=== PATIENT | male | born 1990 | race American Indian/Alaskan Native ===

== ENCOUNTER 2019-12-06 18:35 | Inpatient (IN) | payer OTHER, SELFPAY ==
[2019-12-06 18:40] VITALS: BP 156/107; PULSE 114; RESP 22; TEMP 36.8; O2SAT 98
[2019-12-06 19:07] LABS: Add Manual Diff / Slide Review NO; Basophils Absolute Auto 100 /uL (0-100); Basophils Percent Auto 0.9 % (0-2); Eosinophils Absolute Auto 0 /uL (0-450); Eosinophils Percent Auto 0.1 % (2-4); Hematocrit 50.4 % (41-53); Lymphocytes Absolute Auto 1000 /uL (1100-4500); Lymphocytes Percent Auto 7.1 % (25-40); Mean Corpuscular HGB Conc 33.8 % (30-36); Mean Corpuscular Hemoglobin 31.1 PG (26-34); Mean Corpuscular Volume 92.2 fL (80-100); Monocytes Absolute Auto 500 /uL (0-900); Monocytes Percent Auto 3.4 % (3-14); Neutrophils Absolute Auto 13100 /uL (1500-7000); Neutrophils Percent Auto 88.5 % (50-75); Platelet Count 336 X10^3/uL (150-400); Red Blood Cell Count 5.47 X10^6/uL (4.5-5.9); Red Cell Distribution Width 13.8 % (11.6-14.8); White Blood Cell Count 14.8 X10^3/uL (4.5-11.0)
[2019-12-06 19:29] LABS: Alanine Aminotransferase 116 IU/L (<50); Albumin 4.9 g/dL (3.5-5.0); Albumin Globulin Ratio 1.4 (1.0-2.8); Alkaline Phosphatase 111 U/L (38-126); Aspartate Aminotransferase 99 IU/L (17-59); BUN Creatinine Ratio 12.2 (6-22); Bilirubin Total 0.7 mg/dL (0.2-1.3); Blood Urea Nitrogen 11 mg/dL (9-20); Calcium 10.3 mg/dL (8.4-10.2); Carbon Dioxide 27 mmol/L (22-32); Chloride 98 mmol/L (98-107); Estimated Glomerular Filt Rate > 60.0 mL/min (>60); Globulin 3.6 g/dL (1.7-4.1); Glucose 152 mg/dL (70-100); HEMOLYSIS < 15 (0-50); Potassium 3.9 mmol/L (3.4-5.1); Sodium 138 mmol/L (137-145); Total Protein 8.5 g/dL (6.3-8.2)
[2019-12-06 19:30] VITALS: BP 155/80; PULSE 110; RESP 26; O2SAT 99
[2019-12-06 19:41] LABS: Troponin I < 0.012 ng/mL (0.01-0.034)
[2019-12-06 19:44] LABS: Lipase 4863 U/L (23-300)
[2019-12-06 20:00] VITALS: BP 135/92; PULSE 105; RESP 30; O2SAT 99
--- NOTE | 2019-12-06 20:43 | DI.US.S_ITS ---
PROCEDURE: US ABDOMEN LIMITED INDICATIONS: RIGHT UPPER QUADRANT PAIN TECHNIQUE: Real-time focused scanning was performed of the abdomen, with image documentation. COMPARISON: None. FINDINGS: The liver is enlarged and measures up to 21.5 cm in craniocaudal dimension. There is prominent increased echogenicity of the liver when compared to the right kidney. This does result in difficulty evaluating the liver for deep liver lesions. No large liver lesions are identified. The gallbladder is normal in size. There is no cholelithiasis or evidence of gallbladder wall inflammation. Intrahepatic bile ducts were not adequately seen; however, are not substantially dilated. The common bile duct measures 4 mm in diameter. The pancreas was not adequately seen related to overlying bowel gas. Only partially included on this examination is the right kidney, which is grossly normal. However, the right kidney is not entirely imaged. The abdominal aorta and inferior vena cava were also not imaged. IMPRESSION: 1. No cholelithiasis or evidence of acute cholecystitis. 2. Hepatomegaly with probable hepatic steatosis. Clinical correlation to exclude other chronic liver diseases is recommended. Note: The preliminary report provided by [facility]. is concordant with the final report. Dictated by: Tim Pride M.D. on 12/07/2019 at 8:31 Approved by: Tim Pride M.D. on 12/07/2019 at 8:32
--- NOTE | 2019-12-06 20:48 | ED_ITS ---
HPI - General Adult General Chief complaint: Abdominal Pain Stated complaint: EXTREME STOMACH AND BACK PAIN Time Seen by Provider: 12/06/19 20:37 Source: patient Mode of arrival: Ambulatory History of Present Illness HPI narrative: For evaluation of epigastric and left upper quadrant abdominal pain and nausea and vomiting. Has had the symptoms for the past 24-48 hours however is worsened over the past 12. States that he gets nauseous and vomits every time he tries to eat anything. States he does drink alcohol. States he drinks ?6 shots? a day and more on the weekends. Denies any other drug use. No urinary symptoms. No change in his bowel habits. Review of Systems Constitutional Constitutional: Denies fever(s) Cardiovascular Cardiovascular: Denies chest pain and Denies dyspnea Respiratory Respiratory: Denies dyspnea Gastrointestinal Gastrointestinal: Reports abdominal pain, Reports nausea and Reports vomiting Genitourinary Genitourinary: Denies dysuria Musculoskeletal Musculoskeletal: Denies myalgias and Denies arthralgias Integumentary/Breasts Skin/Breast: Denies lesions and Denies rash Neurologic Neurologic: Denies behavioral changes Psychiatric Psychiatric: Denies behavioral changes Hematologic/Lymphatic Hematologic/Lymphatic: Denies easy bleeding and Denies easy bruising Patient History Medical History Patient denies medical problems (Acute) Social History Smoking Status: Current every day smoker Smoking Status: Current every day smoker alcohol intake frequency: 3 or more drinks per day Exam Initial Vital Signs Initial Vital Signs: Vital Signs Temperature 98.3 F 12/06/19 18:40 Pulse Rate 114 H 12/06/19 18:40 Respiratory Rate 22 12/06/19 18:40 Blood Pressure 156/107 H 12/06/19 18:40 Pulse Oximetry 98 12/06/19 18:40 Const General: cooperative, comfortable and well developed Limitations: mental status not altered HENOK Head: normal to inspection and normocephalic Resp Effort & Inspection: normal respiratory effort Auscultation: clear to auscultation bilaterally Cardio Rate: tachycardic Rhythm: regular rhythm GI Inspection: non-distended Palpation: soft, No firm and tender (Epigastric and left upper quadrant) Back/Spine/Pelvis Back: No CVA tenderness Skin Lesions: no lesions Rashes: no rashes Neuro General: alert and awake Cognition: normal cognition Speech: speech normal Extrem General: normal to inspection and capillary refill normal Psych Appearance: grossly normal and well kempt Scores GCS Harsh coma scale eye opening: Spontaneous [place] coma scale verbal response: Orientated Harsh coma scale motor response: Obey commands Harsh coma scale total score: 15 Course Orders Ordered: ED Orders 12/06/19 18:42 EKG-12 Lead Stat 12/06/19 18:55 Complete Blood Count AUTO DIFF Stat Comprehensive Metabolic Panel Stat Ethanol (ETOH) Stat Lipase Stat Troponin I Stat 12/06/19 20:43 US abdomen limited Stat Sodium Chloride (Normal Saline 0.9%) 1,000 mls @ 150 mls/hr IV CONT NERI Last Admin: 12/06/19 22:18 Dose: 1,000 mls/hr Documented by: MOMO Discontinued Medications Hydromorphone HCl (Dilaudid) 0.5 mg IV NOW ONE Stop: 12/06/19 22:32 Last Admin: 12/06/19 22:37 Dose: 0.5 mg Documented by: MOMO Morphine Sulfate (Morphine) 2 mg IV NOW ONE Stop: 12/06/19 20:49 Last Admin: 12/06/19 21:18 Dose: 2 mg Documented by: MOMO Morphine Sulfate (Morphine) 2 mg IV NOW ONE Stop: 12/06/19 22:12 Last Admin: 12/06/19 22:15 Dose: 2 mg Documented by: MOMO Vital Signs Vital signs: Vital Signs - 8 hr 12/06/19 18:40 12/06/19 19:30 12/06/19 20:00 Temperature 98.3 F Pulse Rate 114 H 110 H 105 H Respiratory Rate 22 26 H 30 H Blood Pressure 156/107 H Blood Pressure [Right Arm] 155/80 H 135/92 H Pulse Oximetry 98 99 99 Medical Decision Making Lab Data Lab results reviewed: Yes I reviewed the patient's lab results. Result diagrams: 12/06/19 18:55 12/06/19 18:55 Labs: Lab Results 12/06/19 12/06/19 12/06/19 Range/Units 18:55 18:55 18:55 WBC 14.8 H (4.5-11.0) X10^3/uL RBC 5.47 (4.5-5.9) X10^6/uL Hgb 17.0 (13.5-17.5) g/dL Hct 50.4 (41-53) % MCV 92.2 (80-100) fL MCH 31.1 (26-34) PG MCHC 33.8 (30-36) % RDW 13.8 (11.6-14.8) % Plt Count 336 (150-400) X10^3/uL Neut % (Auto) 88.5 H (50-75) % Lymph % (Auto) 7.1 L (25-40) % [place] % (Auto) 3.4 (3-14) % Eos % (Auto) 0.1 L (2-4) % Baso % (Auto) 0.9 (0-2) % Neut # (Auto) 26613 H (8675-0005) /uL Lymph # (Auto) 1000 L (2471-7757) /uL [place] # (Auto) 500 (0-900) /uL Eos # (Auto) 0 (0-450) /uL Baso # (Auto) 100 (0-100) /uL Sodium 138 (137-145) mmol/L Potassium 3.9 (3.4-5.1) mmol/L Chloride 98 (98-107) mmol/L Carbon Dioxide 27 (22-32) mmol/L BUN 11 (9-20) mg/dL Creatinine 0.90 (0.66-1.25) mg/dL Estimated GFR > 60.0 (>60) mL/min BUN/Creatinine Ratio 12.2 (6-22) Glucose 152 H (70-100) mg/dL Calcium 10.3 H (8.4-10.2) mg/dL Total Bilirubin 0.7 (0.2-1.3) mg/dL AST 99 H (17-59) IU/L ALT 116 H (<50) IU/L Alkaline Phosphatase 111 (38-126) U/L Troponin I < 0.012 (0.01-0.034) ng/mL Total Protein 8.5 H (6.3-8.2) g/dL Albumin 4.9 (3.5-5.0) g/dL Globulin 3.6 (1.7-4.1) g/dL Albumin/Globulin Ratio 1.4 (1.0-2.8) Lipase 4863 H (23-300) U/L Ethyl Alcohol < 10 ( - 10) mg/dL Imaging Data US - abdomen: Radiologist's Impression: Hepatomegaly with fatty infiltration of the liver ECG Data Attestation: I personally reviewed and interpreted this ECG as follows: Prior ECG tracings: not available for review Interpretation: Sinus tachycardia Ventricular rate of 101 Normal axis Normal QRS Normal QTC No ST T wave changes MDM Narrative Medical decision making narrative: Patient with labs and physical exam consistent with pancreatitis most likely from his alcohol use. Does have a slight elevation in his LFTs however his right upper quadrant ultrasound was negative for acute gallbladder pathology. Symptoms somewhat controlled with medications. He is afebrile. His leukocytosis. Discussed the case with BRIQUETTE MACHINE OPERATOR HELPER Eugenio the night provider who will admit for further evaluation. Discussed this with the patient who expressed understanding and agreement. Discharge Plan Departure Patient Disposition: Admitted As Inpatient Clinical Impression: Pancreatitis Qualifiers: Chronicity: acute Pancreatitis type: alcohol induced Acute pancreatitis complication: unspecified Qualified Code(s): K85.20 - Alcohol induced acute pancreatitis without necrosis or infection
[2019-12-06 21:01] LABS: Ethanol (ETOH) < 10 mg/dL
[2019-12-06] MEDS: MORPHINE 2 MG/ML INJ IV ×2 (21:18→22:15)
[2019-12-06] MEDS: SODIUM CHLORIDE 0.9% 1,000 ML 1000 ML IV (22:18)
[2019-12-06] MEDS: HYDROMORPHONE 0.5 MG INJ IV (22:37)
[2019-12-06 23:29] VITALS: O2SAT 95
--- NOTE | 2019-12-06 23:36 | P.HP_ITS ---
History of Present Illness History of Present Illness Date Patient Seen: 12/06/19 Time Patient Seen: 23:37 Chief complaint: EXTREME STOMACH AND BACK PAIN Narrative: Mr. Tc Marcelino is a 28-year-old male with history significant for hypertension, exercise induced asthma and alcohol abuse who presents to the ER for acute abdominal pain. The patient provides a history of 2 days poor sleep with abdominal pain. He describes his abdominal pain as left upper quadrant and epigastric. He has associated worsening of pain nausea and vomiting with eating. Developing back pain today prompting him to seek care in the emergency department. The patient provides history of drinking least 6 shots of Tequila daily. His last drink was approximately 24 hours ago. He has had withdrawal symptoms of tremors. The patient does report a fall 5 days ago slipping on icy steps with resulting low back pain. Patient medicated in the ER for his pain that he rates at 3/10, dull and aching. Patient describes no complaints of fevers or chills, headaches or dizziness, no nasal congestion or sore throat. He has had no chest pain or palpitations. He has no shortness of breath though he has exercise induced asthma for which she uses an inhaler. He has abdominal pain as described above but reports no changes in bowel or bladder habits. He reports no other extremity or joint pains. Upon arrival to the ER he is afebrile with temperature 98.3?, heart rate of 114, blood pressure 156/6107, respirations of 22 saturating 98% on room air. Abdominal ultrasound is obtained which finds hepatomegaly with fatty infiltrates of the liver, no notation is made of pancreatic changes or ductal dilation. On laboratory analysis the patient has an increased white count 14.8, hemoglobin of 17.0, hematocrit of 50.4 and platelets of 338. His electrolytes are within normal limits as a BUN of 11 and creatinine is 0.9. His nonfasting glucose is 152. He has a total bilirubin of 0.4, AST of 99, ALT 116 and alkaline phosphatase of 111. Has an elevated lipase of 4863. The patient is admitted to the medicine service for acute alcoholic pancreatitis. Patient History Medical History (Updated 12/07/19 @ 01:24 by CARLOS Vieira) Asthma, exercise induced (Acute) Hypertension (Acute) Patient denies medical problems (Acute) Surgical History No pertinent past surgical history (Acute) Family & Social History Family History (Updated 12/07/19 @ 01:26 by CARLOS Vieira) Father Hypertension Alcoholism Mother No significant medical problems Tobacco & Substance use: Smoking Status Current every day smoker alcohol intake frequency 3 or more drinks per day Comment: Patient lives in a single family home with his to whom has been for 9 years. He states that he has been estranged from his father but d oes know that has history of hypertension alcohol abuse. His mother reports his to be in good health. Overall he reports no family history of heart or kidney disease. His grandparents both had diabetes and his grandmother had breast cancer. Occupation: computer science teacher. Smoking: Patient endorses 1-2 cigarettes per day for 3-4 years. Alcohol: The patient reports 6 shots of Tequila daily. Substance use: The patient reports occasional cannabis. Advanced directives. The patient has no formal advanced directive who states his wish to be FULL CODE. He designates his to be surrogate decision maker. Meds Home Medications and Allergies Home Medications Medication Instructions Recorded Confirmed Type lisinopril 20 mg PO DAILY 12/06/19 12/07/19 History Allergies Allergy/AdvReac Type Severity Reaction Status Date / Time No Known Drug Allergies Allergy Verified 12/07/19 00:12 Review of Systems Review of Systems Narrative: All systems reviewed and found unremarkable under discussed in the HPI above. Exam Vital Signs (past 8 hours): - 12/06/19 18:40 12/06/19 19:30 12/06/19 20:00 Temperature 98.3 F Pulse Rate 114 H 110 H 105 H Respiratory Rate 22 26 H 30 H Blood Pressure 156/107 H Blood Pressure [Right Arm] 155/80 H 135/92 H Pulse Oximetry 98 99 99 Oxygen Delivery Method Room Air Narrative Exam Narrative: GENERAL APPEARANCE: well developed, obese male with BMI of 41.3, uncomfortable appearing HEENT: Normocephalic, PERRLA, conjunctiva clear, sclerae anicteric, EOMs intact without nystagmus, no sinus tenderness to percussion, no rhinorrhea, mucous membranes are moist and pink, white coating on tongue NECK/THYROID: Short stocky neck, supple, no JVD, no carotid bruit, no thyromegaly, trachea midline. LYMPH NODES: no cervical or supraclavicular lymphadenopathy. SKIN: [place], warm and dry, no visible lesions, rashes, ulcerations or petechiae. HEART: Tachycardic rate with regular rhythm, S1-S2, no murmur, no rubs or gallops, brisk capillary refill, no edema LUNGS: clear to auscultation bilaterally, no coarseness crackles or wheezing, no cough present CHEST: Symmetrical movement, no accessory muscle use, good tidal volume. ABDOMEN: abdominal tenderness epigastrium left upper and left lower quadrants, no guarding or peritoneal signs, no organomegaly, no flank tenderness, active bowel tones. BACK: Mild tenderness to lumbar spine on palpation. EXTREMITIES: moves all extremities, strength is 5/5 and symmetrical, no de formities or joint effusions. NEUROLOGIC: AAO x4, no focal neurologic deficits, sensation intact to light touch, hearing grossly normal to speech. PSYCH: Cooperative, linear thought process, appropriate with stable behavior Objective Labs Result Diagrams: 12/06/19 18:55 12/06/19 18:55 Labs: Laboratory Results - last 24 hr 12/06/19 12/06/19 12/06/19 18:55 18:55 18:55 WBC 14.8 H RBC 5.47 Hgb 17.0 Hct 50.4 MCV 92.2 MCH 31.1 MCHC 33.8 RDW 13.8 Plt Count 336 Neut % (Auto) 88.5 H Lymph % (Auto) 7.1 L [place] % (Auto) 3.4 Eos % (Auto) 0.1 L Baso % (Auto) 0.9 Neut # (Auto) 57275 H Lymph # (Auto) 1000 L [place] # (Auto) 500 Eos # (Auto) 0 Baso # (Auto) 100 Sodium 138 Potassium 3.9 Chloride 98 Carbon Dioxide 27 BUN 11 Creatinine 0.90 Estimated GFR > 60.0 BUN/Creatinine Ratio 12.2 Glucose 152 H Calcium 10.3 H Total Bilirubin 0.7 AST 99 H ALT 116 H Alkaline Phosphatase 111 Troponin I < 0.012 Total Protein 8.5 H Albumin 4.9 Globulin 3.6 Albumin/Globulin Ratio 1.4 Lipase 4863 H Ethyl Alcohol < 10 Assessment & Plan Assessment & Plan narrative: This is a 28-year-old male who presents with 2 days of progressive abdominal pain developing back pain today with associated nausea vomiting with any oral intake. His diagnosed pancreatitis with history of alcohol dependence with mild withdrawal symptoms of tremors. 1. Acute pancreatitis, alcohol related, present on admission, active -patient with 2 days of progressive pain developing epigastric and left upper quadrant pain radiating to the back with associated nausea vomiting with oral intake. -abdominal ultrasound finding hepatomegaly with fatty liver but no ductal dilatation or peripancreatic fluid. -laboratory findings with leukocytosis of 14.8, lipase of 4863. Has elevated AST at 99 and ALT at 116 with normal bilirubin 0.7. Triglycerides are 114. -patient is NPO, normal saline 150 cc/hour. -hydromorphone 0.5-1 mg every 4 hours as needed for pain -Zofran 4 mg every 6 hours as needed for nausea 2. Alcohol dependence, present on admission, active -patient source history of 6 shots of Tequila daily -tox screen reveals alcohol of less than 10 mg/dL -patient with history of mild withdrawal symptoms tremors. -CIWA protocol -ordered lorazepam PO or IV per CIWA protocol 3. Essential hypertension, present on admission, active -patient with elevated blood pressure upon arrival 156/107 improved to 140 3/91 upon arrival to the floor, elevation believes related to pain. -will continue patient's home regimen of lisinopril 20 mg daily. 4. Asthma, exercise induced, stable. -no shortness of breath, no wheezing on exam. -patient's SpO2 is 95% on room air. -albuterol nebulizer every 2 hours as needed for shortness of breath or wheezing. VTE: SCDs, Lovenox Diet: NPO IV fluid: Normal saline 150 cc/hour The patient is admitted to the hospital due to the severity of his symptoms and risk for complications and adverse events. [facility] expected length of stay to be greater than 2 midnights. Scores GCS Christopher coma scale eye opening: Spontaneous Christopher coma scale verbal response: Orientated Harsh coma scale motor response: Obey commands Christopher coma scale total score: 15
[2019-12-06 23:44] VITALS: BP 169/96; PULSE 112; RESP 28; O2SAT 99
[2019-12-06 23:49] LABS: Magnesium 1.9 mg/dL (1.6-2.3); Triglycerides 114 mg/dL (35-150)
[2019-12-06 23:50] VITALS: BP 143/91; PULSE 116; RESP 16; TEMP 37; O2SAT 95
[2019-12-06 23:51] VITALS: BMI 41.3
[2019-12-07] VITALS (11 sets, daily range): BP systolic 124–150; BP diastolic 70–85; PULSE 113–121; RESP 18; TEMP 36.6–38.1; O2SAT 93–95
[2019-12-07] MEDS: HYDROMORPHONE 1 MG INJ IV ×5 (00:20→22:12)
[2019-12-07] MEDS: SODIUM CHLORIDE 0.9% 1,000 ML 150 ML IV ×4 (00:20→20:36)
--- NOTE | 2019-12-07 02:54 | PC.ADMIT ---
[id number] Admission Note: The patient,Tc Marcelino,28 y/o, was given written information regarding hospital policies, unit procedures and contact persons. Patient's smoking status: Current every day smoker. Vital Signs - 8 hr 12/06/19 19:30 12/06/19 20:00 12/06/19 23:44 Temperature Pulse Rate 110 H 105 H 112 H Respiratory Rate 26 H 30 H 28 H Blood Pressure 169/96 H Blood Pressure [Right Arm] 155/80 H 135/92 H Pulse Oximetry 99 99 99 12/06/19 23:50 Temperature 98.6 F Pulse Rate 116 H Respiratory Rate 16 Blood Pressure 143/91 H Blood Pressure [Right Arm] Pulse Oximetry 95 Patient arrived via W/C accompanied by ED LOAN SERVICE OFFICER and Tami, transferred self to bed. AXOX4, able to make needs known, no skin issues noted. Patient is tachycardic and hypertensive with regular rate and rhythm, lung sounds clear on room air, no complaints of nausea/vomiting but c/o abdominal pain and is tender on palpation, denies diarrhea and has stooled in the last 24 hours. Patient reports last drink was 24 hours prior and is CIWA of 0 at time of admission. Patient acknowledges during therapeutic communication that his lifestyle and drinking habits have contributed to his admission to the hospital. present for all conversations and education. Oriented to room and call light, patient reports recent fall in the last several days, is a moderate fall risk, bed alarm on and functioning, call light in reach, patient calls appropriately.
[2019-12-07] MEDS: KETOROLAC 15 MG/ML VIAL IV ×3 (03:13→20:20)
[2019-12-07 07:35] LABS: Add Manual Diff / Slide Review NO; Basophils Absolute Auto 100 /uL (0-100); Basophils Percent Auto 0.7 % (0-2); Eosinophils Absolute Auto 0 /uL (0-450); Eosinophils Percent Auto 0.1 % (2-4); Hematocrit 45.2 % (41-53); Hemoglobin 15.2 g/dL (13.5-17.5); Lymphocytes Absolute Auto 1500 /uL (1100-4500); Lymphocytes Percent Auto 11.9 % (25-40); Mean Corpuscular HGB Conc 33.6 % (30-36); Mean Corpuscular Hemoglobin 31.3 PG (26-34); Mean Corpuscular Volume 93.1 fL (80-100); Monocytes Absolute Auto 1000 /uL (0-900); Monocytes Percent Auto 7.5 % (3-14); Neutrophils Absolute Auto 10100 /uL (1500-7000); Neutrophils Percent Auto 79.8 % (50-75); Platelet Count 291 X10^3/uL (150-400); Red Blood Cell Count 4.86 X10^6/uL (4.5-5.9); Red Cell Distribution Width 13.8 % (11.6-14.8); White Blood Cell Count 12.7 X10^3/uL (4.5-11.0)
[2019-12-07 07:49] LABS: Alanine Aminotransferase 75 IU/L (<50); Albumin 3.9 g/dL (3.5-5.0); Albumin Globulin Ratio 1.3 (1.0-2.8); Alkaline Phosphatase 69 U/L (38-126); Aspartate Aminotransferase 45 IU/L (17-59); BUN Creatinine Ratio 12.5 (6-22); Bilirubin Total 0.8 mg/dL (0.2-1.3); Bilirubin Unconjugated 0.7 mg/dL (0.0-1.1); Blood Urea Nitrogen 10 mg/dL (9-20); Calcium 9.3 mg/dL (8.4-10.2); Carbon Dioxide 24 mmol/L (22-32); Chloride 102 mmol/L (98-107); Estimated Glomerular Filt Rate > 60.0 mL/min (>60); Glucose 121 mg/dL (70-100); Potassium 3.9 mmol/L (3.4-5.1); Sodium 137 mmol/L (137-145); Total Protein 6.9 g/dL (6.3-8.2)
[2019-12-07 07:55] LABS: HEMOLYSIS 17 (0-50)
[2019-12-07 07:56] LABS: Lipase 2244 U/L (23-300)
[2019-12-07 08:16] LABS: Hemoglobin A1C% w Est Avg Glu 5.3 % (4.0-6.0)
[2019-12-07] MEDS: lisinopriL 20 MG TABLET PO (10:14)
[2019-12-07] MEDS: ENOXAPARIN 40 MG/0.4 ML SYRINGE SUBCUT (10:15)
--- NOTE | 2019-12-07 10:48 | CM.DANOTE ---
DCP: Case received, EMR reviewed and met with patient. Introduced self and role. Was able to meet with patient. , Alana, was also present in room. Was able to obtain some baseline history regarding health and activity information from patient. DCP assessment completed with information currently available. Patient is a 28 year old male who admitted yesterday to the care of the hospitalist team. PCP: Dr. Alcaraz at [facility]. Payer: confirmed: Healthcare Management/[facility]. Patient came to the hospital via private vehicle secondary to acute abdominal epigastric pain. Patient holds diagnosis of acute alcoholic pancreatitis. Patient is on CIWA protocol, but according to nurse, Olga, has not noted signs of any DT. Patient has history of alcohol abuse, and drinks approximately 6 shots of alcohol per day. His glucose was 152, and patient is obese. Met with patient in his room. He was sitting up in bed, alert and oriented. His , Alana, was at bedside. He has two children. He is independent, and works at [employer]. Discussed his drinking briefly with him. He stated, after this, I don't that I will be drinking again. Discussed resources, and asked him if he needed any resources for his alcohol consumption. He mentioned that the [facility] does have resources that he can use. Confirmed that his primary doctor, Dr. Alcaraz, is at that clinic. P: DCP will continue to follow. He should be able to go home when he is medically stable. Will continue to be available if patient needs any resources. Cadence Estrada RN/Ring Stamper
--- NOTE | 2019-12-07 14:23 | PM.PN.1 ---
Subjective Subjective Date Patient Seen: 12/07/19 Interval history: Patient is 28-year-old male admitted with acute ETOH pancreatitis. This a.m. he reports improvement in his abdominal pain and he would like to try clear liquids. He has not had vomiting. Exam Vital Signs (past 8 hours): - 12/07/19 08:00 12/07/19 09:11 12/07/19 11:00 Temperature 99.2 F 99.3 F Pulse Rate 113 H 119 H Respiratory Rate 18 18 Blood Pressure 138/77 124/75 Pulse Oximetry 95 95 95 12/07/19 13:48 Temperature Pulse Rate Respiratory Rate Blood Pressure Pulse Oximetry 95 Oxygen Delivery Method Room Air Oxygen Flow Rate 0 Narrative Exam Narrative: GENERAL: Obese male who appears comfortable lying in bed CHEST: Clear to auscultation bilaterally. CARDIAC: Regular rate and rhythm. ABDOMEN: Soft, tender in epigastric and left upper quadrant EXTREMITIES: no edema. NEUROLOGICAL: Alert, pleasant, no focal findings SKIN: Warm, dry, no petechiae, no rash Objective Labs Result Diagrams: 12/07/19 06:43 12/07/19 06:43 Labs: Laboratory Results - last 24 hr 12/06/19 12/06/19 12/06/19 18:55 18:55 18:55 WBC 14.8 H RBC 5.47 Hgb 17.0 Hct 50.4 MCV 92.2 MCH 31.1 MCHC 33.8 RDW 13.8 Plt Count 336 Neut % (Auto) 88.5 H Lymph % (Auto) 7.1 L [place] % (Auto) 3.4 Eos % (Auto) 0.1 L Baso % (Auto) 0.9 Neut # (Auto) 13347 H Lymph # (Auto) 1000 L [place] # (Auto) 500 Eos # (Auto) 0 Baso # (Auto) 100 Sodium 138 Potassium 3.9 Chloride 98 Carbon Dioxide 27 BUN 11 Creatinine 0.90 Estimated GFR > 60.0 BUN/Creatinine Ratio 12.2 Glucose 152 H Hemoglobin A1c Calcium 10.3 H Magnesium Total Bilirubin 0.7 Conjugated Bilirubin Unconjugated Bilirubin AST 99 H ALT 116 H Alkaline Phosphatase 111 Troponin I < 0.012 Total Protein 8.5 H Albumin 4.9 Globulin 3.6 Albumin/Globulin Ratio 1.4 Triglycerides Lipase 4863 H Ethyl Alcohol < 10 12/06/19 12/07/19 12/07/19 18:55 06:43 06:43 WBC 12.7 H RBC 4.86 Hgb 15.2 Hct 45.2 MCV 93.1 MCH 31.3 MCHC 33.6 RDW 13.8 Plt Count 291 Neut % (Auto) 79.8 H Lymph % (Auto) 11.9 L [place] % (Auto) 7.5 Eos % (Auto) 0.1 L Baso % (Auto) 0.7 Neut # (Auto) 88175 H Lymph # (Auto) 1500 [place] # (Auto) 1000 H Eos # (Auto) 0 Baso # (Auto) 100 Sodium 137 Potassium 3.9 Chloride 102 Carbon Dioxide 24 BUN 10 Creatinine 0.80 Estimated GFR > 60.0 BUN/Creatinine Ratio 12.5 Glucose 121 H Hemoglobin A1c Calcium 9.3 Magnesium 1.9 Total Bilirubin 0.8 Conjugated Bilirubin 0.0 Unconjugated Bilirubin 0.7 AST 45 ALT 75 H Alkaline Phosphatase 69 Troponin I Total Protein 6.9 Albumin 3.9 Globulin 3.0 Albumin/Globulin Ratio 1.3 Triglycerides 114 Lipase 2244 H D Ethyl Alcohol 12/07/19 06:43 WBC RBC Hgb Hct MCV MCH MCHC RDW Plt Count Neut % (Auto) Lymph % (Auto) [place] % (Auto) Eos % (Auto) Baso % (Auto) Neut # (Auto) Lymph # (Auto) [place] # (Auto) Eos # (Auto) Baso # (Auto) Sodium Potassium Chloride Carbon Dioxide BUN Creatinine Estimated GFR BUN/Creatinine Ratio Glucose Hemoglobin A1c 5.3 Calcium Magnesium Total Bilirubin Conjugated Bilirubin Unconjugated Bilirubin AST ALT Alkaline Phosphatase Troponin I Total Protein Albumin Globulin Albumin/Globulin Ratio Triglycerides Lipase Ethyl Alcohol Assessment & Plan Assessment & Plan narrative: This is a 28-year-old male who presents with 2 days of progressive abdominal pain developing back pain today with associated nausea vomiting with any oral intake. He is admitted due to acute pancreatitis with history of alcohol dependence with mild withdrawal symptoms of tremors. 1. Acute pancreatitis, alcohol related, present on admission, active -improving abdominal pain, decrease in WBC elevation since admission -patient with 2 days of progressive pain developing epigastric and left upper quadrant pain radiating to the back with associated nausea vomiting with oral intake. -abdominal ultrasound finding hepatomegaly with fatty liver but no ductal dilatation or peripancreatic fluid. -initial laboratory findings with leukocytosis of 14.8, lipase of 4863. Has elevated AST at 99 and ALT at 116 with normal bilirubin 0.7. Triglycerides are 114. -start clear liquid diet -normal saline 150 cc/hour. -hydromorphone 0.5-1 mg every 4 hours as needed for pain -Toradol 50 mg IV q.6 hours as needed -Zofran 4 mg every 6 hours as needed for nausea 2. Alcohol dependence, with mild withdrawal, present on admission, active -patient source history of 6 shots of Tequila daily -tox screen reveals alcohol of less than 10 mg/dL -patient with history of mild withdrawal symptoms tremors. -[facility] protocol -ordered lorazepam PO or IV per CIWA protocol but has not needed -patient advised of alcohol cessation 3. Essential hypertension, present on admission, active -patient with elevated blood pressure upon arrival 156/107 improved to normal range -continue patient's home regimen of lisinopril 20 mg daily. 4. Asthma, exercise induced, stable. -no shortness of breath, no wheezing on exam. -patient's SpO2 is 95% on room air. -albuterol nebulizer every 2 hours as needed for shortness of breath or wheezing. 5. Severe obesity -BMI 41 -patient advised to lose weight with maintaining a healthy calorie control diet and regular exercise VTE: SCDs, Lovenox Patient with improving course and possibly may be able to discharge home tomorrow if abdominal pain controlled and tolerating full liquid or regular diet. Quality VTE Deep Vein Thrombosis/Pulmonary Embolism Present on Admission: No
[2019-12-07] MEDS: ACETAMINOPHEN 325 MG TABLET 650 MG PO (16:48)
[2019-12-08] VITALS (18 sets, daily range): BP systolic 131–154; BP diastolic 69–107; PULSE 111–131; RESP 18–23; TEMP 36.7–37.9; O2SAT 93–96; BMI 41.3
--- NOTE | 2019-12-08 00:39 | PC.NURSE ---
Addendum entered by Ayanna Antoine R.N. 12/08/19 06:32: Noted when HR checked earlier after patient was up to BR was 130 so rechecked and at this time HR is 122 with patient asleep. BP has been elevated at 148/91 and 148/81. Lonnie GONZALEZ, informed of above. Addendum entered by Ayanna Antoine R.N. 12/08/19 05:05: Requested/medicated with Tylenol for headache. Addendum entered by Ayanna Antoine R.N. 12/08/19 02:17: Complains of 5/10 epigastric pain with deep breathing and requesting pain med; medicated with IV Dilaudid Original Note: Patient is alert and oriented. Breath sounds diminished at bases; RA sat 96%. States epigastric pain increases with deep breathing. HRR but tachy at 115 bpm and BP elevated at 148/91. Denies nausea. BT present; abdomen is soft and non tender to palpation. Denies dysuria, frequency or urgency with urination. Able to move self in bed. Has been getting up to bathroom independently per report but requested patient to call for assistance during the night for safety. Agreeable to having calf SCD's reapplied at this time. States epigastric pain is tolerable at 4/10. CIWA score is 1. Fall risk score is moderate; bed alarm activated for safety.
[2019-12-08] MEDS: HYDROMORPHONE 0.5 MG INJ IV ×2 (02:15→08:03)
[2019-12-08] MEDS: SODIUM CHLORIDE 0.9% 1,000 ML 150 ML IV ×3 (03:04→23:09)
[2019-12-08] MEDS: ACETAMINOPHEN 325 MG TABLET 650 MG PO ×2 (05:04→17:24)
[2019-12-08 07:10] LABS: Blood Urea Nitrogen 7 mg/dL (9-20); Calcium 8.6 mg/dL (8.4-10.2); Carbon Dioxide 20 mmol/L (22-32); Chloride 107 mmol/L (98-107); Estimated Glomerular Filt Rate > 60.0 mL/min (>60); Glucose 96 mg/dL (70-100); HEMOLYSIS < 15 (0-50); Potassium 3.8 mmol/L (3.4-5.1); Sodium 137 mmol/L (137-145)
[2019-12-08] MEDS: ENOXAPARIN 40 MG/0.4 ML SYRINGE SUBCUT (09:04)
[2019-12-08] MEDS: KETOROLAC 15 MG/ML VIAL IV ×3 (09:04→23:09)
[2019-12-08] MEDS: lisinopriL 20 MG TABLET PO (09:04)
--- NOTE | 2019-12-08 11:36 | DIET.PN ---
Dietary Progress Note Assessment: 28y male admitted for etoh related pancreatitis referred to nutrition for morbid obesity at young age. Pt tolerating clears, does not like drinking the salty broth with jello so consuming ~50% POs. Pt usual intake includes Red Bull at 10am, leftovers or something from freezer for lunch then meat portion c radha salad and rice for dinner. Pt does not like many veggies but will eat caesar salad, asparagus, and zucchini. HT: 167.6cm WT: 116kg BMI: 41.3 Labs: A1c 5.3 normal, lipase 4863 H and trending down MNA: 14 normal Faustino: 22 Nutrition Diagnosis: excessive etoh use (6 shots tequila/d) r/t knowledge deficit of moderate etoh intake for men aeb pt admitted for etoh pancreatitis, pt risk factor of obesity (41.3 BMI). Interventions: 1. Discussed moderate etoh consumption for male is no more than 2 units per day c no more than 8 units in a week. Pt endorses average of 6 units per day, plans to cut back or eliminate etoh. 2. Discussed healthy diet for weight loss/maintenance using Mediterranean diet handout and Sobriety nutrition handout. 3. Discussed preparing zucchini in variety of ways to make them more interesting including baked covered in panko as sticks, as zoodles, and with different non-salt seasonings. Diet Order: Clears EER: 2300kcal (-500kcal for wt loss), 90g PRO (0.8g/kg adult), 3L fluids Monitoring/Evaluations: diet advancement and tolerance
[2019-12-08] MEDS: HYDROMORPHONE 1 MG INJ IV (13:33)
--- NOTE | 2019-12-08 16:07 | PM.PN.1 ---
Subjective Subjective Date Patient Seen: 12/08/19 Interval history: Patient is a 28-year-old male admitted with acute ETOH pancreatitis. He is tolerating clear liquids although does not find appetite is in. No vomiting. Exam Vital Signs (past 8 hours): - 12/08/19 12:03 12/08/19 12:10 12/08/19 12:51 Temperature 98.8 F Pulse Rate 111 H Pulse Rate [Orthostatic Lying] 117 H Pulse Rate [Orthostatic Sitting] 117 H Pulse Rate [Orthostatic Standing] 122 H Respiratory Rate 23 Blood Pressure 147/93 H Blood Pressure [Orthostatic Lying] 149/89 H Blood Pressure [Orthostatic Sitting] 145/94 H Blood Pressure [Orthostatic Standing] 147/93 H Pulse Oximetry 93 96 Oxygen Delivery Method Room Air Oxygen Flow Rate 0 Narrative Exam Narrative: GENERAL: Obese male who appears comfortable lying in bed CHEST: Clear to auscultation bilaterally. CARDIAC: Regular rate and rhythm. ABDOMEN: Soft, minimally tender in epigastric and left upper quadrant EXTREMITIES: no edema. NEUROLOGICAL: Alert, pleasant, no focal findings SKIN: Warm, dry, no petechiae, no rash Objective Labs Result Diagrams: 12/07/19 06:43 12/08/19 06:50 Labs: Laboratory Results - last 24 hr 12/08/19 06:50 Sodium 137 Potassium 3.8 Chloride 107 Carbon Dioxide 20 L BUN 7 L Creatinine 0.70 Estimated GFR > 60.0 BUN/Creatinine Ratio 10.0 Glucose 96 Calcium 8.6 Assessment & Plan Assessment & Plan narrative: This is a 28-year-old male who presents with 2 days of progressive abdominal pain developing back pain today with associated nausea vomiting with any oral intake. He is admitted due to acute pancreatitis with history of alcohol dependence with mild withdrawal symptoms of tremors. 1. Acute pancreatitis, alcohol related, present on admission, active, resolved -improving abdominal pain, decrease in WBC elevation since admission -patient with 2 days of progressive pain developing epigastric and left upper quadrant pain radiating to the back with associated nausea vomiting with oral intake. -abdominal ultrasound finding hepatomegaly with fatty liver but no ductal dilatation or peripancreatic fluid. -initial laboratory findings with leukocytosis of 14.8, lipase of 4863. Has elevated AST at 99 and ALT at 116 with normal bilirubin 0.7. Triglycerides are 114. -advance diet to full liquid -normal saline 150 cc/hour as still not taking enough fluids by mouth -discontinue hydromorphone, oxycodone 5 mg q.4 hours as needed -Toradol 50 mg IV q.6 hours as needed -Zofran 4 mg every 6 hours as needed for nausea 2. Alcohol dependence, with mild withdrawal, present on admission, resolved -patient source history of 6 shots of Tequila daily -tox screen reveals alcohol of less than 10 mg/dL -patient with history of mild withdrawal symptoms tremors. -[facility] protocol -ordered lorazepam PO or IV per [facility] protocol but has not needed -patient advised of alcohol cessation 3. Essential hypertension, present on admission, active -patient with elevated blood pressure upon arrival 156/107 improved to normal range -continue patient's home regimen of lisinopril 20 mg daily. 4. Asthma, exercise induced, stable. -no shortness of breath, no wheezing on exam. -patient's SpO2 is 95% on room air. -albuterol nebulizer every 2 hours as needed for shortness of breath or wheezing. 5. Severe obesity -BMI 41 -patient advised to lose weight with maintaining a healthy calorie control diet and regular exercise VTE: SCDs, Lovenox Patient with improving course and possibly may discharge home tomorrow if abdominal pain controlled and tolerating full liquid or regular diet. Quality VTE Deep Vein Thrombosis/Pulmonary Embolism Present on Admission: No
[2019-12-08] MEDS: OXYCODONE IR 5 MG TABLET PO (19:08)
[2019-12-09] MEDS: OXYCODONE IR 5 MG TABLET PO ×2 (00:26→05:34)
--- NOTE | 2019-12-09 01:26 | PC.NURSE ---
Addendum entered by Ayanna Antoine R.N. 12/09/19 05:38: Slept most of shift. Denies epigastric pain this morning but complains of 4/10 low back pain; medicated with Oxycodone. Original Note: Patient is alert and oriented. Breath sounds are CTA with RA sat of 94%. HRR but continues to be tachy at 120 range. BP also elevated at 150/88. Orthostatics done and note minimal change with position change. Denies nausea. Up to bathroom with SBA and reports a small loose stool. Voiding per urinal; denies dysuria, frequency or urgency. BT present and denies tenderness. Does complain of 4/10 low back pain and 3/10 epigastric pain and was medicated with Oxycodone and currently asleep. Can turn himself in bed. Wearing bilateral calf SCD's. CIWA score is 1 due to perspiration. Fall risk score is moderate; bed alarm is activated for safety.
[2019-12-09 04:25] VITALS: BP 150/92; PULSE 117; RESP 18; TEMP 37.7; O2SAT 94
[2019-12-09] MEDS: SODIUM CHLORIDE 0.9% 1,000 ML 150 ML IV (05:35)
[2019-12-09 08:00] VITALS: BP 147/95; PULSE 122; RESP 18; TEMP 37.3; O2SAT 96
[2019-12-09 08:11] VITALS: O2SAT 98
[2019-12-09] MEDS: lisinopriL 20 MG TABLET PO (09:51)
[2019-12-09] MEDS: ACETAMINOPHEN 325 MG TABLET 650 MG PO (09:51)
--- NOTE | 2019-12-09 09:54 | P.DS_ITS ---
History of Present Illness History of Present Illness Chief complaint: EXTREME STOMACH AND BACK PAIN Narrative: Mr. Tc Marcelino is a 28-year-old male with history significant for hypertension, exercise induced asthma and alcohol abuse who presents to the ER for acute abdominal pain. The patient provides a history of 2 days poor sleep with abdominal pain. He describes his abdominal pain as left upper quadrant and epigastric. He has associated worsening of pain nausea and vomiting with eating. Developing back pain today prompting him to seek care in the emergency department. The patient provides history of drinking least 6 shots of Tequila daily. His last drink was approximately 24 hours ago. He has had withdrawal symptoms of tremors. The patient does report a fall 5 days ago slipping on icy steps with resulting low back pain. Patient medicated in the ER for his pain that he rates at 3/10, dull and aching. Patient describes no complaints of fevers or chills, headaches or dizziness, no nasal congestion or sore throat. He has had no chest pain or palpitations. He has no shortness of breath though he has exercise induced asthma for which she uses an inhaler. He has abdominal pain as described above but reports no changes in bowel or bladder habits. He reports no other extremity or joint pains. Upon arrival to the ER he is afebrile with temperature 98.3?, heart rate of 114, blood pressure 156/6107, respirations of 22 saturating 98% on room air. Abdominal ultrasound is obtained which finds hepatomegaly with fatty infiltrates of the liver, no notation is made of pancreatic changes or ductal dilation. On laboratory analysis the patient has an increased white count 14.8, hemoglobin of 17.0, hematocrit of 50.4 and platelets of 338. His electrolytes are within n ormal limits as a BUN of 11 and creatinine is 0.9. His nonfasting glucose is 152. He has a total bilirubin of 0.4, AST of 99, ALT 116 and alkaline phosphatase of 111. Has an elevated lipase of 4863. The patient is admitted to the medicine service for acute alcoholic pancreatitis. Discharge Providers Provider Date of admission: 12/06/19 23:02 Discharge Date: 12/09/19 Consults: 12/06/19 23:32 Consult to Dietitian, Adult Routine Comment: Reason For Exam: ETOH abuse, pancreatitis Consult to Discharge Planning Routine Comment: Discharge provider: Beto Slater MD Summary Hospital Course Discharge Diagnosis: 1. Acute ETOH pancreatitis 2. Alcohol dependency 3. Mild ETOH withdrawal 4. Essential hypertension 5. Exercise induced asthma Hospital Course: Patient was treated with initial bowel rest, IV fluids, IV pain medication. He did not have any severe ETOH withdrawal symptoms. He is tolerating a full liquid diet prior to discharge. He is advised as to alcohol cessation and avoiding fatty foods at least for the next week. He has resources for alcohol treatment through the [facility]. Status at Discharge Cognitive/behavioral status at discharge: oriented Functional status at discharge: independent ambulation Overall status at discharge: patient is progressing back to baseline Time Spent with Patient Time spent: Less than 30 minutes Exam Vital Signs (past 8 hours): - 12/09/19 04:25 12/09/19 08:00 12/09/19 08:11 Temperature 99.8 F H 99.1 F Pulse Rate 117 H 122 H Respiratory Rate 18 18 Blood Pressure 150/92 H 147/95 H Pulse Oximetry 94 96 98 Oxygen Delivery Method Room Air Oxygen Flow Rate 0 Objective Labs Result Diagrams: 12/07/19 06:43 12/08/19 06:50 Discharge Plan Discharge Plan Patient Disposition: Home Discharge comment: You were treated for alcoholic pancreatitis. Advance diet as tolerated (avoiding fats for the next week). Take Tylenol or ibuprofen OTC as needed following instructions on pill bottle. Remain abstinent from alcohol use. Discharge orders & Medications Prescriptions: Continued lisinopril 20 mg Tablet 20 mg PO DAILY RF: 0 Diet/Activity/Treatments Diet: Low-fat Quality VTE Deep Vein Thrombosis/Pulmonary Embolism Present on Admission: No
--- NOTE | 2019-12-09 10:57 | PC.NURSE ---
Day shift: Pt off unit at approx 1100. Paperwork signed and all questions answered. Pt encouraged to f/u w/ PCP for increased HR while here at [facility] as well to let them know that he had been admitted here. No new MD scrips. Pt has all personal belongings. Taken to car driven by friend in w/ JONATHAN Del Toro.
--- NOTE | 2019-12-09 12:14 | CM.DPC ---
DCP: continued: case received and discussed in Team Rounds. Pt was ok'd for a d/c back home today. A check in now shows that pt did go home at about 1115 and a friend was yuri mosquera. He will followup [facility].
== END 2019-12-09 10:58 | disposition home or self-care (01) | DRG 439 ==
LOC: ED 22:21 → AC 23:03
PROVIDERS: Internal Medicine; Admitting Provider Nurse Practitioner Adult Health; Emergency Provider Emergency Medicine; Visit Provider Nurse Practitioner Adult Health
DX: K85.20 Alcohol induced acute pancreatitis without necrosis or infection (principal); Z68.41 Body mass index [BMI] 40.0-44.9, adult; F10.20 Alcohol dependence, uncomplicated; Y90.0 Blood alcohol level of less than 20 mg/100 ml; I10 Essential (primary) hypertension; F17.210 Nicotine dependence, cigarettes, uncomplicated; E66.01 Morbid (severe) obesity due to excess calories; R00.0 Tachycardia, unspecified
CPT/HCPCS: 36415; 76705; 80048; 80053; 80076; 80320; 83036; 83690; 83735; 84478; 84484; 85025; 93005; 96361; 96374; 96376; 99284; 99285; 99406; J1170; J1650; J1885; J2270

== ENCOUNTER → 2020-01-31 11:55 | Outpatient (ROUT) | payer OTHER, SELFPAY ==
[2020-01-31 12:00] LABS: Add Manual Diff / Slide Review NO; Basophils Absolute Auto 100 /uL (0-100); Basophils Percent Auto 0.3 % (0-2); Eosinophils Absolute Auto 0 /uL (0-450); Hematocrit 51.6 % (41-53); Hemoglobin 17.1 g/dL (13.5-17.5); Lymphocytes Absolute Auto 1600 /uL (1100-4500); Lymphocytes Percent Auto 6.6 % (25-40); Mean Corpuscular HGB Conc 33.2 % (30-36); Mean Corpuscular Hemoglobin 31.2 PG (26-34); Monocytes Absolute Auto 1300 /uL (0-900); Monocytes Percent Auto 5.3 % (3-14); Neutrophils Absolute Auto 21300 /uL (1500-7000); Neutrophils Percent Auto 87.8 % (50-75); Platelet Count 262 X10^3/uL (150-400); Red Blood Cell Count 5.49 X10^6/uL (4.5-5.9); White Blood Cell Count 24.2 X10^3/uL (4.5-11.0)
[2020-01-31 12:10] LABS: Alanine Aminotransferase 38 IU/L (<50); Albumin 4.3 g/dL (3.5-5.0); Albumin Globulin Ratio 1.2 (1.0-2.8); Alkaline Phosphatase 101 U/L (38-126); Aspartate Aminotransferase 60 IU/L (17-59); BUN Creatinine Ratio 21.6 (6-22); Bilirubin Total 1.7 mg/dL (0.2-1.3); Blood Urea Nitrogen 22 mg/dL (9-20); Carbon Dioxide 19 mmol/L (22-32); Chloride 95 mmol/L (98-107); Estimated Glomerular Filt Rate > 60.0 mL/min (>60); Globulin 3.6 g/dL (1.7-4.1); Glucose 130 mg/dL (70-100); HEMOLYSIS 176 (0-50); Lipase 1229 U/L (23-300); Potassium 5.4 mmol/L (3.4-5.1); Sodium 135 mmol/L (137-145); Total Protein 7.9 g/dL (6.3-8.2)
== END ==
PROVIDERS: Visit Provider Family Medicine
DX: K85.20 Alcohol induced acute pancreatitis without necrosis or infection (principal)
CPT/HCPCS: 80053; 83690; 85025

== ENCOUNTER → 2020-02-01 07:42 | Outpatient (CLI) | payer OTHER, SELFPAY ==
[2020-02-01 08:35] LABS: Add Manual Diff / Slide Review NO; Basophils Absolute Auto 100 /uL (0-100); Basophils Percent Auto 0.4 % (0-2); Eosinophils Absolute Auto 0 /uL (0-450); Hematocrit 43.6 % (41-53); Hemoglobin 14.6 g/dL (13.5-17.5); Lymphocytes Absolute Auto 1900 /uL (1100-4500); Lymphocytes Percent Auto 9.4 % (25-40); Mean Corpuscular HGB Conc 33.5 % (30-36); Mean Corpuscular Hemoglobin 31.1 PG (26-34); Mean Corpuscular Volume 92.7 fL (80-100); Monocytes Absolute Auto 1400 /uL (0-900); Monocytes Percent Auto 6.9 % (3-14); Neutrophils Absolute Auto 16400 /uL (1500-7000); Neutrophils Percent Auto 83.3 % (50-75); Platelet Count 249 X10^3/uL (150-400); Red Cell Distribution Width 15.2 % (11.6-14.8); White Blood Cell Count 19.7 X10^3/uL (4.5-11.0)
[2020-02-01 09:13] LABS: Alanine Aminotransferase 38 IU/L (<50); Albumin 3.8 g/dL (3.5-5.0); Albumin Globulin Ratio 1.3 (1.0-2.8); Alkaline Phosphatase 94 U/L (38-126); Aspartate Aminotransferase 57 IU/L (17-59); BUN Creatinine Ratio 14.1 (6-22); Bilirubin Total 1.2 mg/dL (0.2-1.3); Blood Urea Nitrogen 11 mg/dL (9-20); Calcium 9.4 mg/dL (8.4-10.2); Carbon Dioxide 25 mmol/L (22-32); Chloride 96 mmol/L (98-107); Estimated Glomerular Filt Rate > 60.0 mL/min (>60); Glucose 111 mg/dL (70-100); HEMOLYSIS < 15 (0-50); Lipase 547 U/L (23-300); Potassium 4.4 mmol/L (3.4-5.1); Sodium 135 mmol/L (137-145); Total Protein 6.8 g/dL (6.3-8.2)
== END ==
PROVIDERS: PCP Family Medicine; Referring Provider Family Medicine; Visit Provider Family Medicine
DX: K85.20 Alcohol induced acute pancreatitis without necrosis or infection (principal)
CPT/HCPCS: 36415; 80053; 83690; 85025

== ENCOUNTER 2020-02-01 15:57 | Emergency (ER) | payer OTHER, SELFPAY ==
[2020-02-01 16:07] VITALS: BP 145/90; PULSE 126; RESP 13; TEMP 36.6; O2SAT 96
--- NOTE | 2020-02-01 16:09 | ED_ITS ---
HPI - General Adult General Chief complaint: Abdominal Pain Stated complaint: HIGH WHITE BLOOD COUNT ABD PAIN Time Seen by Provider: 02/01/20 15:58 Source: patient Mode of arrival: Ambulatory Limitations: no limitations History of Present Illness HPI narrative: Patient is a 29-year-old male. I have evaluated him in the past and admit him to the hospital for acute alcoholic pancreatitis. Patient was sent over today from his primary doctor for evaluation because he had blood performed earlier today which showed an elevated white blood cell count, patient was also complaining of left upper quadrant abdominal pain and that he also had a lipase in the 500s. Patient states that all of his symptoms started on Friday. He states that he ate some spicy food. Had some vomiting afterwards. That is when his left upper quadrant abdominal pain started. He actually states that today his abdominal pain is better than what it was just a few days ago. He is no longer nauseous. Has not vomiting. He stated that he had a fever on Friday but nothing since then. Followed up with his primary doctor today and had the blood drawn. When that was resulted he was told to come in. He states that he is feeling well enough that if he was not instructed to come to the emergency department by his primary doctor he would not be here. No diarrhea. No skin changes. No urinary symptoms. No coughing. No chest pain. No shortness of breath. Related Data Home Medications Medication Instructions Recorded Confirmed lisinopril 20 mg PO DAILY 12/06/19 12/07/19 Allergies Allergy/AdvReac Type Severity Reaction Status Date / Time No Known Drug Allergies Allergy Verified 12/07/19 00:12 Review of Systems Constitutional Constitutional: Reports fever(s) (Friday) Cardiovascular Cardiovascular: Denies chest pain, Denies dyspnea and Denies dyspnea on exertion Respiratory Respiratory: Denies cough, Denies dyspnea and Denies dyspnea on exertion Gastrointestinal Gastrointestinal: Reports abdominal pain (Left upper quadrant/epigastric), Denies change in bowel habits, Denies nausea and Denies vomiting Genitourinary Genitourinary: Denies dysuria Musculoskeletal Musculoskeletal: Denies myalgias and Denies arthralgias Integumentary/Breasts Skin/Breast: Denies lesions and Denies rash Neurologic Neurologic: Denies behavioral changes Psychiatric Psychiatric: Denies behavioral changes Hematologic/Lymphatic Hematologic/Lymphatic: Denies easy bleeding and Denies easy bruising Allergic/Immunologic Allergic/Immunologic: Denies urticaria Patient History Medical History Asthma, exercise induced (Acute) Hypertension (Acute) Patient denies medical problems (Acute) Surgical History No pertinent past surgical history (Acute) Family History Father Hypertension Alcoholism Mother No significant medical problems Social History household members: spouse and children Smoking Status: Current every day smoker alcohol intake: current Smoking Status: Current every day smoker alcohol intake frequency: 3 or more drinks per day Substance Use Type: marijuana Exam Initial Vital Signs Initial Vital Signs: Vital Signs Temperature 98 F 02/01/20 16:07 Pulse Rate 126 H 02/01/20 16:07 Respiratory Rate 13 02/01/20 16:07 Blood Pressure 145/90 H 02/01/20 16:07 Pulse Oximetry 96 02/01/20 16:07 Const General: cooperative, healthy appearing, comfortable, well developed, well groomed and No acute distress Limitations: mental status not altered HENOR Head: No normal to inspection and No normocephalic Resp Effort & Inspection: normal respiratory effort Auscultation: clear to auscultation bilaterally Cardio Rate: tachycardic Rhythm: regular rhythm Pulses: radial pulses present GI Inspection: non-distended Palpation: soft, No firm, No guarding and tender (Mild tenderness left upper quadrant) Skin Lesions: no lesions Rashes: no rashes Neuro General: alert and awake Cognition: normal cognition Speech: speech normal Gait: normal gait Sensory Exam: no sensory deficits noted Extrem General: normal to inspection, capillary refill normal and No edema Psych Appearance: grossly normal and well kempt Scores GCS Blackstock coma scale eye opening: Spontaneous Harsh coma scale verbal response: Orientated Blackstock coma scale motor response: Obey commands Harsh coma scale total score: 15 Course Orders Ordered: ED Orders 02/01/20 16:16 XR chest 1V Stat Discontinued Medications Sodium Chloride (Normal Saline 0.9%) 1,000 mls @ 150 mls/hr IV CONT NERI Vital Signs Vital signs: Vital Signs - 8 hr 02/01/20 16:07 02/01/20 16:30 02/01/20 16:54 Temperature 98 F 99.1 F Pulse Rate 126 H 119 H 118 H Respiratory Rate 13 20 20 Blood Pressure 145/90 H Pulse Oximetry 96 99 Medical Decision Making Imaging Data Chest x-ray: Radiologist's Impression: [address] [address] XRay Report Signed Patient: Tc Marcelino JMR#: [id number] : 1990Acct:[id number] Age/Sex: 29 / MDate of Service: 02/01/20 Loc: ED Accession Number: [id number] Procedure: XR chest 1V Ordering Provider: Rodrigue Middleton D.O. PROCEDURE: XR CHEST 1V INDICATIONS: Vomiting, left upper quadrant pain, eval for free air TECHNIQUE: One view of the chest was acquired. COMPARISON: None. FINDINGS: Surgical changes and devices: None. Lungs and pleura: Mild atelectasis is present at the left lung base. There is a small left effusion. The lungs are otherwise clear. No pneumothorax. Mediastinum: Mediastinal contours appear normal. Heart size is normal. Bones and chest wall: No suspicious bony lesions. Overlying soft tissues appear unremarkable. IMPRESSION: Left basilar atelectasis and small effusion. No findings to suggest pneumoperitoneum. Dictated by: Vianey Bentley M.D. on 02/01/2020 at 16:25 Approved by: Vianey Bentley M.D. on 02/01/2020 at 16:26 MDM Narrative Medical decision making narrative: Review the patient's labs from earlier today does show that he has a leukocytosis. Shows that his lipase is 500. Patient does report left upper abdominal pain however he certainly does not have an acute abdomen. I have depressed rather hard on his left upper quadrant in order to express any discomfort from him. He actually states that his abdominal pain has improved over the past couple days from Friday. He is afebrile here. Has not had fevers for at least 2 days. The fever on Friday was a subjective fever. Patient clinically does not have pneumonia. He is not coughing. He has a clear lung exam. He has no skin changes concerning for cellulitis. No headache. Despite his leukocytosis I have no specific source of infection today. I did review his chest x-ray in the left lower lobe effusion. Again his exam is not consistent with pneumonia. He has no shortness of breath. No coughing. No chest pain. Low suspicion for pulmonary embolism. Also acknowledge his tachycardia. Patient states that he has been drinking for the past couple days because he has been self isolating himself secondary to the novel daigle virus infection. He does express some anxiety and concern regarding the situation. This could be adding to his tachycardia and leukocytosis. Is drinking could also be adding to this. I do feel based on his very benign presentation that we could hold on radiologic studies for now. I feel that by doing it today I would be potentially scanning a 29-year-old male and exposing him to radiation without a specific high clinical suspicion for intra-abdominal pathology. I do acknowledge that he could potentially have pancreatic issues giving his history of pancreatitis and alcohol history however with a lipase of just over 500 today I feel that this is a low probability. I discussed all this with the patient and his . He again stated that he is actually feeling better than what he did on Friday when not be here in the emergency department had his primary doctor not told him to come because of the abnormal lab results. Feel we should hold on antibiotics for now. Patient was given strict return precautions. He was not clinically intoxicated. GCS 15. He expressed understanding and agreement plan been Discharge Plan Departure Patient Disposition: Home Clinical Impression: Leukocytosis Qualifiers: Leukocytosis type: unspecified Qualified Code(s): D72.829 - Elevated white blood cell count, unspecified Abdominal pain Qualifiers: Abdominal location: epigastric Qualified Code(s): R10.13 - Epigastric pain Activity Restrictions/Additional Instructions: We do acknowledge that your white blood cell count was elevated today. Also your elevated lipase today is not at the level that we would consider pancreatitis especially in the setting when your symptoms are improving. If you start to have worsening symptoms, problems breathing, urinary symptoms, rashes, worsening abdominal pain, vomiting or any other new symptoms please return to the emergency department for further evaluation. Also recommend that you consider cutting back on your alcohol use which may prevent you from getting pancreatitis in the future. Prescriptions: No Action lisinopril 20 mg Tablet 20 mg PO DAILY RF: 0 Referrals: Chiara Lyons MD [Primary Care Provider] -
--- NOTE | 2020-02-01 16:16 | DI.RAD.S_ITS ---
PROCEDURE: XR CHEST 1V INDICATIONS: Vomiting, left upper quadrant pain, eval for free air TECHNIQUE: One view of the chest was acquired. COMPARISON: None. FINDINGS: Surgical changes and devices: None. Lungs and pleura: Mild atelectasis is present at the left lung base. There is a small left effusion. The lungs are otherwise clear. No pneumothorax. Mediastinum: Mediastinal contours appear normal. Heart size is normal. Bones and chest wall: No suspicious bony lesions. Overlying soft tissues appear unremarkable. IMPRESSION: Left basilar atelectasis and small effusion. No findings to suggest pneumoperitoneum. Dictated by: Vianey Bentley M.D. on 02/01/2020 at 16:25 Approved by: Vianey Bentley M.D. on 02/01/2020 at 16:26
[2020-02-01 16:30] VITALS: PULSE 119; RESP 20; TEMP 37.3; O2SAT 99
[2020-02-01 16:54] VITALS: PULSE 118; RESP 20
[2020-02-01 17:14] VITALS: BP 141/86; PULSE 121; O2SAT 97
== END 2020-02-01 17:14 | disposition home or self-care (01) ==
PROVIDERS: Emergency Provider Emergency Medicine; PCP Family Medicine
DX: D72.829 Elevated white blood cell count, unspecified (principal); R10.13 Epigastric pain; R10.12 Left upper quadrant pain; R11.10 Vomiting, unspecified; R00.0 Tachycardia, unspecified; K85.20 Alcohol induced acute pancreatitis without necrosis or infection
CPT/HCPCS: 36415; 71045; 80053; 83690; 85025; 99281; 99283

== ENCOUNTER 2022-02-23 00:47 | Inpatient (IN) | payer OTHER, SELFPAY ==
[2022-02-23] VITALS (20 sets, daily range): BP systolic 112–152; BP diastolic 59–99; PULSE 107–152; RESP 13–28; TEMP 35.6–37.2; O2SAT 94–100; BMI 33.3
--- NOTE | 2022-02-23 01:00 | ED.ABDPAIN ---
HPI - Abdominal Pain <Patrick Shelton DO - Last Filed: 02/24/22 04:34> General Chief Complaint: Abdominal Pain Stated Complaint: severe pain in abd/back, numbness in face & hands Time Seen by Provider: 02/23/22 00:54 History of Present Illness HPI narrative: 31-year-old male daily smoker and heavy drinker with history of hypertension and pancreatitis presents with family in the chief complaint of upwards of one week of severe epigastric pain that radiates to his back. He has had 2 episodes of vomiting. Any motion seems to make his pain worse. He denies other obvious provocation or palliation. He denies any fever or chills. He has been drinking a bit heavier than normal given the recent passing of a family member. He is writhing in pain, stating it is 10/10. He states it feels like prior episodes of pancreatitis. He denies any change in bowel habits. Related Data Home Medications Medication Instructions Recorded Confirmed losartan 50 mg tablet 50 mg PO DAILY 02/23/22 02/23/22 Allergies Allergy/AdvReac Type Severity Reaction Status Date / Time No Known Drug Allergies Allergy Verified 02/23/22 01:12 Review of Systems <Patrick Shelton DO - Last Filed: 02/24/22 04:34> Review of Systems Narrative: GENERAL: Denies chills, fatigue, malaise, fever, sweats. HEENT: Denies sinus pain, ear pain, sore throat, difficulty swallowing, dizziness. RESPIRATORY: Denies dyspnea, cough, wheezing, hemoptysis, sputum. CARDIOVASCULAR: Denies chest pain, palpitations, orthopnea, edema, GASTROINTESTINAL: See HP : Denies dysuria, frequency, incontinence, hematuria, urinary retention. MUSCULOSKELETAL: denies weakness, joint pain, or bony pain SKIN: Denies rash, skin lesions, or other NEUROLOGIC: Denies weakness, headache, numbness, change in speech, confusion, seizures, incoordination. PSYCHIATRIC: No concerning psychosocial issues. 12 point review of systems is negative except for those stated above Patient History <Patrick Shelton DO - Last Filed: 02/24/22 04:34> Medical History (Updated 02/23/22 @ 22:26 by Sam Yoder MD) Asthma, exercise induced Hypertension Patient denies medical problems Surgical History No pertinent past surgical history Family History Father Hypertension Alcoholism Mother No significant medical problems Social History household members: spouse and children Smoking Status: Current every day smoker alcohol intake: current Smoking Status: Current every day smoker alcohol intake frequency: 3 or more drinks per day Substance Use Type: marijuana Exam <Patrick Shelton DO - Last Filed: 02/24/22 04:34> Narrative Exam Narrative: GENERAL: [31 year old patient appears stated age. Well-developed patient, in obvious distress, complaining of abdominal and back pain, writhing on the cart HEAD: Atraumatic. Normocephalic. EYES: Pupils equal round and reactive. Extraocular motions intact. No scleral icterus. No injection or drainage. ENT: Nose without bleeding, purulent drainage. Throat without erythema, tonsillar hypertrophy or exudate. Airway patent. NECK: Trachea midline. Non tender CARDIOVASCULAR: Regular rate and rhythm without murmurs, gallops, or rubs. RESPIRATORY: Clear to auscultation. Breath sounds equal bilaterally. No wheezes, rales, or rhonchi. GASTROINTESTINAL: Abdomen soft, non-tender, nondistended. EXTREMITIES: No edema or joint tenderness. BACK: Nontender without deformity or crepitance. No flank tenderness. NEURO: AOx3. SKIN: No rash or erythema of visible areas Initial Vital Signs Initial Vital Signs: Vital Signs Temperature 98 F 02/23/22 01:07 Pulse Rate 125 H 02/23/22 01:07 Respiratory Rate 02/23/22 01:07 Blood Pressure 127/82 02/23/22 01:07 Pulse Oximetry 98 02/23/22 01:07 <Debo Alva MD - Last Filed: 02/23/22 10:48> Initial Vital Signs Initial Vital Signs: Vital Signs Temperature 98 F 02/23/22 01:07 Pulse Rate 125 H 02/23/22 01:07 Respiratory Rate 22 02/23/22 01:07 Blood Pressure 127/82 02/23/22 01:07 Pulse Oximetry 98 02/23/22 01:07 Course <Patrick Shelton DO - Last Filed: 02/24/22 04:34> Orders Ordered: Acetaminophen (Acetaminophen 325 Mg Tablet) 650 mg PO Q6HR [facility] Last Admin: 02/24/22 00:21 Dose: Not Given Documented by: Admin: 02/23/22 18:08 Dose: Not Given Documented by: LUCRECIA Clonidine HCl (Clonidine Tts 0.1 Mg Patch) 0.1 mg TOP WEEKLY [facility] Enoxaparin Sodium (Enoxaparin 40 Mg/0.4 Ml Syringe) 40 mg SUBCUT DAILY [facility] Folic Acid (Folic Acid 1 Mg Tablet) 1 mg PO DAILY [facility]I Hydromorphone HCl (Hydromorphone 1 Mg Inj) 1 mg IV Q2H PRN PRN Reason: Breakthrough pain only (8-10) Last Admin: 02/24/22 02:34 Dose: 1 mg Documented by: Admin: 02/24/22 00:20 Dose: 1 mg Documented by: Admin: 02/23/22 19:43 Dose: 1 mg Documented by: Admin: 02/23/22 16:33 Dose: 1 mg Documented by: LUCRECIA Meropenem 500 mg/ Sodium (Chloride) 100 mls @ 200 mls/hr IV Q8H [facility] Last Infusion: 02/24/22 00:00 Dose: 0 mls/hr Documented by: Admin: 02/23/22 23:57 Dose: 200 mls/hr Documented by: Infusion: 02/23/22 16:05 Dose: 0 mls/hr Documented by: Admin: 02/23/22 15:32 Dose: 200 mls/hr Documented by: LUCRECIA Dextrose/Sodium Chloride (Dextrose 5%-0.9% Ns) 1,000 mls @ 250 mls/hr IV CONT [facility] Last Infusion: 02/24/22 04:29 Dose: 250 mls/hr Documented by: Admin: 02/24/22 03:49 Dose: 200 mls/hr Documented by: Infusion: 02/24/22 01:42 Dose: 200 mls/hr Documented by: Admin: 02/23/22 20:42 Dose: 200 mls/hr Documented by: Infusion: 02/23/22 20:42 Dose: 200 mls/hr Documented by: Infusion: 02/23/22 19:38 Dose: 200 mls/hr Documented by: Infusion: 02/23/22 16:47 Dose: 0 mls/hr Documented by: Admin: 02/23/22 13:32 Dose: 150 mls/hr Documented by: LUCRECIA Lactated Ringer's (Lactated Ringers) 1,000 mls @ 1,000 mls/hr IV BOLUS ONE Stop: 02/24/22 05:26 Lorazepam (Lorazepam 2 Mg/Ml Inj) 0 mg IV CIWAPRN PRN; Protocol PRN Reason: Alcohol Withdrawal Last Admin: 02/23/22 16:56 Dose: 1 mg Documented by: LUCRECIA Multivitamins (Multivitamin 1 Tablet) 1 tab PO DAILY [facility] Naloxone HCl (Naloxone 0.4 Mg/Ml Vial) 0.2 mg IV Q2MIN PRN PRN Reason: Opiate Reversal Nicotine (Nicotine 21 Mg Patch) 21 mg TOP DAILY [facility] Ondansetron HCl (Ondansetron 4 Mg/2 Ml Inj) 4 mg IV Q8HR PRN PRN Reason: Nausea And Vomiting Thiamine HCl (Thiamine 100 Mg Tablet) 100 mg PO DAILY [facility] Stop: 02/27/22 09:01 Discontinued Medications Clonidine HCl (Clonidine 0.1 Mg Tablet) 0.1 mg PO Q4HR PRN PRN Reason: Alcohol Withdrawal Clonidine HCl (Clonidine Tts 0.1 Mg Patch) 0.1 mg TOP NOW ONE Stop: 02/24/22 01:13 Last Admin: 02/24/22 02:08 Dose: Not Given Documented by: CONI Hydromorphone HCl (Hydromorphone 1 Mg Inj) 1 mg IV NOW ONE Stop: 02/23/22 02:26 Last Admin: 02/23/22 02:30 Dose: 1 mg Documented by: MAYITO Hydromorphone HCl (Hydromorphone 1 Mg Inj) 1 mg IV NOW ONE Stop: 02/23/22 04:20 Last Admin: 02/23/22 04:24 Dose: 1 mg Documented by: JAYLEN Hydromorphone HCl (Hydromorphone 0.5 Mg Inj) 0.5 mg IV Q15MIN PRN PRN Reason: Pain, Last Admin: 02/23/22 12:42 Dose: 0.5 mg Documented by: Admin: 02/23/22 10:34 Dose: 0.5 mg Documented by: Admin: 02/23/22 08:04 Dose: 0.5 mg Documented by: Admin: 02/23/22 07:46 Dose: 0.5 mg Documented by: SUZANNE Hydromorphone HCl (Hydromorphone 1 Mg Inj) 1 mg IV Q4H PRN PRN Reason: Breakthrough pain only (8-10) Last Admin: 02/23/22 14:17 Dose: 1 mg Documented by: LUCRECIA Hydromorphone HCl (Hydromorphone 0.5 Mg Inj) 1 mg IV NOW ONE Stop: 02/23/22 21:16 Last Admin: 02/23/22 21:30 Dose: 1 mg Documented by: CONI POTASSIUM CHLORIDE IN WATER (Potassium Cl 10 Meq/100 Ml Tali) 10 meq in 100 mls @ 100 mls/hr IV Q1H [facility] Stop: 02/23/22 09:29 Last Infusion: 02/23/22 11:51 Dose: 0 mls/hr Documented by: Admin: 02/23/22 10:39 Dose: 100 mls/hr Documented by: Infusion: 02/23/22 09:04 Dose: 100 mls/hr Documented by: Admin: 02/23/22 08:04 Dose: 100 mls/hr Documented by: Infusion: 02/23/22 07:44 Dose: 100 mls/hr Documented by: Admin: 02/23/22 06:44 Dose: 100 mls/hr Documented by: Infusion: 02/23/22 06:43 Dose: 0 mls/hr Documented by: Admin: 02/23/22 05:36 Dose: 100 mls/hr Documented by: JAYLEN Meropenem 500 mg/ Sodium (Chloride) 100 mls @ 200 mls/hr IV NOW ONE Stop: 02/23/22 06:08 Last Infusion: 02/23/22 07:24 Dose: 0 mls/hr Documented by: Admin: 02/23/22 06:48 Dose: 200 mls/hr Documented by: SUSHIL POTASSIUM CHLORIDE IN WATER (Potassium Cl 10 Meq/100 Ml Tali) 10 meq in 100 mls @ 100 mls/hr IV Q1H [facility] Stop: 02/23/22 11:44 Last Admin: 02/23/22 10:48 Dose: Not Given Documented by: VIRA Sodium Chloride (Normal Saline 0.9%) 1,000 mls @ 150 mls/hr IV CONT [facility] Last Admin: 02/23/22 12:43 Dose: 150 mls/hr Documented by: LUCRECIA Sodium Chloride (Normal Saline 0.9%) 1,000 mls @ 1,000 mls/hr IV BOLUS ONE Stop: 02/23/22 11:38 Last Infusion: 02/23/22 12:30 Dose: 1,000 mls/hr Documented by: Admin: 02/23/22 11:31 Dose: 1,000 mls/hr Documented by: VIRA Meropenem 1 gm/ Sodium (Chloride) 100 mls @ 200 mls/hr IV Q8HR [facility] Last Admin: 02/23/22 11:04 Dose: Not Given Documented by: VIRA Dextrose/Sodium Chloride (Dextrose 5%-0.9% Ns) 1,000 mls @ 100 mls/hr IV CONT [facility] Last Admin: 02/23/22 13:32 Dose: Not Given Documented by: LUCRECIA Meropenem 500 mg/ Sodium (Chloride) 100 mls @ 200 mls/hr IV Q8H [facility] Sodium Chloride (Normal Saline 0.9%) 1,000 mls @ 1,000 mls/hr IV BOLUS ONE Stop: 02/23/22 17:26 Last Admin: 02/23/22 16:45 Dose: 1,000 mls/hr Documented by: LUCRECIA Meropenem 500 mg/ Sodium (Chloride) 100 mls @ 200 mls/hr IV Q12H [facility] Sodium Chloride (Normal Saline 0.9%) 1,000 mls @ 1,000 mls/hr IV BOLUS ONE Stop: 02/23/22 23:16 Last Admin: 02/23/22 22:36 Dose: 1,000 mls/hr Documented by: CONI Lorazepam (Lorazepam 2 Mg/Ml Inj) 2 mg IV NOW ONE Stop: 02/23/22 10:46 Last Admin: 02/23/22 11:30 Dose: 2 mg Documented by: VIRA Lorazepam (Lorazepam 2 Mg/Ml Inj) 1 mg IV NOW ONE Stop: 02/23/22 15:39 Last Admin: 02/23/22 15:46 Dose: 1 mg Documented by: LUCRECIA Lorazepam (Lorazepam 2 Mg/Ml Inj) 0 mg IV CIWAPRN PRN; Protocol PRN Reason: Alcohol Withdrawal Ondansetron HCl (Ondansetron 4 Mg/2 Ml Inj) 4 mg IV NOW ONE Stop: 02/23/22 01:13 Last Admin: 02/23/22 01:25 Dose: 4 mg Documented by: MAYITO Ondansetron HCl (Ondansetron 4 Mg/2 Ml Inj) 4 mg IV NOW ONE Stop: 02/23/22 02:26 Last Admin: 02/23/22 02:30 Dose: 4 mg Documented by: MAYITO Pantoprazole Sodium (Pantoprazole 40 Mg Vial) 40 mg IV NOW ONE Stop: 02/23/22 04:12 Last Admin: 02/23/22 04:23 Dose: 40 mg Documented by: JAYLEN Reevaluation(s) Reevaluation #1: Improved pain after above-stated therapies Consultations Consultation #1: 0525 -discussed with on-call General surgery, recommend consultation with GI 0545 - call to Lucia Holloway. Expect call after [id number] - Dr. Fair ([facility]) reviewed case, recommends ABX (Imipenem given elevated WBCs), PET vs. MRCP with likely admission here for pain control, fluids, ABX 0700 - patient signed out to Dr. Alva for final disposition, following further imaging. Vital Signs Vital signs: Vital Signs - 8 hr 02/23/22 07:50 02/23/22 08:00 02/23/22 09:40 Pulse Rate 110 H 108 H 112 H Respiratory Rate 22 20 Blood Pressure 134/72 141/86 H Pulse Oximetry 98 95 95 02/23/22 09:42 02/23/22 10:00 Pulse Rate 109 H 113 H Respiratory Rate 21 Blood Pressure 135/97 H 136/85 Pulse Oximetry 95 95 <Debo Alva MD - Last Filed: 02/23/22 10:48> Orders Ordered: Acetaminophen (Acetaminophen 325 Mg Tablet) 650 mg PO Q6HR [facility] Last Admin: 02/24/22 00:21 Dose: Not Given Documented by: Admin: 02/23/22 18:08 Dose: Not Given Documented by: LUCRECIA Clonidine HCl (Clonidine Tts 0.1 Mg Patch) 0.1 mg TOP WEEKLY [facility] Enoxaparin Sodium (Enoxaparin 40 Mg/0.4 Ml Syringe) 40 mg SUBCUT DAILY [facility] Folic Acid (Folic Acid 1 Mg Tablet) 1 mg PO DAILY [facility] Hydromorphone HCl (Hydromorphone 1 Mg Inj) 1 mg IV Q2H PRN PRN Reason: Breakthrough pain only (8-10) Last Admin: 02/24/22 02:34 Dose: 1 mg Documented by: Admin: 02/24/22 00:20 Dose: 1 mg Documented by: Admin: 02/23/22 19:43 Dose: 1 mg Documented by: Admin: 02/23/22 16:33 Dose: 1 mg Documented by: LUCRECIA Meropenem 500 mg/ Sodium (Chloride) 100 mls @ 200 mls/hr IV Q8H [facility] Last Infusion: 02/24/22 00:00 Dose: 0 mls/hr Documented by: Admin: 02/23/22 23:57 Dose: 200 mls/hr Documented by: Infusion: 02/23/22 16:05 Dose: 0 mls/hr Documented by: Admin: 02/23/22 15:32 Dose: 200 mls/hr Documented by: LUCRECIA Dextrose/Sodium Chloride (Dextrose 5%-0.9% Ns) 1,000 mls @ 250 mls/hr IV CONT [facility] Last Infusion: 02/24/22 04:29 Dose: 250 mls/hr Documented by: Admin: 02/24/22 03:49 Dose: 200 mls/hr Documented by: Infusion: 02/24/22 01:42 Dose: 200 mls/hr Documented by: Admin: 02/23/22 20:42 Dose: 200 mls/hr Documented by: Infusion: 02/23/22 20:42 Dose: 200 mls/hr Documented by: Infusion: 02/23/22 19:38 Dose: 200 mls/hr Documented by: Infusion: 02/23/22 16:47 Dose: 0 mls/hr Documented by: Admin: 02/23/22 13:32 Dose: 150 mls/hr Documented by: LUCRECIA Lactated Ringer's (Lactated Ringers) 1,000 mls @ 1,000 mls/hr IV BOLUS ONE Stop: 02/24/22 05:26 Lorazepam (Lorazepam 2 Mg/Ml Inj) 0 mg IV CIWAPRN PRN; Protocol PRN Reason: Alcohol Withdrawal Last Admin: 02/23/22 16:56 Dose: 1 mg Documented by: LUCRECIA Multivitamins (Multivitamin 1 Tablet) 1 tab PO DAILY NERI Naloxone HCl (Naloxone 0.4 Mg/Ml Vial) 0.2 mg IV Q2MIN PRN PRN Reason: Opiate Reversal Nicotine (Nicotine 21 Mg Patch) 21 mg TOP DAILY NERI Ondansetron HCl (Ondansetron 4 Mg/2 Ml Inj) 4 mg IV Q8HR PRN PRN Reason: Nausea And Vomiting Thiamine HCl (Thiamine 100 Mg Tablet) 100 mg PO DAILY NERI Stop: 02/27/22 09:01 Discontinued Medications Clonidine HCl (Clonidine 0.1 Mg Tablet) 0.1 mg PO Q4HR PRN PRN Reason: Alcohol Withdrawal Clonidine HCl (Clonidine Tts 0.1 Mg Patch) 0.1 mg TOP NOW ONE Stop: 02/24/22 01:13 Last Admin: 02/24/22 02:08 Dose: Not Given Documented by: CONI Hydromorphone HCl (Hydromorphone 1 Mg Inj) 1 mg IV NOW ONE Stop: 02/23/22 02:26 Last Admin: 02/23/22 02:30 Dose: 1 mg Documented by: MAYITO Hydromorphone HCl (Hydromorphone 1 Mg Inj) 1 mg IV NOW ONE Stop: 02/23/22 04:20 Last Admin: 02/23/22 04:24 Dose: 1 mg Documented by: JAYLEN Hydromorphone HCl (Hydromorphone 0.5 Mg Inj) 0.5 mg IV Q15MIN PRN PRN Reason: Pain, Last Admin: 02/23/22 12:42 Dose: 0.5 mg Documented by: Admin: 02/23/22 10:34 Dose: 0.5 mg Documented by: Admin: 02/23/22 08:04 Dose: 0.5 mg Documented by: Admin: 02/23/22 07:46 Dose: 0.5 mg Documented by: SUZANNE Hydromorphone HCl (Hydromorphone 1 Mg Inj) 1 mg IV Q4H PRN PRN Reason: Breakthrough pain only (8-10) Last Admin: 02/23/22 14:17 Dose: 1 mg Documented by: LUCRECIA Hydromorphone HCl (Hydromorphone 0.5 Mg Inj) 1 mg IV NOW ONE Stop: 02/23/22 21:16 Last Admin: 02/23/22 21:30 Dose: 1 mg Documented by: CONI POTASSIUM CHLORIDE IN WATER (Potassium Cl 10 Meq/100 Ml Tali) 10 meq in 100 mls @ 100 mls/hr IV Q1H [facility] Stop: 02/23/22 09:29 Last Infusion: 02/23/22 11:51 Dose: 0 mls/hr Documented by: Admin: 02/23/22 10:39 Dose: 100 mls/hr Documented by: Infusion: 02/23/22 09:04 Dose: 100 mls/hr Documented by: Admin: 02/23/22 08:04 Dose: 100 mls/hr Documented by: Infusion: 02/23/22 07:44 Dose: 100 mls/hr Documented by: Admin: 02/23/22 06:44 Dose: 100 mls/hr Documented by: Infusion: 02/23/22 06:43 Dose: 0 mls/hr Documented by: Admin: 02/23/22 05:36 Dose: 100 mls/hr Documented by: JAYLEN Meropenem 500 mg/ Sodium (Chloride) 100 mls @ 200 mls/hr IV NOW ONE Stop: 02/23/22 06:08 Last Infusion: 02/23/22 07:24 Dose: 0 mls/hr Documented by: Admin: 02/23/22 06:48 Dose: 200 mls/hr Documented by: SUSHIL POTASSIUM CHLORIDE IN WATER (Potassium Cl 10 Meq/100 Ml Tali) 10 meq in 100 mls @ 100 mls/hr IV Q1H [facility] Stop: 02/23/22 11:44 Last Admin: 02/23/22 10:48 Dose: Not Given Documented by: VIRA Sodium Chloride (Normal Saline 0.9%) 1,000 mls @ 150 mls/hr IV CONT [facility]RE[facility] Last Admin: 02/23/22 12:43 Dose: 150 mls/hr Documented by: LUCRECIA Sodium Chloride (Normal Saline 0.9%) 1,000 mls @ 1,000 mls/hr IV BOLUS ONE Stop: 02/23/22 11:38 Last Infusion: 02/23/22 12:30 Dose: 1,000 mls/hr Documented by: Admin: 02/23/22 11:31 Dose: 1,000 mls/hr Documented by: VIRA Meropenem 1 gm/ Sodium (Chloride) 100 mls @ 200 mls/hr IV Q8HR [facility] Last Admin: 02/23/22 11:04 Dose: Not Given Documented by: VIRA Dextrose/Sodium Chloride (Dextrose 5%-0.9% Ns) 1,000 mls @ 100 mls/hr IV CONT [facility] Last Admin: 02/23/22 13:32 Dose: Not Given Documented by: LUCRECIA Meropenem 500 mg/ Sodium (Chloride) 100 mls @ 200 mls/hr IV Q8H [facility] Sodium Chloride (Normal Saline 0.9%) 1,000 mls @ 1,000 mls/hr IV BOLUS ONE Stop: 02/23/22 17:26 Last Admin: 02/23/22 16:45 Dose: 1,000 mls/hr Documented by: LUCRECIA Meropenem 500 mg/ Sodium (Chloride) 100 mls @ 200 mls/hr IV Q12H [facility] Sodium Chloride (Normal Saline 0.9%) 1,000 mls @ 1,000 mls/hr IV BOLUS ONE Stop: 02/23/22 23:16 Last Admin: 02/23/22 22:36 Dose: 1,000 mls/hr Documented by: CONI Lorazepam (Lorazepam 2 Mg/Ml Inj) 2 mg IV NOW ONE Stop: 02/23/22 10:46 Last Admin: 02/23/22 11:30 Dose: 2 mg Documented by: VIRA Lorazepam (Lorazepam 2 Mg/Ml Inj) 1 mg IV NOW ONE Stop: 02/23/22 15:39 Last Admin: 02/23/22 15:46 Dose: 1 mg Documented by: LUCRECIA Lorazepam (Lorazepam 2 Mg/Ml Inj) 0 mg IV CIWAPRN PRN; Protocol PRN Reason: Alcohol Withdrawal Ondansetron HCl (Ondansetron 4 Mg/2 Ml Inj) 4 mg IV NOW ONE Stop: 02/23/22 01:13 Last Admin: 02/23/22 01:25 Dose: 4 mg Documented by: MAYITO Ondansetron HCl (Ondansetron 4 Mg/2 Ml Inj) 4 mg IV NOW ONE Stop: 02/23/22 02:26 Last Admin: 02/23/22 02:30 Dose: 4 mg Documented by: MAYITO Pantoprazole Sodium (Pantoprazole 40 Mg Vial) 40 mg IV NOW ONE Stop: 02/23/22 04:12 Last Admin: 02/23/22 04:23 Dose: 40 mg Documented by: JAYLEN Vital Signs Vital signs: Vital Signs - 8 hr 02/23/22 07:50 02/23/22 08:00 02/23/22 09:40 Pulse Rate 110 H 108 H 112 H Respiratory Rate 22 20 Blood Pressure 134/72 141/86 H Pulse Oximetry 98 95 95 02/23/22 09:42 02/23/22 10:00 Pulse Rate 109 H 113 H Respiratory Rate 21 Blood Pressure 135/97 H 136/85 Pulse Oximetry 95 95 MDM - Abdominal Pain <Patrick Shelton DO - Last Filed: 02/24/22 04:34> Lab Data Result diagrams: 02/23/22 19:50 02/23/22 11:09 Labs: Lab Results 02/23/22 02/23/22 02/23/22 Range/Units 01:15 01:20 01:20 WBC 22.4 H (4.5-11.0) X10^3/uL RBC 5.08 (4.5-5.9) X10^6/uL Hgb 12.9 L (13.5-17.5) g/dL Hct 40.1 L (41-53) % MCV 79.0 L (80-100) fL MCH 25.4 L (26-34) PG MCHC 32.1 (30-36) % RDW 16.6 H (11.6-14.8) % Plt Count 684 H (150-400) X10^3/uL Neut % (Auto) Not Reportable Lymph % (Auto) Not Reportable [place] % (Auto) Not Reportable Eos % (Auto) Not Reportable Baso % (Auto) Not Reportable Lymph # (Auto) Not Reportable [place] # (Auto) Not Reportable Baso # (Auto) Not Reportable Total Counted 100 Seg Neutrophils % 93.0 H (38-70) % Lymphocytes % (Manual) 3.0 L (25-45) % Monocytes % (Manual) 4.0 (2-11) % Neutrophils # (Manual) 76520 H (0567-6630) /uL RBC Morphology See below Anisocytosis 1+ H Sodium 139 (137-145) mmol/L Potassium 2.9 L (3.4-5.1) mmol/L Chloride 97 L (98-107) mmol/L Carbon Dioxide 27 (22-32) mmol/L BUN 7 L (9-20) mg/dL Creatinine 0.66 (0.66-1.25) mg/dL Estimated GFR > 60 (>60) mL/min BUN/Creatinine Ratio 10.6 (6-22) Glucose 156 H (70-100) mg/dL Calcium 9.2 (8.4-10.2) mg/dL Total Bilirubin 0.6 (0.2-1.3) mg/dL AST 22 (17-59) IU/L ALT 11 (<50) IU/L Alkaline Phosphatase 105 (38-126) U/L Total Protein 7.8 (6.3-8.2) g/dL Albumin 4.1 (3.5-5.0) g/dL Globulin 3.7 (1.7-4.1) g/dL Albumin/Globulin Ratio 1.1 (1.0-2.8) Lipase 118 (23-300) U/L Ur Bilirubin Confirm Negative (Negative) Urine RBC None seen (0-5/HPF) Urine WBC 0-1/hpf (0-5/HPF) Ur Squamous Epith Cells 1-5 /hpf (0-5/HPF) Amorphous Sediment 2+ Urine Bacteria Few (2-10) H (None) Hyaline Casts 0-1/lpf (None) Urine Mucus 3+ H (Negative) Ur Culture Indicated? Cult not indicated SARS-CoV-2 (PCR) (Negative) 02/23/22 Range/Units 05:47 WBC (4.5-11.0) X10^3/uL RBC (4.5-5.9) X10^6/uL Hgb (13.5-17.5) g/dL Hct (41-53) % MCV (80-100) fL MCH (26-34) PG MCHC (30-36) % RDW (11.6-14.8) % Plt Count (150-400) X10^3/uL Neut % (Auto) Lymph % (Auto) [place] % (Auto) Eos % (Auto) Baso % (Auto) Lymph # (Auto) [place] # (Auto) Baso # (Auto) Total Counted Seg Neutrophils % (38-70) % Lymphocytes % (Manual) (25-45) % Monocytes % (Manual) (2-11) % Neutrophils # (Manual) (6171-9164) /uL RBC Morphology Anisocytosis Sodium (137-145) mmol/L Potassium (3.4-5.1) mmol/L Chloride (98-107) mmol/L Carbon Dioxide (22-32) mmol/L BUN (9-20) mg/dL Creatinine (0.66-1.25) mg/dL Estimated GFR (>60) mL/min BUN/Creatinine Ratio (6-22) Glucose (70-100) mg/dL Calcium (8.4-10.2) mg/dL Total Bilirubin (0.2-1.3) mg/dL AST (17-59) IU/L ALT (<50) IU/L Alkaline Phosphatase (38-126) U/L Total Protein (6.3-8.2) g/dL Albumin (3.5-5.0) g/dL Globulin (1.7-4.1) g/dL Albumin/Globulin Ratio (1.0-2.8) Lipase (23-300) U/L Ur Bilirubin Confirm (Negative) Urine RBC (0-5/HPF) Urine WBC (0-5/HPF) Ur Squamous Epith Cells (0-5/HPF) Amorphous Sediment Urine Bacteria (None) Hyaline Casts (None) Urine Mucus (Negative) Ur Culture Indicated? SARS-CoV-2 (PCR) Negative (Negative) Point of care testing: Urine Dip Bedside Urine Bilirubin + 1 Bedside Urine Ketone ++ 40 Urine Specific [place] 1.015 Bedside Urine Occult Blood - Negative Bedside Urine pH 7.5 Bedside Urine Protein + 30 Bedside Urine Urobilinogen 2+ 4mg Bedside Urine Nitrite - Negative Bedside Urine Leukocytes - Negative Esterase Imaging Data CT scan - abdomen/pelvis: Radiologist's Impression: Acute pancreatitis. Irregular hypodense lesions 8 mm in head and 2.9 cm in body pancreas probably pseudocyst. Neoplastic process, abscess, or devascularization not excluded 4.8 cm thick walled fluid-filled lesion in the left retroperitoneum posterior to the what numb probably pseudocyst <Debo Alva MD - Last Filed: 02/23/22 10:48> Lab Data Labs: Lab Results 02/23/22 02/23/22 02/23/22 Range/Units 01:15 01:20 01:20 WBC 22.4 H (4.5-11.0) X10^3/uL RBC 5.08 (4.5-5.9) X10^6/uL Hgb 12.9 L (13.5-17.5) g/dL Hct 40.1 L (41-53) % MCV 79.0 L (80-100) fL MCH 25.4 L (26-34) PG MCHC 32.1 (30-36) % RDW 16.6 H (11.6-14.8) % Plt Count 684 H (150-400) X10^3/uL Neut % (Auto) Not Reportable Lymph % (Auto) Not Reportable [place] % (Auto) Not Reportable Eos % (Auto) Not Reportable Baso % (Auto) Not Reportable Lymph # (Auto) Not Reportable [place] # (Auto) Not Reportable Baso # (Auto) Not Reportable Total Counted 100 Seg Neutrophils % 93.0 H (38-70) % Lymphocytes % (Manual) 3.0 L (25-45) % Monocytes % (Manual) 4.0 (2-11) % Neutrophils # (Manual) 16229 H (6795-0474) /uL RBC Morphology See below Anisocytosis 1+ H Sodium 139 (137-145) mmol/L Potassium 2.9 L (3.4-5.1) mmol/L Chloride 97 L (98-107) mmol/L Carbon Dioxide 27 (22-32) mmol/L BUN 7 L (9-20) mg/dL Creatinine 0.66 (0.66-1.25) mg/dL Estimated GFR > 60 (>60) mL/min BUN/Creatinine Ratio 10.6 (6-22) Glucose 156 H (70-100) mg/dL Calcium 9.2 (8.4-10.2) mg/dL Total Bilirubin 0.6 (0.2-1.3) mg/dL AST 22 (17-59) IU/L ALT 11 (<50) IU/L Alkaline Phosphatase 105 (38-126) U/L Total Protein 7.8 (6.3-8.2) g/dL Albumin 4.1 (3.5-5.0) g/dL Globulin 3.7 (1.7-4.1) g/dL Albumin/Globulin Ratio 1.1 (1.0-2.8) Lipase 118 (23-300) U/L Ur Bilirubin Confirm Negative (Negative) Urine RBC None seen (0-5/HPF) Urine WBC 0-1/hpf (0-5/HPF) Ur Squamous Epith Cells 1-5 /hpf (0-5/HPF) Amorphous Sediment 2+ Urine Bacteria Few (2-10) H (None) Hyaline Casts 0-1/lpf (None) Urine Mucus 3+ H (Negative) Ur Culture Indicated? Cult not indicated SARS-CoV-2 (PCR) (Negative) 02/23/22 Range/Units 05:47 WBC (4.5-11.0) X10^3/uL RBC (4.5-5.9) X10^6/uL Hgb (13.5-17.5) g/dL Hct (41-53) % MCV (80-100) fL MCH (26-34) PG MCHC (30-36) % RDW (11.6-14.8) % Plt Count (150-400) X10^3/uL Neut % (Auto) Lymph % (Auto) [place] % (Auto) Eos % (Auto) Baso % (Auto) Lymph # (Auto) [place] # (Auto) Baso # (Auto) Total Counted Seg Neutrophils % (38-70) % Lymphocytes % (Manual) (25-45) % Monocytes % (Manual) (2-11) % Neutrophils # (Manual) (8769-6413) /uL RBC Morphology Anisocytosis Sodium (137-145) mmol/L Potassium (3.4-5.1) mmol/L Chloride (98-107) mmol/L Carbon Dioxide (22-32) mmol/L BUN (9-20) mg/dL Creatinine (0.66-1.25) mg/dL Estimated GFR (>60) mL/min BUN/Creatinine Ratio (6-22) Glucose (70-100) mg/dL Calcium (8.4-10.2) mg/dL Total Bilirubin (0.2-1.3) mg/dL AST (17-59) IU/L ALT (<50) IU/L Alkaline Phosphatase (38-126) U/L Total Protein (6.3-8.2) g/dL Albumin (3.5-5.0) g/dL Globulin (1.7-4.1) g/dL Albumin/Globulin Ratio (1.0-2.8) Lipase (23-300) U/L Ur Bilirubin Confirm (Negative) Urine RBC (0-5/HPF) Urine WBC (0-5/HPF) Ur Squamous Epith Cells (0-5/HPF) Amorphous Sediment Urine Bacteria (None) Hyaline Casts (None) Urine Mucus (Negative) Ur Culture Indicated? SARS-CoV-2 (PCR) Negative (Negative) Point of care testing: Urine Dip Bedside Urine Bilirubin + 1 Bedside Urine Ketone ++ 40 Urine Specific [place] 1.015 Bedside Urine Occult Blood - Negative Bedside Urine pH 7.5 Bedside Urine Protein + 30 Bedside Urine Urobilinogen 2+ 4mg Bedside Urine Nitrite - Negative Bedside Urine Leukocytes - Negative Esterase MDM Narrative Medical decision making narrative: 31-year-old gentleman who presents with severe epigastric pain radiating through to his back with a history of alcohol use disorder. Has had issues with pancreatitis previously. A leukocytosis at 22.4, hypokalemia 2.9, lipase is normal at 118. CT scan shows acute pancreatitis within the body of the pancreas with concern for pancreatic necrosis. Abnormal cystic lesions attributed to pseudocysts. Thickening of the duodenum and jejunum consistent we at with reactive findings 7 mm appendix without secondary signs of acute appendicitis. Last night care was reviewed with Dr. Fair, on-call Gastroenterology at [facility]. Recommendation was MR which was performed this morning MR findings are similar to CT. There is a 4.8 cm fluid collection adjacent to the duodenum which is attributed to the pseudocyst. Abscess is possible it yet considered less likely. Poorly defined collections within the body of the pancreas suggesting developing pseudocyst. Patient is currently on imipenem, IV potassium replacement, fluid resuscitation is mildly tachycardic without significant hypotension. 1030 Care is reveiwed again with [facility]. At this point management is entirely supportive care, antibiotics and help with alcohol cessation/withdrawal. Patient is aware of findings and plan. Pain is significant and he is getting half a mg of Dilaudid. Will do a small fluid bolus, repeat blood work and 2 mg of Ativan for increased tremor and tachycardia I suspect are related to alcohol withdrawal Care is reviewed with Dr. Winslow, hospitalist, patient is excepted to the hospitalist service. Findings and plan reviewed with patient questions are answered. Discharge Plan Departure Patient Disposition: Admitted As Inpatient Clinical Impression: Alcohol use disorder Pancreatitis Qualifiers: Chronicity: acute Pancreatitis type: alcohol induced Acute pancreatitis complication: unspecified Qualified Code(s): K85.20 - Alcohol induced acute pancreatitis without necrosis or infection Alcohol withdrawal Qualifiers: Complication of substance-induced condition: uncomplicated Qualified Code(s): F10.230 - Alcohol dependence with withdrawal, uncomplicated Admit Date/Time: 02/23/22 10:47 Admit Provider: Michelle Winslow
[2022-02-23] MEDS: ONDANSETRON 4 MG/2 ML INJ IV ×2 (01:25→02:30)
[2022-02-23 01:32] LABS: Hematocrit 40.1 % (41-53); Hemoglobin 12.9 g/dL (13.5-17.5); Mean Corpuscular HGB Conc 32.1 % (30-36); Mean Corpuscular Hemoglobin 25.4 PG (26-34); Platelet Count 684 X10^3/uL (150-400); Red Blood Cell Count 5.08 X10^6/uL (4.5-5.9); Red Cell Distribution Width 16.6 % (11.6-14.8); White Blood Cell Count 22.4 X10^3/uL (4.5-11.0)
[2022-02-23 01:40] LABS: Alanine Aminotransferase 11 IU/L (<50); Albumin 4.1 g/dL (3.5-5.0); Albumin Globulin Ratio 1.1 (1.0-2.8); Alkaline Phosphatase 105 U/L (38-126); Aspartate Aminotransferase 22 IU/L (17-59); BUN Creatinine Ratio 10.6 (6-22); Bilirubin Total 0.6 mg/dL (0.2-1.3); Blood Urea Nitrogen 7 mg/dL (9-20); Calcium 9.2 mg/dL (8.4-10.2); Carbon Dioxide 27 mmol/L (22-32); Chloride 97 mmol/L (98-107); Estimated Glomerular Filt Rate > 60 mL/min (>60); Globulin 3.7 g/dL (1.7-4.1); Glucose 156 mg/dL (70-100); HEMOLYSIS < 15 (0-50); Lipase 118 U/L (23-300); Potassium 2.9 mmol/L (3.4-5.1); Sodium 139 mmol/L (137-145); Total Protein 7.8 g/dL (6.3-8.2)
[2022-02-23 01:42] LABS: Add Manual Diff / Slide Review YES
[2022-02-23 01:47] LABS: Ictotest Urine Negative (Negative)
[2022-02-23 01:49] LABS: Amorphous Sediment Urine 2+; Bacteria Urine Few (2-10); RBC Urine None Seen (0-5/HPF); Squamous Epithelial Cell Urine 1-5 /HPF (0-5/HPF); WBC Urine 0-1/HPF (0-5/HPF)
[2022-02-23 01:50] LABS: Culture Indicated Urine Cult Not Indicated; Hyaline Casts Urine 0-1/LPF; Mucus Urine 3+ (Negative)
[2022-02-23 01:57] LABS: Neutrophils Absolute Manual 20832 /uL (3000-5900); Total Cells Counted 100
[2022-02-23 01:58] LABS: Anisocytosis 1+
--- NOTE | 2022-02-23 02:25 | DI.CT.S_ITS ---
PROCEDURE: CT ABDOMEN PELVIS W CON INDICATIONS: severe abdominal pain TECHNIQUE: After the administration of IV contrast, axial sections were acquired from the lung bases to the pubic symphysis. Coronal and sagittal reformats were performed. For radiation dose reduction, the following was used: automated exposure control, adjustment of mA and/or kV according to patient size. COMPARISON: None. FINDINGS: Image quality: Excellent. Lung bases: Unremarkable. Heart: No significant findings. ABDOMEN: Liver: Unremarkable. Gallbladder: Unremarkable. Biliary ducts: Unremarkable. Pancreas: Prominent stranding changes seen surrounding the pancreas. Within the body of the pancreas, there is a region of poor enhancement. Within this area, there is a cystic lesion seen that measures 2.9 x 1.7 cm. Within the head of the pancreas, there is a tiny 8 mm cystic lesion seen. Adjacent to the duodenum inferior to the pancreas, there is a mildly rim enhancing fluid collection seen that measures 4.4 x 2.4 cm, as on series 2, image 34. Spleen: Unremarkable. Adrenal Glands: Unremarkable. Kidneys and Ureters: Unremarkable. Stomach and Bowel: Wall thickening is seen of the duodenum and the proximal jejunum, with surrounding inflammatory change. The small bowel otherwise is unremarkable. No significant gastric abnormality is seen. No significant colonic abnormality is seen. The appendix is minimally prominent at 7 mm. Peritoneum: There is a mild amount of ascites. No free air. Ventral Wall: No hernia. Abdominal Nodes: No retroperitoneal or mesenteric adenopathy by size criteria. Vessels: Aorta and inferior vena cava are normal in size. PELVIS: Pelvic Organs: Unremarkable. Bladder: Unremarkable. Pelvic Nodes: No enlarged lymph nodes. Miscellaneous: No inguinal hernias are seen. Bones: Unremarkable. IMPRESSION: Acute pancreatitis. Within the body of the pancreas, there is an area of poor enhancement, which is suspicious for pancreatic necrosis. Abnormal cystic lesions are seen, which are attributed to pseudocysts. Abscess is possible, yet considered to be less likely. Thickening is seen of the duodenum and the proximal jejunum, which is considered to be reactive. The appendix is minimally prominent at 7 mm. This is most likely reactive. Early appendicitis is possible, yet considered to be less likely. Note: No significant discrepancy from the preliminary report. Dictated by: Robert Garcia M.D. on 02/23/2022 at 7:55 Approved by: Robert Garcia M.D. on 02/23/2022 at 8:02
[2022-02-23] MEDS: HYDROMORPHONE 1 MG INJ IV ×5 (02:30→19:43)
[2022-02-23] MEDS: PANTOPRAZOLE 40 MG VIAL IV (04:23)
[2022-02-23] MEDS: POTASSIUM CHLORIDE IN WATER 10 MEQ/100 ML PIGGYBACK 100 MEQ IV ×4 (05:36→10:39)
[2022-02-23 06:03] LABS: COVID19 -Nasal RAPID Negative (Negative)
--- NOTE | 2022-02-23 06:07 | DI.MRI.S_ITS ---
PROCEDURE: MR ABDOMEN WO CON INDICATIONS: severe pain, pancreatitis, abscess TECHNIQUE: Coronal HASTE through the abdomen, axial 2-D FLASH in- and [id number], and breath-hold T2 FSE with fat saturation through the biliary system and pancreas. Oblique coronal and axial thin-slice HASTE, radial thick-slab HASTE centered on the extrahepatic bile ducts. Intravenous secretin: Not requested. COMPARISON: [facility], CT, CT ABDOMEN PELVIS W CON, 02/23/2022, 2:49. FINDINGS: Image quality: Excellent. Pancreas and biliary system: Generalized inflammatory changes are seen involving the pancreas, with moderate to prominent free fluid. Within the midportion of the pancreas, there is a poorly defined fluid collection seen that measures 2.5 cm. Within the head of the pancreas, there is a poorly defined 8 mm fluid collection seen. The pancreatic duct is not dilated. No pancreatic ductal developmental anomalies are seen. Adjacent to the duodenum, there is a focal fluid collection seen that measures up to 4.8 cm. Intra- and extra-hepatic biliary ducts are non dilated. Gallbladder demonstrates no significant MRI abnormality. No stones are seen. Other solid organs: Liver is normal in size. Spleen is normal in size. No adrenal nodules. Both kidneys are normal in size, without hydronephrosis. Nodes and vessels: No retroperitoneal or mesenteric adenopathy by size criteria. Aorta and inferior vena cava are normal in size. Bowel and peritoneum: Wall thickening is seen involving the duodenum and the proximal jejunum. Mild ascites is seen. The visualized bowel loops are otherwise unremarkable. Lung bases: No basal pleural effusions. Heart size is normal. Bones and soft tissues: No ventral hernias. Bone marrow is of normal overall signal. IMPRESSION: These imaging findings are similar to the prior CT examination with findings of acute pancreatitis. There is a 4.8 cm fluid collection seen adjacent to the duodenum, which is attributed to pseudocyst. Abscess is possible, yet considered to be less likely. An additional poorly defined fluid collections are seen within the body of the pancreas, which also most likely represent developing pseudocysts. Wall thickening is seen involving the duodenum and the proximal jejunum. Mild ascites is seen. Dictated by: Robert Garcia M.D. on 02/23/2022 at 8:51 Approved by: Robert Garcia M.D. on 02/23/2022 at 8:56
[2022-02-23] MEDS: MEROPENEM 500 MG in SODIUM CHLORIDE 0.9% 100 ML 200 ML IV ×3 (06:48→23:57)
[2022-02-23] MEDS: HYDROMORPHONE 0.5 MG INJ IV ×4 (07:46→12:42)
[2022-02-23 11:16] LABS: Add Manual Diff / Slide Review NO; Basophils Absolute Auto 100 /uL (0-100); Basophils Percent Auto 0.5 % (0-2); Eosinophils Absolute Auto 100 /uL (0-450); Eosinophils Percent Auto 0.3 % (2-4); Hemoglobin 12.5 g/dL (13.5-17.5); Lymphocytes Absolute Auto 1400 /uL (1100-4500); Lymphocytes Percent Auto 6.1 % (25-40); Mean Corpuscular HGB Conc 32.1 % (30-36); Mean Corpuscular Hemoglobin 25.3 PG (26-34); Mean Corpuscular Volume 78.8 fL (80-100); Monocytes Absolute Auto 1100 /uL (0-900); Monocytes Percent Auto 4.7 % (3-14); Neutrophils Absolute Auto 20000 /uL (1500-7000); Neutrophils Percent Auto 88.4 % (50-75); Platelet Count 556 X10^3/uL (150-400); Red Blood Cell Count 4.96 X10^6/uL (4.5-5.9); Red Cell Distribution Width 16.4 % (11.6-14.8); White Blood Cell Count 22.6 X10^3/uL (4.5-11.0)
[2022-02-23 11:27] LABS: Alanine Aminotransferase 10 IU/L (<50); Albumin 3.4 g/dL (3.5-5.0); Albumin Globulin Ratio 1.1 (1.0-2.8); Alkaline Phosphatase 85 U/L (38-126); Aspartate Aminotransferase 19 IU/L (17-59); BUN Creatinine Ratio 13.1 (6-22); Bilirubin Total 0.8 mg/dL (0.2-1.3); Blood Urea Nitrogen 8 mg/dL (9-20); Calcium 8.1 mg/dL (8.4-10.2); Carbon Dioxide 33 mmol/L (22-32); Chloride 102 mmol/L (98-107); Estimated Glomerular Filt Rate > 60 mL/min (>60); Globulin 3.1 g/dL (1.7-4.1); Glucose 145 mg/dL (70-100); HEMOLYSIS < 15 (0-50); Sodium 139 mmol/L (137-145); Total Protein 6.5 g/dL (6.3-8.2)
[2022-02-23] MEDS: LORazepam 2 MG/ML INJ IV ×2 (11:30→16:56)
[2022-02-23] MEDS: SODIUM CHLORIDE 0.9% 1,000 ML 1000 ML IV ×3 (11:31→22:36)
[2022-02-23] MEDS: SODIUM CHLORIDE 0.9% 1,000 ML 150 ML IV (12:43)
[2022-02-23] MEDS: DEXTROSE 5%-0.9% NS 1,000 ML 150 ML IV (13:32)
--- NOTE | 2022-02-23 14:59 | CM.DANOTE ---
Patient is a 31 yo male who was admitted today 02/23/22 for Severe Abd Pain. Pt has [facility] and [facility] [[email or web address] for insurance and his PCP is Chiara Lyons. EMR was reviewed. Per MD, pt is a daily smoker and ETOH use with hx of pancreatitis and imaging shows pancreatitis with possible necrosis but per Consult with [facility] recommendation of admission for conservative tx of IV-Abx at this time. Pt has hx of similar admission in Nov 2019 and was able to d/c home with family and had plans of cessation from ETOH and declined resources at that time as he was aware the [facility] has resources he could utilize. SW met briefly bedside with pt and explained role and woke him up and pt confirms that he still has significant abdominal pain and pt clearly looks in discomfort and unwell. Pt states he still lives at home in [place] with his spouse Tami and their 3 young children (their youngest is only 1.5 months old) and pt's mother Alana is still local and supportive. Pt is still working. Pt spouse then arrived bedside but cannot stay long as she brought their baby and due to COVID restrictions baby cannot stay in the hospital. SW discussed meeting with them bedside tomorrow when pt more medically appropriate to participate in discharge planning discussion and to allow pt and spouse time to quick visit before spouse has to take baby back home. Plan: SW to follow closely for conservative tx vs surgical intervention and if any ETOH resources needed prior to d/c. LAKSHMI Gonzales Discharge Planning/Care Management CM Discharge Assessment Start: 02/23/22 14:57 Freq: Status: Active Protocol: Document 02/23/22 14:57 BF (Rec: 02/23/22 14:59 [id number]) Discharge Planning Assessment Assigned Fermentation Manager LAKSHMI Boyle DPOA/Assigned Designee Name informally spouse Tami Advance Directives? No Advance Directives on File No History Provided By Patient,Significant Other, Medical Record Has Patient been admitted in last 30 No days? Prior Living Arrangements House Household Members spouse,children Type of transporation used prior to Drives own vehicle admit Independent with ADL's Yes Is patient alert and oriented? Yes Caregiver for Another Yes: 3 young kids at home Barriers to Discharge No Discharge Plan Home Transportation Arrangement Family Referrals Initiated None needed Additional Comment pending further discussion regarding ETOH resources when pt more medically appropriate Whiteboard Updated in Patient Room with Yes name and ext. # of Fermentation Manager Review Status In Process Please Provide Date Initial DC 02/23/22 Assessment Was Performed Next Review Type Continued Stay Review
[2022-02-23] MEDS: LORazepam 2 MG/ML INJ 1 MG IV (15:46)
--- NOTE | 2022-02-23 17:13 | PM.HP.1 ---
History of Present Illness History of Present Illness Date Patient Seen: 02/23/22 Chief complaint: severe pain in abd/back, numbness in face & hands Narrative: The patient is a 31-year-old male with a history of asthma, hypertension, alcohol use disorder, and a prior history of pancreatitis. He presents with abrupt onset of abdominal pain radiating to the back. Patient reports drinking about a 5th of liquor daily. He was seen and evaluated in the emergency room where [place] [address], in addition to a lipase of 118, CT scan of the abdomen and pelvis was consistent with necrotizing pancreatitiswith an associated pseudocyst. Patient is admitted to the hospital for acute pancreatitis. Patient History Medical History Asthma, exercise induced Hypertension Patient denies medical problems Surgical History No pertinent past surgical history Family & Social History Family History Father Hypertension Alcoholism Mother No significant medical problems Social History: household members spouse,children Prior Living Arrangements House Safety & Behavioral: Feels Safe in Current Yes Environment Been Physically Hurt or No Threatened By a Person Suicidal Ideation Description Frequent Suicide Plan Description No Plan Tobacco & Substance use: Tobacco type cannabis/marijuana Smoking Status Current every day smoker alcohol intake current alcohol intake frequency 3 or more drinks per day Substance Use Type marijuana Meds Home Medications and Allergies Home Medications Medication Instructions Recorded Confirmed Type losartan 50 mg tablet 50 mg PO DAILY 02/23/22 02/23/22 History Allergies Allergy/AdvReac Type Severity Reaction Status Date / Time No Known Drug Allergies Allergy Verified 02/23/22 01:12 Review of Systems Review of Systems Narrative: Ten point review of systems is negative Exam Vital Signs (past 8 hours): - 02/23/22 09:40 02/23/22 09:42 02/23/22 10:00 Temperature Pulse Rate 112 H 109 H 113 H Respiratory Rate 21 Blood Pressure 135/97 H 136/85 Pulse Oximetry 95 95 95 02/23/22 10:30 02/23/22 11:00 02/23/22 11:30 Temperature Pulse Rate 114 H 113 H 122 H Respiratory Rate 21 Blood Pressure 136/89 143/82 H 134/80 Pulse Oximetry 97 94 96 02/23/22 12:00 02/23/22 12:45 02/23/22 13:20 Temperature 98.4 F 98.4 F Pulse Rate 119 H 107 H 107 H Respiratory Rate 14 14 Blood Pressure 119/82 122/79 122/79 Pulse Oximetry 94 100 100 02/23/22 15:39 02/23/22 16:24 Temperature 96.0 F L Pulse Rate 136 H 152 H Respiratory Rate 18 14 Blood Pressure 152/99 H 112/59 L Pulse Oximetry 94 Oxygen Delivery Method Room Air Oxygen Flow Rate 0 Narrative Exam Narrative: Ill-appearing young male lying in bed writhing in pain HENMT Other: Normocephalic atraumatic, extraocular muscles are intact, sclerae and icteric, oropharynx reveals dry mucous members Neck Other: Neck is supple without adenopathy or thyromegaly Resp Other: Lungs are clear to auscultation Cardio Other: Cardiac exam: Tachycardic regular rate and rhythm normal S1-S2 GI Other: Abdomen: Soft, diffusely tender, no rebound tenderness, no board-like rigidity Neuro Other: Nonfocal Extrem Other: No edema Psych Other: Patient has no hallucinations, normal thought content, normal mood, normal affect, speech and movement are normal Objective Labs Result Diagrams: 02/23/22 11:09 02/23/22 11:09 Labs: Laboratory Results - last 24 hr 02/23/22 02/23/22 02/23/22 01:15 01:20 01:20 WBC 22.4 H RBC 5.08 Hgb 12.9 L Hct 40.1 L MCV 79.0 L MCH 25.4 L MCHC 32.1 RDW 16.6 H Plt Count 684 H Neut % (Auto) Not Reportable Lymph % (Auto) Not Reportable [place] % (Auto) Not Reportable Eos % (Auto) Not Reportable Baso % (Auto) Not Reportable Neut # (Auto) Lymph # (Auto) Not Reportable [place] # (Auto) Not Reportable Eos # (Auto) Baso # (Auto) Not Reportable Total Counted 100 Seg Neutrophils % 93.0 H Lymphocytes % (Manual) 3.0 L Monocytes % (Manual) 4.0 Neutrophils # (Manual) 21050 H RBC Morphology See below Anisocytosis 1+ H Sodium 139 Potassium 2.9 L Chloride 97 L Carbon Dioxide 27 BUN 7 L Creatinine 0.66 Estimated GFR > 60 BUN/Creatinine Ratio 10.6 Glucose 156 H Calcium 9.2 Total Bilirubin 0.6 AST 22 ALT 11 Alkaline Phosphatase 105 Total Protein 7.8 Albumin 4.1 Globulin 3.7 Albumin/Globulin Ratio 1.1 Lipase 118 Ur Bilirubin Confirm Negative Urine RBC None seen Urine WBC 0-1/hpf Ur Squamous Epith Cells 1-5 /hpf Amorphous Sediment 2+ Urine Bacteria Few (2-10) H Hyaline Casts 0-1/lpf Urine Mucus 3+ H Ur Culture Indicated? Cult not indicated SARS-CoV-2 (PCR) 02/23/22 02/23/22 02/23/22 05:47 11:09 11:09 WBC 22.6 H RBC 4.96 Hgb 12.5 L Hct 39.0 L MCV 78.8 L MCH 25.3 L MCHC 32.1 RDW 16.4 H Plt Count 556 H Neut % (Auto) 88.4 H Lymph % (Auto) 6.1 L [place] % (Auto) 4.7 Eos % (Auto) 0.3 L Baso % (Auto) 0.5 Neut # (Auto) 29617 H Lymph # (Auto) 1400 [place] # (Auto) 1100 H Eos # (Auto) 100 Baso # (Auto) 100 Total Counted Seg Neutrophils % Lymphocytes % (Manual) Monocytes % (Manual) Neutrophils # (Manual) RBC Morphology Anisocytosis Sodium 139 Potassium 4.0 Chloride 102 Carbon Dioxide 33 H BUN 8 L Creatinine 0.61 L Estimated GFR > 60 BUN/Creatinine Ratio 13.1 Glucose 145 H Calcium 8.1 L Total Bilirubin 0.8 AST 19 ALT 10 Alkaline Phosphatase 85 Total Protein 6.5 Albumin 3.4 L Globulin 3.1 Albumin/Globulin Ratio 1.1 Lipase Ur Bilirubin Confirm Urine RBC Urine WBC Ur Squamous Epith Cells Amorphous Sediment Urine Bacteria Hyaline Casts Urine Mucus Ur Culture Indicated? SARS-CoV-2 (PCR) Negative Assessment & Plan Assessment & Plan narrative: Impression 1. 31-year-old male with a history of alcohol use disorder, hypertension, admitted to the hospital with acute pancreatitis associated with a pancreatic pseudocyst. White count 38283, lipase only 118 Abdominal MRI findings as follows These imaging findings are similar to the prior CT examination with findings of acute pancreatitis.? ? There is a 4.8 cm fluid collection seen adjacent to the duodenum, which is attributed to pseudocyst.? Abscess is possible, yet considered to be less likely. ? An additional poorly defined fluid collections are seen within the body of the pancreas, which also most likely represent developing pseudocysts.? ? Wall thickening is seen involving the duodenum and the proximal jejunum.? Mild ascites is seen.? History of hypertension Plan the patient will be kept NPO, will continue IV fluids, will continue IV antiemetics, and IV pain medication Patient will be started on a CIWA protocol for possible alcohol withdrawal Will hold blood pressure medications tonight, but warm resume when appropriate Patient will be placed on DVT prophylaxis Patient reports his is his surrogate decision maker, he wishes to be a full code, Patient will be admitted as an inpatient I have utilized all available methods to review update confirm the patient's current medications Time Spent With Patient Critical Care time: I spent a total of [] minutes of critical care time on this patient's care today; this time is exclusive of procedural time.
--- NOTE | 2022-02-23 18:42 | DI.RAD.S_ITS ---
PROCEDURE: XR CHEST 1V INDICATIONS: Possible Sepsis TECHNIQUE: One view of the chest was acquired. COMPARISON: [facility], CR, XR CHEST 1V, 02/01/2020, 16:18. FINDINGS: Surgical changes and devices: None. Lungs and pleura: Lungs are clear. No pleural effusions or pneumothorax. Mediastinum: Mediastinal contours appear normal. Heart size is normal. Bones and chest wall: No suspicious bony lesions. Overlying soft tissues appear unremarkable. IMPRESSION: No evidence acute pulmonary process. Dictated by: Pineda Perez M.D. on 02/23/2022 at 19:51 Approved by: Pineda Perez M.D. on 02/23/2022 at 19:51
[2022-02-23 20:19] LABS: Add Manual Diff / Slide Review NO; Basophils Absolute Auto 0 /uL (0-100); Basophils Percent Auto 0.2 % (0-2); Eosinophils Absolute Auto 0 /uL (0-450); Hematocrit 39.7 % (41-53); Hemoglobin 12.5 g/dL (13.5-17.5); Lymphocytes Absolute Auto 1200 /uL (1100-4500); Lymphocytes Percent Auto 5.9 % (25-40); Mean Corpuscular HGB Conc 31.4 % (30-36); Mean Corpuscular Hemoglobin 24.9 PG (26-34); Mean Corpuscular Volume 79.3 fL (80-100); Monocytes Absolute Auto 600 /uL (0-900); Monocytes Percent Auto 2.9 % (3-14); Neutrophils Absolute Auto 18600 /uL (1500-7000); Platelet Count 493 X10^3/uL (150-400); Red Cell Distribution Width 16.8 % (11.6-14.8); White Blood Cell Count 20.5 X10^3/uL (4.5-11.0)
[2022-02-23 20:25] LABS: Lactate (Lactic Acid) 1.4 mmol/L (0.7-2.1)
[2022-02-23] MEDS: DEXTROSE 5%-0.9% NS 1,000 ML 200 ML IV (20:42)
[2022-02-23 20:43] LABS: Procalcitonin 0.53 ng/mL (<0.5)
[2022-02-23] MEDS: HYDROMORPHONE 0.5 MG INJ 1 MG IV (21:30)
--- NOTE | 2022-02-23 22:18 | PM.CN.EICU ---
History of Present Illness Consult details Chief complaint: severe pain in abd/back, numbness in face & hands :: This patient was seen via real time interactive two-way audiovisual telecommunication. Narrative: 31 y.o. w/ EtOH pancreatitis transferred to ICU for HR in 170s. On RA and otherwise hemodynamically stable. HR is partially responsive to opioids and benzodiazepines so it may be multifactorial in nature (pain/withdrawal/pancreatitis). HR has improved to 140s currently. Abdominal MRI did show a 4.8 cm pseudocyst next to the duodenum as well as fluid collections within the pancreatic body which may represent early pseudocysts; duodenum/jejunal wall thickening also seen. pCXR was clear. He has been incontinent of urine and urine output has not been recorded; bedside urinal appears empty but patient just arrived. [facility] Medical History (Updated 02/23/22 @ 22:26 by Sam Yoder MD) Asthma, exercise induced Hypertension Patient denies medical problems Surgical History No pertinent past surgical history Family History Father Hypertension Alcoholism Mother No significant medical problems Social History household members: spouse and children Smoking Status: Current every day smoker alcohol intake: current Current Medications Current Medications Medications: Home Medications losartan 50 mg tablet 50 mg PO DAILY 02/23/22 [History Confirmed 02/23/22] Visit Medications (administered) Generic Name Dose Route Start Last Admin Trade Name Freq PRN Reason Stop Dose Admin Acetaminophen 650 mg 02/23/22 18:00 02/23/22 18:08 Acetaminophen 325 Mg Tablet PO Not Given Q6HR NERI Hydromorphone HCl 1 mg 02/23/22 14:22 02/23/22 19:43 Hydromorphone 1 Mg Inj IV 1 mg Q2H PRN Administration Breakthrough pain only (8-10) Meropenem 500 mg/ Sodium 100 mls @ 200 mls/hr 02/23/22 15:00 02/23/22 16:05 Chloride IV Infused Q8H NERI Infusion Dextrose/Sodium Chloride 1,000 mls @ 200 mls/hr 02/23/22 13:15 04/16/22 20:42 Dextrose 5%-0.9% Ns IV 200 mls/hr CONT NERI Administration Lorazepam 0 mg 02/23/22 15:35 02/23/22 16:56 Lorazepam 2 Mg/Ml Inj IV 1 mg CIWAPRN PRN Administration Alcohol Withdrawal Protocol Review of Systems Review of Systems Narrative: not performed as patient was sleeping Exam Vital Signs (past 8 hours): - 02/23/22 15:39 02/23/22 16:24 02/23/22 18:00 Temperature 96.0 F L Pulse Rate 136 H 152 H 142 H Respiratory Rate 18 14 13 Blood Pressure 152/99 H 112/59 L 112/59 L Pulse Oximetry 94 02/23/22 19:20 02/23/22 19:43 02/23/22 21:16 Temperature 98.9 F 98.9 F Pulse Rate 151 H 144 H Respiratory Rate 24 13 Blood Pressure 133/89 130/90 Pulse Oximetry 96 96 02/23/22 22:00 Temperature Pulse Rate 145 H Respiratory Rate 22 Blood Pressure 131/83 Pulse Oximetry 96 Oxygen Delivery Method Room Air Oxygen Flow Rate 0 Const General: comfortable Resp Effort & Inspection: normal respiratory effort Cardio Rate: tachycardic Rhythm: regular rhythm Objective Labs Result Diagrams: 02/23/22 19:50 02/23/22 11:09 Labs: Laboratory Results - last 24 hr 02/23/22 02/23/22 02/23/22 01:15 01:20 01:20 WBC 22.4 H RBC 5.08 Hgb 12.9 L Hct 40.1 L MCV 79.0 L MCH 25.4 L MCHC 32.1 RDW 16.6 H Plt Count 684 H Neut % (Auto) Not Reportable Lymph % (Auto) Not Reportable [place] % (Auto) Not Reportable Eos % (Auto) Not Reportable Baso % (Auto) Not Reportable Neut # (Auto) Lymph # (Auto) Not Reportable [place] # (Auto) Not Reportable Eos # (Auto) Baso # (Auto) Not Reportable Total Counted 100 Seg Neutrophils % 93.0 H Lymphocytes % (Manual) 3.0 L Monocytes % (Manual) 4.0 Neutrophils # (Manual) 70800 H RBC Morphology See below Anisocytosis 1+ H Sodium 139 Potassium 2.9 L Chloride 97 L Carbon Dioxide 27 BUN 7 L Creatinine 0.66 Estimated GFR > 60 BUN/Creatinine Ratio 10.6 Glucose 156 H Lactate Calcium 9.2 Total Bilirubin 0.6 AST 22 ALT 11 Alkaline Phosphatase 105 Total Protein 7.8 Albumin 4.1 Globulin 3.7 Albumin/Globulin Ratio 1.1 Lipase 118 Procalcitonin Ur Bilirubin Confirm Negative Urine RBC None seen Urine WBC 0-1/hpf Ur Squamous Epith Cells 1-5 /hpf Amorphous Sediment 2+ Urine Bacteria Few (2-10) H Hyaline Casts 0-1/lpf Urine Mucus 3+ H Ur Culture Indicated? Cult not indicated SARS-CoV-2 (PCR) 02/23/22 02/23/22 02/23/22 05:47 11:09 11:09 WBC 22.6 H RBC 4.96 Hgb 12.5 L Hct 39.0 L MCV 78.8 L MCH 25.3 L MCHC 32.1 RDW 16.4 H Plt Count 556 H Neut % (Auto) 88.4 H Lymph % (Auto) 6.1 L [place] % (Auto) 4.7 Eos % (Auto) 0.3 L Baso % (Auto) 0.5 Neut # (Auto) 03759 H Lymph # (Auto) 1400 [place] # (Auto) 1100 H Eos # (Auto) 100 Baso # (Auto) 100 Total Counted Seg Neutrophils % Lymphocytes % (Manual) Monocytes % (Manual) Neutrophils # (Manual) RBC Morphology Anisocytosis Sodium 139 Potassium 4.0 Chloride 102 Carbon Dioxide 33 H BUN 8 L Creatinine 0.61 L Estimated GFR > 60 BUN/Creatinine Ratio 13.1 Glucose 145 H Lactate Calcium 8.1 L Total Bilirubin 0.8 AST 19 ALT 10 Alkaline Phosphatase 85 Total Protein 6.5 Albumin 3.4 L Globulin 3.1 Albumin/Globulin Ratio 1.1 Lipase Procalcitonin Ur Bilirubin Confirm Urine RBC Urine WBC Ur Squamous Epith Cells Amorphous Sediment Urine Bacteria Hyaline Casts Urine Mucus Ur Culture Indicated? SARS-CoV-2 (PCR) Negative 02/23/22 02/23/22 02/23/22 19:45 19:50 19:50 WBC 20.5 H RBC 5.00 Hgb 12.5 L Hct 39.7 L MCV 79.3 L MCH 24.9 L MCHC 31.4 RDW 16.8 H Plt Count 493 H Neut % (Auto) 91.0 H Lymph % (Auto) 5.9 L [place] % (Auto) 2.9 L Eos % (Auto) 0.0 L Baso % (Auto) 0.2 Neut # (Auto) 90894 H Lymph # (Auto) 1200 [place] # (Auto) 600 Eos # (Auto) 0 Baso # (Auto) 0 Total Counted Seg Neutrophils % Lymphocytes % (Manual) Monocytes % (Manual) Neutrophils # (Manual) RBC Morphology Anisocytosis Sodium Potassium Chloride Carbon Dioxide BUN Creatinine Estimated GFR BUN/Creatinine Ratio Glucose Lactate 1.4 Calcium Total Bilirubin AST ALT Alkaline Phosphatase Total Protein Albumin Globulin Albumin/Globulin Ratio Lipase Procalcitonin 0.53 H Ur Bilirubin Confirm Urine RBC Urine WBC Ur Squamous Epith Cells Amorphous Sediment Urine Bacteria Hyaline Casts Urine Mucus Ur Culture Indicated? SARS-CoV-2 (PCR) Assessment & Plan Assessment and plan (1) Pancreatitis: Qualifiers: Acute pancreatitis complication: unspecified Chronicity: acute Pancreatitis type: alcohol induced Qualified Code(s): K85.20 - Alcohol induced acute pancreatitis without necrosis or infection Status: Acute Plan: -Continue bowel rest -PRN opioids -Follow Ca+; was mildly low earlier today but corrects normally given mild hypoalbuminemia -Lack of documented urine output is of concern given tachycardia --> will bolus another L of NS (it appears he received 2L earlier today) and assess response; discussed with RN. (2) Pseudocyst of pancreas: Status: Acute Plan: -Monitor -Reasonable to continue meropenem (3) Tachycardia: Problem details: Unclear whether this is due to pain, intravascular hypovolemia, or impending EtOH withdrawal or some combination of all 3 Status: Acute Plan: -Follow closely (4) Alcohol use disorder: Problem details: Sleeping comfortably and does not appear to be in overt withdrawal (yet) Status: Acute Plan: -Continue CIWA -Continue thiamine/folate -Check Mg+2 -Switched oral clonidine to patch
--- NOTE | 2022-02-23 22:55 | PC.NURSE ---
Addendum entered by Yazmin Hoover R.N. 02/24/22 05:41: 0415 Dr. Yoder updated on patient's last urinary output of 225 ml medium tea color urine after bolus of one liter NS. Orders received for an additional bolus of LR one liter. Discussed with HR 128 , ST and BP 116/71. Additional orders received to increase maintenance IV fluid to 250 ml/hr. Orders instituted and patient updated on new orders. Patient continues to require Dilaudid every 2-3 hours for abd/flank pain @ 8/10. Abdomen mildly distended, BT hypoactive, and tender. Addendum entered by Yazmin Hoover R.N. 02/24/22 02:45: Patient sleeping between Dilaudid 1 mg IV. Rates pain at 8/10. Patient awakens after approximately 1.5 hours after IV Dilaudid administration, and reports pain 8/10 to flank and abdomen. CIWA zero. HR 128-135, ST. BP 115/70. Remains on RA with sats 94-95%. Original Note: Dr. Kelly notified of patients continued R abdominal and R flank pain one hour after administration of Dilaudid 1 mg. Discussed patient's HR increasing to 155-157 with spasmodic like pain per patient. BP 130s/80-90s. Dilaudid 1 mg one time dose given. Dr. Yoder notified of Dr. Kelly's order for tele-benefits assistant consult. Patient's case discussed with Dr. Yoder including patient's HR to the 170s, ST; prior to transfer from Acute Care to ICU. Discussed patient's difficulty with pain control and receipt of an additional dose of IV Dilaudid. Patient's rate to 138-140s when pain controlled. Patient's CIWA currently at zero. Patient now sleeping after additional dose of Dilaudid. NS IV fluid bolus initiated per order. Orders for accurate I /O discussed with Dr. Brunson.
[2022-02-24] VITALS (25 sets, daily range): BP systolic 114–148; BP diastolic 57–90; PULSE 120–142; RESP 16–36; TEMP 36.7–37.9; O2SAT 92–99
--- NOTE | 2022-02-24 00:03 | PM.EVENT ---
Event Note Date Patient Seen: 02/24/22 Time Patient Seen: 18:40 Event Note (Rapid Response, Code, or fall): I was contacted by nursing due to patient with persistent and progressively worsening tachycardia. He presented to the floor here earlier today with a heart rate in the 1 teens to 150 teens and heart rate continued to worsen and was persistently in the 160s despite patient being very somnolent related to dilaudid and lorazepam that was being given. The patient was complaining of upper abdominal pain and flank pain. This has been his presenting complaint to the ER today. His diagnosis is that of pancreatitis probable pseudocyst possible pancreatic necrosis with acute alcohol withdrawal. Though date of last ingestion of alcohol on known but probably today. He received 2 L bolus of normal saline with persistent tachycardia Objective exam patient is somnolent but awakens in and can answer questions. Heart rate is in the 150s to 160s with normal blood pressure O2 sat on room air is stable and he is afebrile HEENT shows dry mucous membranes Chest: Clear to auscultation without wheezes rhonchi or crackles Cor: Regular rhythm with tachycardia Abdomen: Positive bowel sounds with diffuse tenderness Extremities: No edema Skin no rashes Assessment and plan 31-year-old male with acute pancreatitis and significant pain associated with this as well as possible sepsis and possible alcohol withdrawal Plan: Will transfer to the ICU Will consult the tele ICU physician Will continue with IV fluids Will continue with pain management and will give extra dose of Dilaudid 1 mg as we may have gotten behind. Will continue with CIWA protocol and lorazepam Will give clonidine Will continue with the meropenem for treatment of suspected sepsis. Stat labs were performed and WBC was down from [id number]. Lactate was normal and procalcitonin was minimally elevated. We will repeat these labs in a.m.. 25 minutes was spent with patient in meeting with patient and discussing with nursing and documenting
[2022-02-24] MEDS: HYDROMORPHONE 1 MG INJ IV ×7 (00:20→19:51)
[2022-02-24] MEDS: DEXTROSE 5%-0.9% NS 1,000 ML 200 ML IV (03:49)
[2022-02-24] MEDS: LACTATED RINGERS 1,000 ML 1000 ML IV ×5 (04:37→16:49)
[2022-02-24 05:41] LABS: Alanine Aminotransferase 9 IU/L (<50); Albumin 2.4 g/dL (3.5-5.0); Albumin Globulin Ratio 0.9 (1.0-2.8); Alkaline Phosphatase 59 U/L (38-126); Aspartate Aminotransferase 16 IU/L (17-59); Bilirubin Total 0.6 mg/dL (0.2-1.3); Blood Urea Nitrogen 9 mg/dL (9-20); Carbon Dioxide 30 mmol/L (22-32); Chloride 106 mmol/L (98-107); Cholesterol 68 mg/dL (140-199); Estimated Glomerular Filt Rate > 60 mL/min (>60); Globulin 2.6 g/dL (1.7-4.1); Glucose 111 mg/dL (70-100); HDL Cholesterol 24 mg/dL (40-60); HEMOLYSIS < 15 (0-50); LDL Cholesterol Calculated 32 mg/dL (<100); Magnesium 1.4 mg/dL (1.6-2.3); Potassium 3.7 mmol/L (3.4-5.1); Sodium 140 mmol/L (137-145); Triglycerides 60 mg/dL (35-150)
[2022-02-24] MEDS: MEROPENEM 500 MG in SODIUM CHLORIDE 0.9% 100 ML 200 ML IV ×3 (07:29→22:12)
[2022-02-24] MEDS: cloNIDine TTS 0.1 MG PATCH TOP (07:30)
--- NOTE | 2022-02-24 08:58 | PM.PN.EICU ---
Subjective Subjective :: This patient was seen via real time interactive two-way audiovisual telecommunication. HPI: 31 y.o. w/ EtOH pancreatitis transferred? to ICU for HR in 170s.? On RA and otherwise hemodynamically stable.? HR is partially responsive to opioids and benzodiazepines so it may be multifactorial in nature (pain/withdrawal/pancreatitis).? HR has improved to 140s currently.? Abdominal MRI did show a 4.8 cm pseudocyst next to the duodenum as well as fluid collections within the pancreatic body which may represent early pseudocysts; duodenum/jejunal wall thickening also seen. pCXR was clear. Interval follow up 02/24/22: HR improved with fluids and pain control. Tm 100.2. Cx pending. Abdomen distended and tender to palpation. Current Medications Current Medications Medications: Home Medications losartan 50 mg tablet 50 mg PO DAILY 02/23/22 [History Confirmed 02/23/22] Visit Medications (administered) Generic Name Dose Route Start Last Admin Trade Name Freq PRN Reason Stop Dose Admin Acetaminophen 650 mg 02/23/22 18:00 02/24/22 06:25 Acetaminophen 325 Mg Tablet PO Not Given Q6HR NERI Hydromorphone HCl 1 mg 02/23/22 14:22 02/24/22 04:49 Hydromorphone 1 Mg Inj IV 1 mg Q2H PRN Administration Breakthrough pain only (8-10) Meropenem 500 mg/ Sodium 100 mls @ 200 mls/hr 02/23/22 15:00 02/24/22 07:29 Chloride IV 200 mls/hr Q8H NERI Administration Dextrose/Sodium Chloride 1,000 mls @ 250 mls/hr 02/23/22 13:15 02/24/22 04:29 Dextrose 5%-0.9% Ns IV 250 mls/hr CONT NERI Infusion Lorazepam 0 mg 02/23/22 15:35 02/23/22 16:56 Lorazepam 2 Mg/Ml Inj IV 1 mg CIWAPRN PRN Administration Alcohol Withdrawal Protocol Objective Labs Result Diagrams: 02/23/22 19:50 02/24/22 04:53 Labs: Laboratory Results - last 24 hr 02/23/22 02/23/22 02/23/22 11:09 11:09 19:45 WBC 22.6 H RBC 4.96 Hgb 12.5 L Hct 39.0 L MCV 78.8 L MCH 25.3 L MCHC 32.1 RDW 16.4 H Plt Count 556 H Neut % (Auto) 88.4 H Lymph % (Auto) 6.1 L [place] % (Auto) 4.7 Eos % (Auto) 0.3 L Baso % (Auto) 0.5 Neut # (Auto) 60450 H Lymph # (Auto) 1400 [place] # (Auto) 1100 H Eos # (Auto) 100 Baso # (Auto) 100 Sodium 139 Potassium 4.0 Chloride 102 Carbon Dioxide 33 H BUN 8 L Creatinine 0.61 L Estimated GFR > 60 BUN/Creatinine Ratio 13.1 Glucose 145 H Lactate Calcium 8.1 L Magnesium Total Bilirubin 0.8 AST 19 ALT 10 Alkaline Phosphatase 85 Total Protein 6.5 Albumin 3.4 L Globulin 3.1 Albumin/Globulin Ratio 1.1 Triglycerides Cholesterol LDL Cholesterol, Calc HDL Cholesterol Procalcitonin 0.53 H Nasal Screen MRSA (PCR) 02/23/22 02/23/22 02/24/22 19:50 19:50 02:25 WBC 20.5 H RBC 5.00 Hgb 12.5 L Hct 39.7 L MCV 79.3 L MCH 24.9 L MCHC 31.4 RDW 16.8 H Plt Count 493 H Neut % (Auto) 91.0 H Lymph % (Auto) 5.9 L [place] % (Auto) 2.9 L Eos % (Auto) 0.0 L Baso % (Auto) 0.2 Neut # (Auto) 85646 H Lymph # (Auto) 1200 [place] # (Auto) 600 Eos # (Auto) 0 Baso # (Auto) 0 Sodium Potassium Chloride Carbon Dioxide BUN Creatinine Estimated GFR BUN/Creatinine Ratio Glucose Lactate 1.4 Calcium Magnesium Total Bilirubin AST ALT Alkaline Phosphatase Total Protein Albumin Globulin Albumin/Globulin Ratio Triglycerides Cholesterol LDL Cholesterol, Calc HDL Cholesterol Procalcitonin Nasal Screen MRSA (PCR) Negative for mrsa 02/24/22 02/24/22 04:53 04:53 WBC RBC Hgb Hct MCV MCH MCHC RDW Plt Count Neut % (Auto) Lymph % (Auto) [place] % (Auto) Eos % (Auto) Baso % (Auto) Neut # (Auto) Lymph # (Auto) [place] # (Auto) Eos # (Auto) Baso # (Auto) Sodium 140 Potassium 3.7 Chloride 106 Carbon Dioxide 30 BUN 9 Creatinine 0.60 L Estimated GFR > 60 BUN/Creatinine Ratio 15.0 Glucose 111 H Lactate Calcium 7.0 L Magnesium 1.4 L Total Bilirubin 0.6 AST 16 L ALT 9 Alkaline Phosphatase 59 Total Protein 5.0 L Albumin 2.4 L Globulin 2.6 Albumin/Globulin Ratio 0.9 L Triglycerides 60 Cholesterol 68 L LDL Cholesterol, Calc 32 HDL Cholesterol 24 L Procalcitonin Nasal Screen MRSA (PCR) MRCP: There is a 4.8 cm fluid collection seen adjacent to the duodenum, which is attributed to pseudocyst.? Abscess is possible, yet considered to be less likely. ? An additional poorly defined fluid collections are seen within the body of the pancreas, which also most likely represent developing pseudocysts.? ? Wall thickening is seen involving the duodenum and the proximal jejunum.? Mild ascites is seen.? Exam Vital Signs (past 8 hours): - 02/24/22 01:18 02/24/22 02:06 02/24/22 03:00 Temperature Pulse Rate 133 H 123 H 135 H Respiratory Rate 21 25 H 20 Blood Pressure 128/69 115/70 117/90 Pulse Oximetry 94 95 95 02/24/22 04:00 02/24/22 05:00 02/24/22 06:00 Temperature 98.3 F 98.0 F Pulse Rate 123 H 129 H 131 H Respiratory Rate 24 21 30 H Blood Pressure 116/71 128/81 129/82 Pulse Oximetry 94 95 96 02/24/22 08:00 Temperature 100.2 F H Pulse Rate 127 H Respiratory Rate 16 Blood Pressure 121/70 Pulse Oximetry 95 Oxygen Delivery Method Room Air Oxygen Flow Rate 0 Assessment & Plan Assessment & Plan narrative: NEURO: -- Pain control as below -- Seek PT/OT consultation and encourage early mobility # Alcohol abuse -- Cont thiamine, folic acid, and MTV -- On ativan as needed per RESP: -- ON room air -- Encourage IS and OOB as tolerated CVS: # Tachycardia -- Multifactorial due to pancreatitis, hypovolemia, and pain -- Cont aggressive IVF resuscitation -- Pain control as below GI: # Alcoholic pancreatitis -- MRCP showed fluid collection which was attributed to psuedocyst -- Cont aggressive IVF resuscitation -- On dilaudid 1 mg every 2 hours as needed for severe pain -- Ordered oxycodone 5 mg every 4 hours as needed for moderate pain -- Hb is unchnaged suggestive of inadequate fluid resuscitation -- Will order 1 liter LR bolus -- On meropenem -- Follow up cx data ID: # Sepsis -- Cx pending -- On meropenem -- Follow up cx data HEME: # Leukocytosis -- Secondary to pancreatitis vs sepsis -- On abx as above ENDO: -- Goal BS < 180 D/w RN. Time Spent With Patient Critical Care time: I spent a total of [] minutes of critical care time on this patient's care today; this time is exclusive of procedural time.
[2022-02-24] MEDS: MAGNESIUM SULFATE 2 GM/50 ML PIGGYBACK IV (09:04)
[2022-02-24] MEDS: DEXTROSE 5%-0.9% NS 1,000 ML 250 ML IV ×2 (09:05→19:51)
[2022-02-24] MEDS: ENOXAPARIN 40 MG/0.4 ML SYRINGE SUBCUT (09:05)
[2022-02-24] MEDS: FOLIC ACID 1 MG TABLET PO (09:11)
[2022-02-24] MEDS: MULTIVITAMIN 1 TABLET 1 TAB PO (09:11)
[2022-02-24] MEDS: THIAMINE 100 MG TABLET PO (09:12)
[2022-02-24] MEDS: OXYCODONE 5 MG/5 ML ORAL SOLUTION PO ×3 (09:58→22:13)
[2022-02-24] MEDS: polyethylene glycoL 3350 17 GM POWD.PACK PO (09:59)
--- NOTE | 2022-02-24 16:06 | P.PN_ITS ---
Subjective Subjective Date Patient Seen: 02/24/22 Interval history: Patient is a 31-year-old male with a history of alcohol use disorder admitted to the hospital with acute pancreatitis, necrotizing pancreatitis, with a pancreatic pseudocyst. Patient continues to complain of abdominal pain. He denies any visual hallucinations. He remains markedly tachycardic despite aggressive IV hydration. He is awake and alert and has no evidence DTs at this time. Exam Vital Signs (past 8 hours): - 02/24/22 09:00 02/24/22 10:00 02/24/22 10:11 Pulse Rate 127 H 126 H Respiratory Rate 31 H 28 H Blood Pressure 124/66 125/77 Pulse Oximetry 99 96 99 02/24/22 11:00 02/24/22 12:00 02/24/22 13:00 Pulse Rate 133 H 132 H 126 H Respiratory Rate 36 H 29 H 32 H Blood Pressure 130/83 122/76 117/68 Pulse Oximetry 96 97 96 02/24/22 14:00 Pulse Rate 135 H Respiratory Rate 28 H Blood Pressure 125/83 Pulse Oximetry 95 Oxygen Delivery Method Room Air Oxygen Flow Rate 0 Narrative Exam Narrative: Ill-appearing young male lying in bed Resp Other: Lungs: Clear to auscultation Cardio Other: Cardiac exam: Regular rate and rhythm normal S1-S2 GI Other: Abdomen: Distended, mildly tender to palpation, no rebound tenderness, no board-like rigidity, no palpable mass Extrem Other: No edema Objective Labs Result Diagrams: 02/23/22 19:50 02/24/22 04:53 Labs: Laboratory Results - last 24 hr 02/23/22 02/23/22 02/23/22 19:45 19:50 19:50 WBC 20.5 H RBC 5.00 Hgb 12.5 L Hct 39.7 L MCV 79.3 L MCH 24.9 L MCHC 31.4 RDW 16.8 H Plt Count 493 H Neut % (Auto) 91.0 H Lymph % (Auto) 5.9 L [place] % (Auto) 2.9 L Eos % (Auto) 0.0 L Baso % (Auto) 0.2 Neut # (Auto) 96778 H Lymph # (Auto) 1200 [place] # (Auto) 600 Eos # (Auto) 0 Baso # (Auto) 0 Sodium Potassium Chloride Carbon Dioxide BUN Creatinine Estimated GFR BUN/Creatinine Ratio Glucose Lactate 1.4 Calcium Magnesium Total Bilirubin AST ALT Alkaline Phosphatase Total Protein Albumin Globulin Albumin/Globulin Ratio Triglycerides Cholesterol LDL Cholesterol, Calc HDL Cholesterol Procalcitonin 0.53 H Nasal Screen MRSA (PCR) 02/24/22 02/24/22 02/24/22 02:25 04:53 04:53 WBC RBC Hgb Hct MCV MCH MCHC RDW Plt Count Neut % (Auto) Lymph % (Auto) [place] % (Auto) Eos % (Auto) Baso % (Auto) Neut # (Auto) Lymph # (Auto) [place] # (Auto) Eos # (Auto) Baso # (Auto) Sodium 140 Potassium 3.7 Chloride 106 Carbon Dioxide 30 BUN 9 Creatinine 0.60 L Estimated GFR > 60 BUN/Creatinine Ratio 15.0 Glucose 111 H Lactate Calcium 7.0 L Magnesium 1.4 L Total Bilirubin 0.6 AST 16 L ALT 9 Alkaline Phosphatase 59 Total Protein 5.0 L Albumin 2.4 L Globulin 2.6 Albumin/Globulin Ratio 0.9 L Triglycerides 60 Cholesterol 68 L LDL Cholesterol, Calc 32 HDL Cholesterol 24 L Procalcitonin Nasal Screen MRSA (PCR) Negative for mrsa [facility] Medical History (Updated 02/23/22 @ 22:26 by Sam Yoder MD) Asthma, exercise induced Hypertension Patient denies medical problems Surgical History No pertinent past surgical history Family History Father Hypertension Alcoholism Mother No significant medical problems Social History household members: spouse and children Smoking Status: Current every day smoker alcohol intake: current Assessment & Plan Assessment & Plan narrative: 31-year-old male with a history of alcohol use disorder admitted to the hospital with acute necrotizing pancreatitis, with a pancreatic pseudocyst * Patient continues to be significantly tachycardic, likely reflective of volume depletion/dehydration * Will continue aggressive IV hydration, continue IV Dilaudid continue meropenem for necrotizing pancreatitis * Low-grade fever likely related to pancreatitis, however need to be mindful of the possibility of an infected pseudocyst, * Will continue to monitor closely Alcohol use Disorder * No evidence of active alcohol withdrawal with delirium 10 tremens at this time * Will continue to monitor closely on a CIWA protocol, Ativan as needed as ne eded Will continue monitor the patient with you Time Spent With Patient Critical Care time: I spent a total of [] minutes of critical care time on this patient's care today; this time is exclusive of procedural time.
--- NOTE | 2022-02-24 16:58 | PC.NURSE ---
Addendum entered by Trisha Mathews R.N. 02/24/22 18:57: ok for PO medications and ice chips, otherwise NPO with Q6H glucose checks per protocol. Original Note: pt HR above 135 [address] sensor officer [address] Abad ordered multiple bolus every time pt HR is above 140 sustained, 4L bolus administered during shift, u/o has been 1950 for dayshift. Pain controlled with dilaudid 1mg and 5 mg liquid oxycodone. Able to make needs known, bed low and locked, call light within reach, will continue to monitor
--- NOTE | 2022-02-24 20:57 | PM.ICURNDS ---
- Date Patient Seen: 02/24/22 Time Patient Seen: 20:58 :: This patient was seen via real time interactive two-way audiovisual telecommunication. Note: 31 y.o. with EtOH pancreatitis. Appears comfortable on camera using cell phone. HR in 130s. RN reports brisk dilute urine output. Pain controlled with PRN IV opioids. INTERVENTIONS 1) Decreased maintenance IVF rate to 150 mL/hr Continue rest of current plan.
[2022-02-24] MEDS: ACETAMINOPHEN 325 MG TABLET 650 MG PO (22:12)
[2022-02-25] VITALS (9 sets, daily range): BP systolic 117–134; BP diastolic 68–88; PULSE 114–138; RESP 16–33; TEMP 36.3–37.2; O2SAT 92–97
[2022-02-25] MEDS: DEXTROSE 5%-0.9% NS 1,000 ML 150 ML IV ×4 (01:47→22:54)
[2022-02-25] MEDS: OXYCODONE 5 MG/5 ML ORAL SOLUTION PO ×4 (01:47→22:15)
[2022-02-25] MEDS: MAGNESIUM SULFATE 2 GM/50 ML PIGGYBACK IV (03:43)
[2022-02-25 05:05] LABS: Hematocrit 33.9 % (41-53); Hemoglobin 10.5 g/dL (13.5-17.5); Mean Corpuscular Hemoglobin 24.5 PG (26-34); Mean Corpuscular Volume 79.2 fL (80-100); Platelet Count 362 X10^3/uL (150-400); Red Blood Cell Count 4.27 X10^6/uL (4.5-5.9); Red Cell Distribution Width 16.6 % (11.6-14.8); White Blood Cell Count 14.8 X10^3/uL (4.5-11.0)
[2022-02-25 05:20] LABS: Alanine Aminotransferase 5 IU/L (<50); Albumin 2.4 g/dL (3.5-5.0); Albumin Globulin Ratio 0.8 (1.0-2.8); Alkaline Phosphatase 77 U/L (38-126); Amylase 75 U/L (30-110); Aspartate Aminotransferase 15 IU/L (17-59); BUN Creatinine Ratio 9.8 (6-22); Bilirubin Total 0.6 mg/dL (0.2-1.3); Bilirubin Unconjugated 0.8 mg/dL (0.0-1.1); Blood Urea Nitrogen 5 mg/dL (9-20); Calcium 7.5 mg/dL (8.4-10.2); Carbon Dioxide 27 mmol/L (22-32); Chloride 108 mmol/L (98-107); Estimated Glomerular Filt Rate > 60 mL/min (>60); Globulin 2.9 g/dL (1.7-4.1); Glucose 90 mg/dL (70-100); HEMOLYSIS < 15 (0-50); Magnesium 2.1 mg/dL (1.6-2.3); Phosphorous 1.8 mg/dL (2.5-4.5); Potassium 3.4 mmol/L (3.4-5.1); Sodium 139 mmol/L (137-145); Total Protein 5.3 g/dL (6.3-8.2)
[2022-02-25] MEDS: ACETAMINOPHEN 325 MG TABLET 650 MG PO ×2 (05:51→11:25)
[2022-02-25] MEDS: MEROPENEM 500 MG in SODIUM CHLORIDE 0.9% 100 ML 200 ML IV ×3 (06:00→22:16)
[2022-02-25] MEDS: CALCIUM GLUCONATE 9.3 MEQ in SODIUM CHLORIDE 0.9% 100 ML 240 ML IV (07:29)
[2022-02-25] MEDS: ENOXAPARIN 40 MG/0.4 ML SYRINGE SUBCUT (09:17)
[2022-02-25] MEDS: THIAMINE 100 MG TABLET PO (09:17)
[2022-02-25] MEDS: FOLIC ACID 1 MG TABLET PO (09:17)
[2022-02-25] MEDS: MULTIVITAMIN 1 TABLET 1 TAB PO (09:18)
--- NOTE | 2022-02-25 10:55 | P.TELICUPN_ITS ---
Subjective Subjective :: This patient was seen via real time interactive two-way audiovisual telecommunication. pateitns pain improved. Diet started today, Current Medications Current Medications Medications: Home Medications losartan 50 mg tablet 50 mg PO DAILY 02/23/22 [History Confirmed 02/23/22] Visit Medications (administered) Generic Name Dose Route Start Last Admin Trade Name Freq PRN Reason Stop Dose Admin Acetaminophen 650 mg 02/23/22 18:00 02/25/22 05:51 Acetaminophen 325 Mg Tablet PO 650 mg Q6HR NERI Administration Enoxaparin Sodium 40 mg 02/24/22 09:00 02/25/22 09:17 Enoxaparin 40 Mg/0.4 Ml Syringe SUBCUT 40 mg DAILY NERI Administration Folic Acid 1 mg 02/24/22 09:00 02/25/22 09:17 Folic Acid 1 Mg Tablet PO 1 mg DAILY NERI Administration Hydromorphone HCl 1 mg 02/23/22 14:22 02/24/22 19:51 Hydromorphone 1 Mg Inj IV 1 mg Q2H PRN Administration Breakthrough pain only (8-10) Meropenem 500 mg/ Sodium 100 mls @ 200 mls/hr 02/23/22 15:00 02/25/22 06:39 Chloride IV Infused Q8H NERI Infusion Dextrose/Sodium Chloride 1,000 mls @ 150 mls/hr 02/23/22 13:15 02/25/22 09:22 Dextrose 5%-0.9% Ns IV 150 mls/hr CONT NERI Administration Lorazepam 0 mg 02/23/22 15:35 02/23/22 16:56 Lorazepam 2 Mg/Ml Inj IV 1 mg CIWAPRN PRN Administration Alcohol Withdrawal Protocol Multivitamins 1 tab 02/24/22 09:00 02/25/22 09:18 Multivitamin 1 Tablet PO 1 tab DAILY NERI Administration Nicotine 21 mg 02/24/22 09:00 02/25/22 09:19 Nicotine 21 Mg Patch TOP Not Given DAILY NERI Oxycodone HCl 5 mg 02/24/22 09:31 02/25/22 09:25 Oxycodone 5 Mg/5 Ml Oral Solution PO 5 mg Q4HR PRN Administration Pain, Moderate (4-6) Polyethylene Glycol 17 gm 02/24/22 09:45 02/25/22 09:19 Polyethylene Glycol 3350 17 Gm Powd.Pack PO Not Given DAILY NERI Thiamine HCl 100 mg 02/24/22 09:00 02/25/22 09:17 Thiamine 100 Mg Tablet PO 02/27/22 09:01 100 mg DAILY NERI Administration Objective Labs Result Diagrams: 02/25/22 04:47 02/25/22 04:47 Labs: Laboratory Results - last 24 hr 02/25/22 02/25/22 04:47 04:47 WBC 14.8 H RBC 4.27 L Hgb 10.5 L Hct 33.9 L MCV 79.2 L MCH 24.5 L MCHC 31.0 RDW 16.6 H Plt Count 362 Sodium 139 Potassium 3.4 Chloride 108 H Carbon Dioxide 27 BUN 5 L Creatinine 0.51 L Estimated GFR > 60 BUN/Creatinine Ratio 9.8 Glucose 90 Calcium 7.5 L Phosphorus 1.8 L Magnesium 2.1 Total Bilirubin 0.6 Conjugated Bilirubin 0.0 Unconjugated Bilirubin 0.8 AST 15 L ALT 5 Alkaline Phosphatase 77 Total Protein 5.3 L Albumin 2.4 L Globulin 2.9 Albumin/Globulin Ratio 0.8 L Amylase 75 Exam Vital Signs (past 8 hours): - 02/25/22 06:00 02/25/22 07:00 02/25/22 08:04 Pulse Rate 117 H 120 H 120 H Respiratory Rate 27 H 32 H 16 Blood Pressure 126/68 122/68 Pulse Oximetry 92 95 93 Oxygen Delivery Method Room Air Oxygen Flow Rate 0 Narrative Exam Narrative: surrogate for exam is primary team Assessment & Plan Assessment & Plan narrative: Assessment etoh abuse alcoholic pancreatitis sepsis Plan advace diet as toelrated can hold IVF if he tolerates po well trend labs pain control cx remain negative on abx possible tranfer todfay Time Spent With Patient Critical Care time: I spent a total of [] minutes of critical care time on this patient's care tod ay; this time is exclusive of procedural time.
[2022-02-25] MEDS: SODIUM,POTASSIUM PHOSPHATES PACKET 2 EACH PO ×2 (11:26→15:09)
[2022-02-25] MEDS: POTASSIUM CHLORIDE 20 MEQ TAB 40 MEQ PO (11:27)
--- NOTE | 2022-02-25 13:42 | P.PN_ITS ---
Subjective Subjective Date Patient Seen: 02/25/22 Interval history: 31 y/o male admitted with alcohol use disorder, acute necrotizing pancreatitis with pseudocyst formatlon. Patient appears much better today, less pain, less tachcardia and ready to try liquids. CIWA score zero, no evidence of DT's. Exam Vital Signs (past 8 hours): - 02/25/22 06:00 02/25/22 07:00 02/25/22 08:04 Temperature Pulse Rate 117 H 120 H 120 H Respiratory Rate 27 H 32 H 16 Blood Pressure 126/68 122/68 Pulse Oximetry 92 95 93 02/25/22 11:30 Temperature 98.3 F Pulse Rate 117 H Respiratory Rate 32 H Blood Pressure 134/82 Pulse Oximetry 97 Oxygen Delivery Method Room Air Oxygen Flow Rate 0 Narrative Exam Narrative: Pleasant male lying comfortably in no distress Resp Other: Lungs clear to auscultation Cardio Other: Cardiac exam: Regular rate and rhythm normal S1-S2, tachycardic GI Other: Abdomen distended, soft mildly tender, no rebound, no palpable mass Extrem Other: Extremity trace edema Objective Labs Result Diagrams: 02/25/22 04:47 02/25/22 04:47 Labs: Laboratory Results - last 24 hr 02/25/22 02/25/22 04:47 04:47 WBC 14.8 H RBC 4.27 L Hgb 10.5 L Hct 33.9 L MCV 79.2 L MCH 24.5 L MCHC 31.0 RDW 16.6 H Plt Count 362 Sodium 139 Potassium 3.4 Chloride 108 H Carbon Dioxide 27 BUN 5 L Creatinine 0.51 L Estimated GFR > 60 BUN/Creatinine Ratio 9.8 Glucose 90 Calcium 7.5 L Phosphorus 1.8 L Magnesium 2.1 Total Bilirubin 0.6 Conjugated Bilirubin 0.0 Unconjugated Bilirubin 0.8 AST 15 L ALT 5 Alkaline Phosphatase 77 Total Protein 5.3 L Albumin 2.4 L Globulin 2.9 Albumin/Globulin Ratio 0.8 L Amylase 75 PFSH Medical History (Updated 02/23/22 @ 22:26 by Sam Yoder MD) Asthma, exercise induced Hypertension Patient denies medical problems Surgical History No pertinent past surgical history Family History Father Hypertension Alcoholism Mother No significant medical problems Social History household members: spouse and children Smoking Status: Current every day smoker alcohol intake: current Assessment & Plan Assessment & Plan narrative: 31-year-old male with a history of alcohol use disorder admitted to the hospital with acute necrotizing pancreatitis, with a pancreatic pseudocyst * Patient continues to be significantly tachycardic, likely reflective of volume depletion/dehydration * Will continue aggressive IV hydration, continue IV Dilaudid continue meropenem for necrotizing pancreatitis * Low-grade fever likely related to pancreatitis, however need to be mindful of the possibility of an infected pseudocyst, * Will continue to monitor closely * We will decrease IV fluids, start clear liquid diet, transfer out of the ICU Alcohol use Disorder * No evidence of active alcohol withdrawal with delirium 10 tremens at this time * Will continue to monitor closely on a CIWA protocol, Ativan as needed as needed Transfer from ICU today Time Spent With Patient Critical Care time: I spent a total of [] minutes of critical care time on this patient's care today; this time is exclusive of procedural time.
--- NOTE | 2022-02-25 15:39 | CM.DPC ---
DCP Cont: Per MD, pt continues with necrotizing pancreatitis tx and not medically stable to discharge yet and CIWA still low but may begin ETOH withdrawal soon as pt has been admitted for 2 days. Per RN, pt required significant boluses yesterday and somewhat less tachy today. SW attempted to meet bedside with pt again to inquire about ETOH tx resources but pt in the bathroom and due to triage needs unable to attempt again today. Plan: SW to follow tomorrow with pt to determine any d/c planning needs and if pt interested in ETOH tx resources. LAKSHMI Gonzales
[2022-02-25] MEDS: HYDROMORPHONE 1 MG INJ IV ×2 (16:03→20:46)
--- NOTE | 2022-02-25 18:50 | PC.NURSE ---
Day Shift Note Pt alert and oriented x3, SBA in room. Reports cramping pain in abdomen when clear liquids attempted (jello) but tolerating tea and water. CIWA 0 this shift. Transferred from room 227 to 223. All belongings with pt including cell phone, glasses, and clothing.
[2022-02-26] VITALS (7 sets, daily range): BP systolic 125–140; BP diastolic 78–89; PULSE 75–122; RESP 16–18; TEMP 36.3–36.8; O2SAT 94–99
[2022-02-26 01:43] LABS: Enterococcus species Not Detected (Not Detect); Listeria monocytogenes Not Detected (Not Detect); Staphylococcus species Not Detected (Not Detect)
[2022-02-26 01:44] LABS: Acinetobacter baumannii Not Detected (Not Detect); Candida albicans Not Detected (Not Detect); Candida glabrata Not Detected (Not Detect); Candida krusei Not Detected (Not Detect); Candida parapsilosis Not Detected (Not Detect); Candida tropicalis Not Detected (Not Detect); E. coli Not Detected (Not Detect); Enterobacter cloacae complex Not Detected (Not Detect); Enterobacteriaceae species Not Detected (Not Detect); Haemophilus influenzae Not Detected (Not Detect); Neisseria meningitidis Not Detected (Not Detect); Proteus species Not Detected (Not Detect); Pseudomonas aeruginosa Not Detected (Not Detect); Serratia marcescens Not Detected (Not Detect); Streptococcus agalactiae (Gr B Not Detected (Not Detect); Streptococcus pneumonia Not Detected (Not Detect); Streptococcus pyogenes (Gr A) Not Detected (Not Detect); Streptococcus species Not Detected (Not Detect)
[2022-02-26] MEDS: OXYCODONE 5 MG/5 ML ORAL SOLUTION PO ×5 (02:45→21:42)
[2022-02-26] MEDS: HYDROMORPHONE 1 MG INJ IV ×2 (03:17→05:24)
[2022-02-26] MEDS: DEXTROSE 5%-0.9% NS 1,000 ML 150 ML IV (05:20)
[2022-02-26 05:48] LABS: Calcium 7.7 mg/dL (8.4-10.2); Carbon Dioxide 28 mmol/L (22-32); Chloride 108 mmol/L (98-107); Estimated Glomerular Filt Rate > 60 mL/min (>60); Glucose 91 mg/dL (70-100); HEMOLYSIS < 15 (0-50); Phosphorous 3.3 mg/dL (2.5-4.5); Potassium 3.1 mmol/L (3.4-5.1); Sodium 141 mmol/L (137-145)
[2022-02-26 05:51] LABS: Alanine Aminotransferase 7 IU/L (<50); Albumin 2.5 g/dL (3.5-5.0); Alkaline Phosphatase 84 U/L (38-126); Aspartate Aminotransferase 16 IU/L (17-59); Bilirubin Total 0.4 mg/dL (0.2-1.3); Bilirubin Unconjugated 0.6 mg/dL (0.0-1.1); Globulin 2.5 g/dL (1.7-4.1); HEMOLYSIS < 15 (0-50)
[2022-02-26 05:56] LABS: BUN Creatinine Ratio 3.8 (6-22); Blood Urea Nitrogen < 2 mg/dL (9-20)
[2022-02-26] MEDS: MEROPENEM 500 MG in SODIUM CHLORIDE 0.9% 100 ML 200 ML IV ×3 (06:19→23:49)
[2022-02-26] MEDS: ENOXAPARIN 40 MG/0.4 ML SYRINGE SUBCUT (08:39)
[2022-02-26] MEDS: LOSARTAN 50 MG TABLET PO (08:40)
[2022-02-26] MEDS: THIAMINE 100 MG TABLET PO (08:42)
[2022-02-26] MEDS: MULTIVITAMIN 1 TABLET 1 TAB PO (08:42)
[2022-02-26] MEDS: FOLIC ACID 1 MG TABLET PO (08:42)
--- NOTE | 2022-02-26 11:05 | P.PN_ITS ---
Subjective Subjective Date Patient Seen: 02/26/22 Interval history: 31-year-old male with alcohol use disorder admitted to the hospital with acute necrotizing pancreatitis with an associated pancreatic pseudocyst. Patient has started on clear liquids, he does have some difficulty tolerating this, pain seems to be better controlled. No evidence of alcohol withdrawal Exam Vital Signs (past 8 hours): - 02/26/22 04:30 02/26/22 08:08 02/26/22 09:00 Temperature 97.7 F 97.3 F L Pulse Rate 110 H 110 H Respiratory Rate 16 16 Blood Pressure 140/86 125/78 Pulse Oximetry 94 95 97 Oxygen Delivery Method Room Air Oxygen Flow Rate 0 Narrative Exam Narrative: Pleasant male lying in bed in no obvious distress Resp Other: Lungs: Clear to auscultation Cardio Other: Cardiac exam: Tachycardic regular rate rhythm normal S1-S2 GI Other: Abdomen: Soft, tender in the midepigastrium and right upper quadrant, no board- like rigidity, no rebound tenderness, no palpable masses Extrem Other: No edema Objective Labs Result Diagrams: 02/25/22 04:47 02/26/22 04:58 Labs: Laboratory Results - last 24 hr 02/25/22 02/26/22 02/26/22 19:50 04:58 04:58 Sodium 141 Potassium 3.1 L Chloride 108 H Carbon Dioxide 28 BUN < 2 L Creatinine 0.53 L Estimated GFR > 60 BUN/Creatinine Ratio 3.8 L Glucose 91 Calcium 7.7 L Phosphorus 3.3 D Total Bilirubin 0.4 Conjugated Bilirubin 0.0 Unconjugated Bilirubin 0.6 AST 16 L ALT 7 Alkaline Phosphatase 84 Total Protein 5.0 L Albumin 2.5 L Globulin 2.5 Albumin/Globulin Ratio 1.0 A. baumannii (PCR) Not detected Rosa albicans (PCR) Not detected C. glabrata (PCR) Not detected C. krusei (PCR) Not detected C. parapsilosis (PCR) Not detected C. tropicalis (PCR) Not detected Enterobacteriac sp PCR Not detected E. cloacae complex PCR Not detected Enterococcus sp PCR Not detected E. coli (PCR) Not detected H. influenzae (PCR) Not detected Klebsiella oxytoca PCR Not detected Klebsiella pneumoniae Not detected List. monocytogenes PCR Not detected N. meningitidis (PCR) Not detected Proteus species (PCR) Not detected Serratia marcescens PCR Not detected Staphylococcus sp PCR Not detected Staph aureus (PCR) Not detected mecA-Methicil Res Gene Not Reportable Streptococcus sp PCR Not detected Group A Strep (PCR) Not detected Strep agalactiae (PCR) Not detected Strep pneumoniae (PCR) Not detected P. aeruginosa (PCR) Not detected Zeferino/B-Vanco Res Genes Not Reportable KPC-Carbap Res Gene PCR Not Reportable PFS Medical History (Updated 02/23/22 @ 22:26 by Sam Yoder MD) Asthma, exercise induced Hypertension Patient denies medical problems Surgical History No pertinent past surgical history Family History Father Hypertension Alcoholism Mother No significant medical problems Social History household members: spouse and children Smoking Status: Current every day smoker alcohol intake: current Assessment & Plan Assessment & Plan narrative: 31-year-old male with a history of alcohol use disorder admitted to the hospital with acute necrotizing pancreatitis, with a pancreatic pseudocyst * Patient continues to be significantly tachycardic, likely reflective of volume depletion/dehydration * Will continue aggressive IV hydration, continue IV Dilaudid continue meropenem for necrotizing pancreatitis * Low-grade fever likely related to pancreatitis, however need to be mindful of the possibility of an infected pseudocyst, * Will continue to monitor closely * We will decrease IV fluids, start clear liquid diet, transfer out of the ICU * Will advance diet, discontinue IV hydration * PT consultation * Home when tolerating oral diet * Discontinue IV narcotic Alcohol use Disorder * No evidence of active alcohol withdrawal with delirium 10 tremens at this time * Will continue to monitor closely Time Spent With Patient Critical Care time: I spent a total of [] minutes of critical care time on this patient's care today; this time is exclusive of procedural time.
[2022-02-26] MEDS: POTASSIUM CHLORIDE 20 MEQ TAB 40 MEQ PO ×2 (12:01→17:03)
[2022-02-26] MEDS: LORazepam 1 MG TABLET PO ×2 (15:44→21:42)
--- NOTE | 2022-02-26 15:54 | DIET.CONS ---
Dietary Consultation Note Admission Date: 02/23/2022 10:47 Assessment: 31y M admitted for acute pancreatitis secondary to etoh use. RD met c pt bedside once assigned general diet. Discussed slowly increasing PO intake with focus on lower sugar and lower fat items. Pt decided on dinner of fresh fruit with fat free yogurt, chicken breast, and side salad. Discussed strategies for sobriety to include meal planning three meals per day. Pt reports during previous hospitalization Mediterranean Diet was recommended. Pt states he did well on it while he was trying. Shared resource [employer] for easy MD recipes. RD wrote link on patient board, pt took photo with phone and will look up site and recipes. Ht: 165.1 cm Wt: 82 kg BMI: 33.3 UBW: Last BM: 02/26/22 (02/26/22 12:26) MNA: Faustino Score: 20 Diet: 02/26/22 Lunch General (Regular) Diet Diet Modifications: Nutrition Percent Meal Consumed 0% 02/25/22 18:00 Percent Meal Consumed 2 bites jello 02/25/22 13:44 Labs: RBC 4.27 X10^6/uL (4.5-5.9) L 02/25/22 04:47 Hgb 10.5 g/dL (13.5-17.5) L 02/25/22 04:47 Hct 33.9 % (41-53) L 02/25/22 04:47 Creatinine 0.53 mg/dL (0.66-1.25) L 02/26/22 04:58 Lactate 1.4 mmol/L (0.7-2.1) 02/23/22 19:50 Electronically Signed by: Loraine Barragan 02/26/22 15:54 Clinical Dietitian [address] [address]
[2022-02-27 01:00] VITALS: BP 138/96; PULSE 120; RESP 19; TEMP 36.7; O2SAT 96
[2022-02-27] MEDS: LORazepam 1 MG TABLET PO (03:07)
[2022-02-27] MEDS: OXYCODONE 5 MG/5 ML ORAL SOLUTION PO (03:07)
[2022-02-27 05:00] VITALS: BP 139/84; PULSE 90; RESP 22; TEMP 36.4; O2SAT 96
[2022-02-27 06:04] LABS: Add Manual Diff / Slide Review NO; Basophils Absolute Auto 100 /uL (0-100); Eosinophils Absolute Auto 100 /uL (0-450); Eosinophils Percent Auto 0.9 % (2-4); Hematocrit 31.3 % (41-53); Lymphocytes Absolute Auto 1500 /uL (1100-4500); Lymphocytes Percent Auto 15.8 % (25-40); Mean Corpuscular HGB Conc 32.1 % (30-36); Mean Corpuscular Hemoglobin 25.3 PG (26-34); Mean Corpuscular Volume 78.9 fL (80-100); Monocytes Absolute Auto 900 /uL (0-900); Monocytes Percent Auto 9.5 % (3-14); Neutrophils Absolute Auto 6900 /uL (1500-7000); Neutrophils Percent Auto 72.8 % (50-75); Platelet Count 399 X10^3/uL (150-400); Red Blood Cell Count 3.97 X10^6/uL (4.5-5.9); Red Cell Distribution Width 16.4 % (11.6-14.8); White Blood Cell Count 9.5 X10^3/uL (4.5-11.0)
[2022-02-27 06:09] LABS: Alanine Aminotransferase 6 IU/L (<50); Albumin 2.8 g/dL (3.5-5.0); Albumin Globulin Ratio 0.9 (1.0-2.8); Alkaline Phosphatase 81 U/L (38-126); Aspartate Aminotransferase 17 IU/L (17-59); Bilirubin Total 0.7 mg/dL (0.2-1.3); Calcium 8.1 mg/dL (8.4-10.2); Carbon Dioxide 27 mmol/L (22-32); Chloride 106 mmol/L (98-107); Estimated Glomerular Filt Rate > 60 mL/min (>60); Globulin 3.1 g/dL (1.7-4.1); Glucose 88 mg/dL (70-100); HEMOLYSIS < 15 (0-50); Potassium 3.4 mmol/L (3.4-5.1); Sodium 140 mmol/L (137-145); Total Protein 5.9 g/dL (6.3-8.2)
[2022-02-27 06:17] LABS: BUN Creatinine Ratio 3.9 (6-22); Blood Urea Nitrogen < 2 mg/dL (9-20)
[2022-02-27] MEDS: MEROPENEM 500 MG in SODIUM CHLORIDE 0.9% 100 ML 200 ML IV (07:26)
[2022-02-27 07:32] VITALS: BP 131/77; PULSE 116; RESP 16; TEMP 37.2; O2SAT 97
[2022-02-27] MEDS: ENOXAPARIN 40 MG/0.4 ML SYRINGE SUBCUT (08:27)
[2022-02-27 08:28] VITALS: BP 131/77
[2022-02-27] MEDS: MULTIVITAMIN 1 TABLET 1 TAB PO (08:28)
[2022-02-27] MEDS: OXYCODONE IR 5 MG TABLET PO (08:28)
[2022-02-27] MEDS: FOLIC ACID 1 MG TABLET PO (08:28)
[2022-02-27] MEDS: LOSARTAN 50 MG TABLET PO (08:28)
[2022-02-27] MEDS: polyethylene glycoL 3350 17 GM POWD.PACK PO (08:36)
[2022-02-27] MEDS: THIAMINE 100 MG TABLET PO (08:36)
--- NOTE | 2022-02-27 10:46 | PM.DS.1 ---
History of Present Illness History of Present Illness Chief complaint: severe pain in abd/back, numbness in face & hands Narrative: The patient is a 31-year-old male with a history of asthma, hypertension, alcohol use disorder, and a prior history of pancreatitis. He presents with abrupt onset of abdominal pain radiating to the back. Patient reports drinking about a 5th of liquor daily. He was seen and evaluated in the emergency room where [place] [address], in addition to a lipase of 118, CT scan of the abdomen and pelvis was consistent with necrotizing pancreatitiswith an associated pseudocyst. Patient is admitted to the hospital for acute pancreatitis. Discharge Providers Provider Date of admission: 02/23/22 10:47 Discharge Date: 02/27/22 Primary care physician: Chiara Lyons MD Consults: 02/23/22 15:39 Consult to Dietitian, Adult Routine Comment: Reason For Exam: alcohol withdrawal with pancreatitis Discharge provider: Michelle Winslow MD Summary Hospital Course Discharge Diagnosis: 1. Acute necrotizing pancreatitis, with an associated pancreatic pseudocyst 2. Alcohol use disorder 3. Hypertension 4. Obesity Hospital Course: The patient is a 31-year-old male with a history of alcohol use disorder who was admitted to the hospital for acute necrotizing pancreatitis. Patient was made NPO, he was placed on meropenem, he was given IV pain medications. He was markedly tachycardic and required significant volume resuscitation. He had no evidence of alcohol withdrawal or delirium tremens. He was treated with pain medications, his diet was slowly advanced, he was able to tolerate his diet without difficulty. He did have an MRI of the abdomen during admission. This did show a 4.8 cm fluid collection adjacent to the duodenum, this was attributable to a pseudocyst. It was felt this was not likely an abscess. The patient made slow but steady progress, he was deemed appropriate for discharge and arrangements were made for him to discharge home. Status at Discharge Cognitive/behavioral status at discharge: oriented Functional status at discharge: independent ambulation Overall status at discharge: patient is progressing back to baseline Exam Vital Signs (past 8 hours): - 02/27/22 05:00 02/27/22 07:32 02/27/22 08:28 Temperature 97.6 F 98.9 F Pulse Rate 90 116 H Respiratory Rate 22 16 Blood Pressure 139/84 131/77 131/77 Pulse Oximetry 96 97 Oxygen Delivery Method Room Air Oxygen Flow Rate 0 Narrative Exam Narrative: Pleasant 31-year-old male in no acute distress Resp Other: Lungs: Auscultation Cardio Other: Cardiac exam: Regular rate rhythm normal S1-S2 GI Other: Abdomen: Soft, mildly tender, mildly distended, no rebound tenderness, no board-like rigidity Extrem Other: Extremities: No edema Objective Labs Result Diagrams: 02/27/22 05:12 02/27/22 05:12 Labs: Laboratory Results - last 24 hr 02/27/22 02/27/22 05:12 05:12 WBC 9.5 RBC 3.97 L Hgb 10.0 L Hct 31.3 L MCV 78.9 L MCH 25.3 L MCHC 32.1 RDW 16.4 H Plt Count 399 Neut % (Auto) 72.8 Lymph % (Auto) 15.8 L [place] % (Auto) 9.5 Eos % (Auto) 0.9 L Baso % (Auto) 1.0 Neut # (Auto) 6900 Lymph # (Auto) 1500 [place] # (Auto) 900 Eos # (Auto) 100 Baso # (Auto) 100 Sodium 140 Potassium 3.4 Chloride 106 Carbon Dioxide 27 BUN < 2 L Creatinine 0.51 L Estimated GFR > 60 BUN/Creatinine Ratio 3.9 L Glucose 88 Calcium 8.1 L Total Bilirubin 0.7 AST 17 ALT 6 Alkaline Phosphatase 81 Total Protein 5.9 L Albumin 2.8 L Globulin 3.1 Albumin/Globulin Ratio 0.9 L [facility] Medical History (Updated 02/23/22 @ 22:26 by Sam Yoder MD) Asthma, exercise induced Hypertension Patient denies medical problems Surgical History No pertinent past surgical history Family History Father Hypertension Alcoholism Mother No significant medical problems Social History household members: spouse and children Smoking Status: Current every day smoker alcohol intake: current Discharge Assessment & Plan Assessment and Plan Assessment: 1. Acute necrotizing pancreatitis, with an associated pancreatic pseudocyst 2. Alcohol use disorder 3. Hypertension 4. Obesity Plan of Treatment: Discharge home Patient is referred to alcoholic anonymous for support for alcohol abstinence Discharge Plan Discharge Plan Patient Disposition: Home Discharge orders & Medications Prescriptions: New oxycodone 5 mg Tablet 5 mg PO Q3HR PRN (Reason: Pain, Moderate (4-6)) Qty: 15 0RF Continued losartan 50 mg Tablet 50 mg PO DAILY 0RF Follow up/Referrals: Chiara Lyons MD [Primary Care Provider] - Discharge Health Status Multidrug resistant organism: No MDRO Diet/Activity/Treatments Diet: Diet as Tolerated and Low-sodium Discharge Data Primary Care Provider: Chiara Lyons
--- NOTE | 2022-02-27 11:15 | PC.NURSE ---
Pt is dressed and ready for discharge home with Spouse. IV and Tele have been removed. Went over d/c instructions with Pt-discussed d/c meds, time of last dose, reviewed stroke education, discussed no longer drinking alcohol - not even a sip-Care Management in to discuss needs-Pt states he will be going to the [facility] for alcohol cessation follow up. Reminded Pt to drink plenty of water and no driving while on narcotics or alcohol. Pt denies further questions and will be taken out via w/c by [employer] to pov with Spouse and all belongings.
--- NOTE | 2022-02-27 11:15 | CM.DANOTE ---
DCP/continued: Reviewed chart. Per provider patient is medically stable for discharge today. [facility] met with patient explained role[place] Patient denies any needs at this time. Patient reports that [place] P: Home today. RAY
== END 2022-02-27 11:44 | disposition home or self-care (01) | DRG 439 ==
LOC: ED 10:39 → AC 10:48 → ICU 02-24 11:23 → AC 02-25 18:18
PROVIDERS: Family Medicine; Internal Medicine Critical Care Medicine; Admitting Provider Internal Medicine; Emergency Provider Emergency Medicine; PCP Family Medicine; Referring Provider Emergency Medicine; Visit Provider Internal Medicine
DX: K85.21 Alcohol induced acute pancreatitis with uninfected necrosis (principal); K86.3 Pseudocyst of pancreas; R00.0 Tachycardia, unspecified; F10.10 Alcohol abuse, uncomplicated; E87.6 Hypokalemia; I10 Essential (primary) hypertension; E86.0 Dehydration; F17.200 Nicotine dependence, unspecified, uncomplicated; Z20.822 Contact with and (suspected) exposure to COVID-19
CPT/HCPCS: 36415; 71045; 74177; 74181; 80048; 80053; 80061; 80076; 81003; 81015; 82150; 82962; 83605; 83690; 83735; 84100; 84145; 85007; 85025; 85027; 87040; 87086; 87150; 87205; 87635; 87797; 94762; 96361; 96365; 96366; 96368; 96375; 96376; 99284; 99285; C9803; C9113; J0610; J1170; J1650; J2060; J2185; J2405; J3475

== ENCOUNTER 2022-03-04 23:24 | Inpatient (IN) | payer OTHER, SELFPAY ==
[2022-02-23 12:48] VITALS: BMI 33.3
[2022-03-04 23:27] VITALS: BP 125/65; PULSE 100; RESP 20; TEMP 36.4; O2SAT 100
[2022-03-04 23:30] VITALS: BP 125/65; PULSE 104; RESP 34
[2022-03-04] MEDS: HYDROMORPHONE 1 MG INJ IV (23:47)
[2022-03-04] MEDS: SODIUM CHLORIDE 0.9% 1,000 ML 1000 ML IV (23:47)
[2022-03-04] MEDS: ONDANSETRON 4 MG/2 ML INJ IV (23:48)
[2022-03-05] VITALS (16 sets, daily range): BP systolic 110–150; BP diastolic 55–88; PULSE 79–109; RESP 17–24; TEMP 36.4–37; O2SAT 97–100; BMI 31.7
--- NOTE | 2022-03-05 00:14 | ED.ABDPAIN ---
HPI - Abdominal Pain General Chief Complaint: Abdominal Pain Stated Complaint: ABD PAIN, THROWING UP Time Seen by Provider: 03/04/22 23:35 Source: patient Mode of arrival: Ambulatory History of Present Illness HPI narrative: Patient is a 31-year-old male with history of alcoholism, necrotizing pancreatitis and pseudocyst presenting today with severe abdominal pain radiating through to his back. He was admitted February 23 through February 27 with the same. Who ran out of his pain medication yesterday. He says that he has not had any alcohol since he was discharged. Presenting with severe abdominal pain radiating through to his back. He says he has only vomited once. He is clearly uncomfortable. He denies any chest pain or palpitations. He has felt warm but not sure that he has had a fever. He has not had any diarrhea. This feels similar to his last presentation. Related Data Home Medications Medication Instructions Recorded Confirmed losartan 50 mg tablet 50 mg PO DAILY 02/23/22 03/05/22 Previous Rx's Medication Instructions Recorded oxycodone 5 mg tablet 5 mg PO Q3HR PRN #15 tab 02/27/22 Allergies Allergy/AdvReac Type Severity Reaction Status Date / Time No Known Drug Allergies Allergy Verified 02/23/22 01:12 Review of Systems Review of Systems Narrative: GENERAL: Denies chills, fatigue, malaise, fever, sweats, travel HEENT: Denies sinus pain, ear pain, sore throat, difficulty swallowing, neck pain RESPIRATORY: Denies dyspnea, cough, wheezing, hemoptysis, sputum. CARDIOVASCULAR: Denies chest pain, palpitations, orthopnea, edema GASTROINTESTINAL: See HPI : Denies dysuria, frequency, incontinence, hematuria, urinary retention, flank pain. MUSCULOSKELETAL: Denies weakness, joint pain, or bony pain SKIN: No rash, no erythema, no pruritus NEUROLOGIC: Denies weakness, dizziness, headache, numbness, change in speech, confusion PSYCHIATRIC: No concerning psychosocial issues. 12 point review of systems is negative except for those stated above and HPI Patient History Medical History (Updated 03/05/22 @ 05:03 by Linsey Jaimes DO) Alcohol use disorder Asthma, exercise induced Hypertension Patient denies medical problems Pseudocyst of pancreas Surgical History No pertinent past surgical history Family History Father Hypertension Alcoholism Mother No significant medical problems Social History household members: spouse and children Smoking Status: Current every day smoker alcohol intake: former Smoking Status: Current every day smoker alcohol intake frequency: 3 or more drinks per day Alcohol type: hard liquor Substance Use Type: marijuana Exam Initial Vital Signs Initial Vital Signs: Vital Signs Temperature 97.5 F L 03/04/22 23:27 Pulse Rate 100 H 03/04/22 23:27 Respiratory Rate 20 03/04/22 23:27 Blood Pressure 125/65 03/04/22 23:27 Pulse Oximetry 100 03/04/22 23:27 GENERAL: Alert 31-year-old male appears in severe pain HEENT: Head atraumatic,EOMI, pupils reactive, face symmetric, moist mucous membranes CARDIOVASCULAR: Regular rate and rhythm without murmurs, rubs or gallops. RESPIRATORY: Breath sounds equal bilaterally, no wheezes rales or rhonchi. ABDOMEN: Soft, tender epigastric pain and periumbilical pain mild right flank pain EXTREMITIES: Normal range of motion, no clubbing or edema. Neurovascularly intact NEUROLOGICAL: Alert and oriented x4.Normal gait and speech. SKIN: Warm, dry, no laceration, no petechiae, no rashes or lesions. Course Orders Ordered: ED Orders 03/04/22 23:40 Complete Blood Count AUTO DIFF Stat Comprehensive Metabolic Panel Stat Lipase Stat 03/05/22 00:40 ETOH [Ethanol (ETOH)] Stat Lactate (Lactic Acid) Stat 03/05/22 01:35 CT abdomen pelvis w con Stat Acetaminophen (Acetaminophen 325 Mg Tablet) 650 mg PO Q6HR PRN PRN Reason: fever, pain Enoxaparin Sodium (Enoxaparin 40 Mg/0.4 Ml Syringe) 40 mg SUBCUT DAILY NERI Hydromorphone HCl (Hydromorphone 0.5 Mg Inj) 1 mg IV Q4H PRN PRN Reason: Breakthrough pain only (8-10) POTASSIUM CHLORIDE IN WATER (Potassium Cl 10 Meq/100 Ml Tali) 10 meq in 100 mls @ 100 mls/hr IV Q1H NERI Stop: 03/05/22 07:44 Last Infusion: 03/05/22 04:40 Dose: 100 mls/hr Documented by: Admin: 03/05/22 04:22 Dose: 100 mls/hr Documented by: Infusion: 03/05/22 04:08 Dose: 100 mls/hr Documented by: Admin: 03/05/22 03:08 Dose: 100 mls/hr Documented by: Infusion: 03/05/22 02:48 Dose: 100 mls/hr Documented by: Admin: 03/05/22 01:48 Dose: 100 mls/hr Documented by: JAYLEN Sodium Chloride (Normal Saline 0.9%) 1,000 mls @ 300 mls/hr IV CONT NERI Naloxone HCl (Naloxone 0.4 Mg/Ml Vial) 0.2 mg IV Q2MIN PRN PRN Reason: Opiate Reversal Ondansetron HCl (Ondansetron 4 Mg/2 Ml Inj) 4 mg IV Q8HR PRN PRN Reason: Nausea And Vomiting Discontinued Medications Hydromorphone HCl (Hydromorphone 1 Mg Inj) 1 mg IV NOW ONE Stop: 03/04/22 23:36 Last Admin: 03/04/22 23:47 Dose: 1 mg Documented by: JAYLEN Hydromorphone HCl (Hydromorphone 1 Mg Inj) 2 mg IV NOW ONE Stop: 03/05/22 01:39 Last Admin: 03/05/22 01:43 Dose: 2 mg Documented by: JAYLEN Sodium Chloride (Normal Saline 0.9%) 1,000 mls @ 1,000 mls/hr IV BOLUS ONE Stop: 03/05/22 00:36 Last Infusion: 03/05/22 01:00 Dose: 0 mls/hr Documented by: Admin: 03/04/22 23:47 Dose: 1,000 mls/hr Documented by: JAYLEN Lactated Ringer's (Lactated Ringers) 1,000 mls @ 1,000 mls/hr IV BOLUS ONE Stop: 03/05/22 02:34 Last Infusion: 03/05/22 04:40 Dose: 0 mls/hr Documented by: Admin: 03/05/22 01:39 Dose: 1,000 mls/hr Documented by: JAYLEN Lorazepam (Lorazepam 2 Mg/Ml Inj) 1 mg IV NOW ONE Stop: 03/05/22 00:09 Last Admin: 03/05/22 00:16 Dose: 1 mg Documented by: EDMUND Ondansetron HCl (Ondansetron 4 Mg/2 Ml Inj) 4 mg IV NOW ONE Stop: 03/04/22 23:36 Last Admin: 03/04/22 23:48 Dose: 4 mg Documented by: JAYLEN Vital Signs Vital signs: Vital Signs - 8 hr 03/04/22 23:27 03/04/22 23:30 03/05/22 02:00 Temperature 97.5 F L Pulse Rate 100 H 104 H 88 Respiratory Rate 20 34 H 22 Blood Pressure 125/65 125/65 110/55 L Pulse Oximetry 100 97 03/05/22 03:00 03/05/22 03:30 Temperature Pulse Rate 84 85 Respiratory Rate 24 24 Blood Pressure 139/77 131/61 Pulse Oximetry 99 97 MDM - Abdominal Pain Lab Data Result diagrams: 03/05/22 00:40 03/05/22 00:40 Labs: Lab Results 03/05/22 03/05/22 03/05/22 Range/Units 00:40 00:40 00:40 WBC 20.3 H (4.5-11.0) X10^3/uL RBC 4.52 (4.5-5.9) X10^6/uL Hgb 11.0 L (13.5-17.5) g/dL Hct 35.3 L (41-53) % MCV 78.1 L (80-100) fL MCH 24.7 L (26-34) PG MCHC 31.2 (30-36) % RDW 16.6 H (11.6-14.8) % Plt Count 1052 H* (150-400) X10^3/uL Neut % (Auto) Sewage Plant Attendant Lymph % (Auto) Sewage Plant Attendant Kerr % (Auto) Sewage Plant Attendant Eos % (Auto) Sewage Plant Attendant Baso % (Auto) Sewage Plant Attendant Neut # (Auto) Sewage Plant Attendant Lymph # (Auto) Sewage Plant Attendant Kerr # (Auto) Sewage Plant Attendant Eos # (Auto) Sewage Plant Attendant Baso # (Auto) Sewage Plant Attendant Total Counted 100 Seg Neutrophils % 82.0 H (38-70) % Band Neutrophils % 7.0 (3-7) % Lymphocytes % (Manual) 8.0 L (25-45) % Monocytes % (Manual) 2.0 (2-11) % Eosinophils % (Manual) 1.0 L (2-4) % Neutrophils # (Manual) 17120 H (2157-3790) /uL Platelet Estimate Increased on smear RBC Morphology See below Anisocytosis 1+ H Sodium 141 (137-145) mmol/L Potassium 2.7 L* (3.4-5.1) mmol/L Chloride 107 (98-107) mmol/L Carbon Dioxide 23 (22-32) mmol/L BUN 4 L (9-20) mg/dL Creatinine 0.60 L (0.66-1.25) mg/dL Estimated GFR > 60 (>60) mL/min BUN/Creatinine Ratio 6.7 (6-22) Glucose 144 H (70-100) mg/dL Lactate 1.7 (0.7-2.1) mmol/L Calcium 8.2 L (8.4-10.2) mg/dL Total Bilirubin 0.4 (0.2-1.3) mg/dL AST 24 (17-59) IU/L ALT 14 (<50) IU/L Alkaline Phosphatase 99 (38-126) U/L Total Protein 7.4 (6.3-8.2) g/dL Albumin 3.5 (3.5-5.0) g/dL Globulin 3.9 (1.7-4.1) g/dL Albumin/Globulin Ratio 0.9 L (1.0-2.8) Lipase 1429 H D (23-300) U/L Ethyl Alcohol ( - 10) mg/dL 03/05/22 Range/Units 00:40 WBC (4.5-11.0) X10^3/uL RBC (4.5-5.9) X10^6/uL Hgb (13.5-17.5) g/dL Hct (41-53) % MCV (80-100) fL MCH (26-34) PG MCHC (30-36) % RDW (11.6-14.8) % Plt Count (150-400) X10^3/uL Neut % (Auto) Lymph % (Auto) Kerr % (Auto) Eos % (Auto) Baso % (Auto) Neut # (Auto) Lymph # (Auto) Kerr # (Auto) Eos # (Auto) Baso # (Auto) Total Counted Seg Neutrophils % (38-70) % Band Neutrophils % (3-7) % Lymphocytes % (Manual) (25-45) % Monocytes % (Manual) (2-11) % Eosinophils % (Manual) (2-4) % Neutrophils # (Manual) (2514-9591) /uL Platelet Estimate RBC Morphology Anisocytosis Sodium (137-145) mmol/L Potassium (3.4-5.1) mmol/L Chloride (98-107) mmol/L Carbon Dioxide (22-32) mmol/L BUN (9-20) mg/dL Creatinine (0.66-1.25) mg/dL Estimated GFR (>60) mL/min BUN/Creatinine Ratio (6-22) Glucose (70-100) mg/dL Lactate (0.7-2.1) mmol/L Calcium (8.4-10.2) mg/dL Total Bilirubin (0.2-1.3) mg/dL AST (17-59) IU/L ALT (<50) IU/L Alkaline Phosphatase (38-126) U/L Total Protein (6.3-8.2) g/dL Albumin (3.5-5.0) g/dL Globulin (1.7-4.1) g/dL Albumin/Globulin Ratio (1.0-2.8) Lipase (23-300) U/L Ethyl Alcohol < 10 ( - 10) mg/dL Imaging Data CT scan - abdomen/pelvis: Radiologist's Impression: Limited a report: Similar moderate inflammation pancreas with pseudocyst posteriorly abutting the transverse portion of the duodenum. Intra pancreatic fluid collection has decreased in size. Sigmoid colon inflammatory change with small rim enhancing fluid collection posterior to the bladder this was developing on the previous exam. MDM Narrative Medical decision making narrative: Patient is in intense pain he is given multiple doses of Dilaudid and Ativan which finally does seem to calm him down. He is found to be hypokalemic with a potassium of 2.7 after only 1 episode of vomiting. He is also found to have thrombocytosis with platelets greater than 1000. This is significantly increased may be due to dehydration. Patient is also found to have leukocytosis of 20 unsure if this is a stress reaction or due to infection. He had an MRI recently which did not show abscess or infection. CT today shows a similar presentation. Today lipase is elevated at 1400 which is increased from his previous presentation. At this time patient will be admitted to the hospitalist for pancreatitis. Dr. Gary updated patient's symptoms test results and accepts patient. Discharge Plan Departure Patient Disposition: Admitted As Inpatient Clinical Impression: Pancreatitis, Acute hypokalemia, Reactive thrombocytosis Admit Date/Time: 03/05/22 03:48 Admit Provider: Kashimr Gary
[2022-03-05] MEDS: LORazepam 2 MG/ML INJ 1 MG IV ×2 (00:16→11:25)
[2022-03-05 01:12] LABS: Mean Corpuscular Hemoglobin 24.7 PG (26-34)
[2022-03-05 01:18] LABS: Lactate (Lactic Acid) 1.7 mmol/L (0.7-2.1)
[2022-03-05 01:19] LABS: Alanine Aminotransferase 14 IU/L (<50); Albumin 3.5 g/dL (3.5-5.0); Albumin Globulin Ratio 0.9 (1.0-2.8); Alkaline Phosphatase 99 U/L (38-126); Aspartate Aminotransferase 24 IU/L (17-59); BUN Creatinine Ratio 6.7 (6-22); Bilirubin Total 0.4 mg/dL (0.2-1.3); Blood Urea Nitrogen 4 mg/dL (9-20); Calcium 8.2 mg/dL (8.4-10.2); Carbon Dioxide 23 mmol/L (22-32); Chloride 107 mmol/L (98-107); Estimated Glomerular Filt Rate > 60 mL/min (>60); Ethanol (ETOH) < 10 mg/dL; Globulin 3.9 g/dL (1.7-4.1); Glucose 144 mg/dL (70-100); HEMOLYSIS < 15 (0-50); Lipase 1429 U/L (23-300); Sodium 141 mmol/L (137-145); Total Protein 7.4 g/dL (6.3-8.2)
[2022-03-05 01:21] LABS: Red Blood Cell Count 4.52 X10^6/uL (4.5-5.9); White Blood Cell Count 20.3 X10^3/uL (4.5-11.0)
[2022-03-05 01:23] LABS: Hematocrit 35.3 % (41-53); Mean Corpuscular HGB Conc 31.2 % (30-36); Mean Corpuscular Volume 78.1 fL (80-100); Red Cell Distribution Width 16.6 % (11.6-14.8)
[2022-03-05 01:26] LABS: Add Manual Diff / Slide Review YES; Platelet Count 1052 X10^3/uL (150-400)
[2022-03-05 01:30] LABS: Potassium 2.7 mmol/L (3.4-5.1)
--- NOTE | 2022-03-05 01:35 | DI.CT.S_ITS ---
PROCEDURE: CT ABDOMEN PELVIS W CON INDICATIONS: pancreatitis pseudocyst TECHNIQUE: After the administration of intravenous contrast, axial sections acquired from the lung bases to the pubic symphysis. Coronal and sagittal reformats were performed. For radiation dose reduction, the following was used: automated exposure control, adjustment of mA and/or kV according to patient size. COMPARISON: [facility], MR, MR ABDOMEN WO CON, 02/23/2022, 8:13. [facility], CT, CT ABDOMEN PELVIS W CON, 02/23/2022, 2:49. FINDINGS: Image quality: Excellent. Lung bases: Mild bibasilar atelectasis. Heart: No significant findings. ABDOMEN: Liver: Unremarkable. Gallbladder: Gallbladder is mildly distended, likely related to fasting state. No gallstones visualized on CT evaluation. No pericholecystic stranding. Biliary ducts: No intrahepatic or extrahepatic biliary ductal dilatation identified. Pancreas: Redemonstration of moderate peripancreatic inflammatory stranding predominantly over the body and head of the pancreas. This appears relatively stable in appearance . However, there is mild heterogeneous enhancement of pancreatic parenchymal with areas of heterogeneous hypodensities. Multiple small subcentimeter hypodensities adjacent to the pancreatic duct are again noted and likely represent irregular pancreatic duct as noted on comparison MRI. There also multiple peripancreatic fluid collections that are most prominent over the superior margin of the pancreas near the pancreatic body/tail junction. For example 1 measures approximately 1.6 cm in size seen on coronal image 30, series 4. Well-circumscribed fluid collection noted adjacent to the transverse portion of the proximal small bowel/jejunum has enlarged in size now measuring 5.9 x 3.9 cm versus 2.3 x 4.2 cm previously. This appears to cause mass effect upon the adjacent wall of the proximal small bowel/jejunum. It was previously separate from the bowel. Previously seen intrapancreatic fluid collection has decreased in size. The splenic vein remains attenuated. Spleen: Unremarkable. Adrenal Glands: Unremarkable. Kidneys and Ureters: Kidneys are symmetric in size and enhancement, and there is no obstructive uropathy. No perinephric inflammatory changes. Ureters are normal in course and caliber. Small subcentimeter left renal cysts are again noted. Stomach and Bowel: Visualized stomach, mid and distal small bowel, and colon appear unremarkable with exception of a short segment of distal sigmoid colon near the rectum demonstrating mild circumferential wall thickening and surrounding pericolonic stranding. There is also a incompletely rim enhancing fluid collection noted in the deep pelvis, anterior to the adjacent sigmoid colon and posterior to the urinary bladder measuring approximately 4.8 x 2.0 cm in axial cross-sectional dimension as measured on image 84/series 2. This fluid collection was noted on the prior studies but is now developing or peripheral enhancement. Peritoneum: No abnormal intraperitoneal fluid. No free air. Ventral Wall: No hernias. Abdominal Nodes: No retroperitoneal or mesenteric adenopathy by size criteria. Vessels: Aorta and inferior vena cava are normal in size. PELVIS: Pelvic Organs: Unremarkable. Bladder: Minimal circumferential urinary bladder wall thickening likely related to incomplete distension. No significant perivesicular inflammatory stranding. Pelvic Nodes: No enlarged lymph nodes. Miscellaneous: No hernias are seen. Bones: Unremarkable. No acute compression fractures. IMPRESSION: 1. Redemonstration of moderate inflammatory changes of the pancreas compatible with acute pancreatitis with scattered areas of heterogeneous enhancement which may represent developing pancreatic necrosis. Interval enlargement of peripancreatic fluid collection immediately abutting the wall of adjacent proximal jejunum with thickening rim is favored to represent early developing pancreatic pseudocyst. 2. Interval decrease in size of intrapancreatic fluid collection. Persistent irregularity of the main pancreatic duct. 3. Distal sigmoid colon inflammatory changes with an enlarging small incomplete rim enhancing fluid collection that may represent phlegmon versus early developing abscess. No significant discrepancy with the lieutenant shift supervisor radiology preliminary report. Dictated by: Gaurav Singh M.D. on 03/05/2022 at 7:11 Approved by: Gaurav Singh M.D. on 03/05/2022 at 8:57
[2022-03-05] MEDS: LACTATED RINGERS 1,000 ML 1000 ML IV (01:39)
[2022-03-05] MEDS: HYDROMORPHONE 1 MG INJ 2 MG IV (01:43)
[2022-03-05] MEDS: POTASSIUM CHLORIDE IN WATER 10 MEQ/100 ML PIGGYBACK 100 MEQ IV ×6 (01:48→07:53)
[2022-03-05 02:49] LABS: Anisocytosis 1+
[2022-03-05 02:52] LABS: Platelet Estimate Increased on smear
[2022-03-05 03:38] LABS: Neutrophils Absolute Manual 18067 /uL (3000-5900); Total Cells Counted 100
[2022-03-05 04:25] LABS: COVID19 -Nasal RAPID Negative (Negative)
[2022-03-05] MEDS: SODIUM CHLORIDE 0.9% 1,000 ML 300 ML IV ×5 (04:55→21:20)
[2022-03-05] MEDS: HYDROMORPHONE 0.5 MG INJ 1 MG IV (04:58)
[2022-03-05] MEDS: ACETAMINOPHEN 325 MG TABLET 650 MG PO (05:01)
[2022-03-05] MEDS: ONDANSETRON 4 MG/2 ML INJ IV (05:02)
--- NOTE | 2022-03-05 05:14 | PM.HP.1 ---
History of Present Illness History of Present Illness Date Patient Seen: 03/05/22 Time Patient Seen: 05:00 Chief complaint: ABD PAIN, THROWING UP Narrative: Mr. Marcelino is a 31M with PMH asthma, HTN, alcohol abuse with recent admission for necrotizing pancreatitis who presents with abdominal pain and vomiting. He was discharged one week ago after being diagnosed with acute necrotizing pancreatitis secondary to alcohol abuse. He was ordered for IV fluids and pain medications and he stated he had significant improvement. Imaging was done at the time which showed acute pancreatitis with area of likely pancreatic necrosis and abnormal cystic lesions thought more likely to be pseudocyst rather than abscess. He was ordered for antibiotics, did have a white count, but no fever at the time, and it was thought he did not have infection. He was feeling improved until today when he had return of his epigastric pain, which radiates to the back. He had nausea, and an episode of vomiting. In the ED workup was done, vitals notable for heart rate in 100s. Labs notable for WBC 20.5, hgb 11, plts 1052. Potassium 2.7, creatinine 0.60. Lipase 1429. CT abdomen shows moderate inflammation of pancreas with intrapancreatic fluid collection decreased in size. Notably there is also a sigmoid colon inflammatory change with small rim enhancing fluid collection posterior to the bladder. He was ordered for IV fluid and admitted for further treatment. Patient History Medical History Alcohol use disorder Asthma, exercise induced Hypertension Patient denies medical problems Pseudocyst of pancreas Surgical History No pertinent past surgical history Family & Social History Family History Father Hypertension Alcoholism Mother No significant medical problems Social History: household members spouse,children Prior Living Arrangements House Safety & Behavioral: Feels Safe in Current Yes Environment Been Physically Hurt or No Threatened By a Person Suicidal Ideation Description None Suicide Plan Description No Plan Tobacco & Substance use: Tobacco type cannabis/marijuana Smoking Status Current every day smoker alcohol intake former alcohol intake frequency 3 or more drinks per day Substance Use Type marijuana Meds Home Medications and Allergies Home Medications Medication Instructions Recorded Confirmed Type losartan 50 mg tablet 50 mg PO DAILY 02/23/22 03/05/22 History oxycodone 5 mg tablet 5 mg PO Q3HR PRN #15 tab 02/27/22 03/05/22 Rx Allergies Allergy/AdvReac Type Severity Reaction Status Date / Time No Known Drug Allergies Allergy Verified 02/23/22 01:12 Review of Systems Review of Systems Narrative: 14 systems reviewed and negative aside from what is noted in HPI Exam Vital Signs (past 8 hours): - 03/04/22 23:27 03/04/22 23:30 03/05/22 02:00 Temperature 97.5 F L Pulse Rate 100 H 104 H 88 Respiratory Rate 20 34 H 22 Blood Pressure 125/65 125/65 110/55 L Pulse Oximetry 100 97 03/05/22 03:00 03/05/22 03:30 03/05/22 04:00 Temperature Pulse Rate 84 85 90 Respiratory Rate 24 24 20 Blood Pressure 139/77 131/61 136/88 Pulse Oximetry 99 97 97 03/05/22 04:30 Temperature 98.3 F Pulse Rate 87 Respiratory Rate 20 Blood Pressure 119/68 Pulse Oximetry 100 Oxygen Delivery Method Room Air Narrative Exam Narrative: GEN: moderate distress from pain HEENT: dry mucous membranes, PERRL NECK: trachea midline, no JVD CV: tachycardic, no murmurs PULM: clear bilaterally ABD: soft, tender, worst in epigastric, no rebound/guarding, normal bowel sounds, no organomegaly EXT: warm and well perfused with no edema NEURO: awake, alert, no focal deficits Objective Labs Result Diagrams: 03/05/22 00:40 03/05/22 00:40 Labs: Laboratory Results - last 24 hr 03/05/22 03/05/22 03/05/22 00:40 00:40 00:40 WBC 20.3 H RBC 4.52 Hgb 11.0 L Hct 35.3 L MCV 78.1 L MCH 24.7 L MCHC 31.2 RDW 16.6 H Plt Count 1052 H* Neut % (Auto) Retail Visual Merchandiser Lymph % (Auto) Retail Visual Merchandiser Baldwin % (Auto) Retail Visual Merchandiser Eos % (Auto) Retail Visual Merchandiser Baso % (Auto) Retail Visual Merchandiser Neut # (Auto) Retail Visual Merchandiser Lymph # (Auto) Retail Visual Merchandiser Baldwin # (Auto) Retail Visual Merchandiser Eos # (Auto) Retail Visual Merchandiser Baso # (Auto) Retail Visual Merchandiser Total Counted 100 Seg Neutrophils % 82.0 H Band Neutrophils % 7.0 Lymphocytes % (Manual) 8.0 L Monocytes % (Manual) 2.0 Eosinophils % (Manual) 1.0 L Neutrophils # (Manual) 33746 H Platelet Estimate Increased on smear RBC Morphology See below Anisocytosis 1+ H Sodium 141 Potassium 2.7 L* Chloride 107 Carbon Dioxide 23 BUN 4 L Creatinine 0.60 L Estimated GFR > 60 BUN/Creatinine Ratio 6.7 Glucose 144 H Lactate 1.7 Calcium 8.2 L Total Bilirubin 0.4 AST 24 ALT 14 Alkaline Phosphatase 99 Total Protein 7.4 Albumin 3.5 Globulin 3.9 Albumin/Globulin Ratio 0.9 L Lipase 1429 H D Ethyl Alcohol SARS-CoV-2 (PCR) 03/05/22 03/05/22 00:40 03:58 WBC RBC Hgb Hct MCV MCH MCHC RDW Plt Count Neut % (Auto) Lymph % (Auto) Baldwin % (Auto) Eos % (Auto) Baso % (Auto) Neut # (Auto) Lymph # (Auto) Baldwin # (Auto) Eos # (Auto) Baso # (Auto) Total Counted Seg Neutrophils % Band Neutrophils % Lymphocytes % (Manual) Monocytes % (Manual) Eosinophils % (Manual) Neutrophils # (Manual) Platelet Estimate RBC Morphology Anisocytosis Sodium Potassium Chloride Carbon Dioxide BUN Creatinine Estimated GFR BUN/Creatinine Ratio Glucose Lactate Calcium Total Bilirubin AST ALT Alkaline Phosphatase Total Protein Albumin Globulin Albumin/Globulin Ratio Lipase Ethyl Alcohol < 10 SARS-CoV-2 (PCR) Negative Assessment & Plan Assessment & Plan narrative: Mr. Marcelino is a 31M with H alcohol abuse, htn, asthma, recent necrotizing pancreatitis who presents to the hospital with abdominal pain found to have acute pancreatitis. 1. Acute pancreatitis with history of alcohol abuse -patient with severe epigastric pain, lipase >1400, and CT showing pancreatic inflammation -has decreasing pseudocyst, doubt infected -however has high wbc, and thrombocytosis, possibly secondary to pancreatitis, think less likely infectious as no fevers -keep NPO for now given severe symptoms -IV fluid at 300cc/hr, consider increasing based on urine output, goal of 0.5 cc/kg/hr -IV opiates ordered for pain control 2. Sigmoid fluid collection -etiology not clear, would suspect related to pancreatitis -ordered for meropenem -ordered blood cultures -wait for final CT report -consider surgery consult -NPO as above 3. Hypokalemia -replete potassium IV as patient NPO -recheck potassium this AM 3. Asthma -no symptoms currently -if needed can order nebs 4. Hypertension -hold BP meds for now CODE: Full Proxy: Alana Del Toro, Mother I have utilized all available resources to reconcile the patient's home medications. Time Spent With Patient Critical Care time: I spent a total of [] minutes of critical care time on this patient's care today; this time is exclusive of procedural time. Quality MIPS - Admit I confirm the patient?s Advance Care Plan is present, Code status is documented, Surrogate decision maker is in patient?s record [If Yes, STOP here]: Yes
--- NOTE | 2022-03-05 05:19 | PC.NURSE ---
0430 Pt admitted to 228 per stretcher from ED, able to transfer self to bed. DX pancreatitis - IV NS in progress at 300ml/hr, KCL rider in progress. C/O 8/10 pain in mid abdomen. Dilaudid 1mg given as ordered.
[2022-03-05] MEDS: MEROPENEM 1 GM in SODIUM CHLORIDE 0.9% 100 ML 200 ML IV (05:33)
[2022-03-05] MEDS: HYDROMORPHONE 2 MG INJ IV (07:53)
[2022-03-05] MEDS: METOCLOPRAMIDE 10 MG/2 ML INJ IV (09:07)
[2022-03-05] MEDS: MORPHINE 4 MG/ML INJ 6 MG IV ×3 (11:25→20:58)
[2022-03-05] MEDS: ENOXAPARIN 40 MG/0.4 ML SYRINGE SUBCUT (12:16)
[2022-03-05] MEDS: MEROPENEM 500 MG in SODIUM CHLORIDE 0.9% 100 ML 200 ML IV ×2 (12:18→18:22)
[2022-03-05 12:44] LABS: BUN Creatinine Ratio 5.5 (6-22); Blood Urea Nitrogen 3 mg/dL (9-20); Calcium 7.4 mg/dL (8.4-10.2); Carbon Dioxide 27 mmol/L (22-32); Chloride 110 mmol/L (98-107); Estimated Glomerular Filt Rate > 60 mL/min (>60); Glucose 97 mg/dL (70-100); HEMOLYSIS < 15 (0-50); Potassium 3.7 mmol/L (3.4-5.1); Sodium 142 mmol/L (137-145)
[2022-03-05 22:36] LABS: Clostridium Difficile Tox PCR Negative for C. diff (Negative)
[2022-03-06] VITALS (13 sets, daily range): BP systolic 114–138; BP diastolic 59–89; PULSE 88–104; RESP 15–22; TEMP 36.4–36.8; O2SAT 96–100
[2022-03-06] MEDS: MEROPENEM 500 MG in SODIUM CHLORIDE 0.9% 100 ML 200 ML IV ×4 (00:22→17:28)
[2022-03-06] MEDS: SODIUM CHLORIDE 0.9% 1,000 ML 300 ML IV ×3 (00:32→07:49)
[2022-03-06] MEDS: MORPHINE 4 MG/ML INJ 6 MG IV ×4 (00:59→17:54)
[2022-03-06] MEDS: DEXTROSE 5% WATER 1,000 ML 50 ML IV (01:02)
--- NOTE | 2022-03-06 02:21 | PC.NURSE ---
0100 Notified Hospitalist that BG was 71, pt NPO - order received for D5W @ 50ml/hr to run concurrently with NS. Pt requiring MS for abdominal pain q4Hr. Describes pain as my pancreas hurting - 06/19 IV MS relieves pain well.
[2022-03-06 04:41] LABS: Add Manual Diff / Slide Review NO; Basophils Absolute Auto 100 /uL (0-100); Basophils Percent Auto 0.9 % (0-2); Eosinophils Absolute Auto 200 /uL (0-450); Hematocrit 26.7 % (41-53); Hemoglobin 8.5 g/dL (13.5-17.5); Lymphocytes Absolute Auto 1300 /uL (1100-4500); Lymphocytes Percent Auto 14.8 % (25-40); Mean Corpuscular HGB Conc 31.8 % (30-36); Mean Corpuscular Hemoglobin 24.7 PG (26-34); Mean Corpuscular Volume 77.8 fL (80-100); Monocytes Absolute Auto 500 /uL (0-900); Monocytes Percent Auto 5.7 % (3-14); Neutrophils Absolute Auto 6900 /uL (1500-7000); Neutrophils Percent Auto 76.6 % (50-75); Platelet Count 549 X10^3/uL (150-400); Red Blood Cell Count 3.43 X10^6/uL (4.5-5.9); Red Cell Distribution Width 16.3 % (11.6-14.8)
[2022-03-06 04:54] LABS: NT-proBNP (BNP-Adult 18+) 663 pg/mL (<125)
[2022-03-06] MEDS: LORazepam 2 MG/ML INJ 1 MG IV ×2 (04:59→12:47)
[2022-03-06] MEDS: HYDROMORPHONE 0.5 MG INJ 1 MG IV ×2 (05:00→12:46)
[2022-03-06] MEDS: ENOXAPARIN 40 MG/0.4 ML SYRINGE SUBCUT (08:39)
--- NOTE | 2022-03-06 08:58 | CM.DANOTE ---
Addendum entered by Cadence Estrada R.N. 03/06/22 10:45: Since patient has not been up mobilizing, added P.T and O.T orders per Dr. Patel. Addendum entered by Cadence Estrada R.N. 03/06/22 10:27: It is noted that patient was recently here at the hospital. He was offered resources for drinking, and [place]. Confirmed that patient does reside with spouse, Tami, and three children. Patient also has a mother named Alana, who according to notes, has been supportive. Will continue to check in with patient for any additional resources he may need at discharge. Original Note: DCP: Case received, EMR reviewed. Patient has been sleeping, secondary to pain medications. Completed DCP assessment based upon information currently available. Patient is a 31 year old male who admitted yesterday morning to the care of the hospitalist team. PCP: Chiara Lyons at [facility] Payer: confirmed: Healthcare Management/[facility]. Patient came to the hospital via private vehicle secondary to having abdominal pain, as well as nausea and vomiting. Patient has history of alcohol abuse with recent admission, as well as necrotizing pancreatitis secondary to alcohol abuse. Patient holds current diagnosis of acute pancreatitis with history of alcohol abuse. Patient has been sleeping, checked in with nurse, Clara, secondary to pain medication for abdominal discomfort. According to notes, patient resides in [place] with family, spouse, Tami. He is employed at [employer] in [place]. P: DCP will continue to check in with patient for any discharge needs, will attempt to reach out when patient is more conversive. Cadence Estrada RN/General Farm Hand Discharge Planning/Care Management CM Discharge Assessment Start: 03/06/22 08:56 Freq: Status: Active Protocol: Document 03/06/22 08:57 (Rec: 03/06/22 08:58 [id number]) Discharge Planning Assessment Assigned Montessori Toddler Teacher Cadence Estrada RN/General Farm Hand Advance Directives? No Advance Directives on File No History Provided By Patient,Significant Other, Medical Record Prior Living Arrangements House Household Members spouse,children Type of transporation used prior to Drives own vehicle admit Independent with ADL's Yes Is patient alert and oriented? Yes Caregiver for Another Has children Barriers to Discharge No Discharge Plan Home Transportation Arrangement Family Referrals Initiated None needed Additional Comment pending further discussion regarding ETOH resources when pt more medically appropriate Review Status In Process Next Review Type Continued Stay Review
[2022-03-06] MEDS: LACTATED RINGERS 1,000 ML 250 ML IV ×3 (11:58→20:48)
--- NOTE | 2022-03-06 13:51 | OT.IPNOTE ---
Spoke to pt's nurse and did not think OT is needed for the pt. Went talk to the pt , pt states is independent in the room and has no OT needs, therefore discharge OT eval orders.
--- NOTE | 2022-03-06 14:45 | PT.IIE ---
Current Diagnoses Acute pancreatitis without necrosis or infection, unspecified (03/05/22) Medical History (Last Reviewed 03/05/22 @ 05:20 by Kashmir Gary MD) Alcohol use disorder Asthma, exercise induced Hypertension Patient denies medical problems Pseudocyst of pancreas Physical Therapy Inpatient Evaluation/Re-Eval M1 PT/OT-IP Prior Functional Status Start: 03/06/22 17:52 Freq: NEEDED Status: Active Protocol: Document 03/06/22 14:45 AB (Rec: 03/06/22 18:02 AB [email or web address]) Medical Review Prior Functional Status Medical History Reviewed Yes Communication able to make needs known Mobility and Gait pt stated that he is independent with all mobilities and ambulation without AD Social History Household Members spouse,children Living Arrangements House Number of Floors (Floors) One Floor Number of Stairs To Enter/Railing? 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 PT-IP Current Condition Start: 03/06/22 17:52 Freq: NEEDED Status: Active Protocol: Document 03/06/22 14:45 AB (Rec: 03/06/22 18:02 AB [id number]) Physical Therapy Current Condition Current Condition Evaluation Date 03/06/22 Treatment Diagnosis pancreatitis; difficulty in walking Onset Date 03/05/22 M3 PT-IP Subjective Start: 03/06/22 17:52 Freq: NEEDED Status: Active Protocol: Document 03/06/22 14:45 AB (Rec: 03/06/22 18:02 AB [email or web address]) Subjective Physical Therapy Visit Type Type Initial Evaluation Visit Start Time 14:45 Visit Stop Time 15:00 Total Visit Minutes 15 Number of FILTER MACHINE OPERATOR Visits 0 Physical Therapy Visit Comments Patient Comments agreed to do PT Therapy Pain Assessment Pain When Pain Assessed At Rest Pain Present Pain Present Pain Reported Location abd Scale Used pain scale not stated M4 PT-IP Mobility and Gait Start: 03/06/22 17:52 Freq: NEEDED Status: Active Protocol: Document 03/06/22 14:45 AB (Rec: 03/06/22 18:02 AB [id number]) PT-Bed Mobility Assessment Supine to Sit Supine to Sit Independent Sit to Supine Sit to Supine Independent PT-Transfer Assessment Sit to and From Stand Sit to and from Stand Independent Equipment Transfer Assistive Device None Orthotic/Prosthetic Devices or Brace: No Comments Mobility Comments pt moving in room by himself. able to do bed mobility independent but with difficulty due to c/o abdominal pain. pt ambulated in room without AD and with steady gait without LOB. pt stated that he is moving ok and is independent in his room . pt stated and demonstrated that he is able to stooped down to reach his feet without LOB. educated pt on importance of mobility and pt agreed to move around by himself in room as much as possible but to ask for assistance if he is not feeling too steady. pt agreed and stated that he does not need PT. Gait Assessment Gait Gait Assistance Required: Independent Distance (Feet) 30 Able to Maintain Weight Bearing Status Yes During Gait Assistive Devices Assistive Device None Orthotic/Prosthetic Devices or Brace: No PT-Balance Assessment Sitting Balance and Reactions Static Sitting Balance Ability Normal Dynamic Sitting Balance Ability Normal Standing Balance and Reactions Static Standing Balance Ability Good Dynamic Standing Balance Ability Good Device Used without AD M5 PT-IP Objective Assessments Start: 03/06/22 17:52 Freq: NEEDED Status: Active Protocol: Document 03/06/22 14:45 AB (Rec: 03/06/22 18:02 AB [email or web address]) Orientation Orientation/Cognition Level of Alertness Alert Orientation Name,Situation Language Function Ability No Deficits Noted Safety Awareness Decreased Safety Awareness Memory Description No Deficits Noted Gross Range of Motion Lower Extremity ROM Assessment Within Functional Limits Strength Lower Extremity Strength Assessment Within Functional Limits Coordination Assessment Gross Coordination Gross Coordination WNL Muscle Tone Muscle Tone WNL Yes M6 PT-IP Treatment Start: 03/06/22 17:52 Freq: NEEDED Status: Active Protocol: Document 03/06/22 14:45 AB (Rec: 03/06/22 18:02 AB [email or web address]) Physical Therapy Treatment Education Education Provided Safety M7 PT-IP Assessment and Plan Start: 03/06/22 17:52 Freq: NEEDED Status: Active Protocol: Document 03/06/22 14:45 AB (Rec: 03/06/22 18:02 AB [email or web address]) PT Summary Assessment and Plan Potential Rehabilitation Potential Good Status of Condition at Evaluation Stable Summary Impairments Pain Assessment Summary PT eval completed and no further PT indicated at this time. pt with c/o abdominal pain limiting mobility but is independent with mobility in room despite of pain. pt agreed to move as much as he can in room and agreed that he does not need PT. informed nurse. Frequency of Treatment Frequency Of Treatment Discharge Recommendations To Nursing Amount of Assist Needed Standby Assistance Discharge Recommendations PT Discharge Recommendations Home Transportation Needs at Discharge Private Vehicle
--- NOTE | 2022-03-06 15:44 | PM.PN.1 ---
Subjective Subjective Interval history: The patient reports continued epigastric pain with radiation the back in a wall of pain but reports improvement from admission. He endorses having some appetite and wants to try to keep some food down. Exam Vital Signs (past 8 hours): - 03/06/22 08:51 03/06/22 09:00 03/06/22 13:00 Temperature 98.3 F 98.1 F Pulse Rate 88 96 H Respiratory Rate 18 19 Blood Pressure 114/60 135/88 Pulse Oximetry 97 99 100 03/06/22 14:04 Temperature Pulse Rate Respiratory Rate Blood Pressure Pulse Oximetry 99 Oxygen Delivery Method Room Air Oxygen Flow Rate 0 Const Other: Patient laying in bed comfortably upon my entering the room, in no apparent acute distress Eyes Other: No scleral icterus appreciated Resp Other: Lungs clear to auscultation bilaterally Cardio Other: RRR, S1 and S2 normal with no extra heart sounds or murmurs appreciated GI Other: Soft, non-distended, tender to mild palpation over epigastrum, normal bowel sounds Skin Other: No grossly abnormal skin lesions appreciated Extrem Other: Palpable dorsalis pedis pulses bilaterally, and equal Objective Labs Result Diagrams: 03/06/22 04:15 03/05/22 12:20 Labs: Laboratory Results - last 24 hr 03/05/22 03/06/22 03/06/22 21:00 04:15 04:15 WBC 9.0 D RBC 3.43 L Hgb 8.5 L Hct 26.7 L MCV 77.8 L MCH 24.7 L MCHC 31.8 RDW 16.3 H Plt Count 549 H Neut % (Auto) 76.6 H Lymph % (Auto) 14.8 L [place] % (Auto) 5.7 Eos % (Auto) 2.0 Baso % (Auto) 0.9 Neut # (Auto) 6900 Lymph # (Auto) 1300 [place] # (Auto) 500 Eos # (Auto) 200 Baso # (Auto) 100 NT-Pro-B Natriuret Pep 663 H C. difficile Tox (PCR) Negative for c. diff [facility] Medical History Alcohol use disorder Asthma, exercise induced Hypertension Patient denies medical problems Pseudocyst of pancreas Surgical History No pertinent past surgical history Family History Father Hypertension Alcoholism Mother No significant medical problems Social History household members: spouse and children Smoking Status: Current every day smoker alcohol intake: former Assessment & Plan Assessment & Plan narrative: Mr. Marcelino is a 31M with H alcohol abuse, htn, asthma, recent necrotizing pancreatitis who presents to the hospital with abdominal pain found to have acute pancreatitis. 1. Acute pancreatitis with history of EtOH abuse - Pseudocysts are appreciated on imaging, with larges approximately 5 cm, but do not appear infected, and there are areas of necrosis - IV lactated Ringer's on-board, at rate 250 cc/hr, with goal to advance diet as tolerated 2. Sigmoid fluid collection - Likely related to pancreatitis, and IV meropenem on-board for empiric coverage, as of March 05, 2022 3. Hypokalemia - Replete as needed 3. Asthma, currently asymptomatic, stable 4. Hypertension - Hold home anti-HTN meds for now CODE: Full Proxy: Alana Del Toro, Mother I have utilized all available resources to reconcile the patient's home medications. Time Spent With Patient Critical Care time: I spent a total of [] minutes of critical care time on this patient's care today; this time is exclusive of procedural time. Quality MIPS - Admit I confirm the patient?s Advance Care Plan is present, Code status is documented, Surrogate decision maker is in patient?s record [If Yes, STOP here]: Yes
[2022-03-06] MEDS: ONDANSETRON 4 MG/2 ML INJ IV (16:03)
[2022-03-07] VITALS (15 sets, daily range): BP systolic 127–143; BP diastolic 71–82; PULSE 91–108; RESP 16–19; TEMP 36.2–37.2; O2SAT 95–98
[2022-03-07] MEDS: MEROPENEM 500 MG in SODIUM CHLORIDE 0.9% 100 ML 200 ML IV ×4 (00:02→17:50)
[2022-03-07] MEDS: METOCLOPRAMIDE 10 MG/2 ML INJ IV (00:10)
[2022-03-07] MEDS: LACTATED RINGERS 1,000 ML 250 ML IV ×5 (00:48→22:00)
[2022-03-07] MEDS: MORPHINE 4 MG/ML INJ 6 MG IV ×4 (04:39→18:55)
[2022-03-07] MEDS: ENOXAPARIN 40 MG/0.4 ML SYRINGE SUBCUT (08:53)
--- NOTE | 2022-03-07 12:18 | CM.DPC ---
DCP Cont: Discussed patient during team rounds. Hospitalist indicated, patient is still on IV pain medications, possible that patient could go home in the next day or two on orals. Patient did work with P.T. yesterday, and is independent upon mobility in his room. P: DCP to continue to follow for any needs or resources upon discharge. Cadence Estrada RN/Pressurised Container Filler
[2022-03-07] MEDS: ONDANSETRON 4 MG/2 ML INJ IV (13:13)
--- NOTE | 2022-03-07 13:21 | P.PN_ITS ---
Subjective Subjective Interval history: Patient reports improved abd pain today, ranking it 3-5/10. When he came in, pain was 9-10/10. He reports keeping down some fluids and jello but not much else, and he will continue to try today. He endorses urinating frequently while on fluids. Exam Vital Signs (past 8 hours): - 03/07/22 08:50 03/07/22 08:52 03/07/22 08:55 Temperature 98.6 F 97.6 F Pulse Rate 91 H 91 H Respiratory Rate 16 18 Blood Pressure 127/76 127/76 Pulse Oximetry 97 97 97 03/07/22 12:13 03/07/22 12:24 Temperature Pulse Rate Respiratory Rate Blood Pressure Pulse Oximetry 96 96 Oxygen Delivery Method Room Air Oxygen Flow Rate 0 Narrative Exam Narrative: Const Other: Patient laying in bed comfortably upon my entering the room, in no apparent acute distress Eyes Other: No scleral icterus appreciated Resp Other: Lungs clear to auscultation bilaterally Cardio Other: RRR, S1 and S2 normal with no extra heart sounds or murmurs appreciated GI Other: Soft, non-distended, tender to mild palpation over epigastrum, normal bowel sounds Skin Other: No grossly abnormal skin lesions appreciated Extrem Other: Palpable dorsalis pedis pulses bilaterally, and equal Objective Labs Result Diagrams: 03/06/22 04:15 03/05/22 12:20 [facility] Medical History Alcohol use disorder Asthma, exercise induced Hypertension Patient denies medical problems Pseudocyst of pancreas Surgical History No pertinent past surgical history Family History Father Hypertension Alcoholism Mother No significant medical problems Social History household members: spouse and children Smoking Status: Current every day smoker alcohol intake: former Assessment & Plan Assessment & Plan narrative: Mr. Marcelino is a 31M with H alcohol abuse, htn, asthma, recent necrotizing pancreatitis who presents to the hospital with abdominal pain found to have acute pancreatitis. 1. Acute pancreatitis with history of EtOH abuse ?- Pseudocysts are appreciated on imaging, with largest approximately 5 cm, but do not appear infected, and there are areas of necrosis ?- IV lactated Ringer's on-board, at rate 250 cc/hr, with goal to advance diet as tolerated 2. Sigmoid colon fluid collection, likely phlegmon, and likely related to adjacent pancreatitis ?- IV meropenem on-board for empiric coverage, as of March 05, 2022 3. Hypokalemia ?- Replete as needed 3. Asthma, currently asymptomatic, stable 4. Hypertension ?- Hold home anti-HTN meds for now VTE prophylaxis: Lovenox 40 mg daily Time Spent With Patient Critical Care time: I spent a total of [] minutes of critical care time on this patient's care today; this time is exclusive of procedural time.
[2022-03-07] MEDS: LORazepam 2 MG/ML INJ 1 MG IV (18:55)
[2022-03-08] VITALS (8 sets, daily range): BP systolic 127–153; BP diastolic 67–80; PULSE 92–116; RESP 18; TEMP 36.8–37.5; O2SAT 95–99
[2022-03-08] MEDS: MEROPENEM 500 MG in SODIUM CHLORIDE 0.9% 100 ML 200 ML IV ×2 (00:20→05:41)
[2022-03-08] MEDS: MORPHINE 4 MG/ML INJ 6 MG IV (00:21)
[2022-03-08] MEDS: LACTATED RINGERS 1,000 ML 250 ML IV ×5 (02:44→21:27)
[2022-03-08] MEDS: HYDROMORPHONE 0.5 MG INJ 1 MG IV ×4 (06:43→21:20)
[2022-03-08] MEDS: ENOXAPARIN 40 MG/0.4 ML SYRINGE SUBCUT (08:54)
--- NOTE | 2022-03-08 11:10 | PC.NURSE ---
Addendum entered by Della Cobb R.N. 03/08/22 18:46: Patient complained of discomfort earlier and given dilaudid 1mg iv, is in room visiting at this time. He denies any anxiety at this time. Addendum entered by Della Cobb R.N. 03/08/22 14:07: Patients ivf infusing at 250cc/hr, he is tolerating this well. Upon checking on patient, he was crying and asked for some ativan. This has been given and patient is feeling much better. He states that he was upset about his grandfather passing away 3 weeks ago and that he will miss his celebration of life. Consoled patient and he seems to be feeling better now. Original Note: Assess- Patient is alert and oriented x3, he denies any pain at this time. BT are present x4. He has ivf infusing at 250cc/hr. Will ask Dr. Patel if we can decrease his ivf rate. He tolerated his clear liquid diet and is napping at this time.
[2022-03-08] MEDS: LORazepam 2 MG/ML INJ 1 MG IV (11:39)
--- NOTE | 2022-03-08 13:28 | PC.NURSE ---
Pt reported 6/10 pain in his abdomen and received PRN dilauded, pain has improved. Pt was tearful and reporting anxiety, received PRN ativan. He is resting in bed at this time and says the medication was effective. LR is running at 250 mL/hr.
--- NOTE | 2022-03-08 18:22 | P.PN_ITS ---
Subjective Subjective Interval history: Patient reports improvement of his abd pain. He does endorse some inability to keep PO intake down, although he's been able to keep some liquid down. Exam Vital Signs (past 8 hours): - 03/08/22 11:22 03/08/22 16:38 Temperature 98.3 F 98.7 F Pulse Rate 108 H 114 H Respiratory Rate 18 18 Blood Pressure 140/75 153/79 H Pulse Oximetry 98 98 Oxygen Delivery Method Room Air Oxygen Flow Rate 0 Narrative Exam Narrative: Const Other: Patient laying in bed comfortably upon my entering the room, in no apparent acute distress Eyes Other: No scleral icterus appreciated Resp Other: Lungs clear to auscultation bilaterally Cardio Other: RRR, S1 and S2 normal with no extra heart sounds or murmurs appreciated GI Other: Soft, non-distended, tender to mild palpation over epigastrum, normal bowel sounds Skin Other: No grossly abnormal skin lesions appreciated Extrem Other: Palpable dorsalis pedis pulses bilaterally, and equal Objective Labs Result Diagrams: 03/06/22 04:15 03/05/22 12:20 [facility] Medical History Alcohol use disorder Asthma, exercise induced Hypertension Patient denies medical problems Pseudocyst of pancreas Surgical History No pertinent past surgical history Family History Father Hypertension Alcoholism Mother No significant medical problems Social History household members: spouse and children Smoking Status: Current every day smoker alcohol intake: former Assessment & Plan Assessment & Plan narrative: Mr. Marcelino is a 31M with H alcohol abuse, htn, asthma, recent necrotizing pancreatitis who presents to the hospital with abdominal pain found to have acute pancreatitis. 1. Acute pancreatitis with history of EtOH abuse ?- Pseudocysts are appreciated on imaging, with largest approximately 5 cm, but do not appear infected, and there are areas of necrosis ?- IV lactated Ringer's on-board, at rate 250 cc/hr, with goal to advance diet as tolerated 2. Sigmoid colon fluid collection, likely phlegmon, and likely related to adjacent pancreatitis ?- IV meropenem on-board for empiric coverage, as of March 05, 2022, and stopped on March 08, as infection less likely 3. Hypokalemia ?- Replete as needed 3. Asthma, currently asymptomatic, stable 4. Hypertension ?- Hold home anti-HTN meds for now VTE prophylaxis: Lovenox 40 mg daily Time Spent With Patient Critical Care time: I spent a total of [] minutes of critical care time on this patient's care today; this time is exclusive of procedural time.
[2022-03-08] MEDS: ONDANSETRON 4 MG/2 ML INJ IV (21:21)
[2022-03-09] VITALS (7 sets, daily range): BP systolic 122–141; BP diastolic 69–84; PULSE 95–125; RESP 16–23; TEMP 36.3–37.4; O2SAT 94–98
[2022-03-09] MEDS: LACTATED RINGERS 1,000 ML 250 ML IV ×6 (01:42→22:32)
[2022-03-09] MEDS: HYDROMORPHONE 0.5 MG INJ 1 MG IV ×2 (02:16→07:57)
--- NOTE | 2022-03-09 07:46 | PC.NURSE ---
Addendum entered by Della Cobb R.N. 03/09/22 17:53: Patient given ativan and ativan for pain and anxiety which was helpful. He is complaining of a pain in the right side of his chest, states that this is not on his l.side. Will medicate patient soon with dilaudid. Tolerating some solid food. Original Note: Assess- Patient is alert and oriented x3, states that he is having nausea and discomfort of 6/10 to abdomen. He is pleasant and cooperative with care. States that his grandfathers wake is later at 1400 and he may need something for ativan at this time.
[2022-03-09] MEDS: ENOXAPARIN 40 MG/0.4 ML SYRINGE SUBCUT (07:56)
[2022-03-09] MEDS: ONDANSETRON 4 MG/2 ML INJ IV (07:56)
--- NOTE | 2022-03-09 07:57 | PM.PN.1 ---
Subjective Subjective Date Patient Seen: 03/09/22 Interval history: He is seen in his room here today to follow-up his pancreatitis. He says he is doing much better, is hungry and would like to try regular food. His hemoglobin was 8.5 on 03/05. Those will be repeated today. His potassium level will also be repeated. Exam Vital Signs (past 8 hours): - 03/09/22 00:00 03/09/22 04:00 03/09/22 07:47 Temperature 99.3 F 98.1 F 97.8 F Pulse Rate 101 H 97 H 97 H Respiratory Rate 18 18 17 Blood Pressure 141/84 H 134/69 138/73 Pulse Oximetry 98 97 95 Oxygen Delivery Method Room Air Oxygen Flow Rate 0 Objective Labs Result Diagrams: 03/09/22 08:12 03/09/22 08:12 [facility] Medical History Alcohol use disorder Asthma, exercise induced Hypertension Patient denies medical problems Pseudocyst of pancreas Surgical History No pertinent past surgical history Family History Father Hypertension Alcoholism Mother No significant medical problems Social History household members: spouse and children Smoking Status: Current every day smoker alcohol intake: former Assessment & Plan Assessment & Plan narrative: Mr. Marcelino is a 31M with H alcohol abuse, htn, asthma, recent necrotizing pancreatitis who presents to the hospital with abdominal pain found to have acute pancreatitis. 1. Acute pancreatitis with history of EtOH abuse ?- Pseudocysts are appreciated on imaging, with largest approximately 5 cm, but do not appear infected, and there are areas of necrosis ?- IV lactated Ringer's on-board, at rate 250 cc/hr, with goal to advance diet as tolerated - advanced to regular diet on 03/09. 2. Sigmoid colon fluid collection, likely phlegmon, and likely related to adjacent pancreatitis ?- IV meropenem on-board for empiric coverage, as of March 05, 2022, and stopped on March 08, as infection less likely 3. Hypokalemia ?- Replete as needed 3. Asthma, currently asymptomatic, stable 4. Hypertension ?- Hold home anti-HTN meds for now VTE prophylaxis: Lovenox 40 mg daily Time Spent With Patient Critical Care time: I spent a total of [] minutes of critical care time on this patient's care today; this time is exclusive of procedural time.
[2022-03-09 08:35] LABS: Hematocrit 28.9 % (41-53); Hemoglobin 9.4 g/dL (13.5-17.5); Mean Corpuscular HGB Conc 32.4 % (30-36); Mean Corpuscular Hemoglobin 24.9 PG (26-34); Mean Corpuscular Volume 76.7 fL (80-100); Platelet Count 787 X10^3/uL (150-400); Red Blood Cell Count 3.77 X10^6/uL (4.5-5.9); Red Cell Distribution Width 16.8 % (11.6-14.8); White Blood Cell Count 10.4 X10^3/uL (4.5-11.0)
[2022-03-09 08:37] LABS: Add Manual Diff / Slide Review YES
[2022-03-09 08:52] LABS: Calcium 8.4 mg/dL (8.4-10.2); Carbon Dioxide 29 mmol/L (22-32); Chloride 104 mmol/L (98-107); Estimated Glomerular Filt Rate > 60 mL/min (>60); Glucose 96 mg/dL (70-100); HEMOLYSIS < 15 (0-50); Potassium 3.3 mmol/L (3.4-5.1); Sodium 140 mmol/L (137-145)
[2022-03-09 08:54] LABS: BUN Creatinine Ratio 4.3 (6-22); Blood Urea Nitrogen < 2 mg/dL (9-20)
[2022-03-09 09:23] LABS: Neutrophils Absolute Manual 7800 /uL (3000-5900); Total Cells Counted 100
[2022-03-09 09:24] LABS: Anisocytosis 2+; Target Cells 2+
[2022-03-09 09:25] LABS: Hypochromasia 3+; Poikilocytosis 1+
[2022-03-09] MEDS: LORazepam 2 MG/ML INJ 1 MG IV (12:00)
--- NOTE | 2022-03-09 13:21 | PC.NURSE ---
pt vomiting. stated, I don't need any meds right now. I just talked with my family so I'm stressed. Give me a little time.
[2022-03-09] MEDS: HYDROMORPHONE 1 MG INJ IV ×3 (14:28→23:12)
[2022-03-09] MEDS: POTASSIUM CHLORIDE 20 MEQ TAB 40 MEQ PO (14:37)
--- NOTE | 2022-03-09 14:38 | PC.NURSE ---
Patient appeared to be very stressed after he vomited at 1:30. He was tearful and stated that he was very stressed and that his family was attending a life celebration for his grandfather and that he had a lot going on right now.
[2022-03-10] VITALS (11 sets, daily range): BP systolic 125–150; BP diastolic 69–92; PULSE 88–106; RESP 15–24; TEMP 36.5–37.6; O2SAT 93–100
[2022-03-10] MEDS: HYDROMORPHONE 2 MG INJ IV (00:13)
--- NOTE | 2022-03-10 00:51 | PC.NURSE ---
Called and notified Dr. Sullivan patient is complaining of upper gastric pain, as well as RUQ abd pain. Patient instructed to sit up in bed with HOB elevated. During further assessment patient states it feels like gastric reflux juices coming up. Also requested Dr. Sullivan to review labs, K+ was low, patient was given replacement on days, however he did have a reported N/V episode. Waiting for new orders.
[2022-03-10] MEDS: CALCIUM CARBONATE 500 MG TAB 1000 MG PO ×3 (01:47→17:58)
[2022-03-10] MEDS: LACTATED RINGERS 1,000 ML 250 ML IV ×2 (02:33→06:29)
[2022-03-10] MEDS: PANTOPRAZOLE DR 20 MG TABLET PO (06:25)
[2022-03-10] MEDS: HYDROMORPHONE 1 MG INJ IV (06:26)
--- NOTE | 2022-03-10 07:22 | PC.NURSE ---
Care of patient from [id number] End of shift note. Patient AAOX4, up independently to BR voiding. Good RUQ abd pain control with Dilaudid 1mg IV. Patient c/o upper gastric heart burn pain, stomach gurgling, Dr. Perez notified see new orders. Patient had a large 800ml emesis and stated he felt much better. Changed diet to NPO except ice chips and meds. Gave report to day shift RN.
[2022-03-10] MEDS: ENOXAPARIN 40 MG/0.4 ML SYRINGE SUBCUT (09:00)
[2022-03-10] MEDS: SIMETHICONE 80 MG TABLET PO (09:00)
[2022-03-10] MEDS: ONDANSETRON 4 MG/2 ML INJ IV (09:51)
[2022-03-10] MEDS: LORazepam 2 MG/ML INJ 1 MG IV (09:53)
[2022-03-10] MEDS: HYDROMORPHONE 0.5 MG INJ IV ×4 (09:54→21:21)
--- NOTE | 2022-03-10 10:21 | CM.DPC ---
Addendum entered by Cadence Estrada R.N. 03/10/22 13:04: Met with patient in his room. Introduced self and role. Confirmed that patient resides with spouse in [place]. Asked him about resources, if he felt that he had enough regarding alcohol intake. Patient stated that he has a good support system at the clinic, such as the [facility], which he is familiar with. he does not need any additional resources at this time. Original Note: DCP Cont: Patient was going to discharge home today, but he had another case of nausea and vomiting, therefor, his discharge was cancelled. P: DCP to continue to follow for any needs. The plan is for home when he is deemed medically stable. Cadence Estrada RN/Damage Inside Adjuster
[2022-03-10 11:00] LABS: Carbon Dioxide 33 mmol/L (22-32); Chloride 102 mmol/L (98-107); Estimated Glomerular Filt Rate > 60 mL/min (>60); Glucose 92 mg/dL (70-100); HEMOLYSIS < 15 (0-50); Potassium 3.4 mmol/L (3.4-5.1); Sodium 142 mmol/L (137-145)
[2022-03-10 11:01] LABS: BUN Creatinine Ratio 4.3 (6-22); Blood Urea Nitrogen < 2 mg/dL (9-20)
[2022-03-10] MEDS: LACTATED RINGERS 1,000 ML 125 ML IV ×2 (12:00→19:30)
[2022-03-10] MEDS: POTASSIUM CHLORIDE IN WATER 10 MEQ/100 ML PIGGYBACK 100 MEQ IV ×2 (14:47→16:04)
--- NOTE | 2022-03-10 15:43 | PM.PN.1 ---
Subjective Subjective Date Patient Seen: 03/10/22 Time Patient Seen: 08:00 Interval history: Still having abdominal discomfort. Has had significant episode of vomiting last night and this morning. Exam Vital Signs (past 8 hours): - 03/10/22 08:00 03/10/22 11:30 03/10/22 13:09 Temperature 97.9 F 98.7 F Pulse Rate 95 H 99 H Respiratory Rate 16 19 Blood Pressure 125/69 131/81 Pulse Oximetry 95 96 94 Oxygen Delivery Method Room Air Oxygen Flow Rate 0 Narrative Exam Narrative: GEN: no acute distress CV: regular rate and rhythm PULM: clear bilaterally ABD: soft, minimal diffuse tenderness Objective Labs Result Diagrams: 03/09/22 08:12 03/10/22 10:30 Labs: Laboratory Results - last 24 hr 03/10/22 10:30 Sodium 142 Potassium 3.4 Chloride 102 Carbon Dioxide 33 H BUN < 2 L Creatinine 0.47 L Estimated GFR > 60 BUN/Creatinine Ratio 4.3 L Glucose 92 Calcium 9.0 PFSH Medical History Alcohol use disorder Asthma, exercise induced Hypertension Patient denies medical problems Pseudocyst of pancreas Surgical History No pertinent past surgical history Family History Father Hypertension Alcoholism Mother No significant medical problems Social History household members: spouse and children Smoking Status: Current every day smoker alcohol intake: former Assessment & Plan Assessment & Plan narrative: Mr. Marcelino is a 31M with H alcohol abuse, htn, asthma, recent necrotizing pancreatitis who presents to the hospital with abdominal pain found to have acute pancreatitis. 1. Acute pancreatitis with history of EtOH abuse ?- Pseudocysts are appreciated on imaging, with largest approximately 5 cm, but do not appear infected, and there are areas of necrosis ?- decrease IVF rate ?- with vomiting on 03/10, placed back on full liquids 2. Sigmoid colon fluid collection, likely related to adjacent pancreatitis ?- IV meropenem on-board for empiric coverage, as of March 05, 2022, and stopped on March 08, as infection less likely 3. Hypokalemia ?- Replete as needed 3. Asthma, currently asymptomatic, stable 4. Hypertension ?- Hold home anti-HTN meds for now VTE prophylaxis: Lovenox 40 mg daily Time Spent With Patient Critical Care time: I spent a total of [] minutes of critical care time on this patient's care today; this time is exclusive of procedural time.
[2022-03-11] VITALS: O2SAT 98
[2022-03-11 00:10] VITALS: BP 140/86; PULSE 98; RESP 20; TEMP 36.9; O2SAT 100
[2022-03-11] MEDS: HYDROMORPHONE 0.5 MG INJ IV ×3 (00:14→08:13)
[2022-03-11] MEDS: LACTATED RINGERS 1,000 ML 125 ML IV (03:21)
[2022-03-11 04:00] VITALS: BP 130/69; PULSE 92; RESP 16; O2SAT 97
[2022-03-11 04:30] VITALS: TEMP 37.4
[2022-03-11 05:51] LABS: Calcium 8.5 mg/dL (8.4-10.2); Carbon Dioxide 31 mmol/L (22-32); Chloride 102 mmol/L (98-107); Estimated Glomerular Filt Rate > 60 mL/min (>60); Glucose 78 mg/dL (70-100); HEMOLYSIS < 15 (0-50); Magnesium 1.8 mg/dL (1.6-2.3); Potassium 3.6 mmol/L (3.4-5.1); Sodium 140 mmol/L (137-145)
[2022-03-11 05:52] LABS: BUN Creatinine Ratio 3.9 (6-22); Blood Urea Nitrogen < 2 mg/dL (9-20)
[2022-03-11] MEDS: PANTOPRAZOLE DR 20 MG TABLET PO (06:44)
[2022-03-11 08:00] VITALS: BP 128/76; PULSE 111; RESP 19; TEMP 37.2; O2SAT 100
[2022-03-11] MEDS: ENOXAPARIN 40 MG/0.4 ML SYRINGE SUBCUT (08:13)
[2022-03-11] MEDS: HYDROMORPHONE 2 MG TABLET PO (09:27)
--- NOTE | 2022-03-11 09:36 | PC.NURSE ---
0935: Discharge instructions/meds reviewed with pt, no questions or concerns verbalized. PIV removed. Pt awaiting ride from family.
--- NOTE | 2022-03-11 10:47 | PM.DS.1 ---
History of Present Illness History of Present Illness Chief complaint: ABD PAIN, THROWING UP Narrative: Mr. Marcelino is a 31M with PMH asthma, HTN, alcohol abuse with recent admission for necrotizing pancreatitis who presents with abdominal pain and vomiting. He was discharged one week ago after being diagnosed with acute necrotizing pancreatitis secondary to alcohol abuse. He was ordered for IV fluids and pain medications and he stated he had significant improvement. Imaging was done at the time which showed acute pancreatitis with area of likely pancreatic necrosis and abnormal cystic lesions thought more likely to be pseudocyst rather than abscess. He was ordered for antibiotics, did have a white count, but no fever at the time, and it was thought he did not have infection. He was feeling improved until today when he had return of his epigastric pain, which radiates to the back. He had nausea, and an episode of vomiting. In the ED workup was done, vitals notable for heart rate in 100s. Labs notable for WBC 20.5, hgb 11, plts 1052. Potassium 2.7, creatinine 0.60. Lipase 1429. CT abdomen shows moderate inflammation of pancreas with intrapancreatic fluid collection decreased in size. Notably there is also a sigmoid colon inflammatory change with small rim enhancing fluid collection posterior to the bladder. He was ordered for IV fluid and admitted for further treatment. Discharge Providers Provider Date of admission: 03/05/22 03:48 Discharge Date: 03/11/22 Primary care physician: Chiara Lyons MD Consults: 03/06/22 10:44 Consult to Occupational Therapy Evaluate & Treat Comment: Physician Instructions: Evaluate and treat Consult to Physical Therapy Evaluate & Treat Comment: Physician Instructions: Evaluate and Treat Discharge provider: Kashmir Gary MD Summary Hospital Course Discharge Diagnosis: 1. Acute pancreatitis, necrotizing 2. Alcohol abuse 3. Pseudocysts 3. Hypokalemia 4. Asthma 5. Hypertension Hospital Course: Mr. Marcelino was admitted with abdominal pain. He was found to have pseudocysts on imaging. He had acute pancreatitis. He denied further drinking since last discharge. He was significantly volume resuscitated. He was briefly on antibiotics, but these were stopped due to unlikeliness of infection. He was encouraged to avoid alcohol and continue with a low fat diet. He was tolerating a regular diet on discharge Exam Vital Signs (past 8 hours): Oxygen Delivery Method Room Air Oxygen Flow Rate 0 Narrative Exam Narrative: GEN: no acute distress CV: regular rate and rhythm PULM: clear bilaterally ABD: soft, nontender Objective Labs Result Diagrams: 03/09/22 08:12 03/11/22 05:12 Labs: Laboratory Results - last 24 hr 03/11/22 05:12 Sodium 140 Potassium 3.6 Chloride 102 Carbon Dioxide 31 BUN < 2 L Creatinine 0.51 L Estimated GFR > 60 BUN/Creatinine Ratio 3.9 L Glucose 78 Calcium 8.5 Magnesium 1.8 PFSH Medical History Alcohol use disorder Asthma, exercise induced Hypertension Patient denies medical problems Pseudocyst of pancreas Surgical History No pertinent past surgical history Family History Father Hypertension Alcoholism Mother No significant medical problems Social History household members: spouse and children Smoking Status: Current every day smoker alcohol intake: former Discharge Plan Discharge Plan Patient Disposition: Home Provider Discharge Comment: Mr. Marcelino came in to the hospital with pancreatitis. He improved with treatment. He was able to eat well on the day he was discharged. He should avoid alcohol going forward, and should see a primary doctor within the next 1-2 weeks. Discharge orders & Medications Prescriptions: New pantoprazole 20 mg Tablet,Delayed Release (Dr/Ec) 20 mg PO 0700 Qty: 30 0RF hydromorphone 2 mg Tablet 2 mg PO Q4-6H PRN (Reason: Pain, Severe (7-10)) Qty: 12 0RF lorazepam [Ativan] 0.5 mg tablet 0.5 mg PO BID PRN (Reason: anxiety) Qty: 12 0RF Continued losartan 50 mg Tablet 50 mg PO DAILY 0RF Discontinued oxycodone 5 mg Tablet 5 mg PO Q3HR PRN (Reason: Pain, Moderate (4-6)) Qty: 15 0RF Follow up/Referrals: Chiara Lyons MD [Primary Care Provider] - Diet/Activity/Treatments Diet: Low-fat Visit Report/Discharge Packet Instructions: Acute Pancreatitis, DI for Pancreatitis Discharge Data Primary Care Provider: Chiara Lyons
== END 2022-03-11 09:50 | disposition home or self-care (01) | DRG 439 ==
LOC: ED 23:35 → AC 03-05 03:48 → ICU 03-05 04:06
PROVIDERS: Family Medicine; Admitting Provider Internal Medicine; Emergency Provider Emergency Medicine; PCP Family Medicine; Referring Provider Emergency Medicine; Visit Provider Internal Medicine
DX: K85.91 Acute pancreatitis with uninfected necrosis, unspecified (principal); K86.3 Pseudocyst of pancreas; K63.0 Abscess of intestine; E87.6 Hypokalemia; D75.839 Thrombocytosis, unspecified; I10 Essential (primary) hypertension; F10.11 Alcohol abuse, in remission; Y90.0 Blood alcohol level of less than 20 mg/100 ml; Z20.822 Contact with and (suspected) exposure to COVID-19
CPT/HCPCS: 36415; 74177; 80048; 80053; 80320; 82962; 83605; 83690; 83735; 83880; 85007; 85025; 87040; 87493; 87635; 87797; 94760; 96361; 96365; 96366; 96375; 96376; 97161; 99284; C9803; J1170; J1650; J2060; J2185; J2270; J2405; J2765; Q9967

== ENCOUNTER 2022-04-16 00:33 | Emergency (ER) | payer OTHER, SELFPAY ==
[2022-03-05 04:36] VITALS: BMI 31.7
[2022-04-16 00:57] VITALS: BP 143/89; PULSE 84; RESP 18; TEMP 36.5; O2SAT 97; BMI 29.9
[2022-04-16] MEDS: ONDANSETRON 4 MG/2 ML INJ IV ×2 (01:04→01:54)
[2022-04-16 01:16] LABS: Add Manual Diff / Slide Review YES; Hematocrit 34.2 % (41-53); Hemoglobin 11.2 g/dL (13.5-17.5); Mean Corpuscular HGB Conc 32.6 % (30-36); Mean Corpuscular Hemoglobin 25.2 PG (26-34); Mean Corpuscular Volume 77.4 fL (80-100); Platelet Count 422 X10^3/uL (150-400); Red Blood Cell Count 4.43 X10^6/uL (4.5-5.9); Red Cell Distribution Width 20.1 % (11.6-14.8); White Blood Cell Count 13.4 X10^3/uL (4.5-11.0)
[2022-04-16 01:23] LABS: Alanine Aminotransferase 13 IU/L (<50); Albumin 4.4 g/dL (3.5-5.0); Albumin Globulin Ratio 1.1 (1.0-2.8); Alkaline Phosphatase 85 U/L (38-126); Aspartate Aminotransferase 29 IU/L (17-59); BUN Creatinine Ratio 8.9 (6-22); Bilirubin Total 0.9 mg/dL (0.2-1.3); Blood Urea Nitrogen 5 mg/dL (9-20); Calcium 9.5 mg/dL (8.4-10.2); Carbon Dioxide 25 mmol/L (22-32); Chloride 106 mmol/L (98-107); Estimated Glomerular Filt Rate > 60 mL/min (>60); Glucose 134 mg/dL (70-100); HEMOLYSIS 31 (0-50); Lipase 483 U/L (23-300); Potassium 4.2 mmol/L (3.4-5.1); Sodium 139 mmol/L (137-145); Total Protein 8.4 g/dL (6.3-8.2)
--- NOTE | 2022-04-16 01:41 | ED_ITS ---
HPI - Abdominal Pain General Chief Complaint: Abdominal Pain Stated Complaint: pancreas flare up liver pain Time Seen by Provider: 04/16/22 00:38 Source: patient Mode of arrival: Ambulatory History of Present Illness HPI narrative: 31-year-old male smoker with history of alcoholic pancreatitis presents with his and young child in the chief complaint of severe epigastric pain with radiation to his back and associated nausea and vomiting over the course of the day. Though he has been sober for the past few months he states this feels quite similar to prior episodes of pancreatitis, but not quite as bad as he has come in earlier than he typically would have previously. States that he had had a small amount of a red bull but denies any significant dietary indiscretions. He is not dizzy nor weak or lightheaded. Has no chest pain or shortness of breath. Denies any fever or chills. He states his pain is worse with motion as well as eating and drinking. Related Data Home Medications Medication Instructions Recorded Confirmed losartan 50 mg tablet 50 mg PO DAILY 02/23/22 03/05/22 Previous Rx's Medication Instructions Recorded hydromorphone 2 mg tablet 2 mg PO Q4-6H PRN #12 tab 03/11/22 lorazepam 0.5 mg tablet (Ativan) 0.5 mg PO BID PRN #12 tab 03/11/22 pantoprazole 20 mg tablet,delayed 20 mg PO 0700 #30 tab 03/11/22 release hydrocodone 5 mg-acetaminophen 325 1 tab PO Q4-6H PRN #20 tab 04/16/22 mg tablet ondansetron 4 mg disintegrating 4 mg PO TID-QID PRN #20 tab 04/16/22 tablet Allergies Allergy/AdvReac Type Severity Reaction Status Date / Time No Known Drug Allergies Allergy Verified 04/16/22 00:57 Review of Systems Review of Systems Narrative: GENERAL: Denies chills, fatigue, malaise, fever, sweats. HEENT: Denies sinus pain, ear pain, sore throat, difficulty swallowing, dizziness. RESPIRATORY: Denies dyspnea, cough, wheezing, hemoptysis, sputum. CARDIOVASCULAR: Denies chest pain, palpitations, orthopnea, edema, GASTROINTESTINAL: See HPI : Denies dysuria, frequency, incontinence, hematuria, urinary retention. MUSCULOSKELETAL: denies weakness, joint pain, or bony pain SKIN: Denies rash, skin lesions, or other NEUROLOGIC: Denies weakness, headache, numbness, change in speech, confusion, seizures, incoordination. PSYCHIATRIC: No concerning psychosocial issues. 12 point review of systems is negative except for those stated above Patient History Medical History Alcohol use disorder Asthma, exercise induced Hypertension Patient denies medical problems Pseudocyst of pancreas Surgical History No pertinent past surgical history Family History Father Hypertension Alcoholism Mother No significant medical problems Social History household members: spouse and children Smoking Status: Current every day smoker alcohol intake: former Smoking Status: Current every day smoker alcohol intake frequency: 3 or more drinks per day Alcohol type: hard liquor Substance Use Type: marijuana Exam Narrative Exam Narrative: GENERAL: [31] year old patient appears stated age. Well-developed patient, in moderate distress, obviously uncomfortable HEAD: Atraumatic. Normocephalic. EYES: Pupils equal round and reactive. Extraocular motions intact. No scleral icterus. No injection or drainage. ENT: Nose without bleeding, purulent drainage. Throat without erythema, tonsillar hypertrophy or exudate. Airway patent. NECK: Trachea midline. Non tender CARDIOVASCULAR: Regular rate and rhythm without murmurs, gallops, or rubs. RESPIRATORY: Clear to auscultation. Breath sounds equal bilaterally. No wheezes, rales, or rhonchi. GASTROINTESTINAL: Abdomen soft, non-tender, nondistended. EXTREMITIES: No edema or joint tenderness. BACK: Nontender without deformity or crepitance. No flank tenderness. NEURO: AOx3. SKIN: No rash or erythema of visible areas Initial Vital Signs Initial Vital Signs: Vital Signs Temperature 97.7 F 04/16/22 00:57 Pulse Rate 84 04/16/22 00:57 Respiratory Rate 18 04/16/22 00:57 Blood Pressure 143/89 H 04/16/22 00:57 Pulse Oximetry 97 04/16/22 00:57 Course Orders Ordered: ED Orders 04/16/22 01:00 Complete Blood Count AUTO DIFF Stat Comprehensive Metabolic Panel Stat Lipase Stat EKG-12 Lead Stat Hydrocodone Bitart/Acetaminophen (Hydrocodone/Acet 5/325 Prepack) 1 bottle MISC SEEINSTR ONE Stop: 04/16/22 03:12 Ondansetron HCl (Ondansetron 4 Mg Odt Prepack) 1 bottle MISC SEEINSTR ONE Stop: 04/16/22 03:12 Discontinued Medications Hydromorphone HCl (Hydromorphone 1 Mg Inj) 1 mg IV NOW ONE Stop: 04/16/22 01:42 Last Admin: 04/16/22 01:53 Dose: 1 mg Documented by: JAYLEN Sodium Chloride (Normal Saline 0.9%) 1,000 mls @ 1,000 mls/hr IV BOLUS ONE Stop: 04/16/22 02:40 Last Admin: 04/16/22 01:54 Dose: 1,000 mls/hr Documented by: JAYLEN Ondansetron HCl (Ondansetron 4 Mg/2 Ml Inj) 4 mg IV NOW ONE Stop: 04/16/22 01:01 Last Admin: 04/16/22 01:04 Dose: 4 mg Documented by: MELYSSA Ondansetron HCl (Ondansetron 4 Mg/2 Ml Inj) 4 mg IV NOW ONE Stop: 04/16/22 01:42 Last Admin: 04/16/22 01:54 Dose: 4 mg Documented by: JAYLEN Pantoprazole Sodium (Pantoprazole 40 Mg Vial) 40 mg IV NOW ONE Stop: 04/16/22 01:42 Last Admin: 04/16/22 01:53 Dose: 40 mg Documented by: JAYLEN Reevaluation(s) Reevaluation #1: Significant improvement after above-stated therapies, pain is well controlled, he is tolerating orals and feeling quite well Vital Signs Vital signs: Vital Signs - 8 hr 04/16/22 00:57 Temperature 97.7 F Pulse Rate 84 Respiratory Rate 18 Blood Pressure 143/89 H Pulse Oximetry 97 MDM - Abdominal Pain Lab Data Result diagrams: 04/16/22 01:00 04/16/22 01:00 Labs: Lab Results 04/16/22 04/16/22 Range/Units 01:00 01:00 WBC 13.4 H (4.5-11.0) X10^3/uL RBC 4.43 L (4.5-5.9) X10^6/uL Hgb 11.2 L (13.5-17.5) g/dL Hct 34.2 L (41-53) % MCV 77.4 L (80-100) fL MCH 25.2 L (26-34) PG MCHC 32.6 (30-36) % RDW 20.1 H (11.6-14.8) % Plt Count 422 H (150-400) X10^3/uL Neut % (Auto) Not Reportable Lymph % (Auto) Not Reportable [place] % (Auto) Not Reportable Eos % (Auto) Not Reportable Baso % (Auto) Not Reportable Lymph # (Auto) Not Reportable [place] # (Auto) Not Reportable Baso # (Auto) Not Reportable Sodium 139 (137-145) mmol/L Potassium 4.2 (3.4-5.1) mmol/L Chloride 106 (98-107) mmol/L Carbon Dioxide 25 (22-32) mmol/L BUN 5 L (9-20) mg/dL Creatinine 0.56 L (0.66-1.25) mg/dL Estimated GFR > 60 (>60) mL/min BUN/Creatinine Ratio 8.9 (6-22) Glucose 134 H (70-100) mg/dL Calcium 9.5 (8.4-10.2) mg/dL Total Bilirubin 0.9 (0.2-1.3) mg/dL AST 29 (17-59) IU/L ALT 13 (<50) IU/L Alkaline Phosphatase 85 (38-126) U/L Total Protein 8.4 H (6.3-8.2) g/dL Albumin 4.4 (3.5-5.0) g/dL Globulin 4.0 (1.7-4.1) g/dL Albumin/Globulin Ratio 1.1 (1.0-2.8) Lipase 483 H (23-300) U/L [facility] Narrative Medical decision making narrative: Multiple etiologies for patient's symptoms considered include, but not limited to: [Pancreatitis versus reflux versus bowel obstruction versus other Patient's symptoms improved over duration of stay with above-stated therapies. Lipase is elevated though not significantly, no where near as high as previous. History, physical exam, labs, imaging, and response to therapies have been reassuring. Findings and discharge diagnosis discussed with patient/family followed by verbalization of understanding Return precautions discussed with patient/family whom verbalize understanding. Pain has been well controlled and patient is tolerating oral hydration. Discharge Plan Departure Patient Disposition: Home Clinical Impression: Pancreatitis Instructions: DI for Pancreatitis Activity Restrictions/Additional Instructions: *You have been diagnosed with [abdominal pain due to pancreatitis. * As we discussed your history and physical exam as well as labs and imaging are very reassuring. There is no evidence of any severe diagnoses that would require a specific or immediate intervention. *What to do: *Please continue to take your regular medications as directed. [x ] New medication prescriptions sent to your pharmacy: [[facility] ] *Please follow up with your primary care provider in 2-3 days, call for an appointment. Let them know you were seen in the Emergency Department and that we ask that you be seen in follow up. We will electronically transmit a record of today's note if your PCP is in our system *Please consider a clear liquid diet for the next 24-48 hours and then slowly advance to regular as tolerated. Also, try to avoid alcohol, nicotine, caffeine, spicy, acidic or fatty foods as this may worsen your symptoms *If you do not have a primary care provider please contact the [facility] Resource line at [phone]. They will ask some questions about your medical history and help get you set up with a doctor in the community. *Return to Emergency Department if you should have any new, worsening or concerning symptoms, such as [fever greater than 101 F, shaking chills, worsening pain, persistent vomiting or other bothersome symptoms] Prescriptions: New hydrocodone-acetaminophen 5-325 mg tablet 1 tab PO Q4-6H PRN (Reason: pain) Qty: 20 0RF ondansetron 4 mg tablet,disintegrating 4 mg PO TID-QID PRN (Reason: nausea and vomiting) Qty: 20 0RF No Action losartan 50 mg Tablet 50 mg PO DAILY 0RF pantoprazole 20 mg Tablet,Delayed Release (Dr/Ec) 20 mg PO 0700 Qty: 30 0RF hydromorphone 2 mg Tablet 2 mg PO Q4-6H PRN (Reason: Pain, Severe (7-10)) Qty: 12 0RF lorazepam [Ativan] 0.5 mg tablet 0.5 mg PO BID PRN (Reason: anxiety) Qty: 12 0RF Referrals: Chiara Lyons MD [Primary Care Provider] -
[2022-04-16] MEDS: HYDROMORPHONE 1 MG INJ IV (01:53)
[2022-04-16] MEDS: PANTOPRAZOLE 40 MG VIAL IV (01:53)
[2022-04-16] MEDS: SODIUM CHLORIDE 0.9% 1,000 ML 1000 ML IV (01:54)
[2022-04-16 03:13] VITALS: BP 114/59; PULSE 60; RESP 18; O2SAT 98
[2022-04-16] MEDS: ONDANSETRON 4 MG ODT PREPACK 1 BOTTLE MISC (03:23)
[2022-04-16] MEDS: HYDROCODONE/ACET 5/325 PREPACK 1 BOTTLE MISC (03:23)
[2022-04-16 04:06] LABS: Anisocytosis 3+; Neutrophils Absolute Manual 10586 /uL (3000-5900); Total Cells Counted 100
== END 2022-04-16 03:37 | disposition home or self-care (01) ==
PROVIDERS: Emergency Provider Emergency Medicine; PCP Family Medicine
DX: K85.90 Acute pancreatitis without necrosis or infection, unspecified (principal); R11.2 Nausea with vomiting, unspecified
CPT/HCPCS: 36415; 80053; 83690; 85007; 85025; 96361; 96374; 96375; 96376; 99284; C9113; J1170; J2405

== ENCOUNTER 2022-04-17 20:15 | Inpatient (IN) | payer OTHER, SELFPAY ==
[2022-03-05 04:36] VITALS: BMI 31.7
[2022-04-17 20:55] VITALS: BP 134/87; PULSE 82; RESP 22; TEMP 37.2; O2SAT 98
[2022-04-17 21:35] LABS: Add Manual Diff / Slide Review NO; Alanine Aminotransferase 46 IU/L (<50); Albumin 4.6 g/dL (3.5-5.0); Albumin Globulin Ratio 1.1 (1.0-2.8); Alkaline Phosphatase 137 U/L (38-126); Aspartate Aminotransferase 77 IU/L (17-59); BUN Creatinine Ratio 8.2 (6-22); Basophils Absolute Auto 200 /uL (0-100); Basophils Percent Auto 1.1 % (0-2); Bilirubin Total 1.3 mg/dL (0.2-1.3); Blood Urea Nitrogen 5 mg/dL (9-20); Calcium 9.7 mg/dL (8.4-10.2); Carbon Dioxide 29 mmol/L (22-32); Chloride 101 mmol/L (98-107); Eosinophils Absolute Auto 0 /uL (0-450); Eosinophils Percent Auto 0.1 % (2-4); Estimated Glomerular Filt Rate > 60 mL/min (>60); Globulin 4.1 g/dL (1.7-4.1); Glucose 126 mg/dL (70-100); HEMOLYSIS < 15 (0-50); Hematocrit 34.6 % (41-53); Hemoglobin 11.1 g/dL (13.5-17.5); Lipase 509 U/L (23-300); Lymphocytes Absolute Auto 1600 /uL (1100-4500); Lymphocytes Percent Auto 11.2 % (25-40); Mean Corpuscular Hemoglobin 24.9 PG (26-34); Mean Corpuscular Volume 77.7 fL (80-100); Monocytes Absolute Auto 1000 /uL (0-900); Monocytes Percent Auto 6.6 % (3-14); Neutrophils Absolute Auto 11700 /uL (1500-7000); Platelet Count 440 X10^3/uL (150-400); Potassium 4.1 mmol/L (3.4-5.1); Red Blood Cell Count 4.45 X10^6/uL (4.5-5.9); Red Cell Distribution Width 20.4 % (11.6-14.8); Sodium 141 mmol/L (137-145); Total Protein 8.7 g/dL (6.3-8.2); White Blood Cell Count 14.4 X10^3/uL (4.5-11.0)
--- NOTE | 2022-04-17 21:46 | ED_ITS ---
HPI - Abdominal Pain General Chief Complaint: Abdominal Pain Stated Complaint: Pancreatitis pain Time Seen by Provider: 04/17/22 21:45 Source: patient Mode of arrival: Ambulatory History of Present Illness HPI narrative: 31-year-old male smoker with history of alcoholic pancreatitis presents with his and young child in the chief complaint of severe epigastric pain with radiation to his back, he was seen and evaluated a few days ago under similar circumstances in which his labs were largely reassuring, lipase was in the 400s. His pain was well controlled, he was tolerating orals and given return precautions. He is back because the medications are helping and he is unable to tolerate the pain, and cannot even keep water down. He has been a bit constipated but denies any diarrhea or urinary complaint. He has no fever or ch ills. He continues to maintain sobriety since February Related Data Home Medications Medication Instructions Recorded Confirmed losartan 50 mg tablet 50 mg PO DAILY 02/23/22 03/05/22 Previous Rx's Medication Instructions Recorded hydromorphone 2 mg tablet 2 mg PO Q4-6H PRN #12 tab 03/11/22 lorazepam 0.5 mg tablet (Ativan) 0.5 mg PO BID PRN #12 tab 03/11/22 pantoprazole 20 mg tablet,delayed 20 mg PO 0700 #30 tab 03/11/22 release hydrocodone 5 mg-acetaminophen 325 1 tab PO Q4-6H PRN #20 tab 04/16/22 mg tablet ondansetron 4 mg disintegrating 4 mg PO TID-QID PRN #20 tab 04/16/22 tablet Allergies Allergy/AdvReac Type Severity Reaction Status Date / Time No Known Drug Allergies Allergy Verified 04/16/22 00:57 Review of Systems Review of Systems Narrative: GENERAL: Denies chills, fatigue, malaise, fever, sweats. HEENT: Denies sinus pain, ear pain, sore throat, difficulty swallowing, dizziness. RESPIRATORY: Denies dyspnea, cough, wheezing, hemoptysis, sputum. CARDIOVASCULAR: Denies chest pain, palpitations, orthopnea, edema, GASTROINTESTINAL: See HPI : Denies dysuria, frequency, incontinence, hematuria, urinary retention. MUSCULOSKELETAL: denies weakness, joint pain, or bony pain SKIN: Denies rash, skin lesions, or other NEUROLOGIC: Denies weakness, headache, numbness, change in speech, confusion, seizures, incoordination. PSYCHIATRIC: No concerning psychosocial issues. 12 point review of systems is negative except for those stated above Patient History Medical History Alcohol use disorder Asthma, exercise induced Hypertension Patient denies medical problems Pseudocyst of pancreas Surgical History No pertinent past surgical history Family History Father Hypertension Alcoholism Mother No significant medical problems Social History household members: spouse and children Smoking Status: Current every day smoker alcohol intake: former Smoking Status: Current every day smoker alcohol intake frequency: 3 or more drinks per day Alcohol type: hard liquor Substance Use Type: marijuana Exam Narrative Exam Narrative: GENERAL: [31 year old patient appears stated age. Well-developed patient, in moderate distress, obviously uncomfortable, rocking back and forth on the cart HEAD: Atraumatic. Normocephalic. EYES: Pupils equal round and reactive. Extraocular motions intact. No scleral icterus. No injection or drainage. ENT: Dry mucous membranes Nose without bleeding, purulent drainage. Throat without erythema, tonsillar hypertrophy or exudate. Airway patent. NECK: Trachea midline. Non tender CARDIOVASCULAR: Regular rate and rhythm without murmurs, gallops, or rubs. RESPIRATORY: Clear to auscultation. Breath sounds equal bilaterally. No wheezes, rales, or rhonchi. GASTROINTESTINAL: Abdomen soft, tender in the epigastrium on right upper quadrant, nondistended. EXTREMITIES: No edema or joint tenderness. BACK: Nontender without deformity or crepitance. No flank tenderness. NEURO: AOx3. SKIN: No rash or erythema of visible areas Initial Vital Signs Initial Vital Signs: Vital Signs Temperature 98.9 F 04/17/22 20:55 Pulse Rate 82 04/17/22 20:55 Respiratory Rate 22 04/17/22 20:55 Blood Pressure 134/87 04/17/22 20:55 Pulse Oximetry 98 04/17/22 20:55 Course Orders Ordered: ED Orders 04/17/22 20:59 EKG-12 Lead Stat 04/17/22 21:12 Complete Blood Count AUTO DIFF Stat Comprehensive Metabolic Panel Stat Ethanol (ETOH) Stat Lipase Stat 04/17/22 21:51 US abdomen limited Stat 04/17/22 22:04 COVID19 -Nasal RAPID/Pre-Proc Stat 04/17/22 23:15 CT abdomen pelvis w con Stat Acetaminophen (Acetaminophen 325 Mg Tablet) 650 mg PO Q6HR PRN PRN Reason: Fever/Mild Pain (1-3) Docusate Sodium (Docusate 100 Mg Capsule) 100 mg PO BID NERI Enoxaparin Sodium (Enoxaparin 40 Mg/0.4 Ml Syringe) 40 mg SUBCUT DAILY NERI Hydromorphone HCl (Hydromorphone 0.5 Mg Inj) 1 mg IV Q3H PRN PRN Reason: Breakthrough pain only (8-10) Sodium Chloride (Normal Saline 0.9%) 1,000 mls @ 150 mls/hr IV CONT NERI Naloxone HCl (Naloxone 0.4 Mg/Ml Vial) 0.2 mg IV Q2MIN PRN PRN Reason: Opiate Reversal Ondansetron HCl (Ondansetron 4 Mg/2 Ml Inj) 4 mg IV Q6HR PRN PRN Reason: Nausea And Vomiting Oxycodone HCl (Oxycodone Ir 5 Mg Tablet) 5 mg PO Q4HR PRN PRN Reason: Pain, Severe (7-10) Sennosides (Sennosides 8.6 Mg Tablet) 17.2 mg PO BEDTIME NERI Tramadol HCl (Tramadol 50 Mg Tablet) 50 mg PO Q4H PRN PRN Reason: Pain, Moderate (4-6) Discontinued Medications Hydromorphone HCl (Hydromorphone 1 Mg Inj) 1 mg IV NOW ONE Stop: 04/17/22 21:52 Last Admin: 04/17/22 21:57 Dose: 1 mg Documented by: [email or web address] Hydromorphone HCl (Hydromorphone 1 Mg Inj) 1 mg IV NOW ONE Stop: 04/18/22 00:14 Last Admin: 04/18/22 00:22 Dose: 1 mg Documented by: [email or web address] Sodium Chloride (Normal Saline 0.9%) 1,000 mls @ 1,000 mls/hr IV BOLUS ONE Stop: 04/17/22 22:44 Last Infusion: 04/17/22 23:05 Dose: 0 mls/hr Documented by: [email or web address] Admin: 04/17/22 21:57 Dose: 1,000 mls/hr Documented by: [email or web address] Ondansetron HCl (Ondansetron 4 Mg/2 Ml Inj) 4 mg IV NOW ONE Stop: 04/17/22 21:52 Last Admin: 04/17/22 21:57 Dose: 4 mg Documented by: [email or web address] Pantoprazole Sodium (Pantoprazole 40 Mg Vial) 40 mg IV NOW ONE Stop: 04/17/22 21:52 Last Admin: 04/17/22 21:57 Dose: 40 mg Documented by: [email or web address] Consultations Consultation #1: Discussed CT findings with on-call surgery, ideally patient would be at tertiary center in the event that he develops pseudocyst or abscess, but given lack of these findings on imaging it would be appropriate to keep patient here, hospitalist service, treat pain, administer fluids and consider advanced imaging in the form of MRI Vital Signs Vital signs: Vital Signs - 8 hr 04/17/22 20:55 04/17/22 23:12 04/17/22 23:29 Temperature 98.9 F Pulse Rate 82 65 86 Respiratory Rate 22 18 Blood Pressure 134/87 Pulse Oximetry 98 98 100 04/17/22 23:30 04/18/22 00:00 04/18/22 00:30 Temperature Pulse Rate 82 72 76 Respiratory Rate 19 18 Blood Pressure 128/74 120/57 L Pulse Oximetry 100 98 98 04/18/22 01:00 04/18/22 01:01 Temperature Pulse Rate 77 53 L Respiratory Rate 31 H 15 Blood Pressure 98/67 Pulse Oximetry 96 99 MDM - Abdominal Pain Lab Data Result diagrams: 04/17/22 21:12 04/17/22 21:12 Labs: Lab Results 04/17/22 04/17/22 04/17/22 Range/Units 21:12 21:12 21:12 WBC 14.4 H (4.5-11.0) X10^3/uL RBC 4.45 L (4.5-5.9) X10^6/uL Hgb 11.1 L (13.5-17.5) g/dL Hct 34.6 L (41-53) % MCV 77.7 L (80-100) fL MCH 24.9 L (26-34) PG MCHC 32.0 (30-36) % RDW 20.4 H (11.6-14.8) % Plt Count 440 H (150-400) X10^3/uL Neut % (Auto) 81.0 H (50-75) % Lymph % (Auto) 11.2 L (25-40) % Chaves % (Auto) 6.6 (3-14) % Eos % (Auto) 0.1 L (2-4) % Baso % (Auto) 1.1 (0-2) % Neut # (Auto) 13815 H (0737-0577) /uL Lymph # (Auto) 1600 (1023-1840) /uL Chaves # (Auto) 1000 H (0-900) /uL Eos # (Auto) 0 (0-450) /uL Baso # (Auto) 200 H (0-100) /uL RBC Morphology See below Polychromasia 1+ H Anisocytosis 2+ H Sodium 141 (137-145) mmol/L Potassium 4.1 (3.4-5.1) mmol/L Chloride 101 (98-107) mmol/L Carbon Dioxide 29 (22-32) mmol/L BUN 5 L (9-20) mg/dL Creatinine 0.61 L (0.66-1.25) mg/dL Estimated GFR > 60 (>60) mL/min BUN/Creatinine Ratio 8.2 (6-22) Glucose 126 H (70-100) mg/dL Calcium 9.7 (8.4-10.2) mg/dL Total Bilirubin 1.3 (0.2-1.3) mg/dL AST 77 H (17-59) IU/L ALT 46 (<50) IU/L Alkaline Phosphatase 137 H D (38-126) U/L Total Protein 8.7 H (6.3-8.2) g/dL Albumin 4.6 (3.5-5.0) g/dL Globulin 4.1 (1.7-4.1) g/dL Albumin/Globulin Ratio 1.1 (1.0-2.8) Lipase 509 H (23-300) U/L Ethyl Alcohol < 10 ( - 10) mg/dL SARS-CoV-2 (PCR) (Negative) 04/17/22 Range/Units 22:04 WBC (4.5-11.0) X10^3/uL RBC (4.5-5.9) X10^6/uL Hgb (13.5-17.5) g/dL Hct (41-53) % MCV (80-100) fL MCH (26-34) PG MCHC (30-36) % RDW (11.6-14.8) % Plt Count (150-400) X10^3/uL Neut % (Auto) (50-75) % Lymph % (Auto) (25-40) % Chaves % (Auto) (3-14) % Eos % (Auto) (2-4) % Baso % (Auto) (0-2) % Neut # (Auto) (6313-1644) /uL Lymph # (Auto) (1229-0120) /uL Chaves # (Auto) (0-900) /uL Eos # (Auto) (0-450) /uL Baso # (Auto) (0-100) /uL RBC Morphology Polychromasia Anisocytosis Sodium (137-145) mmol/L Potassium (3.4-5.1) mmol/L Chloride (98-107) mmol/L Carbon Dioxide (22-32) mmol/L BUN (9-20) mg/dL Creatinine (0.66-1.25) mg/dL Estimated GFR (>60) mL/min BUN/Creatinine Ratio (6-22) Glucose (70-100) mg/dL Calcium (8.4-10.2) mg/dL Total Bilirubin (0.2-1.3) mg/dL AST (17-59) IU/L ALT (<50) IU/L Alkaline Phosphatase (38-126) U/L Total Protein (6.3-8.2) g/dL Albumin (3.5-5.0) g/dL Globulin (1.7-4.1) g/dL Albumin/Globulin Ratio (1.0-2.8) Lipase (23-300) U/L Ethyl Alcohol ( - 10) mg/dL SARS-CoV-2 (PCR) Positive H (Negative) MDM Narrative Medical decision making narrative: Patient returns for epigastric pain and persistent vomiting, stating the outpatient therapies did not control his pain and he was unable to keep down liquids. Repeat evaluations suggest increasing pain, lipase is slightly elevated compared to last visit. Ultrasound is unremarkable, patient requires hospitalization due to intolerance of orals and intractable pain. Discharge Plan Departure Patient Disposition: Admitted as Observation Clinical Impression: Pancreatitis Admit Date/Time: 04/18/22 01:43 Admit Provider: Linda Gallagher
--- NOTE | 2022-04-17 21:51 | DI.US.S_ITS ---
PROCEDURE: US ABDOMEN LIMITED INDICATIONS: EPIGASTRIC/RUQ PAIN TECHNIQUE: Real-time focused scanning was performed of the abdomen, with image documentation. COMPARISON: [facility], , US ABDOMEN LIMITED, 12/06/2019, 21:44. FINDINGS: The visualized liver demonstrates no discrete mass lesions. The gallbladder is distended without gallstones, wall thickening, or pericholecystic fluid. Sonographic Fry's sign was reportedly absent. No intra or extrahepatic biliary ductal dilatation. The visualized common bile duct is at the upper limits of normal in caliber, measuring up to 0.6 cm. Pancreas was not well seen due to bowel gas. IMPRESSION: 1. No evidence of cholelithiasis or cholecystitis. 2. No definite biliary ductal dilatation. Dictated by: Daljit Henry M.D. on 04/17/2022 at 23:54 Approved by: Daljit Henry M.D. on 04/17/2022 at 23:55
[2022-04-17 21:55] LABS: Anisocytosis 2+
[2022-04-17 21:56] LABS: Polychromasia 1+
[2022-04-17] MEDS: SODIUM CHLORIDE 0.9% 1,000 ML 1000 ML IV (21:57)
[2022-04-17] MEDS: HYDROMORPHONE 1 MG INJ IV (21:57)
[2022-04-17] MEDS: PANTOPRAZOLE 40 MG VIAL IV (21:57)
[2022-04-17] MEDS: ONDANSETRON 4 MG/2 ML INJ IV (21:57)
[2022-04-17 23:12] VITALS: PULSE 65; RESP 18; O2SAT 98
--- NOTE | 2022-04-17 23:15 | DI.CT.S_ITS ---
PROCEDURE: CT ABDOMEN PELVIS W CON INDICATIONS: epigastric pain TECHNIQUE: After the administration of IV contrast, axial sections were acquired from the lung bases to the pubic symphysis. Coronal and sagittal reformats were performed. For radiation dose reduction, the following was used: automated exposure control, adjustment of mA and/or kV according to patient size. COMPARISON: [facility], CT, CT ABDOMEN PELVIS W CON, 03/05/2022, 1:46. FINDINGS: Image quality: Excellent. Lung bases: There is mild dependent atelectasis. Heart: Heart is normal in size. ABDOMEN: Liver: There is mild focal fatty infiltration in the anterior left hepatic lobe. Gallbladder: Within normal limits without calcified gallstones. Biliary ducts: No biliary ductal dilatation. Pancreas: There is peripancreatic fat stranding along the pancreatic head, uncinate process, and body consistent with acute pancreatitis again demonstrated. There is a dilated segment of the main pancreatic duct in the pancreatic head redemonstrated. Peripancreatic fat stranding along the pancreatic head extends to the descending portion of the duodenum. There is an associated lobulated multiloculated fluid collection between the pancreatic head and duodenum measuring up to approximately 2.0 x 2.0 cm in transverse dimension by 3.1 cm in craniocaudal dimension. The findings likely represent a chronic necrotic collection. There also 2 small hypoattenuating foci within the pancreatic head measuring up to 0.9 cm on series 2 image 33 and 0.8 cm in the pancreatic body. The findings may represent residual small necrotic collections or side branch IPMNs. No definite pancreatic mass. Spleen: Normal in size. Adrenal Glands: No adrenal nodules. Kidneys and Ureters: No hydronephrosis. No definite mass. Stomach and Bowel: There is segmental wall thickening, mucosal enhancement, and associated fat stranding involving the descending and proximal transverse portions of the duodenum likely representing secondary reactive changes. Stomach, small bowel loops, and colon are otherwise normal in caliber and wall thickness. The appendix is normal in appearance. Peritoneum: No abnormal intraperitoneal fluid. No free air. Ventral Wall: No hernia. Abdominal Nodes: No retroperitoneal or mesenteric adenopathy by size criteria. Vessels: Aorta and inferior vena cava are normal in size. PELVIS: Pelvic Organs: Unremarkable. Bladder: Unremarkable. Pelvic Nodes: No enlarged lymph nodes. Miscellaneous: No inguinal hernias are seen. Bones: Visualized osseous structures demonstrate no suspicious focal lesions. IMPRESSION: 1. Peripancreatic fat stranding and fluid consistent with acute pancreatitis. Areas of hypoenhancement in the pancreatic head are suggestive of necrotizing pancreatitis. 2. Loculated fluid collection between the pancreatic head and descending portion of the duodenum suggestive of a chronic necrotic collection. 3. Smaller cystic foci within the pancreatic head and body may also represent chronic necrotic collections versus side branch IPMNs. 4. Descending portion of the duodenum demonstrates wall thickening and inflammatory changes suggesting sequelae of adjacent pancreatitis. Dictated by: Daljit Henry M.D. on 04/18/2022 at 0:23 Approved by: Daljit Henry M.D. on 04/18/2022 at 0:41
[2022-04-17 23:24] LABS: COVID19 -Nasal RAPID POSITIVE (Negative)
[2022-04-17 23:29] VITALS: PULSE 86; O2SAT 100
[2022-04-17 23:30] VITALS: BP 128/74; PULSE 82; O2SAT 100
[2022-04-18] VITALS (12 sets, daily range): BP systolic 98–142; BP diastolic 57–82; PULSE 53–94; RESP 15–31; TEMP 36.2–36.9; O2SAT 95–100; BMI 29.9
[2022-04-18 00:04] LABS: Ethanol (ETOH) < 10 mg/dL
[2022-04-18] MEDS: HYDROMORPHONE 1 MG INJ IV (00:22)
--- NOTE | 2022-04-18 01:53 | DI.MRI.S_ITS ---
PROCEDURE: MR ABDOMEN WO/W CON and MRCP INDICATIONS: Pancreatic cysts vs necrosis seen on CT TECHNIQUE: Coronal HASTE, axial 2D FLASH in- and [id number]; axial breath-hold T2 FSE with fat saturation from the hepatic dome to the iliac crests. Oblique coronal thin-slice and radial thick slab HASTE through the biliary system. Dynamic axial VIBE during administration of contrast. Post-contrast coronal VIBE or 2D FLASH with fat saturation from the hepatic dome to the iliac crests. Restricted diffusion weighted imaging and ADC. MRCP sequences. COMPARISON: [facility], CT, CT ABDOMEN PELVIS W CON, 03/05/2022, 1:46. [facility], CT, CT ABDOMEN PELVIS W CON, 04/17/2022, 23:17. [facility], MR, MR ABDOMEN WO CON, 02/23/2022, 8:13. [facility], CT, CT ABDOMEN PELVIS W CON, 02/23/2022, 2:49. FINDINGS: Image quality: Excellent. Pancreas and biliary system: There is heterogeneous T1 hypointense signal in the head of the pancreas with associated T2 hyperintense cystic change measuring 3.3 cm. This was not seen on the CT 02/23/2021 but had developed by on the CT 04/17/2022. Pancreatic duct at the neck is dilated up to 0.9 cm (previously 0.[address] 04/17/2022. The pancreatic duct is irregular but not distended in the body and tail. No persistent peripancreatic fluid collection. There is a thickening at the duodenal C loop. Mild persistent stranding near the tail the pancreas. The CBD measures 0.6 cm. No intrahepatic biliary ductal dilatation. Solid organs: Liver is normal in size and enhancement. No focal lesion. Gallbladder is distended. No gallstones seen. Spleen is normal in size and enhancement. No adrenal nodules. Kidneys are normal in size and enhancement, without hydronephrosis. Small T2 hyperintense left renal cysts. Nodes and vessels: No retroperitoneal or mesenteric adenopathy by size criteria. Aorta and inferior vena cava are normal in size. Bowel and peritoneum: Unenhanced bowel loops are normal in caliber throughout. No free fluid. Lung bases: No basal pleural effusions. Heart size is normal. Bones and soft tissues: No ventral hernias. Bone marrow is normal in overall signal. IMPRESSION: 1. Irregular cystic region in the head of the pancreas measuring 3.3 cm which developed in the interval since February 2022. This is felt to most likely represent pancreatic necrosis or walled-off pancreatic necrosis. Alternatively, this could represent cystic dilatation of the pancreatic duct in the head/disconnected pancreatic duct. 2. The pancreatic duct at the neck is dilated up to 0.9 cm. The pancreatic duct in the region of the ampulla is effaced. The pancreatic duct in the body and tail are not significantly dilated. 3. Inflammatory change at the duodenal C loop and at the pancreatic tail from pancreatitis. Dictated by: Kavon Villareal M.D. on 04/18/2022 at 16:03 Approved by: Kavon Villareal M.D. on 04/18/2022 at 16:27
--- NOTE | 2022-04-18 01:55 | P.HP_ITS ---
History of Present Illness History of Present Illness Chief complaint: Pancreatitis pain Narrative: Tc Marcelino is a 31 y.o. male with asthma, HTN, previous alcohol consumption with recent admission for necrotizing pancreatitis who presents with abdominal pain and vomiting. He was seen in the ED one day ago, given pain medication and hydration and discharged. He returns today for pain and inability to tolerate oral intake. After returning home, he developed worsening pain, had chills briefly, denied fever, shortness of breath, chest pain, changes in bowel or bladder patterns or control. Moving around aggravates his abdominal pain. He states he does use marijuana regularly, he states the equivalent of 2 joints daily. States he has not consumed alcohol since February. Has been COVID+ since mid-February and denies any symptoms of that initial episode. CT of the abdomen with contrast indicated the following, acute pancreatitis question hypo enhancement of the pancreatic head suggestive of necrotizing pa ncreatitis, loculated fluid collection between the pancreatic head and descending portion of the duodenum suggestive of but chronic necrotic collection, and smaller cystic foci within the pancreatic head and body also concerning for chronic necrotic collections, thickening and inflammatory changes of the duodenum suggesting sequelae of adjacent pancreatitis. Patient is currently afebrile, blood pressure 98/67, heart rate 53, respiratory rate 15, oxygen saturation 99% on room air he weighs 81.6 kg with a BMI of 31.7. His WBC is elevated 14.4 hemoglobin 11.1 hematocrit 34.6 platelet count 440 and he has a mild left shift of 11,700 he has an abnormal peripheral smear, BUN is 5 creatinine 0.61 glucose 126 AST 77 alk-phos 137 total protein 8.7 albumin 4.6 lipase is 509 alcohol level was within normal limits, and COVID-19 PCR is positive. He had a one-week hospitalization from March 05-March 11 for acute pancreatitis. He was ordered for IV fluids and pain medications and he stated he had s ignificant improvement. Imaging was done at that time which reported acute pancreatitis with area of likely pancreatic necrosis and abnormal cystic lesions thought more likely to be pseudocyst rather than abscess. Initially was started on broad sprectrum antibiotics, then discontinued and the rest of his stay was focused on symptom control. Patient History Medical History Acute hypokalemia Alcohol withdrawal Asthma, exercise induced Hypertension Patient denies medical problems Pseudocyst of pancreas Tachycardia Surgical History No history of previous surgery Family & Social History Family History Father Hypertension Alcoholism Mother No significant medical problems Social History: household members spouse,children Tobacco & Substance use: Tobacco type cannabis/marijuana Smoking Status Current every day smoker alcohol intake former alcohol intake frequency quit 03/01 Substance Use Type marijuana Meds Home Medications and Allergies Home Medications Medication Instructions Recorded Confirmed Type losartan 50 mg tablet 50 mg PO DAILY 02/23/22 03/05/22 History hydromorphone 2 mg tablet 2 mg PO Q4-6H PRN #12 tab 03/11/22 Rx lorazepam 0.5 mg tablet (Ativan) 0.5 mg PO BID PRN #12 tab 03/11/22 Rx pantoprazole 20 mg tablet,delayed 20 mg PO 0700 #30 tab 03/11/22 Rx release hydrocodone 5 mg-acetaminophen 325 1 tab PO Q4-6H PRN #20 tab 04/16/22 Rx mg tablet ondansetron 4 mg disintegrating 4 mg PO TID-QID PRN #20 tab 04/16/22 Rx tablet Allergies Allergy/AdvReac Type Severity Reaction Status Date / Time No Known Drug Allergies Allergy Verified 04/16/22 00:57 Review of Systems Review of Systems ROS: Yes All systems reviewed with the patient and are negative except as otherwise documented Exam Vital Signs (past 8 hours): - 04/17/22 20:55 04/17/22 23:12 04/17/22 23:29 Temperature 98.9 F Pulse Rate 82 65 86 Respiratory Rate 22 18 Blood Pressure 134/87 Pulse Oximetry 98 98 100 04/17/22 23:30 04/18/22 00:00 04/18/22 00:30 Temperature Pulse Rate 82 72 76 Respiratory Rate 19 18 Blood Pressure 128/74 120/57 L Pulse Oximetry 100 98 98 04/18/22 01:00 04/18/22 01:01 Temperature Pulse Rate 77 53 L Respiratory Rate 31 H 15 Blood Pressure 98/67 Pulse Oximetry 96 99 Oxygen Delivery Method Room Air Narrative Exam Narrative: Gen: Alert, oriented, well-nourished 31 y.o. male, appears in pain HEENT: normocephalic, atraumatic, conjunctiva clear, sclera non-icteric, oral mucosa pink and moist Neck: supple, full ROM, no JVD, trachea is midline Resp: Lungs CTA, non-labored breathing CV: RRR, no murmur or rubs Abd: diffusely tender worse in upper quadrants, mildly bloated, unable to appreciate liver border Skin: no lesions or rashes, dry and intact Neuro: Alert and oriented X 4 w/no focal deficits. Speech clear and coherent. Extremities: moves all 4 extremities, is ambulatory, negative Ana?s sign Psyche: normal mood and affect. Objective Labs Result Diagrams: 04/17/22 21:12 04/17/22 21:12 Labs: Laboratory Results - last 24 hr 04/17/22 04/17/22 04/17/22 21:12 21:12 21:12 WBC 14.4 H RBC 4.45 L Hgb 11.1 L Hct 34.6 L MCV 77.7 L MCH 24.9 L MCHC 32.0 RDW 20.4 H Plt Count 440 H Neut % (Auto) 81.0 H Lymph % (Auto) 11.2 L [place] % (Auto) 6.6 Eos % (Auto) 0.1 L Baso % (Auto) 1.1 Neut # (Auto) 50473 H Lymph # (Auto) 1600 [place] # (Auto) 1000 H Eos # (Auto) 0 Baso # (Auto) 200 H RBC Morphology See below Polychromasia 1+ H Anisocytosis 2+ H Sodium 141 Potassium 4.1 Chloride 101 Carbon Dioxide 29 BUN 5 L Creatinine 0.61 L Estimated GFR > 60 BUN/Creatinine Ratio 8.2 Glucose 126 H Calcium 9.7 Total Bilirubin 1.3 AST 77 H ALT 46 Alkaline Phosphatase 137 H D Total Protein 8.7 H Albumin 4.6 Globulin 4.1 Albumin/Globulin Ratio 1.1 Lipase 509 H Ethyl Alcohol < 10 SARS-CoV-2 (PCR) 04/17/22 22:04 WBC RBC Hgb Hct MCV MCH MCHC RDW Plt Count Neut % (Auto) Lymph % (Auto) [place] % (Auto) Eos % (Auto) Baso % (Auto) Neut # (Auto) Lymph # (Auto) [place] # (Auto) Eos # (Auto) Baso # (Auto) RBC Morphology Polychromasia Anisocytosis Sodium Potassium Chloride Carbon Dioxide BUN Creatinine Estimated GFR BUN/Creatinine Ratio Glucose Calcium Total Bilirubin AST ALT Alkaline Phosphatase Total Protein Albumin Globulin Albumin/Globulin Ratio Lipase Ethyl Alcohol SARS-CoV-2 (PCR) Positive H Assessment & Plan Assessment & Plan narrative: Tc Marcelino is admitted for symptomatic treatment of pancreatitis with suspicion of necrosis versus pseudocyt versus abscess Acute pancreatitis, present on admission * He has an elevated white count with a left shiftl, negative procalcitonin, so will hold off on antibiotics * IVF NS at 150 ml/hour * NPO, clears when pain symptoms improve * Dr. Roth, General Surgery requested for consult * MRI of the abdomen and pelvis to further delineate chronic necrosis versus pseudocyts versus abscess History of alcohol withdrawal * Patient is not currently exhibiting withdrawal symptoms, but will institute CIWA precautions if he starts to exhibit withdrawal sxs * Alcohol level is undetectable COVID-19 positive * He is currently asymptomatic * Airborne precautions VTE Prophylaxis: Wells risk score 0 [X]Enoxaparin 40 mg subQ once daily Bililateral SCDs Patient is admitted to the inpatient service due to the severity of disease, risks of further disease progression and this stay is expected to exceed 2 m idnights. FEN: IV fluids: NS at 150 ml/hour, diet: NPO, labs: CBC, C/BMP, liver enzymes, Mag, PT/INR Consultants Dr. Roth, General Surgery, care and involvement in the patient?s care is appreciated. Dispo: unknown at this time Code status: Full code as discussed with the patient who identifies his , Tami as his surrogate and POA. [X] I have utilized all available immediate resources to obtain, update, or review of the patient's current medications COVID-19 COVID-19 status: Positive Result date/Date tested (Pos, Neg/Pending): 04/18/22 Scores Wells' Criteria for PE Clinical signs and symptoms of DVT: No PE is #1 Dx or equally likely: No Heart rate > 100: No Immobilization at least 3 days or surg in previous 4 weeks: No History of PE or DVT: No Hemoptysis: No Malignancy w/Treatment within 6 months or palliative: No Wells' PE Score total: 0 Quality VTE Deep Vein Thrombosis/Pulmonary Embolism Present on Admission: No MIPS - Admit I confirm the patient?s Advance Care Plan is present, Code status is documented, Surrogate decision maker is in patient?s record [If Yes, STOP here]: Yes MIPS - DC The patient has current or prior documentation of left ventricular ejection fraction (LVEF) less than 40%, or moderate or severely depressed left ventricular systolic function.: No
[2022-04-18 02:27] LABS: INR 1.2 (0.9-1.3); Prothrombin Time 13.6 SECONDS (10.1-12.7)
[2022-04-18 02:35] LABS: Procalcitonin 0.12 ng/mL (<0.5)
[2022-04-18] MEDS: HYDROMORPHONE 0.5 MG INJ 1 MG IV ×5 (02:41→19:38)
[2022-04-18] MEDS: SODIUM CHLORIDE 0.9% 1,000 ML 150 ML IV ×3 (02:43→19:17)
--- NOTE | 2022-04-18 03:51 | PC.ADMIT ---
[id number] [facility] Admission Note: The patient,Tc Marcelino,31 y/o, was given written information regarding hospital policies, unit procedures and contact persons. Patient's smoking status: Current every day smoker. Vital Signs - 8 hr 04/17/22 20:55 04/17/22 23:12 04/17/22 23:29 Temperature 98.9 F Pulse Rate 82 65 86 Respiratory Rate 22 18 Blood Pressure 134/87 Pulse Oximetry 98 98 100 04/17/22 23:30 04/18/22 00:00 04/18/22 00:30 Temperature Pulse Rate 82 72 76 Respiratory Rate 19 18 Blood Pressure 128/74 120/57 L Pulse Oximetry 100 98 98 04/18/22 01:00 04/18/22 01:01 04/18/22 02:30 Temperature Pulse Rate 77 53 L Respiratory Rate 31 H 15 Blood Pressure 98/67 Pulse Oximetry 96 99 99 Patient admitted to Acute Care room 224 at 0210-A/Ox4, able to ambulate from stretcher to bed with SBA. NS @ 150ml/hr started, 1mg IV Dilaudid given for abdominal pain 06/19, VSS. Urine collected and sent to lab. NPO. Placed in Droplet Precautions, Covid-19 positive.
[2022-04-18 05:40] LABS: Add Manual Diff / Slide Review NO; Alanine Aminotransferase 34 IU/L (<50); Albumin 3.6 g/dL (3.5-5.0); Albumin Globulin Ratio 1.1 (1.0-2.8); Alkaline Phosphatase 114 U/L (38-126); Aspartate Aminotransferase 47 IU/L (17-59); BUN Creatinine Ratio 7.5 (6-22); Basophils Absolute Auto 0 /uL (0-100); Basophils Percent Auto 0.3 % (0-2); Bilirubin Total 1.1 mg/dL (0.2-1.3); Bilirubin Unconjugated 0.7 mg/dL (0.0-1.1); Blood Urea Nitrogen 4 mg/dL (9-20); Calcium 8.7 mg/dL (8.4-10.2); Carbon Dioxide 27 mmol/L (22-32); Chloride 104 mmol/L (98-107); Eosinophils Absolute Auto 0 /uL (0-450); Eosinophils Percent Auto 0.4 % (2-4); Estimated Glomerular Filt Rate > 60 mL/min (>60); Globulin 3.4 g/dL (1.7-4.1); Glucose 97 mg/dL (70-100); HEMOLYSIS < 15 (0-50); Hematocrit 29.1 % (41-53); Hemoglobin 9.5 g/dL (13.5-17.5); Lymphocytes Absolute Auto 1800 /uL (1100-4500); Lymphocytes Percent Auto 19.3 % (25-40); Magnesium 1.9 mg/dL (1.6-2.3); Mean Corpuscular HGB Conc 32.8 % (30-36); Mean Corpuscular Hemoglobin 27.2 PG (26-34); Monocytes Absolute Auto 800 /uL (0-900); Monocytes Percent Auto 8.7 % (3-14); Neutrophils Absolute Auto 6600 /uL (1500-7000); Neutrophils Percent Auto 71.3 % (50-75); Platelet Count 307 X10^3/uL (150-400); Potassium 3.5 mmol/L (3.4-5.1); Red Blood Cell Count 3.51 X10^6/uL (4.5-5.9); Red Cell Distribution Width 20.1 % (11.6-14.8); Sodium 139 mmol/L (137-145); White Blood Cell Count 9.3 X10^3/uL (4.5-11.0)
[2022-04-18 05:41] LABS: Lactate Dehydrogenase 306 U/L (313-618)
[2022-04-18 05:53] LABS: Triglycerides 80 mg/dL (35-150)
[2022-04-18 08:19] LABS: Anisocytosis 2+
[2022-04-18] MEDS: ENOXAPARIN 40 MG/0.4 ML SYRINGE SUBCUT (08:49)
[2022-04-18] MEDS: OXYCODONE IR 5 MG TABLET PO ×2 (09:12→15:52)
--- NOTE | 2022-04-18 13:44 | CM.DANOTE ---
DCP Note Payor: Healthcare Management; [facility] PCP: Chiara Lyons MD Pt is a 31 y.o. M admitted with symptomatic treatment of pancreatitis pain. Pt previously was admitted from 03/01/22-03/11/22 for acute pancreatitis. Pt has hx of alcohol withdrawl. Pt is Covid+. DCP unable to reach pt by phone at this time. DCP unable to enter room as patient is Covid+. DCP to continue to follow pt case and coordinate care with team as needed. DCP to reach out again at another time. Alma Guadalupe RN/BLESSING Discharge Planning/Care Management CM Discharge Assessment Start: 04/18/22 13:43 Freq: Status: Active Protocol: Document 04/18/22 13:43 ALPHONSE (Rec: 04/18/22 13:44 ALPHONSE [id number]) Discharge Planning Assessment Assigned Distribution Spec Alma Guadalupe RN/BLESSING Advance Directives? No Advance Directives on File No History Provided By Medical Record Prior Living Arrangements House Discharge Plan Home Transportation Arrangement Family Referrals Initiated None needed Additional Comment At this time Whiteboard Updated in Patient Room with No name and ext. # of Distribution Spec Comment Pt is C+ and DCP unable to enter room Review Status In Process Please Provide Date Initial DC 04/18/22 Assessment Was Performed Next Review Type Continued Stay Review
[2022-04-18] MEDS: ONDANSETRON 4 MG/2 ML INJ IV (16:26)
[2022-04-18] MEDS: DOCUSATE 100 MG CAPSULE PO (20:19)
[2022-04-18] MEDS: LORazepam 0.5 MG TABLET PO (20:19)
[2022-04-18] MEDS: SENNOSIDES 8.6 MG TABLET 17.2 MG PO (20:19)
[2022-04-18] MEDS: OXYCODONE IR 10 MG TABLET PO (23:38)
[2022-04-19] MEDS: SODIUM CHLORIDE 0.9% 1,000 ML 150 ML IV ×4 (01:50→21:29)
[2022-04-19] MEDS: HYDROMORPHONE 0.5 MG INJ 1 MG IV ×5 (01:52→22:18)
[2022-04-19 03:25] VITALS: BP 123/65; PULSE 81; RESP 18; TEMP 36.7; O2SAT 97
[2022-04-19 03:42] LABS: Add Manual Diff / Slide Review NO; Basophils Absolute Auto 0 /uL (0-100); Basophils Percent Auto 0.6 % (0-2); Eosinophils Absolute Auto 100 /uL (0-450); Eosinophils Percent Auto 0.7 % (2-4); Hematocrit 27.7 % (41-53); Hemoglobin 9.1 g/dL (13.5-17.5); Lymphocytes Absolute Auto 1300 /uL (1100-4500); Lymphocytes Percent Auto 15.2 % (25-40); Mean Corpuscular HGB Conc 32.7 % (30-36); Mean Corpuscular Hemoglobin 25.4 PG (26-34); Mean Corpuscular Volume 77.8 fL (80-100); Monocytes Absolute Auto 600 /uL (0-900); Monocytes Percent Auto 7.7 % (3-14); Neutrophils Absolute Auto 6200 /uL (1500-7000); Neutrophils Percent Auto 75.8 % (50-75); Platelet Count 281 X10^3/uL (150-400); Red Blood Cell Count 3.57 X10^6/uL (4.5-5.9); Red Cell Distribution Width 19.8 % (11.6-14.8); White Blood Cell Count 8.2 X10^3/uL (4.5-11.0)
[2022-04-19 03:52] LABS: Alanine Aminotransferase 29 IU/L (<50); Albumin 3.4 g/dL (3.5-5.0); Albumin Globulin Ratio 1.1 (1.0-2.8); Alkaline Phosphatase 180 U/L (38-126); Aspartate Aminotransferase 35 IU/L (17-59); BUN Creatinine Ratio 5.3 (6-22); Bilirubin Unconjugated 0.6 mg/dL (0.0-1.1); Blood Urea Nitrogen 3 mg/dL (9-20); Calcium 8.4 mg/dL (8.4-10.2); Carbon Dioxide 27 mmol/L (22-32); Chloride 106 mmol/L (98-107); Estimated Glomerular Filt Rate > 60 mL/min (>60); Globulin 3.2 g/dL (1.7-4.1); Glucose 87 mg/dL (70-100); HEMOLYSIS < 15 (0-50); Magnesium 1.8 mg/dL (1.6-2.3); Potassium 3.6 mmol/L (3.4-5.1); Sodium 139 mmol/L (137-145); Total Protein 6.6 g/dL (6.3-8.2)
[2022-04-19] MEDS: OXYCODONE IR 10 MG TABLET PO ×5 (04:14→20:58)
--- NOTE | 2022-04-19 05:44 | PC.NURSE ---
Shift Note-Patient has required 1mg IV Dilaudid twice and 10mg PO oxycodone twice for 7-9/10 sharp stabbing pain to right lower flank area, says it comes and goes and wakes me up 0.5mg PO Ativan given for stress and sleep Denies nausea and vomitting, on clear liquid diet. VSS. Voided 1175ml clear sin urine, waiting to send UAC to lab. Patient remains in Droplet Precaution, Covid positive.
[2022-04-19 06:24] LABS: Appearance Urine UA CLEAR; Bilirubin Urine UA NEGATIVE (NEGATIVE); Color Urine UA YELLOW; Glucose Urine UA NEGATIVE (Negative); Ketones Urine UA 2+ (NEGATIVE); Leukocyte Esterase Urine UA NEGATIVE (NEGATIVE); Nitrite Urine UA NEGATIVE (Negative); Occult Blood Urine UA NEGATIVE (Negative); Protein Urine UA NEGATIVE (Negative); Specific Gravity Urine UA 1.015 (1.000-1.035)
[2022-04-19 06:36] LABS: Bacteria Urine None Seen; Culture Indicated Urine Cult Not Indicated; RBC Urine None Seen (0-5/HPF); WBC Urine None Seen (0-5/HPF)
[2022-04-19 08:37] VITALS: BP 130/60; PULSE 84; RESP 17; TEMP 36.6; O2SAT 96
[2022-04-19] MEDS: LORazepam 0.5 MG TABLET PO ×2 (08:41→20:58)
[2022-04-19] MEDS: ENOXAPARIN 40 MG/0.4 ML SYRINGE SUBCUT (08:41)
[2022-04-19] MEDS: ONDANSETRON 4 MG/2 ML INJ IV ×2 (08:47→21:29)
--- NOTE | 2022-04-19 15:43 | P.PN_ITS ---
Subjective Subjective Date Patient Seen: 04/19/22 Interval history: The patient is a 31-year-old male admitted with acute on chronic pancreatitis, he has a history of hypertension as well. Patient advanced his diet to clear liquids. He developed some nausea, and abdominal discomfort, will continue clear liquids and advanced as tolerated. Exam Vital Signs (past 8 hours): - 04/19/22 08:37 04/19/22 08:40 Temperature 97.8 F Pulse Rate 84 Respiratory Rate 17 Blood Pressure 130/60 Pulse Oximetry 96 Oxygen Delivery Method Room Air Oxygen Flow Rate 0 Oxygen Delivery Method Room Air Oxygen Flow Rate 0 Narrative Exam Narrative: Pleasant ill-appearing male lying in bed Resp Other: Lungs clear to auscultation Cardio Other: Cardiac exam: Regular rate and rhythm normal S1-S2 GI Other: Abdomen: Soft mildly tender nondistended, no rebound tenderness, palpable masses Extrem Other: No edema Objective Labs Result Diagrams: 04/19/22 03:20 04/19/22 03:20 Labs: Laboratory Results - last 24 hr 04/19/22 04/19/22 04/19/22 03:20 03:20 06:05 WBC 8.2 RBC 3.57 L Hgb 9.1 L Hct 27.7 L MCV 77.8 L D MCH 25.4 L MCHC 32.7 RDW 19.8 H Plt Count 281 Neut % (Auto) 75.8 H Lymph % (Auto) 15.2 L [place] % (Auto) 7.7 Eos % (Auto) 0.7 L Baso % (Auto) 0.6 Neut # (Auto) 6200 Lymph # (Auto) 1300 [place] # (Auto) 600 Eos # (Auto) 100 Baso # (Auto) 0 Sodium 139 Potassium 3.6 Chloride 106 Carbon Dioxide 27 BUN 3 L Creatinine 0.57 L Estimated GFR > 60 BUN/Creatinine Ratio 5.3 L Glucose 87 Calcium 8.4 Magnesium 1.8 Total Bilirubin 1.0 Conjugated Bilirubin 0.0 Unconjugated Bilirubin 0.6 AST 35 ALT 29 Alkaline Phosphatase 180 H D Total Protein 6.6 Albumin 3.4 L Globulin 3.2 Albumin/Globulin Ratio 1.1 Urine Color Yellow Urine Appearance Clear Urine pH 6.0 Ur Specific [place] 1.015 Urine Protein Negative Urine Glucose (UA) Negative Urine Ketones 2+ H Urine Occult Blood Negative Urine Nitrate Negative Urine Bilirubin Negative Urine Urobilinogen 2.0 H Ur Leukocyte Esterase Negative Urine RBC None seen Urine WBC None seen Urine Bacteria None seen Ur Culture Indicated? Cult not indicated PFSH Medical History Acute hypokalemia Alcohol withdrawal Asthma, exercise induced Hypertension Patient denies medical problems Pseudocyst of pancreas Tachycardia Surgical History No history of previous surgery Family History Father Hypertension Alcoholism Mother No significant medical problems Social History household members: spouse and children Smoking Status: Current every day smoker alcohol intake: former Assessment & Plan Assessment & Plan narrative: Tc Marcelino is admitted for symptomatic treatment of pancreatitis with suspicion of necrosis versus pseudocyt versus abscess Acute pancreatitis, present on admission * He has an elevated white count with a left shiftl, negative procalcitonin, so will hold off on antibiotics * IVF NS at 150 ml/hour * NPO, clears when pain symptoms improve * Dr. Roth, General Surgery requested for consult * MRI of the abdomen and pelvis to further delineate chronic necrosis versus ps eudocyts versus abscess * Irregular cystic region in the head of the pancreas measuring 3.3 cm which developed in the interval since February 2022. This is felt to most likely represent pancreat ic necrosis or walled-off pancreatic necrosis.? Alternatively, this could represent cystic dilatation of the pancreatic duct in the head/disconnected pancreatic duct. ? 2. The pancreatic duct at the neck is dilated up to 0.9 cm.? The pancreatic duct in the region of the ampulla is effaced.? The pancreatic duct in the body and tail are not significantly dilated. ? 3. Inflammatory change at the duodenal C loop and at the pancreatic tail from pancreatitis. History of alcohol withdrawal * Patient is not currently exhibiting withdrawal symptoms, but will institute CIWA precautions if he starts to exhibit withdrawal sxs * Alcohol level is undetectable COVID-19 positive * He is currently asymptomatic * Airborne precautions Time Spent With Patient Critical Care time: I spent a total of [] minutes of critical care time on this patient's care today; this time is exclusive of procedural time. Quality VTE Deep Vein Thrombosis/Pulmonary Embolism Present on Admission: No
[2022-04-19 17:17] VITALS: BP 123/83; PULSE 86; RESP 18; TEMP 36.6; O2SAT 98
--- NOTE | 2022-04-19 17:29 | PC.NURSE ---
rounded. Reported pt c/o right flank/back pain and nausea after having small amount of clear liquid breakfast. MD instructs to manage pain with ordered rx. Also requested clarification of orders for consult to general surgeon. Orders received to dc consult.
[2022-04-19] MEDS: SENNOSIDES 8.6 MG TABLET 17.2 MG PO (20:58)
[2022-04-19] MEDS: DOCUSATE 100 MG CAPSULE PO (21:02)
[2022-04-20] VITALS: BP 129/75; PULSE 95; RESP 18; TEMP 37; O2SAT 95
[2022-04-20] MEDS: OXYCODONE IR 10 MG TABLET PO ×3 (01:08→20:55)
--- NOTE | 2022-04-20 01:19 | PC.NURSE ---
Patient C/O R abdominal and flank pain 05/19. Medicated with oxydodone 10mg q 4h and continues with need of hydromorphone for breakthrough abdominal pain 06/19 q3h. Patient C/O nausea after 2100 scheduled medication given. Zofran given with good effect. Patient appearing to dose between medication, however patient states that he is listening to an audio book with his eyes shut. Patient states he only dozes intermittently.
[2022-04-20] MEDS: SODIUM CHLORIDE 0.9% 1,000 ML 150 ML IV (04:32)
[2022-04-20] MEDS: HYDROMORPHONE 0.5 MG INJ 1 MG IV ×5 (04:33→22:32)
[2022-04-20 06:39] LABS: Add Manual Diff / Slide Review NO; Basophils Absolute Auto 0 /uL (0-100); Basophils Percent Auto 0.6 % (0-2); Eosinophils Absolute Auto 100 /uL (0-450); Eosinophils Percent Auto 1.5 % (2-4); Hematocrit 28.2 % (41-53); Hemoglobin 9.2 g/dL (13.5-17.5); Lymphocytes Absolute Auto 1300 /uL (1100-4500); Lymphocytes Percent Auto 20.4 % (25-40); Mean Corpuscular HGB Conc 32.8 % (30-36); Mean Corpuscular Hemoglobin 25.9 PG (26-34); Mean Corpuscular Volume 78.9 fL (80-100); Monocytes Absolute Auto 700 /uL (0-900); Monocytes Percent Auto 10.7 % (3-14); Neutrophils Absolute Auto 4100 /uL (1500-7000); Neutrophils Percent Auto 66.8 % (50-75); Platelet Count 285 X10^3/uL (150-400); Red Blood Cell Count 3.58 X10^6/uL (4.5-5.9); Red Cell Distribution Width 19.9 % (11.6-14.8); White Blood Cell Count 6.2 X10^3/uL (4.5-11.0)
[2022-04-20 06:44] LABS: Alanine Aminotransferase 57 IU/L (<50); Albumin 3.5 g/dL (3.5-5.0); Albumin Globulin Ratio 1.1 (1.0-2.8); Alkaline Phosphatase 314 U/L (38-126); Aspartate Aminotransferase 95 IU/L (17-59); Bilirubin Total 1.6 mg/dL (0.2-1.3); Bilirubin Unconjugated 0.7 mg/dL (0.0-1.1); Calcium 8.7 mg/dL (8.4-10.2); Carbon Dioxide 28 mmol/L (22-32); Chloride 107 mmol/L (98-107); Estimated Glomerular Filt Rate > 60 mL/min (>60); Globulin 3.3 g/dL (1.7-4.1); Glucose 90 mg/dL (70-100); HEMOLYSIS < 15 (0-50); Magnesium 1.7 mg/dL (1.6-2.3); Potassium 3.6 mmol/L (3.4-5.1); Sodium 140 mmol/L (137-145); Total Protein 6.8 g/dL (6.3-8.2)
[2022-04-20 06:46] LABS: BUN Creatinine Ratio 3.3 (6-22); Blood Urea Nitrogen < 2 mg/dL (9-20)
[2022-04-20 08:00] VITALS: BP 138/94; PULSE 103; RESP 21; TEMP 37.4; O2SAT 97
[2022-04-20] MEDS: ENOXAPARIN 40 MG/0.4 ML SYRINGE SUBCUT (08:48)
[2022-04-20] MEDS: LORazepam 0.5 MG TABLET PO ×2 (08:48→20:56)
[2022-04-20] MEDS: MAGNESIUM SULFATE 2 GM/50 ML PIGGYBACK IV (08:48)
[2022-04-20] MEDS: DOCUSATE 100 MG CAPSULE PO ×2 (08:48→20:56)
[2022-04-20] MEDS: ONDANSETRON 4 MG/2 ML INJ IV ×2 (09:01→17:41)
[2022-04-20 11:30] VITALS: BP 134/83; PULSE 93; RESP 21; TEMP 37.3; O2SAT 98
[2022-04-20] MEDS: OXYCODONE IR 5 MG TABLET PO (13:10)
--- NOTE | 2022-04-20 15:04 | CM.DPC ---
DCP Cont: Discussed patient during team rounds. Hospitalist indicated that his diet will be advanced, and will see how he tolerates diet. He could possibly discharge today, or tomorrow. Patient is independent at baseline, and goes [facility] care. P: DCP to continue to follow for any needs. Patient should be able to go home when he is deemed medically stable. Cadence Estrada RN/[employer] Pattern Generator
--- NOTE | 2022-04-20 16:43 | P.PN_ITS ---
Subjective Subjective Date Patient Seen: 04/20/22 Interval history: 31-year-old male admitted to the hospital with acute on chronic pancreatitis. Patient continues to have some emesis with minimal oral intake. He also has consistent nausea. He does not appear to be tolerating oral intake at this point. Exam Vital Signs (past 8 hours): - 04/20/22 11:30 Temperature 99.1 F Pulse Rate 93 H Respiratory Rate 21 Blood Pressure 134/83 Pulse Oximetry 98 Oxygen Flow Rate 0 Oxygen Delivery Method Room Air Oxygen Flow Rate 0 Narrative Exam Narrative: Pleasant male lying in bed Resp Other: Lungs clear to auscultation Cardio Other: Cardiac exam: Regular rate and rhythm normal S1-S2 GI Other: Abdomen: Soft, diffusely tender, no rebound tenderness, no board-like rigidity Extrem Other: Extremities: No edema Objective Labs Result Diagrams: 04/20/22 06:10 04/20/22 06:10 Labs: Laboratory Results - last 24 hr 04/20/22 04/20/22 06:10 06:10 WBC 6.2 RBC 3.58 L Hgb 9.2 L Hct 28.2 L MCV 78.9 L MCH 25.9 L MCHC 32.8 RDW 19.9 H Plt Count 285 Neut % (Auto) 66.8 Lymph % (Auto) 20.4 L [place] % (Auto) 10.7 Eos % (Auto) 1.5 L Baso % (Auto) 0.6 Neut # (Auto) 4100 Lymph # (Auto) 1300 [place] # (Auto) 700 Eos # (Auto) 100 Baso # (Auto) 0 Sodium 140 Potassium 3.6 Chloride 107 Carbon Dioxide 28 BUN < 2 L Creatinine 0.60 L Estimated GFR > 60 BUN/Creatinine Ratio 3.3 L Glucose 90 Calcium 8.7 Magnesium 1.7 Total Bilirubin 1.6 H Conjugated Bilirubin 0.0 Unconjugated Bilirubin 0.7 AST 95 H ALT 57 H Alkaline Phosphatase 314 H D Total Protein 6.8 Albumin 3.5 Globulin 3.3 Albumin/Globulin Ratio 1.1 PFSH Medical History Acute hypokalemia Alcohol withdrawal Asthma, exercise induced Hypertension Patient denies medical problems Pseudocyst of pancreas Tachycardia Surgical History No history of previous surgery Family History Father Hypertension Alcoholism Mother No significant medical problems Social History household members: spouse and children Smoking Status: Current every day smoker alcohol intake: former Assessment & Plan Assessment & Plan narrative: Acute pancreatitis, present on admission * He has an elevated white count with a left shiftl, negative procalcitonin, so will hold off on antibiotics * IVF NS at 150 ml/hour, will decrease IV fluids to 100 cc an hour * NPO, clears when pain symptoms improve, on clear liquids, still with some nausea * Will continue to advance diet, once diet tolerated will be able to return home * Irregular cystic region in the head of the pancreas measuring 3.3 cm which developedin the interval since February 2022. This is felt to most likely represent pancreatic necrosis or walled-off pancreatic necrosis.? Alternatively, this could represent cystic dilatation of the pancreatic duct in the head/disconnected pancreatic duct. ? 2. The pancreatic duct at the neck is dilated up to 0.9 cm.? The pancreatic duct in the region of the ampulla is effaced.? The pancreatic duct in the body and tail are not significantly dilated. ? 3. Inflammatory change at the duodenal C loop and at the pancreatic tail from pancreatitis. History of alcohol withdrawal * Patient is not currently exhibiting withdrawal symptoms, but will institute CIWA precautions if he starts to exhibit withdrawal sxs * Alcohol level is undetectable * COVID-19 positive * He is currently asymptomatic * Airborne precautions * * Time Spent With Patient Critical Care time: I spent a total of [] minutes of critical care time on this patient's care today; this time is exclusive of procedural time. Quality VTE Deep Vein Thrombosis/Pulmonary Embolism Present on Admission: No
[2022-04-20 16:45] VITALS: BP 132/84; PULSE 97; RESP 17; O2SAT 97
[2022-04-20] MEDS: SENNOSIDES 8.6 MG TABLET 17.2 MG PO (20:55)
[2022-04-20 22:02] VITALS: BP 147/96; PULSE 101; RESP 18; TEMP 37.6; O2SAT 100
[2022-04-21] VITALS: BP 127/80; PULSE 116; RESP 16; TEMP 37.7; O2SAT 96
[2022-04-21] MEDS: OXYCODONE IR 10 MG TABLET PO ×3 (00:37→08:30)
[2022-04-21] MEDS: ONDANSETRON 4 MG/2 ML INJ IV ×2 (01:12→08:26)
--- NOTE | 2022-04-21 01:31 | PC.NURSE ---
Patient reports sleeping more today. Noticing some increase in abdominal pain after BM. Medicated with Oxycodone 10mg and Hydromorphone per EMAR. Patient had an emesis of 250ml at 0110 and states, I don't know where that came from. Patient medicated with Zofran for nausea.
[2022-04-21] MEDS: HYDROMORPHONE 0.5 MG INJ 1 MG IV (02:13)
--- NOTE | 2022-04-21 04:51 | PC.NURSE ---
Accessed to pt's record to help primary RN.
[2022-04-21 05:00] VITALS: BP 145/82; PULSE 107; RESP 18; TEMP 37.3; O2SAT 96
[2022-04-21 05:27] LABS: Calcium 8.8 mg/dL (8.4-10.2); Carbon Dioxide 29 mmol/L (22-32); Chloride 99 mmol/L (98-107); Estimated Glomerular Filt Rate > 60 mL/min (>60); Glucose 118 mg/dL (70-100); HEMOLYSIS < 15 (0-50); Magnesium 1.8 mg/dL (1.6-2.3); Potassium 3.5 mmol/L (3.4-5.1); Sodium 133 mmol/L (137-145)
[2022-04-21 05:28] LABS: BUN Creatinine Ratio 3.6 (6-22); Blood Urea Nitrogen < 2 mg/dL (9-20)
[2022-04-21] MEDS: LORazepam 0.5 MG TABLET PO (08:26)
[2022-04-21] MEDS: ENOXAPARIN 40 MG/0.4 ML SYRINGE SUBCUT (08:26)
[2022-04-21] MEDS: DOCUSATE 100 MG CAPSULE PO (08:26)
[2022-04-21 08:30] VITALS: BP 138/82; PULSE 106; RESP 19; TEMP 37.8; O2SAT 95
--- NOTE | 2022-04-21 10:54 | P.DS_ITS ---
History of Present Illness History of Present Illness Date Patient Seen: 04/21/22 Time Patient Seen: 10:54 Chief complaint: Pancreatitis pain Narrative: CARLOS Rachel: Tc Marcelino is a 31 y.o. male with asthma, HTN, previous alcohol consumption with recent admission for necrotizing pancreatitis who presents with abdominal pain and vomiting. He was seen in the ED one day ago, given pain medication and hydration and discharged. He returns today for pain and inability to tolerate oral intake. After returning home, he developed worsening pain, had chills briefly, denied fever, shortness of breath, chest pain, changes in bowel or bladder patterns or control. Moving around aggravates his abdominal pain. He states he does use marijuana regularly, he states the equivalent of 2 joints daily. States he has not consumed alcohol since February. Has been COVID+ since mid-February and denies any symptoms of that initial episode. CT of the abdomen with contrast indicated the following, acute pancreatitis question hypo enhancement of the pancreatic head suggestive of necrotizing pancreatitis, loculated fluid collection between the pancreatic head and descending portion of the duodenum suggestive of but chronic necrotic collection, and smaller cystic foci within the pancreatic head and body also concerning for chronic necrotic collections, thickening and inflammatory changes of the duodenum suggesting sequelae of adjacent pancreatitis. Patient is currently afebrile, blood pressure 98/67, heart rate 53, respiratory rate 15, oxygen saturation 99% on room air he weighs 81.6 kg with a BMI of 31.7. His WBC is elevated 14.4 hemoglobin 11.1 hematocrit 34.6 platelet count 440 and he has a mild left shift of 11,700 he has an abnormal peripheral smear, BUN is 5 creatinine 0.61 glucose 126 AST 77 alk-phos 137 total protein 8.7 albumin 4.6 l ipase is 509 alcohol level was within normal limits, and COVID-19 PCR is positive. He had a one-week hospitalization from March 05-March 11 for acute pancreatitis. He was ordered for IV fluids and pain medications and he stated he had significant improvement. Imaging was done at that time which reported acute pancreatitis with area of likely pancreatic necrosis and abnormal cystic lesions thought more likely to be pseudocyst rather than abscess. Initially was started on broad sprectrum antibiotics, then discontinued and the rest of his stay was focused on symptom control. Discharge Providers Provider Date of admission: 04/18/22 01:43 Discharge Date: 04/21/22 Primary care physician: Chiara Lyons MD Discharge provider: Johnie Sullivan DO Summary Hospital Course Discharge Diagnosis: 1. Acute pancreatitis 2. HTN, chronic 3. GERD 4. History of alcohol abuse Hospital Course: This is a 31-year-old male with a past medical history of hypertension, GERD, and prior alcohol abuse with recent admission for necrotizing pancreatitis who presented again with abdominal pain, nausea. He was found to have an elevated lipase. CT scan was performed which showed a new area of potential walled-off necrosis near his pancreatic head. He had no overt fever, T-max was 100.0?, and clinically began to improve with bowel rest with antibiotics. On the day of discharge she was feeling well with minimal abdominal pain and was tolerating a low-fat diet. He continues to deny any alcohol use since his last admission. Patient was discharged home with some oral pain medications, no other medical changes are recommended at this time, though a PPI trial was sent for possible GERD. He was encouraged to continue his alcohol cessation, and the exact etiology of this clear and flare is unknown. Time Spent with Patient Time spent: Greater than 30 minutes Exam Vital Signs (past 8 hours): - 04/21/22 05:00 04/21/22 08:30 Temperature 99.2 F 100.0 F H Pulse Rate 107 H 106 H Respiratory Rate 18 19 Blood Pressure 145/82 H 138/82 Pulse Oximetry 96 95 Oxygen Flow Rate 0 0 Oxygen Delivery Method Room Air Oxygen Flow Rate 0 Narrative Exam Narrative: General:? Patient is well developed and well nourished, in no distress at this time. Lungs:? CTA b/l no wheezing rhonchi or rales. Cardio:?RRR no m/r/g. Abdomen: Soft, nontender, nondistended. Musculoskeletal:? Muscle strength and tone are equal within normal limits, no deformity. Extremities: No edema or joint effusions. No cyanosis or clubbing. Skin:? Pale,? Warm to touch,dry and intact without rashes, ulcerations or petechiae.? Objective Labs Result Diagrams: 04/20/22 06:10 04/21/22 05:05 Labs: Laboratory Results - last 24 hr 04/21/22 05:05 Sodium 133 L Potassium 3.5 Chloride 99 Carbon Dioxide 29 BUN < 2 L Creatinine 0.56 L Estimated GFR > 60 BUN/Creatinine Ratio 3.6 L Glucose 118 H Calcium 8.8 Magnesium 1.8 PFSH Medical History Acute hypokalemia Alcohol withdrawal Asthma, exercise induced Hypertension Patient denies medical problems Pseudocyst of pancreas Tachycardia Surgical History No history of previous surgery Family History Father Hypertension Alcoholism Mother No significant medical problems Social History household members: spouse and children Smoking Status: Current every day smoker alcohol intake: former Discharge Plan Discharge Plan Patient Disposition: Home Provider Discharge Comment: You were admitted to the hospital with recurrent pancreatitis, improved with time and bowel rest. It is not clear what caused this occurrence this time but sometimes we don't know. Pain and nausea medications were sent to [facility] in [place]. Discharge orders & Medications Prescriptions: Continued losartan 50 mg Tablet 50 mg PO DAILY pantoprazole 20 mg Tablet,Delayed Release (Dr/Ec) 20 mg PO 0700 Qty: 30 0RF lorazepam [Ativan] 0.5 mg tablet 0.5 mg PO BID PRN (Reason: anxiety) Qty: 12 0RF hydromorphone 2 mg Tablet 2 mg PO Q4-6H PRN (Reason: Pain, Severe (7-10)) 7 Days Qty: 20 0RF ondansetron 4 mg tablet,disintegrating 4 mg PO TID-QID PRN (Reason: nausea and vomiting) 14 Days Qty: 30 0RF Follow up/Referrals: Chiara Lyons MD [Primary Care Provider] - Diet/Activity/Treatments Diet: Diet as Tolerated and Low-fat Activity: As tolerated Visit Report/Discharge Packet Instructions: Acute Pancreatitis, DI for Pancreatitis, DI for Prescription Opioid Use Discharge Data Primary Care Provider: Chiara Lyons Quality VTE Deep Vein Thrombosis/Pulmonary Embolism Present on Admission: No
--- NOTE | 2022-04-21 12:08 | CM.DPC ---
DCP Discharge Home Per MD, pt medically stable to d/c home today with no identified barriers to discharge. 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 Plan: Patient to d/c home via family POV and outpt f/u for pancreatitis and COVID+ and no further SW needs at this time. LAKSHMI Gonzales
== END 2022-04-21 11:17 | disposition home or self-care (01) | DRG 438 ==
LOC: ED 22:43 → AC 04-18 01:44
PROVIDERS: Admitting Provider Nurse Practitioner Family; Emergency Provider Emergency Medicine; PCP Family Medicine; Referring Provider Emergency Medicine; Visit Provider Nurse Practitioner Family
DX: K85.91 Acute pancreatitis with uninfected necrosis, unspecified (principal); U07.1 COVID-19; I10 Essential (primary) hypertension; K21.9 Gastro-esophageal reflux disease without esophagitis; F10.11 Alcohol abuse, in remission; Y90.0 Blood alcohol level of less than 20 mg/100 ml; R11.2 Nausea with vomiting, unspecified
CPT/HCPCS: 36415; 74177; 74183; 76705; 80048; 80053; 80076; 80320; 81001; 83615; 83690; 83735; 84145; 84478; 85007; 85025; 85610; 87635; 93005; 93010; 94760; 96361; 96374; 96375; 96376; 99284; C9803; A9579; C9113; J1170; J1650; J2405; J3475; Q9967

== ENCOUNTER → 2022-04-30 12:18 | Outpatient (CLI) | payer OTHER, SELFPAY ==
[2022-04-18 02:30] VITALS: BMI 29.9
[2022-04-30 13:35] LABS: Add Manual Diff / Slide Review NO; Basophils Absolute Auto 100 /uL (0-100); Basophils Percent Auto 0.8 % (0-2); Eosinophils Absolute Auto 100 /uL (0-450); Eosinophils Percent Auto 0.9 % (2-4); Hematocrit 32.6 % (41-53); Hemoglobin 10.4 g/dL (13.5-17.5); Lymphocytes Absolute Auto 2300 /uL (1100-4500); Mean Corpuscular HGB Conc 31.8 % (30-36); Mean Corpuscular Hemoglobin 24.7 PG (26-34); Mean Corpuscular Volume 77.7 fL (80-100); Monocytes Absolute Auto 500 /uL (0-900); Monocytes Percent Auto 5.8 % (3-14); Neutrophils Absolute Auto 5600 /uL (1500-7000); Neutrophils Percent Auto 65.5 % (50-75); Platelet Count 518 X10^3/uL (150-400); Red Cell Distribution Width 19.2 % (11.6-14.8); White Blood Cell Count 8.5 X10^3/uL (4.5-11.0)
[2022-04-30 14:22] LABS: Alanine Aminotransferase 13 IU/L (<50); Albumin 3.9 g/dL (3.5-5.0); Albumin Globulin Ratio 1.3 (1.0-2.8); Alkaline Phosphatase 129 U/L (38-126); Aspartate Aminotransferase 21 IU/L (17-59); BUN Creatinine Ratio 9.8 (6-22); Bilirubin Total 0.3 mg/dL (0.2-1.3); Blood Urea Nitrogen 6 mg/dL (9-20); Calcium 9.2 mg/dL (8.4-10.2); Carbon Dioxide 29 mmol/L (22-32); Chloride 106 mmol/L (98-107); Estimated Glomerular Filt Rate > 60 mL/min (>60); Globulin 2.9 g/dL (1.7-4.1); Glucose 86 mg/dL (70-100); HEMOLYSIS < 15 (0-50); Lactate Dehydrogenase 311 U/L (313-618); Lipase 47 U/L (23-300); Potassium 4.2 mmol/L (3.4-5.1); Sodium 142 mmol/L (137-145); Total Protein 6.8 g/dL (6.3-8.2)
[2022-04-30 14:27] LABS: NT-proBNP (BNP-Adult 18+) 199 pg/mL (<125)
== END ==
PROVIDERS: PCP Family Medicine; Referring Provider Family Medicine; Visit Provider Family Medicine
DX: K85.90 Acute pancreatitis without necrosis or infection, unspecified (principal)
CPT/HCPCS: 36415; 80053; 83615; 83690; 83880; 85025

== ENCOUNTER 2022-05-15 20:50 | Emergency (ER) | payer OTHER, SELFPAY ==
[2022-04-18 02:30] VITALS: BMI 29.9
[2022-05-15 21:10] VITALS: BP 119/74; PULSE 94; RESP 20; TEMP 35.7; O2SAT 98; BMI 28.2
== END 2022-05-16 00:26 | disposition left against medical advice (07) ==
PROVIDERS: Emergency Provider Emergency Medicine; PCP Family Medicine
CPT/HCPCS: 99281

== ENCOUNTER 2022-07-17 19:35 | Emergency (ER) | payer OTHER, SELFPAY ==
[2022-04-18 02:30] VITALS: BMI 29.9
[2022-07-17] VITALS (7 sets, daily range): BP systolic 119–177; BP diastolic 65–100; PULSE 66–84; RESP 13–18; TEMP 36.8; O2SAT 98–100; BMI 28.2
--- NOTE | 2022-07-17 20:07 | ED.ABDPAIN ---
HPI - Abdominal Pain General Chief Complaint: Abdominal Pain Stated Complaint: Pancreas problems Time Seen by Provider: 07/17/22 19:41 Source: patient Mode of arrival: Ambulatory History of Present Illness HPI narrative: 31-year-old male daily smoker with alcohol history as well as pancreatitis presents with a chief complaint of severe epigastric pain that has been present for the past few days and seems to be significantly worse when he moves and improves with rest. Additionally, it seems to worsen with food and drink. He states that it is much less significant today and even intermittent but given his complex history he wanted to be seen and evaluated. He had been seen at [facility] yesterday and had a CT scan that shows significantly improved findings and no obvious or significant acute abnormality. His pain is in the epigastrium and radiates to his back, associated with nausea. He is had no fever or chills. He denies ongoing use of alcohol. He denies any constipation or diarrhea Related Data Home Medications Medication Instructions Recorded Confirmed losartan 50 mg tablet 50 mg PO DAILY 02/23/22 04/18/22 Previous Rx's Medication Instructions Recorded lorazepam 0.5 mg tablet (Ativan) 0.5 mg PO BID PRN anxiety #12 tabs 03/11/22 pantoprazole 20 mg tablet,delayed 20 mg PO 0700 #30 tabs 03/11/22 release hydromorphone 2 mg tablet 2 mg PO Q4-6H PRN Pain, Severe 04/21/22 (7-10) 7 days #20 tabs ondansetron 4 mg disintegrating 4 mg PO TID-QID PRN nausea and 04/21/22 tablet vomiting 14 days #30 tabs hydrocodone 5 mg-acetaminophen 325 1 tab PO Q4-6H PRN pain #10 tabs 07/17/22 mg tablet ondansetron 4 mg disintegrating 4 mg PO TID-QID PRN nausea and 07/17/22 tablet vomiting #10 tabs pantoprazole 40 mg tablet,delayed 40 mg PO DAILY #30 tabs 07/17/22 release (Protonix) Allergies Allergy/AdvReac Type Severity Reaction Status Date / Time No Known Drug Allergies Allergy Verified 04/16/22 00:57 Review of Systems Review of Systems Narrative: GENERAL: See HPI HEENT: Denies sinus pain, ear pain, sore throat, difficulty swallowing, dizziness. RESPIRATORY: Denies dyspnea, cough, wheezing, hemoptysis, sputum. CARDIOVASCULAR: Denies chest pain, palpitations, orthopnea, edema, GASTROINTESTINAL: See HPI : Denies dysuria, frequency, incontinence, hematuria, urinary retention. MUSCULOSKELETAL: denies weakness, joint pain, or bony pain SKIN: Denies rash, skin lesions, or other NEUROLOGIC: Denies weakness, headache, numbness, change in speech, confusion, seizures, incoordination. PSYCHIATRIC: No concerning psychosocial issues. 12 point review of systems is negative except for those stated above Patient History Medical History Acute hypokalemia Alcohol withdrawal Asthma, exercise induced Hypertension Patient denies medical problems Pseudocyst of pancreas Tachycardia Surgical History No history of previous surgery Family History Father Hypertension Alcoholism Mother No significant medical problems Social History household members: spouse and children Smoking Status: Current every day smoker alcohol intake: former Smoking Status: Current every day smoker alcohol intake frequency: 3 or more drinks per day Alcohol type: hard liquor Substance Use Type: marijuana Exam Narrative Exam Narrative: GENERAL: [31] year old patient appears stated age. Well-developed patient, in mild distress. HEAD: Atraumatic. Normocephalic. EYES: Pupils equal round and reactive. Extraocular motions intact. No scleral icterus. No injection or drainage. ENT: Nose without bleeding, purulent drainage. Throat without erythema, tonsillar hypertrophy or exudate. Airway patent. NECK: Trachea midline. Non tender CARDIOVASCULAR: Regular rate and rhythm without murmurs, gallops, or rubs. RESPIRATORY: Clear to auscultation. Breath sounds equal bilaterally. No wheezes, rales, or rhonchi. GASTROINTESTINAL: Abdomen soft, tender in the epigastrium, nondistended. EXTREMITIES: No edema or joint tenderness. BACK: Nontender without deformity or crepitance. No flank tenderness. NEURO: AOx3. SKIN: No rash or erythema of visible areas Initial Vital Signs Initial Vital Signs: Vital Signs Temperature 98.2 F 07/17/22 19:43 Pulse Rate 83 07/17/22 19:43 Respiratory Rate 18 07/17/22 19:43 Blood Pressure 177/100 H 07/17/22 19:43 Pulse Oximetry 99 07/17/22 19:43 Oxygen Delivery Method 07/17/22 19:43 Course Orders Ordered: ED Orders 07/17/22 20:12 Complete Blood Count AUTO DIFF Stat Comprehensive Metabolic Panel Stat Ethanol (ETOH) Stat Lipase Stat Discontinued Medications Hydrocodone Bitart/Acetaminophen (Hydrocodone/Acet 5/325 Prepack) 1 bottle MISC SEEINSTR ONE Stop: 07/17/22 21:41 Last Admin: 07/17/22 22:17 Dose: 1 bottle Documented By: CHRISTO Hydromorphone HCl (Hydromorphone 1 Mg Inj) 1 mg IV NOW ONE Stop: 07/17/22 20:07 Last Admin: 07/17/22 20:12 Dose: 1 mg Documented By: AMADO Sodium Chloride (Normal Saline 0.9%) 1,000 mls @ 1,000 mls/hr IV BOLUS ONE Stop: 07/17/22 21:04 Last Infusion: 07/17/22 21:49 Dose: 0 mls/hr Documented By: Admin: 07/17/22 20:12 Dose: 1,000 mls/hr Documented By: AMADO Ondansetron HCl (Ondansetron 4 Mg/2 Ml Inj) 4 mg IV NOW ONE Stop: 07/17/22 20:06 Last Admin: 07/17/22 20:11 Dose: 4 mg Documented By: AMADO Ondansetron HCl (Ondansetron 4 Mg Odt Prepack) 1 bottle MISC SEEINSTR ONE Stop: 07/17/22 21:41 Last Admin: 07/17/22 22:17 Dose: 1 bottle Documented By: CHRISTO Vital Signs Vital signs: Vital Signs - 8 hr 07/17/22 19:43 07/17/22 22:00 07/17/22 20:34 Temperature 98.2 F Pulse Rate 83 74 80 Respiratory Rate 18 18 Blood Pressure 177/100 H 120/73 Pulse Oximetry 99 100 98 Oxygen Delivery Method Room Air Room Air 07/17/22 20:39 07/17/22 20:39 07/17/22 21:00 Temperature Pulse Rate 84 Respiratory Rate 13 18 Blood Pressure 175/93 H Pulse Oximetry 100 100 Oxygen Delivery Method 07/17/22 21:01 07/17/22 21:01 07/17/22 21:30 Temperature Pulse Rate 66 Respiratory Rate 14 Blood Pressure 138/65 119/72 Pulse Oximetry 99 Oxygen Delivery Method 07/17/22 21:30 Temperature Pulse Rate Respiratory Rate 18 Blood Pressure Pulse Oximetry 100 Oxygen Delivery Method MDM - Abdominal Pain Lab Data Result diagrams: 07/17/22 20:12 07/17/22 20:12 Labs: Lab Results 07/17/22 07/17/22 07/17/22 Range/Units 20:12 20:12 20:12 WBC 14.5 H (4.5-11.0) X10^3/uL RBC 4.85 (4.5-5.9) X10^6/uL Hgb 12.0 L (13.5-17.5) g/dL Hct 37.3 L (41-53) % MCV 76.9 L (80-100) fL MCH 24.7 L (26-34) PG MCHC 32.1 (30-36) % RDW 16.4 H (11.6-14.8) % Plt Count 322 (150-400) X10^3/uL Neut % (Auto) 70.2 (50-75) % Lymph % (Auto) 23.6 L (25-40) % [place] % (Auto) 5.1 (3-14) % Eos % (Auto) 0.9 L (2-4) % Baso % (Auto) 0.2 (0-2) % Neut # (Auto) 33948 H (6618-5385) /uL Lymph # (Auto) 3400 (7267-4656) /uL [place] # (Auto) 700 (0-900) /uL Eos # (Auto) 100 (0-450) /uL Baso # (Auto) 0 (0-100) /uL Sodium 141 (137-145) mmol/L Potassium 4.0 (3.4-5.1) mmol/L Chloride 104 (98-107) mmol/L Carbon Dioxide 25 (22-32) mmol/L BUN 13 (9-20) mg/dL Creatinine 0.84 (0.66-1.25) mg/dL Estimated GFR > 60 (>60) mL/min BUN/Creatinine Ratio 15.5 (6-22) Glucose 134 H (70-100) mg/dL Calcium 9.2 (8.4-10.2) mg/dL Total Bilirubin 0.4 (0.2-1.3) mg/dL AST 30 (17-59) IU/L ALT 13 (<50) IU/L Alkaline Phosphatase 93 (38-126) U/L Total Protein 8.1 (6.3-8.2) g/dL Albumin 4.4 (3.5-5.0) g/dL Globulin 3.7 (1.7-4.1) g/dL Albumin/Globulin Ratio 1.2 (1.0-2.8) Lipase 130 (23-300) U/L Ethyl Alcohol < 10 ( - 10) mg/dL Point of care testing: Urine Dip Bedside Urine Glucose Negative Bedside Urine Bilirubin - Negative Bedside Urine Ketone - Negative Urine Specific [place] 1.030 Bedside Urine Occult Blood - Negative Bedside Urine pH 6 Bedside Urine Protein +/- 15 Bedside Urine Urobilinogen - Negative Bedside Urine Nitrite - Negative Bedside Urine Leukocytes - Negative Esterase MDM Narrative Medical decision making narrative: Patient with reassuring history and physical exam. He does have a complex history but has significantly improved symptoms over the past few days and had a thorough evaluation at an outside facility yesterday including CT scan. Says labs today are unremarkable and demonstrated normal lipase. We did discuss the utility of imaging and agree that at present, given how well he feels and appears it is unlikely to change the course. He is given extensive return precautions and questions have been answered to his apparent satisfaction Discharge Plan Departure Patient Disposition: Home Clinical Impression: Abdominal pain Instructions: DI for Abdominal Pain-Adult Activity Restrictions/Additional Instructions: *You have been diagnosed with [abdominal pain] * As we discussed your history and physical exam as well as labs and imaging are very reassuring. There is no evidence of any severe diagnoses that would require a specific or immediate intervention. *What to do: *Please continue to take your regular medications as directed. [x ] New medication prescriptions sent to your pharmacy: [ [facility]] *Please follow up with your primary care provider in 2-3 days, call for an appointment. Let them know you were seen in the Emergency Department and that we ask that you be seen in follow up. We will electronically transmit a record of today's note if your PCP is in our system *Please consider a clear liquid diet for the next 24-48 hours and then slowly advance to regular as tolerated. Also, try to avoid alcohol, nicotine, caffeine, spicy, acidic or fatty foods as this may worsen your symptoms *If you do not have a primary care provider please contact the [facility] Resource line at [phone]. They will ask some questions about your medical history and help get you set up with a doctor in the community. *Return to Emergency Department if you should have any new, worsening or concerning symptoms, such as [fever greater than 101 F, shaking chills, worsening pain, persistent vomiting or other bothersome symptoms] Prescriptions: New hydrocodone-acetaminophen 5-325 mg tablet 1 tab PO Q4-6H PRN (Reason: pain) Qty: 10 0RF pantoprazole [Protonix] 40 mg tablet,delayed release (DR/EC) 40 mg PO DAILY Qty: 30 0RF ondansetron 4 mg tablet,disintegrating 4 mg PO TID-QID PRN (Reason: nausea and vomiting) Qty: 10 0RF No Action losartan 50 mg Tablet 50 mg PO DAILY pantoprazole 20 mg Tablet,Delayed Release (Dr/Ec) 20 mg PO 0700 Qty: 30 0RF lorazepam [Ativan] 0.5 mg tablet 0.5 mg PO BID PRN (Reason: anxiety) Qty: 12 0RF hydromorphone 2 mg Tablet 2 mg PO Q4-6H PRN (Reason: Pain, Severe (7-10)) 7 Days Qty: 20 0RF ondansetron 4 mg tablet,disintegrating 4 mg PO TID-QID PRN (Reason: nausea and vomiting) 14 Days Qty: 30 0RF Referrals: Chiara Lyons MD [Primary Care Provider] - Visit Report Forms: Patient Portal/API
[2022-07-17] MEDS: ONDANSETRON 4 MG/2 ML INJ IV (20:11)
[2022-07-17] MEDS: SODIUM CHLORIDE 0.9% 1,000 ML 1000 ML IV (20:12)
[2022-07-17] MEDS: HYDROMORPHONE 1 MG INJ IV (20:12)
[2022-07-17 20:27] LABS: Add Manual Diff / Slide Review NO; Basophils Absolute Auto 0 /uL (0-100); Basophils Percent Auto 0.2 % (0-2); Eosinophils Absolute Auto 100 /uL (0-450); Eosinophils Percent Auto 0.9 % (2-4); Hematocrit 37.3 % (41-53); Lymphocytes Absolute Auto 3400 /uL (1100-4500); Lymphocytes Percent Auto 23.6 % (25-40); Mean Corpuscular HGB Conc 32.1 % (30-36); Mean Corpuscular Hemoglobin 24.7 PG (26-34); Mean Corpuscular Volume 76.9 fL (80-100); Monocytes Absolute Auto 700 /uL (0-900); Monocytes Percent Auto 5.1 % (3-14); Neutrophils Absolute Auto 10200 /uL (1500-7000); Neutrophils Percent Auto 70.2 % (50-75); Platelet Count 322 X10^3/uL (150-400); Red Blood Cell Count 4.85 X10^6/uL (4.5-5.9); Red Cell Distribution Width 16.4 % (11.6-14.8); White Blood Cell Count 14.5 X10^3/uL (4.5-11.0)
[2022-07-17 20:41] LABS: Alanine Aminotransferase 13 IU/L (<50); Albumin 4.4 g/dL (3.5-5.0); Albumin Globulin Ratio 1.2 (1.0-2.8); Alkaline Phosphatase 93 U/L (38-126); Aspartate Aminotransferase 30 IU/L (17-59); BUN Creatinine Ratio 15.5 (6-22); Bilirubin Total 0.4 mg/dL (0.2-1.3); Blood Urea Nitrogen 13 mg/dL (9-20); Calcium 9.2 mg/dL (8.4-10.2); Carbon Dioxide 25 mmol/L (22-32); Chloride 104 mmol/L (98-107); Estimated Glomerular Filt Rate > 60 mL/min (>60); Ethanol (ETOH) < 10 mg/dL; Globulin 3.7 g/dL (1.7-4.1); Glucose 134 mg/dL (70-100); HEMOLYSIS < 15 (0-50); Lipase 130 U/L (23-300); Sodium 141 mmol/L (137-145); Total Protein 8.1 g/dL (6.3-8.2)
[2022-07-17] MEDS: ONDANSETRON 4 MG ODT PREPACK 1 BOTTLE MISC (22:17)
[2022-07-17] MEDS: HYDROCODONE/ACET 5/325 PREPACK 1 BOTTLE MISC (22:17)
== END 2022-07-17 22:33 | disposition home or self-care (01) ==
PROVIDERS: Emergency Provider Emergency Medicine; PCP Family Medicine
DX: R10.13 Epigastric pain (principal); R11.0 Nausea
CPT/HCPCS: 36415; 80053; 80320; 81003; 83690; 85025; 96361; 96374; 96375; 99284; J1170; J2405

== ENCOUNTER 2023-09-16 05:36 | Inpatient (IN) | payer OTHER, SELFPAY ==
[2022-04-18 02:30] VITALS: BMI 29.9
[2023-09-16] VITALS (26 sets, daily range): BP systolic 145–187; BP diastolic 69–118; PULSE 64–109; RESP 15–38; TEMP 36.2–36.9; O2SAT 87–100; BMI 33.5
--- NOTE | 2023-09-16 06:01 | ED_ITS ---
HPI - Abdominal Pain <Linsey Jaimes DO - Last Filed: 09/16/23 23:21> General Chief Complaint: Abdominal Pain Stated Complaint: back pain, possible pancreas Time Seen by Provider: 09/16/23 05:48 Source: patient Mode of arrival: Ambulatory History of Present Illness HPI narrative: Patient is a 32-year-old male history of alcoholism pancreatitis presenting today with abdominal pain nausea vomiting. He reports that he drinks about 6 shots daily he is had previous pancreatitis secondary to alcohol use. He says that the heater in the house went out or and it has been mess. He has been vomiting for the last 1 day increased abdominal pain now shaking. No fever. He has been unable to keep anything down. No chest pain. Actively vomiting. Related Data Home Medications Medication Instructions Recorded Confirmed losartan 50 mg tablet 25 mg PO DAILY 02/23/22 09/16/23 escitalopram oxalate 10 mg tablet 10 mg PO DAILY 09/16/23 09/16/23 Allergies Allergy/AdvReac Type Severity Reaction Status Date / Time No Known Drug Allergies Allergy Verified 04/16/22 00:57 Patient History <DO Percy Ahumada Last Filed: 09/16/23 23:21> Medical History Acute hypokalemia Tachycardia Pseudocyst of pancreas Alcohol withdrawal Hypertension Asthma, exercise induced Patient denies medical problems Surgical History No history of previous surgery Family History Father Hypertension Alcoholism Mother No significant medical problems Social History household members: spouse and children Smoking Status: Current every day smoker alcohol intake: current Smoking Status: Current every day smoker alcohol intake frequency: 3 or more drinks per day Alcohol type: hard liquor Substance Use Type: marijuana Exam <DO Percy Ahumada Last Filed: 09/16/23 23:21> Initial Vital Signs Initial Vital Signs: Vital Signs Temperature 97.2 F L 09/16/23 05:46 Pulse Rate 79 09/16/23 05:46 Respiratory Rate 22 09/16/23 05:46 Blood Pressure 187/113 H 09/16/23 05:46 Pulse Oximetry 99 09/16/23 05:46 Oxygen Delivery Method Room Air 09/16/23 05:46 GENERAL: Alert 32-year-old male slightly diaphoretic actively vomiting HEENT: Head atraumatic,EOMI, pupils reactive, face symmetric, moist mucous membranes CARDIOVASCULAR: Regular rate and rhythm without murmurs, rubs or gallops. RESPIRATORY: Breath sounds equal bilaterally, no wheezes rales or rhonchi. ABDOMEN: Soft, diffusely tender no right upper quadrant pain : No CVA tenderness EXTREMITIES: Normal range of motion, no clubbing or edema. Neurovascularly intact NEUROLOGICAL: Alert and oriented x4.Normal gait and speech. SKIN: Warm, dry, no laceration, no petechiae, no rashes or lesions. <Paola Carmichael, DO - Last Filed: 09/17/23 11:44> Initial Vital Signs Initial Vital Signs: Vital Signs Temperature 97.2 F L 09/16/23 05:46 Pulse Rate 79 09/16/23 05:46 Respiratory Rate 22 09/16/23 05:46 Blood Pressure 187/113 H 09/16/23 05:46 Pulse Oximetry 99 09/16/23 05:46 Oxygen Delivery Method Room Air 09/16/23 05:46 Course <Linsey Jaimes, DO - Last Filed: 09/16/23 23:21> Orders Ordered: Enoxaparin Sodium (Enoxaparin 40 Mg/0.4 Ml Syringe) 40 mg SUBCUT DAILY [facility] Last Admin: 09/17/23 09:00 Dose: 40 mg Documented By: IRMA Escitalopram Oxalate (Escitalopram 10 Mg Tablet) 10 mg PO DAILY [facility] [place] Last Admin: 09/17/23 08:58 Dose: 10 mg Documented By: IRMA Folic Acid (Folic Acid 1 Mg Tablet) 1 mg PO DAILY [facility] [place] Last Admin: 09/17/23 09:57 Dose: 1 mg Documented By: IRMA Hydromorphone HCl (Hydromorphone 2 Mg Inj) 2 mg IV Q2H PRN PRN Reason: Pain, Severe (7-10) Last Admin: 09/17/23 08:58 Dose: 2 mg Documented By: Admin: 09/17/23 06:22 Dose: 2 mg Documented By: Admin: 09/17/23 04:08 Dose: 2 mg Documented By: Admin: 09/17/23 02:16 Dose: 2 mg Documented By: Admin: 09/17/23 00:19 Dose: 2 mg Documented By: Admin: 09/16/23 22:07 Dose: 2 mg Documented By: Admin: 09/16/23 20:17 Dose: 2 mg Documented By: Admin: 09/16/23 18:36 Dose: 2 mg Documented By: Admin: 09/16/23 16:35 Dose: 2 mg Documented By: IRMA Sodium Chloride (Normal Saline 0.45%) 1,000 mls @ 125 mls/hr IV CONT [facility] Last Admin: 09/17/23 05:14 Dose: 125 mls/hr Documented By: Infusion: 09/17/23 05:14 Dose: Infused Documented By: Admin: 09/16/23 21:52 Dose: 125 mls/hr Documented By: Infusion: 09/16/23 21:52 Dose: Infused Documented By: Infusion: 09/16/23 18:42 Dose: 125 mls/hr Documented By: Admin: 09/16/23 13:05 Dose: 100 mls/hr Documented By: IRMA Lorazepam (Lorazepam 2 Mg/Ml Inj) 0 mg IV CIWAPRN PRN; Protocol PRN Reason: Alcohol Withdrawal Lorazepam (Lorazepam 1 Mg Tablet) 0 mg PO CIWAPRN PRN; Protocol PRN Reason: Alcohol Withdrawal Losartan Potassium (Losartan 50 Mg Tablet) 50 mg PO DAILY [facility] Last Admin: 09/17/23 08:58 Dose: 50 mg Documented By: IRMA Metoclopramide HCl (Metoclopramide 10 Mg/2 Ml Inj) 5 mg IV Q6HR PRN PRN Reason: Nausea And Vomiting Last Admin: 09/17/23 00:19 Dose: 5 mg Documented By: Admin: 09/16/23 16:35 Dose: 5 mg Documented By: IRMA Multivitamins (Multivitamin 1 Tablet) 1 tab PO DAILY [facility] [place] Last Admin: 09/17/23 09:57 Dose: 1 tab Documented By: IRMA Naloxone HCl (Naloxone 0.4 Mg/Ml Vial) 0.2 mg IV Q2MIN PRN PRN Reason: Opiate Reversal Ondansetron HCl (Ondansetron 4 Mg/2 Ml Inj) 4 mg IV Q4HR PRN PRN Reason: Nausea And Vomiting Last Admin: 09/17/23 08:58 Dose: 4 mg Documented By: Admin: 09/16/23 20:13 Dose: 4 mg Documented By: Admin: 09/16/23 13:05 Dose: 4 mg Documented By: IRMA Oxycodone HCl (Oxycodone Ir 5 Mg Tablet) 5 mg PO Q3H PRN PRN Reason: Pain, Moderate (4-6) Oxycodone HCl (Oxycodone Ir 10 Mg Tablet) 10 mg PO Q3H PRN PRN Reason: Pain, Severe (7-10) Last Admin: 09/17/23 11:01 Dose: 10 mg Documented By: Admin: 09/17/23 05:14 Dose: 10 mg Documented By: Admin: 09/16/23 13:10 Dose: 10 mg Documented By: IRMA Pantoprazole Sodium (Pantoprazole Dr 40 Mg Tablet) 40 mg PO DAILY [facility] [place] Last Admin: 09/17/23 09:57 Dose: 40 mg Documented By: IRMA Thiamine HCl (Thiamine 100 Mg Tablet) 100 mg PO DAILY [facility] Stop: 09/20/23 09:01 Last Admin: 09/17/23 09:57 Dose: 100 mg Documented By: IRMA Discontinued Medications Hydromorphone HCl (Hydromorphone 1 Mg Inj) 1 mg IV NOW ONE Stop: 09/16/23 06:59 Last Admin: 09/16/23 07:03 Dose: 1 mg Documented By: RAFFY Hydromorphone HCl (Hydromorphone 0.5 Mg Inj) 0.5 mg IV NOW ONE Stop: 09/16/23 08:03 Last Admin: 09/16/23 08:32 Dose: 0.5 mg Documented By: SUHA Hydromorphone HCl (Hydromorphone 0.5 Mg Inj) 0.5 mg IV NOW ONE Stop: 09/16/23 10:18 Last Admin: 09/16/23 10:23 Dose: 0.5 mg Documented By: MPO Hydromorphone HCl (Hydromorphone 0.5 Mg Inj) 0.5 mg IV NOW ONE Stop: 09/16/23 11:52 Last Admin: 09/16/23 11:57 Dose: 0.5 mg Documented By: MPO Hydromorphone HCl (Hydromorphone 0.5 Mg Inj) 1.5 mg IV Q2H PRN PRN Reason: Pain, Severe (7-10) Last Admin: 09/16/23 14:11 Dose: 1.5 mg Documented By: IRMA Sodium Chloride (Normal Saline 0.9%) 1,000 mls @ 1,000 mls/hr IV BOLUS ONE Stop: 09/16/23 06:47 Last Infusion: 09/16/23 07:16 Dose: Infused Documented By: Admin: 09/16/23 06:15 Dose: 1,000 mls/hr Documented By: RAFFY Sodium Chloride (Normal Saline 0.9%) 1,000 mls @ 1,000 mls/hr IV BOLUS ONE Stop: 09/16/23 07:57 Last Infusion: 09/16/23 08:05 Dose: Infused Documented By: Admin: 09/16/23 07:05 Dose: 1,000 mls/hr Documented By: RAFFY Sodium Chloride (Normal Saline 0.9%) 1,000 mls @ 200 mls/hr IV CONT [facility] Last Admin: 09/16/23 08:34 Dose: 200 mls/hr Documented By: SUHA Ketorolac Tromethamine (Ketorolac 30 Mg/Ml Vial) 15 mg IV NOW ONE Stop: 09/16/23 06:04 Last Admin: 09/16/23 06:13 Dose: 15 mg Documented By: RAFFY Lorazepam (Lorazepam 2 Mg/Ml Inj) 1 mg IV NOW ONE Stop: 09/16/23 06:04 Last Admin: 09/16/23 06:13 Dose: 1 mg Documented By: RAFFY Ondansetron HCl (Ondansetron 4 Mg/2 Ml Inj) 4 mg IV NOW ONE Stop: 09/16/23 05:49 Last Admin: 09/16/23 06:15 Dose: 4 mg Documented By: RAFFY Ondansetron HCl (Ondansetron 4 Mg/2 Ml Inj) 4 mg IV NOW ONE Stop: 09/16/23 10:18 Last Admin: 09/16/23 10:23 Dose: 4 mg Documented By: SUHA Pantoprazole Sodium (Pantoprazole 40 Mg Vial) 40 mg IV NOW ONE Stop: 09/16/23 06:04 Last Admin: 09/16/23 06:16 Dose: 40 mg Documented By: RAFFY Vital Signs Vital signs: Vital Signs - 8 hr 09/16/23 05:46 09/16/23 06:04 09/16/23 06:30 Temperature 97.2 F L Pulse Rate 79 64 64 Respiratory Rate 22 23 23 Blood Pressure 187/113 H Pulse Oximetry 99 100 99 Oxygen Delivery Method Room Air Room Air 09/16/23 06:31 09/16/23 06:31 09/16/23 06:44 Temperature Pulse Rate 67 Respiratory Rate 22 Blood Pressure 170/96 H 153/81 H Pulse Oximetry 97 Oxygen Delivery Method 09/16/23 06:44 09/16/23 07:00 09/16/23 07:30 Temperature Pulse Rate 65 87 78 Respiratory Rate 15 21 23 Blood Pressure Pulse Oximetry 99 98 96 Oxygen Delivery Method 09/16/23 08:00 09/16/23 08:31 09/16/23 08:31 Temperature Pulse Rate 79 83 Respiratory Rate 24 18 Blood Pressure 145/103 H Pulse Oximetry 98 96 Oxygen Delivery Method 09/16/23 09:00 09/16/23 09:30 09/16/23 10:00 Temperature Pulse Rate 76 76 81 Respiratory Rate 22 21 17 Blood Pressure Pulse Oximetry 98 98 98 Oxygen Delivery Method 09/16/23 10:03 09/16/23 10:03 09/16/23 10:15 Temperature Pulse Rate 88 87 Respiratory Rate 19 Blood Pressure 162/99 H Pulse Oximetry 98 Oxygen Delivery Method 09/16/23 10:30 09/16/23 10:31 09/16/23 10:31 Temperature Pulse Rate 73 76 Respiratory Rate 21 19 Blood Pressure 153/69 H Pulse Oximetry 97 97 Oxygen Delivery Method 09/16/23 10:45 Temperature Pulse Rate 85 Respiratory Rate 38 H Blood Pressure Pulse Oximetry 87 L Oxygen Delivery Method <Paola Carmichael, - Last Filed: 09/17/23 11:44> Orders Ordered: Enoxaparin Sodium (Enoxaparin 40 Mg/0.4 Ml Syringe) 40 mg SUBCUT DAILY [facility] Last Admin: 09/17/23 09:00 Dose: 40 mg Documented By: IRMA Escitalopram Oxalate (Escitalopram 10 Mg Tablet) 10 mg PO DAILY [facility] [place] Last Admin: 09/17/23 08:58 Dose: 10 mg Documented By: IRMA Folic Acid (Folic Acid 1 Mg Tablet) 1 mg PO DAILY [facility] [place] Last Admin: 09/17/23 09:57 Dose: 1 mg Documented By: IRMA Hydromorphone HCl (Hydromorphone 2 Mg Inj) 2 mg IV Q2H PRN PRN Reason: Pain, Severe (7-10) Last Admin: 09/17/23 08:58 Dose: 2 mg Documented By: Admin: 09/17/23 06:22 Dose: 2 mg Documented By: Admin: 09/17/23 04:08 Dose: 2 mg Documented By: Admin: 09/17/23 02:16 Dose: 2 mg Documented By: Admin: 09/17/23 00:19 Dose: 2 mg Documented By: Admin: 09/16/23 22:07 Dose: 2 mg Documented By: Admin: 09/16/23 20:17 Dose: 2 mg Documented By: Admin: 09/16/23 18:36 Dose: 2 mg Documented By: Admin: 09/16/23 16:35 Dose: 2 mg Documented By: IRMA Sodium Chloride (Normal Saline 0.45%) 1,000 mls @ 125 mls/hr IV CONT [facility] [place] Last Admin: 09/17/23 05:14 Dose: 125 mls/hr Documented By: Infusion: 09/17/23 05:14 Dose: Infused Documented By: Admin: 09/16/23 21:52 Dose: 125 mls/hr Documented By: Infusion: 09/16/23 21:52 Dose: Infused Documented By: Infusion: 09/16/23 18:42 Dose: 125 mls/hr Documented By: Admin: 09/16/23 13:05 Dose: 100 mls/hr Documented By: IRMA Lorazepam (Lorazepam 2 Mg/Ml Inj) 0 mg IV CIWAPRN PRN; Protocol PRN Reason: Alcohol Withdrawal Lorazepam (Lorazepam 1 Mg Tablet) 0 mg PO CIWAPRN PRN; Protocol PRN Reason: Alcohol Withdrawal Losartan Potassium (Losartan 50 Mg Tablet) 50 mg PO DAILY [facility] [place] Last Admin: 09/17/23 08:58 Dose: 50 mg Documented By: IRMA Metoclopramide HCl (Metoclopramide 10 Mg/2 Ml Inj) 5 mg IV Q6HR PRN PRN Reason: Nausea And Vomiting Last Admin: 09/17/23 00:19 Dose: 5 mg Documented By: Admin: 09/16/23 16:35 Dose: 5 mg Documented By: IRMA Multivitamins (Multivitamin 1 Tablet) 1 tab PO DAILY [facility] [place] Last Admin: 09/17/23 09:57 Dose: 1 tab Documented By: IRMA Naloxone HCl (Naloxone 0.4 Mg/Ml Vial) 0.2 mg IV Q2MIN PRN PRN Reason: Opiate Reversal Ondansetron HCl (Ondansetron 4 Mg/2 Ml Inj) 4 mg IV Q4HR PRN PRN Reason: Nausea And Vomiting Last Admin: 09/17/23 08:58 Dose: 4 mg Documented By: Admin: 09/16/23 20:13 Dose: 4 mg Documented By: Admin: 09/16/23 13:05 Dose: 4 mg Documented By: IRMA Oxycodone HCl (Oxycodone Ir 5 Mg Tablet) 5 mg PO Q3H PRN PRN Reason: Pain, Moderate (4-6) Oxycodone HCl (Oxycodone Ir 10 Mg Tablet) 10 mg PO Q3H PRN PRN Reason: Pain, Severe (7-10) Last Admin: 09/17/23 11:01 Dose: 10 mg Documented By: Admin: 09/17/23 05:14 Dose: 10 mg Documented By: Admin: 09/16/23 13:10 Dose: 10 mg Documented By: IRMA Pantoprazole Sodium (Pantoprazole Dr 40 Mg Tablet) 40 mg PO DAILY [facility] [place] Last Admin: 09/17/23 09:57 Dose: 40 mg Documented By: IRMA Thiamine HCl (Thiamine 100 Mg Tablet) 100 mg PO DAILY [facility] [place] Stop: 09/20/23 09:01 Last Admin: 09/17/23 09:57 Dose: 100 mg Documented By: IRMA Discontinued Medications Hydromorphone HCl (Hydromorphone 1 Mg Inj) 1 mg IV NOW ONE Stop: 09/16/23 06:59 Last Admin: 09/16/23 07:03 Dose: 1 mg Documented By: RAFFY Hydromorphone HCl (Hydromorphone 0.5 Mg Inj) 0.5 mg IV NOW ONE Stop: 09/16/23 08:03 Last Admin: 09/16/23 08:32 Dose: 0.5 mg Documented By: SUHA Hydromorphone HCl (Hydromorphone 0.5 Mg Inj) 0.5 mg IV NOW ONE Stop: 09/16/23 10:18 Last Admin: 09/16/23 10:23 Dose: 0.5 mg Documented By: SUHA Hydromorphone HCl (Hydromorphone 0.5 Mg Inj) 0.5 mg IV NOW ONE Stop: 09/16/23 11:52 Last Admin: 09/16/23 11:57 Dose: 0.5 mg Documented By: SUHA Hydromorphone HCl (Hydromorphone 0.5 Mg Inj) 1.5 mg IV Q2H PRN PRN Reason: Pain, Severe (7-10) Last Admin: 09/16/23 14:11 Dose: 1.5 mg Documented By: IMRA Sodium Chloride (Normal Saline 0.9%) 1,000 mls @ 1,000 mls/hr IV BOLUS ONE Stop: 09/16/23 06:47 Last Infusion: 09/16/23 07:16 Dose: Infused Documented By: Admin: 09/16/23 06:15 Dose: 1,000 mls/hr Documented By: RAFFY Sodium Chloride (Normal Saline 0.9%) 1,000 mls @ 1,000 mls/hr IV BOLUS ONE Stop: 09/16/23 07:57 Last Infusion: 09/16/23 08:05 Dose: Infused Documented By: Admin: 09/16/23 07:05 Dose: 1,000 mls/hr Documented By: RAFFY Sodium Chloride (Normal Saline 0.9%) 1,000 mls @ 200 mls/hr IV CONT [facility] Last Admin: 09/16/23 08:34 Dose: 200 mls/hr Documented By: SUHA Ketorolac Tromethamine (Ketorolac 30 Mg/Ml Vial) 15 mg IV NOW ONE Stop: 09/16/23 06:04 Last Admin: 09/16/23 06:13 Dose: 15 mg Documented By: RAFFY Lorazepam (Lorazepam 2 Mg/Ml Inj) 1 mg IV NOW ONE Stop: 09/16/23 06:04 Last Admin: 09/16/23 06:13 Dose: 1 mg Documented By: RAFFY Ondansetron HCl (Ondansetron 4 Mg/2 Ml Inj) 4 mg IV NOW ONE Stop: 09/16/23 05:49 Last Admin: 09/16/23 06:15 Dose: 4 mg Documented By: RAFFY Ondansetron HCl (Ondansetron 4 Mg/2 Ml Inj) 4 mg IV NOW ONE Stop: 09/16/23 10:18 Last Admin: 09/16/23 10:23 Dose: 4 mg Documented By: SUHA Pantoprazole Sodium (Pantoprazole 40 Mg Vial) 40 mg IV NOW ONE Stop: 09/16/23 06:04 Last Admin: 09/16/23 06:16 Dose: 40 mg Documented By: RAFFY Vital Signs Vital signs: Vital Signs - 8 hr 09/16/23 05:46 09/16/23 06:04 09/16/23 06:30 Temperature 97.2 F L Pulse Rate 79 64 64 Respiratory Rate 22 23 23 Blood Pressure 187/113 H Pulse Oximetry 99 100 99 Oxygen Delivery Method Room Air Room Air 09/16/23 06:31 09/16/23 06:31 09/16/23 06:44 Temperature Pulse Rate 67 Respiratory Rate 22 Blood Pressure 170/96 H 153/81 H Pulse Oximetry 97 Oxygen Delivery Method 09/16/23 06:44 09/16/23 07:00 09/16/23 07:30 Temperature Pulse Rate 65 87 78 Respiratory Rate 15 21 23 Blood Pressure Pulse Oximetry 99 98 96 Oxygen Delivery Method 09/16/23 08:00 09/16/23 08:31 09/16/23 08:31 Temperature Pulse Rate 79 83 Respiratory Rate 24 18 Blood Pressure 145/103 H Pulse Oximetry 98 96 Oxygen Delivery Method 09/16/23 09:00 09/16/23 09:30 09/16/23 10:00 Temperature Pulse Rate 76 76 81 Respiratory Rate 22 21 17 Blood Pressure Pulse Oximetry 98 98 98 Oxygen Delivery Method 09/16/23 10:03 09/16/23 10:03 09/16/23 10:15 Temperature Pulse Rate 88 87 Respiratory Rate 19 Blood Pressure 162/99 H Pulse Oximetry 98 Oxygen Delivery Method 09/16/23 10:30 09/16/23 10:31 09/16/23 10:31 Temperature Pulse Rate 73 76 Respiratory Rate 21 19 Blood Pressure 153/69 H Pulse Oximetry 97 97 Oxygen Delivery Method 09/16/23 10:45 Temperature Pulse Rate 85 Respiratory Rate 38 H Blood Pressure Pulse Oximetry 87 L Oxygen Delivery Method MDM - Abdominal Pain <Linsey Jaimes DO - Last Filed: 09/16/23 23:21> Lab Data 09/16/23 05:50 09/16/23 05:50 Labs: Lab Results 09/16/23 09/16/23 Range/Units 05:50 08:30 WBC 12.0 H (4.5-11.0) X10^3/uL RBC 5.69 (4.5-5.9) X10^6/uL Hgb 16.0 (13.5-17.5) g/dL Hct 47.9 (41-53) % MCV 84.1 (80-100) fL MCH 28.2 (26-34) PG MCHC 33.5 (30-36) % RDW 15.3 H (11.6-14.8) % Plt Count 254 (150-400) X10^3/uL Neut % (Auto) 81.3 H (50-75) % Lymph % (Auto) 13.0 L (25-40) % Kleberg % (Auto) 4.6 (3-14) % Eos % (Auto) 0.1 L (2-4) % Baso % (Auto) 1.0 (0-2) % Neut # (Auto) 9700 H (2213-5334) /uL Lymph # (Auto) 1600 (1085-8000) /uL Kleberg # (Auto) 600 (0-900) /uL Eos # (Auto) 0 (0-450) /uL Baso # (Auto) 100 (0-100) /uL Sodium 135 L (137-145) mmol/L Potassium 3.6 (3.4-5.1) mmol/L Chloride 99 (98-107) mmol/L Carbon Dioxide 24 (22-32) mmol/L BUN 8 L (9-20) mg/dL Creatinine 0.70 (0.66-1.25) mg/dL Estimated GFR > 60 (>60) mL/min BUN/Creatinine Ratio 11.4 (6-22) Glucose 145 H (70-100) mg/dL Calcium 9.9 (8.4-10.2) mg/dL Total Bilirubin 1.2 (0.2-1.3) mg/dL AST 39 (17-59) IU/L ALT 43 (<50) IU/L Alkaline Phosphatase 110 (38-126) U/L Total Protein 7.9 (6.3-8.2) g/dL Albumin 4.5 (3.5-5.0) g/dL Globulin 3.4 (1.7-4.1) g/dL Albumin/Globulin Ratio 1.3 (1.0-2.8) Lipase 2126 H (23-300) U/L Urine RBC None seen (0-5/HPF) Urine WBC None seen (0-5/HPF) Ur Squamous Epith Cells 0-1 /hpf (0-5/HPF) Amorphous Sediment 2+ Urine Bacteria None seen (None) Urine Mucus 2+ H (Negative) Ur Culture Indicated? Cult not indicated Point of care testing: Urine Dip Bedside Urine Glucose Negative Bedside Urine Bilirubin - Negative Bedside Urine Ketone ++ 40 Urine Specific [place] 1.010 Bedside Urine Occult Blood - Negative Bedside Urine pH 8.0 Bedside Urine Protein +/- 15 Bedside Urine Urobilinogen - Negative Bedside Urine Nitrite - Negative Bedside Urine Leukocytes - Negative Esterase MDM Narrative Medical decision making narrative: Patient 32-year-old male history of alcoholic pancreatitis presents today with nausea vomiting for 24 hours shaking and diffuse abdominal pain. Lipase is elevated in the [address] confirmed acute pancreatitis. Patient is receiving fluids and pain medications. He also got dose of Ativan for some shakiness and possible withdrawal. Signed out to Dr. Carmichael. 09/16/23: Jany since seen and independently evaluated myself. Presented with abdominal and back pain. Patient has had pancreatitis before he states very similar was having trouble keeping anything down despite having Zofran at home. He states had been able to keep down any liquids for about 12 hours. Last drink was Friday. Patient has had some mild withdrawal symptoms. He has labs consistent with pancreatitis lipase in the 2000 range, slightly elevated white count otherwise normal hemoglobin, platelets, LFTs and electrolytes. 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 Discussed with Dr. Venegas in the hospitalist, he would like for us to consult with Gastroenterology to see if we need to do any additional interventions for the splenic vein or requires transfer. Ask for call back after that discussion. Spoke with GI at [facility], Dr. Daniels. Reviewed patient's findings, CT findings labs and medical history. She states does not require any interventions this is not unexpected with his pancreatitis and does not require any additional intervention, does not require an EGD or scope before this particular finding. Treat as a normal pancreatitis with no other interventions currently. She does recommend patient stop alcohol use. <Paola Carmichael, - Last Filed: 09/17/23 11:44> Lab Data Labs: Lab Results 09/16/23 09/16/23 Range/Units 05:50 08:30 WBC 12.0 H (4.5-11.0) X10^3/uL RBC 5.69 (4.5-5.9) X10^6/uL Hgb 16.0 (13.5-17.5) g/dL Hct 47.9 (41-53) % MCV 84.1 (80-100) fL MCH 28.2 (26-34) PG MCHC 33.5 (30-36) % RDW 15.3 H (11.6-14.8) % Plt Count 254 (150-400) X10^3/uL Neut % (Auto) 81.3 H (50-75) % Lymph % (Auto) 13.0 L (25-40) % Kleberg % (Auto) 4.6 (3-14) % Eos % (Auto) 0.1 L (2-4) % Baso % (Auto) 1.0 (0-2) % Neut # (Auto) 9700 H (3430-4689) /uL Lymph # (Auto) 1600 (5376-0760) /uL [place] # (Auto) 600 (0-900) /uL Eos # (Auto) 0 (0-450) /uL Baso # (Auto) 100 (0-100) /uL Sodium 135 L (137-145) mmol/L Potassium 3.6 (3.4-5.1) mmol/L Chloride 99 (98-107) mmol/L Carbon Dioxide 24 (22-32) mmol/L BUN 8 L (9-20) mg/dL Creatinine 0.70 (0.66-1.25) mg/dL Estimated GFR > 60 (>60) mL/min BUN/Creatinine Ratio 11.4 (6-22) Glucose 145 H (70-100) mg/dL Calcium 9.9 (8.4-10.2) mg/dL Total Bilirubin 1.2 (0.2-1.3) mg/dL AST 39 (17-59) IU/L ALT 43 (<50) IU/L Alkaline Phosphatase 110 (38-126) U/L Total Protein 7.9 (6.3-8.2) g/dL Albumin 4.5 (3.5-5.0) g/dL Globulin 3.4 (1.7-4.1) g/dL Albumin/Globulin Ratio 1.3 (1.0-2.8) Lipase 2126 H (23-300) U/L Urine RBC None seen (0-5/HPF) Urine WBC None seen (0-5/HPF) Ur Squamous Epith Cells 0-1 /hpf (0-5/HPF) Amorphous Sediment 2+ Urine Bacteria None seen (None) Urine Mucus 2+ H (Negative) Ur Culture Indicated? Cult not indicated Point of care testing: Urine Dip Bedside Urine Glucose Negative Bedside Urine Bilirubin - Negative Bedside Urine Ketone ++ 40 Urine Specific [place] 1.010 Bedside Urine Occult Blood - Negative Bedside Urine pH 8.0 Bedside Urine Protein +/- 15 Bedside Urine Urobilinogen - Negative Bedside Urine Nitrite - Negative Bedside Urine Leukocytes - Negative Esterase MDM Narrative Medical decision making narrative: 09/16/23: Mank since seen and independently evaluated myself. Presented with abdominal and back pain. Patient has had pancreatitis before he states very similar was having trouble keeping anything down despite having Zofran at home. He states had been able to keep down any liquids for about 12 hours. Last drink was Friday. Patient has had some mild withdrawal symptoms. He has labs consistent with pancreatitis lipase in the 2000 range, slightly elevated white count otherwise normal hemoglobin, platelets, LFTs and electrolytes. 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 Discussed with Dr. Venegas in the hospitalist, he would like for us to consult with Gastroenterology to see if we need to do any additional interventions for the splenic vein or requires transfer. Ask for call back after that discussion. Spoke with GI at [facility], Dr. Daniels. Reviewed patient's findings, CT findings labs and medical history. She states does not require any interventions this is not unexpected with his pancreatitis and does not require any additional intervention, does not require an EGD or scope before this particular finding. Treat as a normal pancreatitis with no other interventions currently. She does recommend patient stop alcohol use. Discharge Plan Departure Patient Disposition: Admitted As Inpatient Clinical Impression: Pancreatitis, Splenic vein thrombosis Admit Date/Time: 09/16/23 10:53 Admit Provider: Johnie Sullivan
[2023-09-16 06:03] LABS: Add Manual Diff / Slide Review NO; Basophils Absolute Auto 100 /uL (0-100); Eosinophils Absolute Auto 0 /uL (0-450); Eosinophils Percent Auto 0.1 % (2-4); Hematocrit 47.9 % (41-53); Lymphocytes Absolute Auto 1600 /uL (1100-4500); Mean Corpuscular HGB Conc 33.5 % (30-36); Mean Corpuscular Hemoglobin 28.2 PG (26-34); Mean Corpuscular Volume 84.1 fL (80-100); Monocytes Absolute Auto 600 /uL (0-900); Monocytes Percent Auto 4.6 % (3-14); Neutrophils Absolute Auto 9700 /uL (1500-7000); Neutrophils Percent Auto 81.3 % (50-75); Platelet Count 254 X10^3/uL (150-400); Red Blood Cell Count 5.69 X10^6/uL (4.5-5.9); Red Cell Distribution Width 15.3 % (11.6-14.8)
--- NOTE | 2023-09-16 06:07 | DI.CT.S_ITS ---
PROCEDURE: CT ABDOMEN PELVIS W CON INDICATIONS: vomiting hx of pancreatitis TECHNIQUE: After the administration of intravenous contrast, axial sections acquired from the lung bases to the pubic symphysis. Coronal and sagittal reformats were performed. For radiation dose reduction, the following was used: automated exposure control, adjustment of mA and/or kV according to patient size. COMPARISON: [facility], CT, CT ABDOMEN PELVIS W CON, 04/17/2022, 23:17. FINDINGS: Image quality: Excellent. Lung bases: No suspicious pulmonary nodules or consolidation. No basilar effusion. Heart: No significant findings. ABDOMEN: Liver: Unremarkable. Gallbladder: Unremarkable. Biliary ducts: Unremarkable. Pancreas: Diffuse peripancreatic inflammation. No discrete fluid collection. Previously seen fluid collections on CT dated April 17, 2022 have resolved. Normal parenchymal enhancement. Pancreatic duct is normal in caliber. No solid mass. Spleen: Unremarkable. Adrenal Glands: Unremarkable. Kidneys and Ureters: Symmetric enhancement with no hydronephrosis or nephrolithiasis bilaterally. Subcentimeter cortical hypodensities are too small to characterize, statistically cysts. Stomach and Bowel: Small hiatal hernia. Stomach is decompressed, limiting evaluation, but appears grossly normal. Small and large bowel is normal in caliber, without obstruction. Normal appendix (2/58). No pneumatosis, pneumoperitoneum or portal venous gas. Peritoneum: No abnormal intraperitoneal fluid. Ventral Wall: Tiny fat containing umbilical hernia. Abdominal Nodes: No retroperitoneal or mesenteric adenopathy by size criteria. A few prominent, but not enlarged, lymph nodes in the left upper quadrant measuring up to 8 mm in short axis, likely reactive. Vessels: Aorta and inferior vena cava are normal in size. 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 Patent portal vein. Patent hepatic veins. Patent bilateral renal veins. No deep venous thrombosis. PELVIS: Pelvic Organs: Unremarkable. Bladder: Unremarkable. Pelvic Nodes: No enlarged lymph nodes. Miscellaneous: No hernias are seen. Bones: No acute fracture. No aggressive appearing lytic or blastic osseous lesion. IMPRESSION: 1. Acute interstitial pancreatitis. No CT evidence of necrotizing pancreatitis. No fluid collection. 2. 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 I agree with the preliminary report. Dictated by: Luis Bear M.D. on 09/16/2023 at 9:08 Approved by: Luis Bear M.D. on 09/16/2023 at 9:17
[2023-09-16 06:12] LABS: Alanine Aminotransferase 43 IU/L (<50); Albumin 4.5 g/dL (3.5-5.0); Albumin Globulin Ratio 1.3 (1.0-2.8); Alkaline Phosphatase 110 U/L (38-126); Aspartate Aminotransferase 39 IU/L (17-59); BUN Creatinine Ratio 11.4 (6-22); Bilirubin Total 1.2 mg/dL (0.2-1.3); Blood Urea Nitrogen 8 mg/dL (9-20); Calcium 9.9 mg/dL (8.4-10.2); Carbon Dioxide 24 mmol/L (22-32); Chloride 99 mmol/L (98-107); Estimated Glomerular Filt Rate > 60 mL/min (>60); Globulin 3.4 g/dL (1.7-4.1); Glucose 145 mg/dL (70-100); HEMOLYSIS < 15 (0-50); Potassium 3.6 mmol/L (3.4-5.1); Sodium 135 mmol/L (137-145); Total Protein 7.9 g/dL (6.3-8.2)
[2023-09-16] MEDS: LORazepam 2 MG/ML INJ 1 MG IV (06:13)
[2023-09-16] MEDS: KETOROLAC 30 MG/ML VIAL 15 MG IV (06:13)
[2023-09-16] MEDS: SODIUM CHLORIDE 0.9% 1,000 ML 1000 ML IV ×2 (06:15→07:05)
[2023-09-16] MEDS: ONDANSETRON 4 MG/2 ML INJ IV ×4 (06:15→20:13)
[2023-09-16] MEDS: PANTOPRAZOLE 40 MG VIAL IV (06:16)
[2023-09-16 06:19] LABS: Lipase 2126 U/L (23-300)
[2023-09-16] MEDS: HYDROMORPHONE 1 MG INJ IV (07:03)
--- NOTE | 2023-09-16 07:27 | PC.NURSE ---
pt states that the pain medication helped and he is mostly experiencing pain in mid back area. pt denies nausea.
[2023-09-16] MEDS: HYDROMORPHONE 0.5 MG INJ IV ×3 (08:32→11:57)
[2023-09-16] MEDS: SODIUM CHLORIDE 0.9% 1,000 ML 200 ML IV (08:34)
[2023-09-16 09:33] LABS: Amorphous Sediment Urine 2+; Bacteria Urine None Seen; RBC Urine None Seen (0-5/HPF); Squamous Epithelial Cell Urine 0-1 /HPF (0-5/HPF); WBC Urine None Seen (0-5/HPF)
[2023-09-16 09:34] LABS: Culture Indicated Urine Cult Not Indicated; Mucus Urine 2+ (Negative)
[2023-09-16] MEDS: SODIUM CHLORIDE 0.45% 1,000 ML 100 ML IV (13:05)
[2023-09-16] MEDS: OXYCODONE IR 10 MG TABLET PO (13:10)
--- NOTE | 2023-09-16 13:45 | PC.NURSE ---
Pt arrived from ED in wheelchair at 1210. A&Ox4, moaning and c/o 5/10 back/upper abdominal pain. Lung sounds CTA, bowel sounds present, CMS+, CIWA 2. Nausea present with dry heaves. PRN meds for nausea and pain administered per MAR. Seizure pads placed. Pt oriented to room and call light. Bed in low position, call light within reach.
[2023-09-16] MEDS: HYDROMORPHONE 0.5 MG INJ 1.5 MG IV (14:11)
--- NOTE | 2023-09-16 16:04 | PM.HP.1 ---
History of Present Illness History of Present Illness Date Patient Seen: 09/16/23 Time Patient Seen: 16:04 Chief complaint: back pain, possible pancreas Narrative: Tc Marcelino is a 31 y.o. male with asthma, HTN, alcoholic pancreatitis who presented with one day of severe abdominal pain, nausea, vomiting. He has started drinking again as of about 3 months ago, due to increased life stress at home. He drinks about 4-5 shots of hard liquor a day. Last drink was yesterday evening. Denies prior seizure or severe alcohol withdrawal he is aware of. Has not had a recurrence of pain since last admission 04/2022. In the emergency room, he was mildly hypertensive but the remainder of his vital signs were unremarkable. Laboratory evaluation showed a mild leukocytosis with WBC of 12, but fairly unremarkable chemistries and lipase of 2126. Urinalysis was unremarkable. CT of his abdomen acute fluid collections but did show acute evidence of pancreatitis, with possible portal venous thrombosis. Discussed with outside GI physician who did not recommend anticoagulation time and no further evaluation was necessary. Patient was admitted for further management of recurrence of his alcoholic pancreatitis. [facility] Medical History Acute hypokalemia Tachycardia Pseudocyst of pancreas Alcohol withdrawal Hypertension Asthma, exercise induced Patient denies medical problems Surgical History No history of previous surgery Family History Father Hypertension Alcoholism Mother No significant medical problems Social History household members: spouse and children Smoking Status: Current every day smoker alcohol intake: current Meds Home Medications and Allergies Home Medications Medication Instructions Recorded Confirmed Type losartan 50 mg tablet 25 mg PO DAILY 02/23/22 09/16/23 History escitalopram oxalate 10 mg tablet 10 mg PO DAILY 09/16/23 09/16/23 History Allergies Allergy/AdvReac Type Severity Reaction Status Date / Time No Known Drug Allergies Allergy Verified 04/16/22 00:57 Review of Systems Review of Systems Narrative: All other systems reviewed with the patient and are negative unless otherwise stated. Exam Vital Signs (past 8 hours): - 09/16/23 08:31 09/16/23 08:31 09/16/23 09:00 Temperature Pulse Rate 83 76 Respiratory Rate 18 22 Blood Pressure 145/103 H Pulse Oximetry 96 98 Oxygen Delivery Method Oxygen Flow Rate 09/16/23 09:30 09/16/23 10:00 09/16/23 10:03 Temperature Pulse Rate 76 81 Respiratory Rate 21 17 Blood Pressure 162/99 H Pulse Oximetry 98 98 Oxygen Delivery Method Oxygen Flow Rate 09/16/23 10:03 09/16/23 10:15 09/16/23 10:30 Temperature Pulse Rate 88 87 73 Respiratory Rate 19 21 Blood Pressure Pulse Oximetry 98 97 Oxygen Delivery Method Oxygen Flow Rate 09/16/23 10:31 09/16/23 10:31 09/16/23 10:45 Temperature Pulse Rate 76 85 Respiratory Rate 19 38 H Blood Pressure 153/69 H Pulse Oximetry 97 87 L Oxygen Delivery Method Oxygen Flow Rate 09/16/23 11:00 09/16/23 11:00 09/16/23 11:15 Temperature Pulse Rate 67 109 H Respiratory Rate 21 31 H Blood Pressure 148/81 H Pulse Oximetry 97 Oxygen Delivery Method Oxygen Flow Rate 09/16/23 11:30 09/16/23 11:30 09/16/23 12:10 Temperature 98.2 F Pulse Rate 92 H 83 Respiratory Rate 26 H 20 Blood Pressure 185/118 H 159/89 H Pulse Oximetry 98 98 Oxygen Delivery Method Oxygen Flow Rate 0 09/16/23 12:30 09/16/23 13:12 09/16/23 16:02 Temperature 98.5 F Pulse Rate 84 Respiratory Rate 16 Blood Pressure 165/90 H Pulse Oximetry 98 99 Oxygen Delivery Method Room Air Room Air Oxygen Flow Rate 0 Oxygen Delivery Method Room Air Oxygen Flow Rate 0 Narrative Exam Narrative: General:? Patient is well developed and well nourished, in no distress at this time. HEENT:? Normocephalic, atraumatic, extraocular muscles intact, oral pharynx is clear and mucous membranes are moist. Neck: supple and symmetric, trachea is midline, no cervical adenopathy. Negative for JVD Chest:? Normal AP diameter and contour without kyphoscoliosis, no tachypnea, equal chest rise bilaterally. Lungs:? CTA b/l no wheezing rhonchi or rales. Cardio:?RRR no m/r/g. Abdomen: soft, mild distension with epigastric tenderness. Musculoskeletal:? Muscle strength and tone are equal within normal limits, no deformity. Extremities: No edema or joint effusions. No cyanosis or clubbing. Skin:? Pale,? Warm to touch,dry and intact without rashes, ulcerations or petechiae.? Neuro:? Alert and orientated x3,? sensation to touch intact in all extremities, no gross deficits noted of cranial nerves. Psych:? Patient has a well-kept appearance, appropriate affect, mental status attitude thought context and judgment are appropriate for age. Objective Labs 09/16/23 05:50 09/16/23 05:50 Labs: Laboratory Results - last 24 hr 09/16/23 09/16/23 05:50 08:30 WBC 12.0 H RBC 5.69 Hgb 16.0 Hct 47.9 MCV 84.1 MCH 28.2 MCHC 33.5 RDW 15.3 H Plt Count 254 Neut % (Auto) 81.3 H Lymph % (Auto) 13.0 L Swisher % (Auto) 4.6 Eos % (Auto) 0.1 L Baso % (Auto) 1.0 Neut # (Auto) 9700 H Lymph # (Auto) 1600 Swisher # (Auto) 600 Eos # (Auto) 0 Baso # (Auto) 100 Sodium 135 L Potassium 3.6 Chloride 99 Carbon Dioxide 24 BUN 8 L Creatinine 0.70 Estimated GFR > 60 BUN/Creatinine Ratio 11.4 Glucose 145 H Calcium 9.9 Total Bilirubin 1.2 AST 39 ALT 43 Alkaline Phosphatase 110 Total Protein 7.9 Albumin 4.5 Globulin 3.4 Albumin/Globulin Ratio 1.3 Lipase 2126 H Urine RBC None seen Urine WBC None seen Ur Squamous Epith Cells 0-1 /hpf Amorphous Sediment 2+ Urine Bacteria None seen Urine Mucus 2+ H Ur Culture Indicated? Cult not indicated Assessment & Plan Assessment & Plan narrative: 1. Alcoholic pancreatitis - continue NPO, IVF. Trial clears in the morning. - attempted oral pain control but did not tolerate, continue dilaudid 2mg q2 prn. May need continued adjustments. - Counseled on alcohol cessation. 2. Alcohol use - counseled on cessation. Continue MVI, Folate, Thiamine. Orderd CIWA precautions for possible withdrawal. Did receive some benzodiazepines in the ER, but appears comfortable now. 3. GERD - given resumption of drinking, will restart pantoprazole PO. 4. HTN - continue home losartan. Code: Full Dispo: admitted inpatient as his stay is expected to exceed two midnights. I have utilized all available immediate resources to obtain, update, or review the patient's current medications. Additional history was obtained via discussion with ER provider. Discussed plan of care with patient. Quality VTE Deep Vein Thrombosis/Pulmonary Embolism Present on Admission: No
[2023-09-16] MEDS: METOCLOPRAMIDE 10 MG/2 ML INJ 5 MG IV (16:35)
[2023-09-16] MEDS: HYDROMORPHONE 2 MG INJ IV ×4 (16:35→22:07)
[2023-09-16] MEDS: SODIUM CHLORIDE 0.45% 1,000 ML 125 ML IV (21:52)
[2023-09-17] VITALS (15 sets, daily range): BP systolic 144–190; BP diastolic 88–113; PULSE 91–114; RESP 18–20; TEMP 35.7–36.4; O2SAT 97–98
[2023-09-17] MEDS: HYDROMORPHONE 2 MG INJ IV ×8 (00:19→20:32)
[2023-09-17] MEDS: METOCLOPRAMIDE 10 MG/2 ML INJ 5 MG IV ×3 (00:19→22:30)
[2023-09-17] MEDS: OXYCODONE IR 10 MG TABLET PO ×3 (05:14→22:31)
[2023-09-17] MEDS: SODIUM CHLORIDE 0.45% 1,000 ML 125 ML IV ×3 (05:14→22:31)
[2023-09-17] MEDS: ESCITALOPRAM 10 MG TABLET PO (08:58)
[2023-09-17] MEDS: ONDANSETRON 4 MG/2 ML INJ IV ×2 (08:58→16:17)
[2023-09-17] MEDS: LOSARTAN 50 MG TABLET PO (08:58)
[2023-09-17] MEDS: ENOXAPARIN 40 MG/0.4 ML SYRINGE SUBCUT (09:00)
[2023-09-17] MEDS: PANTOPRAZOLE DR 40 MG TABLET PO (09:57)
[2023-09-17] MEDS: FOLIC ACID 1 MG TABLET PO (09:57)
[2023-09-17] MEDS: MULTIVITAMIN 1 TABLET 1 TAB PO (09:57)
[2023-09-17] MEDS: THIAMINE 100 MG TABLET PO (09:57)
[2023-09-17] MEDS: OXYCODONE IR 5 MG TABLET PO ×2 (14:44→18:26)
--- NOTE | 2023-09-17 17:21 | PM.PN.1 ---
Subjective Subjective Interval history: 32 M admitted with alcoholic pancreatitis due to alcohol. He continues to have pain today but is a bit better. Tolerated small amounts of water, does not wish to advance diet any further. Exam Vital Signs (past 8 hours): - 09/17/23 12:00 09/17/23 13:00 09/17/23 16:00 Temperature 96.3 F L 96.8 F L Pulse Rate 93 H 114 H Respiratory Rate 18 18 Blood Pressure 144/88 H 155/91 H Pulse Oximetry 97 97 97 Oxygen Delivery Method Room Air Oxygen Flow Rate 0 0 Oxygen Delivery Method Room Air Oxygen Flow Rate 0 Narrative Exam Narrative: General:? Patient is well developed and well nourished, in no distress at this time. HEENT:? Normocephalic, atraumatic, extraocular muscles intact, oral pharynx is clear and mucous membranes are moist. Neck: supple and symmetric, trachea is midline, no cervical adenopathy. Negative for JVD Chest:? Normal AP diameter and contour without kyphoscoliosis, no tachypnea, equal chest rise bilaterally. Lungs:? CTA b/l no wheezing rhonchi or rales. Cardio:?RRR no m/r/g. Abdomen: soft, non-distended, with improved epigastric tenderness. Musculoskeletal:? Muscle strength and tone are equal within normal limits, no deformity. Extremities: No edema or joint effusions. No cyanosis or clubbing. Skin:? Pale,? Warm to touch,dry and intact without rashes, ulcerations or petechiae.? Neuro:? Alert and orientated x3,? sensation to touch intact in all extremities, no gross deficits noted of cranial nerves. Psych:? Patient has a well-kept appearance, appropriate affect, mental status attitude thought context and judgment are appropriate for age. Objective Labs 09/16/23 05:50 09/16/23 05:50 [facility] Medical History Acute hypokalemia Tachycardia Pseudocyst of pancreas Alcohol withdrawal Hypertension Asthma, exercise induced Patient denies medical problems Surgical History No history of previous surgery Family History Father Hypertension Alcoholism Mother No significant medical problems Social History household members: spouse and children Smoking Status: Current every day smoker alcohol intake: current Assessment & Plan Assessment & Plan narrative: 1. Alcoholic pancreatitis - Advanced to clears, but will continue fluids as not tolerating much today. - attempted oral pain control but did not tolerate initially, now improving. Continue dilaudid 2mg q2 prn for breakthrough. May need continued adjustments. - Counseled on alcohol cessation. 2. Alcohol use - counseled on cessation. Continue MVI, Folate, Thiamine. Orderd CIWA precautions for possible withdrawal. Did receive some benzodiazepines in the ER, but appears comfortable now. 3. GERD - given resumption of drinking, continue oral pantoprazole. 4. HTN - continue home losartan. Code: Full Dispo: admitted inpatient as his stay is expected to exceed two midnights. I have utilized all available immediate resources to obtain, update, or review the patient's current medications. Additional history was obtained via discussion with ER provider. Discussed plan of care with patient. Quality VTE Deep Vein Thrombosis/Pulmonary Embolism Present on Admission: No
[2023-09-18] VITALS (7 sets, daily range): BP systolic 150–154; BP diastolic 91–99; PULSE 96–107; RESP 18; TEMP 35.9–36.8; O2SAT 95–99
[2023-09-18] MEDS: HYDROMORPHONE 2 MG INJ IV ×2 (01:20→08:00)
[2023-09-18] MEDS: METOCLOPRAMIDE 10 MG/2 ML INJ 5 MG IV (04:14)
[2023-09-18] MEDS: OXYCODONE IR 5 MG TABLET PO (04:39)
[2023-09-18] MEDS: SODIUM CHLORIDE 0.45% 1,000 ML 125 ML IV (06:23)
[2023-09-18] MEDS: ENOXAPARIN 40 MG/0.4 ML SYRINGE SUBCUT (08:39)
[2023-09-18] MEDS: THIAMINE 100 MG TABLET PO (08:40)
[2023-09-18] MEDS: LOSARTAN 50 MG TABLET PO (08:40)
[2023-09-18] MEDS: ESCITALOPRAM 10 MG TABLET PO (08:40)
[2023-09-18] MEDS: FOLIC ACID 1 MG TABLET PO (08:40)
[2023-09-18] MEDS: PANTOPRAZOLE DR 40 MG TABLET PO (08:40)
[2023-09-18] MEDS: MULTIVITAMIN 1 TABLET 1 TAB PO (08:42)
[2023-09-18] MEDS: OXYCODONE IR 10 MG TABLET PO (11:05)
--- NOTE | 2023-09-18 12:29 | PM.DS.1 ---
History of Present Illness History of Present Illness Date Patient Seen: 09/18/23 Time Patient Seen: 09:45 Chief complaint: back pain, possible pancreas Narrative: Per admitting provider, Tc Marcelino is a 31 y.o. male with asthma, HTN, alcoholic pancreatitis who presented with one day of severe abdominal pain, nausea, vomiting. He has started drinking again as of about 3 months ago, due to increased life stress at home. He drinks about 4-5 shots of hard liquor a day. Last drink was yesterday evening. Denies prior seizure or severe alcohol withdrawal he is aware of. Has not had a recurrence of pain since last admission 04/2022. In the emergency room, he was mildly hypertensive but the remainder of his vital signs were unremarkable. Laboratory evaluation showed a mild leukocytosis with WBC of 12, but fairly unremarkable chemistries and lipase of 2126. Urinalysis was unremarkable. CT of his abdomen acute fluid collections but did show acute evidence of pancreatitis, with possible portal venous thrombosis. Discussed with outside GI physician who did not recommend anticoagulation time and no further evaluation was necessary. Patient was admitted for further management of recurrence of his alcoholic pancreatitis. Discharge Providers Provider Date of admission: 09/16/23 10:53 Discharge Date: 09/18/23 Primary care physician: Chiara Lyons MD Discharge provider: Johnie Sullivan DO Summary Hospital Course Discharge Diagnosis: 1. Alcoholic pancreatitis 2. Alcohol use 3. GERD 4. HTN Hospital Course: This is a 32 year old male with PMH of alcohol use, prior alcoholic pancreatitis, GERD, and HTN who recently started drinking alcohol again due to recent stressful life events. He presented with abdominal pain and elevated lipase, CT scan showed uncomplicated pancreatitis as well. He was admitted for further management. His diet was slowly advanced from NPO to clears and then to low fat diet as expected. On the day of discharge he was tolerating some of his low fat diet without significant pain or nausea. He was discharged home with pain medications and antinauseal medication. He was counseled on the importance of alcohol cessation, which he appears motivated to stop at the time of discharge. Time Spent with Patient Time spent: Greater than 30 minutes Exam Vital Signs (past 8 hours): - 09/18/23 05:00 09/18/23 07:47 09/18/23 08:00 Temperature 96.7 F L Pulse Rate 104 H Respiratory Rate 18 Blood Pressure 150/91 H Pulse Oximetry 95 98 Oxygen Delivery Method Room Air Room Air Oxygen Flow Rate 0 09/18/23 08:00 09/18/23 11:23 Temperature 97.2 F L Pulse Rate 96 H Respiratory Rate 18 Blood Pressure 151/99 H Pulse Oximetry 98 99 Oxygen Delivery Method Room Air Oxygen Flow Rate 0 Oxygen Delivery Method Room Air Oxygen Flow Rate 0 Narrative Exam Narrative: General:? Patient is well developed and well nourished, in no distress at this time. HEENT:? Normocephalic, atraumatic, extraocular muscles intact, oral pharynx is clear and mucous membranes are moist. Neck: supple and symmetric, trachea is midline, no cervical adenopathy. Negative for JVD Chest:? Normal AP diameter and contour without kyphoscoliosis, no tachypnea, equal chest rise bilaterally. Lungs:? CTA b/l no wheezing rhonchi or rales. Cardio:?RRR no m/r/g. Abdomen: soft, non-distended, non-tender Musculoskeletal:? Muscle strength and tone are equal within normal limits, no deformity. Extremities: No edema or joint effusions. No cyanosis or clubbing. Skin:? Pale,? Warm to touch,dry and intact without rashes, ulcerations or petechiae.? Neuro:? Alert and orientated x3,? sensation to touch intact in all extremities, no gross deficits noted of cranial nerves. Psych:? Patient has a well-kept appearance, appropriate affect, mental status attitude thought context and judgment are appropriate for age. Objective Labs 09/16/23 05:50 09/16/23 05:50 [facility] Medical History Acute hypokalemia Tachycardia Pseudocyst of pancreas Alcohol withdrawal Hypertension Asthma, exercise induced Patient denies medical problems Surgical History No history of previous surgery Family History Father Hypertension Alcoholism Mother No significant medical problems Social History household members: spouse and children Smoking Status: Current every day smoker alcohol intake: current Discharge Plan Discharge Plan Patient Disposition: Home Provider Discharge Comment: You were admitted to the hospital with a flare of pancreatitis. Improved with supportive care and bowel rest. Continue to advance your diet at home as tolerated, some pain and nausea medications were sent to [facility]. Continue to work on cutting down on your alcohol use. Discharge orders & Medications Prescriptions: New oxycodone 5 mg tablet 5 mg PO Q6H PRN (Reason: pain) 7 Days Qty: 25 0RF ondansetron HCl 4 mg tablet 4 mg PO Q6H PRN (Reason: nausea and vomiting) 30 Days Qty: 30 0RF Continued losartan 50 mg Tablet 25 mg PO DAILY escitalopram oxalate 10 mg Tablet 10 mg PO DAILY Medication counseling provided by Pharmacist: Yes Follow up/Referrals: Chiara Lyons MD [Primary Care Provider] - Diet/Activity/Treatments Diet: Diet as Tolerated and Low-fat Activity: As tolerated ,no restrictions. Visit Report/Discharge Packet Instructions: Acute Pancreatitis Stand Alone Forms: Patient Portal/API, Stroke Signs & Symptoms Discharge Data Primary Care Provider: Chiara Lyons Quality VTE Deep Vein Thrombosis/Pulmonary Embolism Present on Admission: No
--- NOTE | 2023-09-18 12:42 | CM.DANOTE ---
Reviewed EMR and team rounds for pt's medical status and anticipated d/c needs. Met with pt at bedside to introduce self and role, he was found to be alert, conversive, expressing feeling much better today-no N/V or pain at this time. Payor: Shilpi, [facility] PCP: Dr. Alcaraz Pt is a 32 year-old M admitted for chronic alcoholic pancreatitis. He presented at the ED on 09/16/23 for nausea/vomiting and severe abdominal pain. He had been sober for some unknown period of time, then began drinking again about 3-months ago due to stress. 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 He also states that he is planning on connecting again with the [facility] AA meeting held at [facility], with whom he already has a strong relationship with. Plan: Pt will d/c home today, f/u with OP [facility]IK support in his [facility] community. Spouse will transport home. No further d/c needs identified at this time. Discharge Planning/Care Management CM Discharge Assessment Start: 09/18/23 12:34 Freq: Status: Active Protocol: Document 09/18/23 12:35 DPL (Rec: 09/18/23 12:42 DPL [id number]) Discharge Planning Assessment Assigned Production Truck Driver LAKSHMI [place] Advance Directives? No Advance Directives on File No History Provided By Patient,Medical Record Expected Length of Stay 1 Has Patient been admitted in last 30 No days? Prior Living Arrangements House Household Members spouse,children Type of transporation used prior to Drives own vehicle admit Independent with ADL's Yes Is patient alert and oriented? Yes Comment N/A Caregiver for Another No Comment N/A Comment No anticipated home d/c needs identified at this time. Barriers to Discharge No Discharge Plan Home Transportation Arrangement Family Referrals Initiated None needed Additional Comment At this time Review Status In Process Please Provide Date Initial DC 09/18/23 Assessment Was Performed
== END 2023-09-18 12:56 | disposition home or self-care (01) | DRG 439 ==
LOC: ED 10:52 → AC 10:54
PROVIDERS: Emergency Medicine; Admitting Provider Internal Medicine; Emergency Provider Emergency Medicine; PCP Family Medicine; Referring Provider Emergency Medicine; Visit Provider Internal Medicine
DX: K85.20 Alcohol induced acute pancreatitis without necrosis or infection (principal); F10.988 Alcohol use, unspecified with other alcohol-induced disorder; I82.890 Acute embolism and thrombosis of other specified veins; K21.9 Gastro-esophageal reflux disease without esophagitis; I10 Essential (primary) hypertension; F17.210 Nicotine dependence, cigarettes, uncomplicated
CPT/HCPCS: 36415; 74177; 80053; 81003; 81015; 83690; 85025; 93005; 96374; 96375; 96376; 99284; 99285; C9113; J1170; J1650; J1885; J2060; J2405; J2765; J7050; Q9967

== ENCOUNTER 2024-07-08 10:29 | Emergency (ER) | payer OTHER, SELFPAY ==
[2023-09-16 11:17] VITALS: BMI 33.5
[2024-07-08] VITALS (13 sets, daily range): BP systolic 127–169; BP diastolic 73–90; PULSE 93–123; RESP 11–21; TEMP 36.9; O2SAT 94–98; BMI 36.4
--- NOTE | 2024-07-08 10:32 | DI.RAD.S_ITS ---
PROCEDURE: XR CHEST 1V INDICATIONS: chest pain TECHNIQUE: One view of the chest was acquired. COMPARISON: [facility], CR, XR CHEST 1V, 02/23/2022, 19:07. FINDINGS: Surgical changes and devices: None. Lungs and pleura: Lungs are clear. No pleural effusions or pneumothorax. Mediastinum: Mediastinal contours appear normal. Heart size is normal. Bones and chest wall: No suspicious bony lesions. Overlying soft tissues appear unremarkable. IMPRESSION: No acute cardiopulmonary abnormality is seen. Dictated by: Keara Patel MD, PhD on 07/08/2024 at 11:10 Approved by: Keara Patel MD, PhD on 07/08/2024 at 11:11
[2024-07-08 10:45] LABS: Add Manual Diff / Slide Review NO; Basophils Absolute Auto 100 /uL (0-100); Eosinophils Absolute Auto 0 /uL (0-450); Eosinophils Percent Auto 0.1 % (2-4); Hematocrit 48.9 % (41-53); Hemoglobin 16.3 g/dL (13.5-17.5); Lymphocytes Absolute Auto 1500 /uL (1100-4500); Lymphocytes Percent Auto 13.8 % (25-40); Mean Corpuscular HGB Conc 33.3 % (30-36); Mean Corpuscular Hemoglobin 32.1 PG (26-34); Mean Corpuscular Volume 96.3 fL (80-100); Monocytes Absolute Auto 500 /uL (0-900); Monocytes Percent Auto 4.2 % (3-14); Neutrophils Absolute Auto 9000 /uL (1500-7000); Neutrophils Percent Auto 80.9 % (50-75); Platelet Count 305 X10^3/uL (150-400); Red Blood Cell Count 5.08 X10^6/uL (4.5-5.9); Red Cell Distribution Width 18.3 % (11.6-14.8); White Blood Cell Count 11.2 X10^3/uL (4.5-11.0)
[2024-07-08 10:50] LABS: Prothrombin Time 11.1 SECONDS (9.4-12.5)
[2024-07-08 10:52] LABS: PTT Partial Thromboplastin Tim 35 SECONDS (25.1-36.5)
[2024-07-08 10:54] LABS: Alanine Aminotransferase 76 IU/L (<50); Albumin 4.9 g/dL (3.5-5.0); Albumin Globulin Ratio 1.4 (1.0-2.8); Alkaline Phosphatase 96 U/L (38-126); Aspartate Aminotransferase 138 IU/L (17-59); BUN Creatinine Ratio 6.6 (6-22); Bilirubin Total 1.2 mg/dL (0.2-1.3); Blood Urea Nitrogen 5 mg/dL (9-20); Carbon Dioxide 20 mmol/L (22-32); Chloride 102 mmol/L (98-107); Creatine Kinase 66 U/L (55-170); Estimated Glomerular Filt Rate > 60 mL/min (>60); Globulin 3.6 g/dL (1.7-4.1); Glucose 138 mg/dL (70-100); HEMOLYSIS < 15 (0-50); Lipase 121 U/L (23-300); Magnesium 1.8 mg/dL (1.6-2.3); Potassium 3.9 mmol/L (3.4-5.1); Sodium 140 mmol/L (137-145); Total Protein 8.5 g/dL (6.3-8.2)
--- NOTE | 2024-07-08 10:57 | EKG_ITS ---
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
[2024-07-08 11:05] LABS: NT-proBNP (BNP-Adult 18+) < 20 pg/mL (<125); Troponin I < 0.012 ng/mL (0.01-0.034)
--- NOTE | 2024-07-08 11:06 | ED.CHESTPAIN ---
HPI - Chest Pain General Chief Complaint: Chest Pain Stated Complaint: chest pain Time Seen by Provider: 07/08/24 10:41 History of Present Illness HPI narrative: Patient 33-year-old male history of pancreatitis secondary to alcohol abuse hypertension presenting today with left-sided chest pain. He reports sitting in a meeting when he felt he has sudden onset sided chest pain. He felt like he could not take deep breath. He actually reports that this morning when he woke up he could not quite get enough air. He says that is unusual because he usually has exercise-induced asthma. He denies any sort of physical injury or activity. It hurt to like touch sometimes to take a deep breath. It has not reproducible with arm movement. He has no family history of DC he has no known coronary artery disease. Related Data Home Medications Medication Instructions Recorded Confirmed losartan 50 mg tablet 25 mg PO DAILY 02/23/22 09/16/23 escitalopram oxalate 10 mg tablet 10 mg PO DAILY 09/16/23 09/16/23 Allergies Allergy/AdvReac Type Severity Reaction Status Date / Time No Known Drug Allergies Allergy Verified 04/16/22 00:57 Patient History Medical History Acute hypokalemia Tachycardia Pseudocyst of pancreas Alcohol withdrawal Hypertension Asthma, exercise induced Patient denies medical problems Surgical History No history of previous surgery Family History Father Hypertension Alcoholism Mother No significant medical problems Social History household members: spouse and children Smoking Status: Current every day smoker alcohol intake: current Smoking Status: Current every day smoker alcohol intake frequency: 3 or more drinks per day Alcohol type: hard liquor Substance Use Type: marijuana Exam Initial Vital Signs Initial Vital Signs: Vital Signs Temperature 98.5 F 07/08/24 10:41 Pulse Rate 93 H 07/08/24 10:41 Respiratory Rate 16 07/08/24 10:41 Blood Pressure 148/84 H 07/08/24 10:41 Pulse Oximetry 94 07/08/24 10:41 Oxygen Delivery Method Room Air 07/08/24 10:41 GENERAL: Alert pleasant appears to not feel well HEENT: Head atraumatic,EOMI, pupils reactive, face symmetric, moist mucous membranes CARDIOVASCULAR: Regular rate and rhythm without murmurs, rubs or gallops. Tender over left chest. Reproducible to palpation not necessarily with arm movement RESPIRATORY: Breath sounds equal bilaterally, no wheezes rales or rhonchi. ABDOMEN: Soft, nontender. Normoactive bowel sounds all 4 quadrants. No guarding or rebound. EXTREMITIES: Normal range of motion, no clubbing or edema. Neurovascularly intact NEUROLOGICAL: Alert and oriented x4.Normal gait and speech. Cranial nerves II through XII grossly intact. SKIN: Warm, dry, no laceration, no petechiae, no rashes or lesions. Scores HEART Score Heart Score history: Slightly Suspicious Heart Score EKG: Normal Heart Score Age: < 45 years old Heart Score risk factors: 1-2 risk factors Heart Score troponin: < or = to normal limit Heart Score Total: 1 Course Orders Ordered: ED Orders 07/08/24 10:30 Complete Blood Count AUTO DIFF Stat Comprehensive Metabolic Panel Stat D Dimer Stat Lipase Stat Magnesium Stat NT-proBNP (BNP-Adult 18+) Stat PTT Partial Thromboplastin Vasu Stat Prothrombin Time INR Stat Troponin & CK Cardiac Panel Stat 07/08/24 10:32 XR chest 1V Stat EKG-12 Lead Stat 07/08/24 11:41 EKG-12 Lead Stat 07/08/24 12:40 Trop I [Troponin I] Stat 07/08/24 13:58 CT angio chest PE protocol Stat Discontinued Medications Albuterol (Albuterol 2.5 Mg/3 Ml Neb (Adult)) 2.5 mg INH NOW ONE Stop: 07/08/24 11:42 Last Admin: 07/08/24 12:02 Dose: 2.5 mg Documented By: SIMRAN Aspirin (Aspirin 81 Mg Chew Tab) 324 mg PO NOW ONE Stop: 07/08/24 10:33 Last Admin: 07/08/24 10:41 Dose: Not Given Documented By: MARY JO Sodium Chloride (Normal Saline 0.9%) 1,000 mls @ 1,000 mls/hr IV BOLUS ONE Stop: 07/08/24 14:57 Last Infusion: 07/08/24 15:32 Dose: Infused Documented By: Admin: 07/08/24 14:21 Dose: 1,000 mls/hr Documented By: EMMA Ketorolac Tromethamine (Ketorolac 30 Mg/Ml Vial) 15 mg IV NOW ONE Stop: 07/08/24 11:42 Last Admin: 07/08/24 11:58 Dose: 15 mg Documented By: HANH Vital Signs Vital signs: Vital Signs - 8 hr 07/08/24 10:41 07/08/24 11:35 07/08/24 12:00 Temperature 98.5 F Pulse Rate 93 H 100 H 96 H Respiratory Rate 16 20 Blood Pressure 148/84 H Pulse Oximetry 94 98 98 Oxygen Delivery Method Room Air Oxygen Flow Rate Fraction of Inspired Oxygen 07/08/24 12:00 07/08/24 12:02 07/08/24 12:30 Temperature Pulse Rate 93 H Respiratory Rate 18 Blood Pressure 127/79 140/82 Pulse Oximetry 98 Oxygen Delivery Method Room Air Room Air Oxygen Flow Rate 0 Fraction of Inspired Oxygen 21 07/08/24 12:30 07/08/24 13:00 07/08/24 13:00 Temperature Pulse Rate 105 H 118 H Respiratory Rate 15 13 Blood Pressure 155/79 H Pulse Oximetry 98 98 Oxygen Delivery Method Oxygen Flow Rate Fraction of Inspired Oxygen 07/08/24 13:30 07/08/24 13:30 07/08/24 14:00 Temperature Pulse Rate 111 H Respiratory Rate 16 Blood Pressure 132/77 169/84 H Pulse Oximetry 97 Oxygen Delivery Method Oxygen Flow Rate Fraction of Inspired Oxygen 07/08/24 14:00 07/08/24 14:17 07/08/24 14:17 Temperature Pulse Rate 123 H 117 H Respiratory Rate 21 17 Blood Pressure 151/82 H Pulse Oximetry 97 97 Oxygen Delivery Method Room Air Oxygen Flow Rate Fraction of Inspired Oxygen 07/08/24 14:30 07/08/24 14:30 07/08/24 15:00 Temperature Pulse Rate 110 H Respiratory Rate 16 Blood Pressure 160/82 H 137/73 Pulse Oximetry 98 Oxygen Delivery Method Oxygen Flow Rate Fraction of Inspired Oxygen 07/08/24 15:00 07/08/24 15:24 07/08/24 15:24 Temperature Pulse Rate 106 H 115 H Respiratory Rate 11 L 14 Blood Pressure 157/90 H Pulse Oximetry 98 97 Oxygen Delivery Method Oxygen Flow Rate Fraction of Inspired Oxygen 07/08/24 15:30 07/08/24 15:30 Temperature Pulse Rate 109 H Respiratory Rate 16 Blood Pressure 141/76 H Pulse Oximetry 96 Oxygen Delivery Method Oxygen Flow Rate Fraction of Inspired Oxygen MDM - Chest Pain Lab Data 07/08/24 10:30 07/08/24 10:30 Labs: Lab Results 07/08/24 07/08/24 Range/Units 10:30 12:40 WBC 11.2 H (4.5-11.0) X10^3/uL RBC 5.08 (4.5-5.9) X10^6/uL Hgb 16.3 (13.5-17.5) g/dL Hct 48.9 (41-53) % MCV 96.3 (80-100) fL MCH 32.1 (26-34) PG MCHC 33.3 (30-36) % RDW 18.3 H (11.6-14.8) % Plt Count 305 (150-400) X10^3/uL Neut % (Auto) 80.9 H (50-75) % Lymph % (Auto) 13.8 L (25-40) % [place] % (Auto) 4.2 (3-14) % Eos % (Auto) 0.1 L (2-4) % Baso % (Auto) 1.0 (0-2) % Neut # (Auto) 9000 H (3191-1788) /uL Lymph # (Auto) 1500 (9692-4314) /uL [place] # (Auto) 500 (0-900) /uL Eos # (Auto) 0 (0-450) /uL Baso # (Auto) 100 (0-100) /uL PT 11.1 (9.4-12.5) SECONDS INR 1.0 (0.9-1.3) APTT 35 (25.1-36.5) SECONDS D-Dimer 753 H (<500) ng/ml Sodium 140 (137-145) mmol/L Potassium 3.9 (3.4-5.1) mmol/L Chloride 102 (98-107) mmol/L Carbon Dioxide 20 L (22-32) mmol/L BUN 5 L (9-20) mg/dL Creatinine 0.76 (0.66-1.25) mg/dL Estimated GFR > 60 (>60) mL/min BUN/Creatinine Ratio 6.6 (6-22) Glucose 138 H (70-100) mg/dL Calcium 10.0 (8.4-10.2) mg/dL Magnesium 1.8 (1.6-2.3) mg/dL Total Bilirubin 1.2 (0.2-1.3) mg/dL AST 138 H (17-59) IU/L ALT 76 H (<50) IU/L Alkaline Phosphatase 96 (38-126) U/L Total Creatine Kinase 66 (55-170) U/L Troponin I < 0.012 < 0.012 (0.01-0.034) ng/mL NT-Pro-B Natriuret Pep < 20 (<125) pg/mL Total Protein 8.5 H (6.3-8.2) g/dL Albumin 4.9 (3.5-5.0) g/dL Globulin 3.6 (1.7-4.1) g/dL Albumin/Globulin Ratio 1.4 (1.0-2.8) Lipase 121 (23-300) U/L Imaging Data Chest x-ray: Radiologist's Impression: PROCEDURE: XR CHEST 1V INDICATIONS: chest pain TECHNIQUE: One view of the chest was acquired. COMPARISON: [facility], XR CHEST 1V, 02/23/2022, 19:07. FINDINGS: Surgical changes and devices: None. Lungs and pleura: Lungs are clear. No pleural effusions or pneumothorax. Mediastinum: Mediastinal contours appear normal. Heart size is normal. Bones and chest wall: No suspicious bony lesions. Overlying soft tissues appear unremarkable. IMPRESSION: No acute cardiopulmonary abnormality is seen. Dictated by: Keara Patel MD, PhD on 07/08/2024 at 11:10 CT scan - chest: Radiologist's Impression: PROCEDURE: CT ANGIO CHEST PE PROTOCOL INDICATIONS: chest pain TECHNIQUE: After the administration of intravenous contrast, 2 mm thick sections acquired from the pulmonary apices to the posterior costophrenic angles. 3-dimensional maximum intensity projection (MIP) coronal and sagittal reformats were then acquired through the thorax. For radiation dose reduction, the following was used: automated exposure control, adjustment of mA and/or kV according to patient size. COMPARISON: [facility], XR CHEST 1V, 07/08/2024, 10:43. FINDINGS: Image quality: Diagnostic Lungs and pleura: No dense airspace disease or pleural effusions. No overtly suspicious pulmonary nodule. Mediastinum, heart, and esophagus: No acute pulmonary embolism. No hiatal hernia. Normal heart size. No pathologic lymph nodes by size criteria Chest wall and thyroid: Unremarkable Upper abdomen: Possible hepatic steatosis. No gross abnormality on these arterial phase images Bones: No acute or suspicious osseous finding. IMPRESSION: No acute pulmonary embolism or airspace disease. No pleural effusions. Dictated by: Micah Herrmann M.D. on 07/08/2024 at 14:5 ECG Data Attestation: I personally reviewed and interpreted this ECG as follows: Interpretation: Normal sinus rhythm rate 96 [place] interval 128 QRS [address] QTC [address] changes T-wave inversion noted in V3 new from previous EKG 2. Sinus rhythm rate 102 persistent T-wave inversion only in lead 3 without reciprocal changes MDM Narrative Medical decision making narrative: Patient 33-year-old male history of hypertension alcohol-induced pancreatitis presenting today with left-sided chest pain. It does present as heaviness he does feel like he is short of breath mildly reproducible with palpation. He does have a new T-wave inversion in V3 not seen on previous EKGs but no new ST changes. EKG has been reviewed with New T-wave changes no changes to the 2nd EKGs x-ray has been reviewed no acute cardiopulmonary process, CT angio does not show any pulmonary embolus or acute pulmonary process Blood work has been reviewed 2- troponins, D-dimer 753, elevation of liver enzymes AST 138 ALT 76 bilirubin is 1.2 higher from previously, no leukocytosis or anemia Patient presents today with left-sided chest pain some it is actually reproducible. He initially was noted to be mildly tachycardic he got a little bit of albuterol he was monitored for couple of hours. I went into discharge him he was sleeping and suddenly his heart rate went up into the 130s. Sinus rhythm. Despite having a negative years test and low D-dimer I did do a CT scan due to unexplained tachycardia. He does not have a pulmonary embolism. He would that he did drink alcohol last night. Although he does have elevation in his liver enzymes. He has no elevated bilirubin. At this time I suspect he has atypical chest pain possibly a costochondritis since it is mildly reproducible. He was given Toradol here in the ED. At this time I do not see that he needs to stay in the hospital for further evaluation. Patient does admit to being a little bit shaky now he is mildly tachycardic at 114 I do not suspect sepsis or infection suspect more of a mild alcohol withdrawal. He says that he has not ready for detox and going to go home and drink. We talked about if he decides to quit he needs to go to detox YEARS Algorithm for Pulmonary Embolism (PE) from [employer] on 07/08/2024 All calculations should be rechecked by clinician prior to use RESULT SUMMARY: PE excluded YEARS algorithm rules out PE (0.43% with symptomatic VTE during 3-month follow-up) INPUTS: patient ?> 0 = No Clinical signs of DVT ?> 0 = No Hemoptysis ?> 0 = No PE most likely diagnosis ?> 0 = No D-dimer >=,000 ng/mL FEU ?> 0 = No Discharge Plan Departure Patient Disposition: Home Clinical Impression: Atypical chest pain Instructions: DI for Atypical Chest Pain Activity Restrictions/Additional Instructions: *You have been diagnosed with atypical chest *What to do: At this time no evidence of heart attack or blood clot. I do recommend that you stretching intake Tylenol or ibuprofen as needed. *Continue to take medications as directed *Follow up with your primary care provider in 2-3 days or call [phone] *Return to ER if you should have increasing chest pain shortness of breath or any new, worsening or concerning symptoms Prescriptions: No Action losartan 50 mg Tablet 25 mg PO DAILY escitalopram oxalate 10 mg Tablet 10 mg PO DAILY Referrals: Chiara Lyons MD [Primary Care Provider] - Stand Alone Forms: Patient Portal/API
--- NOTE | 2024-07-08 11:55 | EKG_ITS ---
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
[2024-07-08 11:56] LABS: D Dimer 753 ng/ml (<500)
[2024-07-08] MEDS: KETOROLAC 30 MG/ML VIAL 15 MG IV (11:58)
[2024-07-08] MEDS: ALBUTEROL 2.5 MG/3 ML NEB (ADULT) INH (12:02)
[2024-07-08 13:20] LABS: Troponin I < 0.012 ng/mL (0.01-0.034)
--- NOTE | 2024-07-08 13:58 | DI.CT.S_ITS ---
PROCEDURE: CT ANGIO CHEST PE PROTOCOL INDICATIONS: chest pain TECHNIQUE: After the administration of intravenous contrast, 2 mm thick sections acquired from the pulmonary apices to the posterior costophrenic angles. 3-dimensional maximum intensity projection (MIP) coronal and sagittal reformats were then acquired through the thorax. For radiation dose reduction, the following was used: automated exposure control, adjustment of mA and/or kV according to patient size. COMPARISON: [facility], CR, XR CHEST 1V, 07/08/2024, 10:43. FINDINGS: Image quality: Diagnostic Lungs and pleura: No dense airspace disease or pleural effusions. No overtly suspicious pulmonary nodule. Mediastinum, heart, and esophagus: No acute pulmonary embolism. No hiatal hernia. Normal heart size. No pathologic lymph nodes by size criteria Chest wall and thyroid: Unremarkable Upper abdomen: Possible hepatic steatosis. No gross abnormality on these arterial phase images Bones: No acute or suspicious osseous finding. IMPRESSION: No acute pulmonary embolism or airspace disease. No pleural effusions. Dictated by: Micah Herrmann M.D. on 07/08/2024 at 14:59 Approved by: Micah Herrmann M.D. on 07/08/2024 at 15:02
[2024-07-08] MEDS: SODIUM CHLORIDE 0.9% 1,000 ML 1000 ML IV (14:21)
== END 2024-07-08 15:39 | disposition home or self-care (01) ==
PROVIDERS: Emergency Provider Emergency Medicine; PCP Family Medicine
DX: R07.89 Other chest pain (principal)
CPT/HCPCS: 36415; 71045; 71275; 80053; 82550; 83690; 83735; 83880; 84484; 85025; 85379; 85610; 85730; 93005; 94640; 96361; 96374; 99284; 99285; J1885; J7613; Q9967

== ENCOUNTER 2025-01-16 15:13 | Emergency (ER) | payer OTHER, SELFPAY ==
[2023-09-16 11:17] VITALS: BMI 33.5
[2025-01-16] VITALS (13 sets, daily range): BP systolic 117–160; BP diastolic 67–92; PULSE 56–93; RESP 16–18; TEMP 36.3; O2SAT 96–98; BMI 34.7
[2025-01-16 15:52] LABS: Add Manual Diff / Slide Review NO; Basophils Absolute Auto 0 /uL (0-100); Basophils Percent Auto 0.4 % (0-2); Eosinophils Absolute Auto 200 /uL (0-450); Eosinophils Percent Auto 1.6 % (2-4); Hematocrit 43.5 % (41-53); Hemoglobin 14.7 g/dL (13.5-17.5); Lymphocytes Absolute Auto 2700 /uL (1100-4500); Lymphocytes Percent Auto 26.3 % (25-40); Mean Corpuscular HGB Conc 33.8 % (30-36); Mean Corpuscular Volume 82.9 fL (80-100); Monocytes Absolute Auto 700 /uL (0-900); Monocytes Percent Auto 6.8 % (3-14); Neutrophils Absolute Auto 6700 /uL (1500-7000); Neutrophils Percent Auto 64.9 % (50-75); Platelet Count 240 X10^3/uL (150-400); Red Blood Cell Count 5.24 X10^6/uL (4.5-5.9); Red Cell Distribution Width 15.1 % (11.6-14.8); White Blood Cell Count 10.4 X10^3/uL (4.5-11.0)
[2025-01-16 16:02] LABS: Alanine Aminotransferase 23 IU/L (<50); Albumin 4.4 g/dL (3.5-5.0); Albumin Globulin Ratio 1.5 (1.0-2.8); Alkaline Phosphatase 82 U/L (38-126); Aspartate Aminotransferase 28 IU/L (17-59); BUN Creatinine Ratio 10.3 (6-22); Bilirubin Total 0.5 mg/dL (0.2-1.3); Blood Urea Nitrogen 9 mg/dL (9-20); Calcium 9.2 mg/dL (8.4-10.2); Carbon Dioxide 24 mmol/L (22-32); Chloride 107 mmol/L (98-107); Estimated Glomerular Filt Rate > 60 mL/min (>60); Glucose 140 mg/dL (70-100); HEMOLYSIS < 15 (0-50); Lipase 22 U/L (23-300); Potassium 3.8 mmol/L (3.4-5.1); Sodium 140 mmol/L (137-145); Total Protein 7.4 g/dL (6.3-8.2)
[2025-01-16] MEDS: ONDANSETRON 4 MG/2 ML INJ IV (16:46)
[2025-01-16] MEDS: KETOROLAC 30 MG/ML VIAL 15 MG IV (17:21)
[2025-01-16 17:49] LABS: Ictotest Urine Negative (Negative)
[2025-01-16 18:00] LABS: Amorphous Sediment Urine 3+; Bacteria Urine None Seen; Squamous Epithelial Cell Urine None Seen (0-5/HPF); Urine Volume 10mL (spun); WBC Urine None Seen (0-5/HPF)
[2025-01-16 18:01] LABS: Culture Indicated Urine Cult Not Indicated; RBC Urine 30-100/HPF (0-5/HPF)
--- NOTE | 2025-01-16 18:22 | DI.CT.S_ITS ---
PROCEDURE: CT ABDOMEN PELVIS WO CON INDICATIONS: Flank pain TECHNIQUE: Axial sections were acquired from the lung bases to the pubic symphysis. Coronal and sagittal reformats were performed. For radiation dose reduction, the following was used: automated exposure control, adjustment of mA and/or kV according to patient size. COMPARISON: [facility], CT, CT ABDOMEN PELVIS WITH CONTRAST, 07/16/2022, 16:04. FINDINGS: Image quality: Diagnostic. Lower Chest: No significant findings. URINARY: Right Kidney: Mild hydronephrosis. No renal calculi. Right Ureter: 3 mm calculus at the distal right ureterovesicular junction versus in the posterior bladder. Mild periureteral fat stranding. Left Kidney: No stones or hydronephrosis. Left Ureter: No hydroureter. Bladder: Normal wall thickness. No stones. ABDOMEN: Liver: No contour-deforming solid mass. Gallbladder: No radiopaque gallstones or wall thickening. Biliary ducts: No biliary dilation. Pancreas: Focally dilated pancreatic duct at the pancreatic head and neck does not appear significantly changed when compared to the CT from 07/16/2022. Spleen: Size is within normal limits. Adrenal Glands: No adrenal nodules. Stomach and Bowel: Normal colonic caliber, without significant wall thickening. Normal appendix. Peritoneum: No abnormal intraperitoneal fluid. No free air. Ventral Wall: No hernia. Abdominal Nodes: No enlarged retroperitoneal or mesenteric lymph nodes. Vessels: Aorta and inferior vena cava are normal in size. PELVIS: Pelvic Organs: Unremarkable. Pelvic Nodes: Unremarkable. Miscellaneous: No inguinal hernias are seen. Bones: Unremarkable. IMPRESSION: 3 mm calculus at the right ureterovesicular junction versus posterior right bladder. Mild periureteral fat stranding and mild right hydronephrosis. Mild pancreatic ductal dilatation at the pancreatic head and neck does not appear significantly changed when compared to the prior CT from 07/16/2022. Approved by: Silviano Mcbride M.D. on 01/16/2025 at 18:42
--- NOTE | 2025-01-16 18:44 | ED_ITS ---
HPI - General Adult General Chief complaint: Abdominal Pain Stated complaint: Severe R Abd Px Time Seen by Provider: 01/16/25 18:22 Source: patient and family Mode of arrival: Wheelchair History of Present Illness HPI narrative: 34-year-old male with no history of prior kidney stones, had remote impairment trauma age 9 with liver laceration, no other injuries or surgeries abdominopelvic, has right-sided abdominal pain since yesterday, no nausea or vomiting. No fevers or chills. No painful or frequent urination. No cough or shortness of breath. Denies chest pain. Related Data Home Medications Medication Instructions Recorded Confirmed losartan 50 mg tablet 25 mg PO DAILY 02/23/22 09/16/23 escitalopram oxalate 10 mg tablet 10 mg PO DAILY 09/16/23 09/16/23 Previous Rx's Medication Instructions Recorded hydrocodone 5 mg-acetaminophen 325 1 tab PO Q6H PRN pain #10 tabs 01/16/25 mg tablet naproxen 500 mg tablet 500 mg PO BID 7 days #14 tabs 01/16/25 tamsulosin 0.4 mg capsule 0.4 mg PO DAILY #14 caps 01/16/25 Allergies Allergy/AdvReac Type Severity Reaction Status Date / Time No Known Drug Allergies Allergy Verified 01/16/25 15:26 Patient History Medical History Acute hypokalemia Tachycardia Pseudocyst of pancreas Alcohol withdrawal Hypertension Asthma, exercise induced Patient denies medical problems Surgical History No history of previous surgery Family History Father Hypertension Alcoholism Mother No significant medical problems Social History household members: spouse and children Smoking Status: Current every day smoker alcohol intake: current Smoking Status: Current every day smoker alcohol intake frequency: 3 or more drinks per day Alcohol type: hard liquor Exam Narrative Exam Narrative: GENERAL: Well-developed patient, in mild distress. HEAD: Atraumatic. Normocephalic. EYES: Pupils equal round and reactive. Extraocular motions intact. No scleral icterus. No injection or drainage. ENT: Nose without bleeding, purulent drainage. Throat without erythema, tonsillar hypertrophy or exudate. Airway patent. NECK: Trachea midline. Non tender CARDIOVASCULAR: Regular rate and rhythm without murmurs, gallops, or rubs. RESPIRATORY: Clear to auscultation. Breath sounds equal bilaterally. No wheezes, rales, or rhonchi. GASTROINTESTINAL: Small horizontal 3 cm well-healed right upper quadrant scar from childhood impairment injury, nontender nondistended. EXTREMITIES: No edema or joint tenderness. BACK: Nontender without deformity or crepitance. No flank tenderness. NEURO: AOx3. Motor functions grossly nonfocal SKIN: No rash or erythema of visible areas Initial Vital Signs Initial Vital Signs: Vital Signs Temperature 97.3 F L 01/16/25 15:26 Pulse Rate 87 01/16/25 15:26 Respiratory Rate 18 01/16/25 15:26 Blood Pressure 160/85 H 01/16/25 15:26 Pulse Oximetry 96 01/16/25 15:26 Oxygen Delivery Method Room Air 01/16/25 15:26 Course Orders Ordered: ED Orders 01/16/25 15:43 Complete Blood Count AUTO DIFF Stat Comprehensive Metabolic Panel Stat Lipase Stat 01/16/25 16:34 Ictotest Urine Stat Urine Microscopic Stat 01/16/25 18:22 CT abdomen pelvis wo con Stat Discontinued Medications Hydrocodone Bitart/Acetaminophen (Hydrocodone/Acet 5/325 Tablet) 1 tab PO NOW ONE Stop: 01/16/25 19:22 Last Admin: 01/16/25 19:37 Dose: 1 tab Documented By: EMMA Ketorolac Tromethamine (Ketorolac 30 Mg/Ml Vial) 15 mg IV NOW ONE Stop: 01/16/25 17:01 Last Admin: 01/16/25 17:21 Dose: 15 mg Documented By: EMMA Ondansetron HCl (Ondansetron 4 Mg/2 Ml Inj) 4 mg IV NOW PRN PRN Reason: Nausea And Vomiting Last Admin: 01/16/25 16:46 Dose: 4 mg Documented By: EMMA Ondansetron HCl (Ondansetron 4 Mg Odt) 4 mg PO NOW PRN PRN Reason: Nausea And Vomiting Tamsulosin HCl (Tamsulosin 0.4 Mg Capsule) 0.4 mg PO NOW ONE Stop: 01/16/25 19:22 Last Admin: 01/16/25 19:37 Dose: 0.4 mg Documented By: EMMA Vital Signs Vital signs: Vital Signs - 8 hr 01/16/25 15:26 01/16/25 15:37 01/16/25 15:38 Temperature 97.3 F L Pulse Rate 87 93 H Respiratory Rate 18 16 Blood Pressure 160/85 H 151/89 H Pulse Oximetry 96 97 Oxygen Delivery Method Room Air Room Air 01/16/25 15:38 01/16/25 16:00 01/16/25 16:00 Temperature Pulse Rate 90 76 Respiratory Rate Blood Pressure 126/67 Pulse Oximetry 97 98 Oxygen Delivery Method 01/16/25 16:35 01/16/25 16:35 01/16/25 17:00 Temperature Pulse Rate 71 Respiratory Rate Blood Pressure 143/92 H 127/74 Pulse Oximetry 98 Oxygen Delivery Method 01/16/25 17:00 01/16/25 17:30 01/16/25 17:30 Temperature Pulse Rate 74 69 Respiratory Rate 16 Blood Pressure 152/86 H Pulse Oximetry 98 97 Oxygen Delivery Method Room Air 01/16/25 18:00 01/16/25 18:01 01/16/25 18:01 Temperature Pulse Rate 64 56 L Respiratory Rate Blood Pressure 120/68 Pulse Oximetry 97 96 Oxygen Delivery Method 01/16/25 18:34 01/16/25 19:00 01/16/25 19:25 Temperature Pulse Rate 75 69 70 Respiratory Rate 16 16 Blood Pressure 126/73 126/73 Pulse Oximetry 97 97 97 Oxygen Delivery Method 01/16/25 19:30 Temperature Pulse Rate 71 Respiratory Rate Blood Pressure 117/73 Pulse Oximetry 97 Oxygen Delivery Method Medical Decision Making Lab Data Lab results reviewed: Yes I reviewed the patient's lab results. Lab results narrative: White blood cell count 91599, hemoglobin 14.7, platelets adequate. Glucose 140. Renal function normal. Electrolytes and carbon dioxide normal. Liver functions and lipase normal. Urinalysis dip positive for blood, no inflammatory cells or bacteria, no urine culture indicated. 01/16/25 15:43 01/16/25 15:43 Labs: Lab Results 01/16/25 01/16/25 Range/Units 15:43 16:34 WBC 10.4 (4.5-11.0) X10^3/uL RBC 5.24 (4.5-5.9) X10^6/uL Hgb 14.7 (13.5-17.5) g/dL Hct 43.5 (41-53) % MCV 82.9 (80-100) fL MCH 28.0 (26-34) PG MCHC 33.8 (30-36) % RDW 15.1 H (11.6-14.8) % Plt Count 240 (150-400) X10^3/uL Neut % (Auto) 64.9 (50-75) % Lymph % (Auto) 26.3 (25-40) % [place] % (Auto) 6.8 (3-14) % Eos % (Auto) 1.6 L (2-4) % Baso % (Auto) 0.4 (0-2) % Neut # (Auto) 6700 (0588-0834) /uL Lymph # (Auto) 2700 (9682-6431) /uL [place] # (Auto) 700 (0-900) /uL Eos # (Auto) 200 (0-450) /uL Baso # (Auto) 0 (0-100) /uL Sodium 140 (137-145) mmol/L Potassium 3.8 (3.4-5.1) mmol/L Chloride 107 (98-107) mmol/L Carbon Dioxide 24 (22-32) mmol/L BUN 9 (9-20) mg/dL Creatinine 0.87 (0.66-1.25) mg/dL Estimated GFR > 60 (>60) mL/min BUN/Creatinine Ratio 10.3 (6-22) Glucose 140 H (70-100) mg/dL Calcium 9.2 (8.4-10.2) mg/dL Total Bilirubin 0.5 (0.2-1.3) mg/dL AST 28 (17-59) IU/L ALT 23 (<50) IU/L Alkaline Phosphatase 82 (38-126) U/L Total Protein 7.4 (6.3-8.2) g/dL Albumin 4.4 (3.5-5.0) g/dL Globulin 3.0 (1.7-4.1) g/dL Albumin/Globulin Ratio 1.5 (1.0-2.8) Lipase 22 L (23-300) U/L Ur Bilirubin Confirm Negative (Negative) Urine RBC 30-100/hpf H (0-5/HPF) Urine WBC None seen (0-5/HPF) Ur Squamous Epith Cells None seen (0-5/HPF) Amorphous Sediment 3+ Urine Bacteria None seen (None) Ur Culture Indicated? Cult not indicated Vol Urine Centrifuged 10ml (spun) Urine Dip Bedside Urine Glucose Negative Bedside Urine Bilirubin + 1 Bedside Urine Ketone - Negative Urine Specific [place] 1.025 Bedside Urine Occult Blood +++ Bedside Urine pH 6.0 Bedside Urine Protein + 30 Bedside Urine Urobilinogen - Negative Bedside Urine Nitrite - Negative Bedside Urine Leukocytes +/- 15 Esterase Point of care testing: Urine Dip Bedside Urine Glucose Negative Bedside Urine Bilirubin + 1 Bedside Urine Ketone - Negative Urine Specific [place] 1.025 Bedside Urine Occult Blood +++ Bedside Urine pH 6.0 Bedside Urine Protein + 30 Bedside Urine Urobilinogen - Negative Bedside Urine Nitrite - Negative Bedside Urine Leukocytes +/- [address] scan - abdomen/pelvis: Radiologist's Impression: [address] [address] [address] Scan Report Signed Patient: Tc Marcelino MR#: [id number] : 1990 Acct:[id number] Age/Sex: 34 / M Date of Service: 01/16/25 Loc: ED Accession Number: [id number] Procedure: CT abdomen pelvis wo con Ordering Provider: Percy Hayden MD PROCEDURE: CT ABDOMEN PELVIS WO CON INDICATIONS: Flank pain TECHNIQUE: Axial sections were acquired from the lung bases to the pubic symphysis. Coronal and sagittal reformats were performed. For radiation dose reduction, the following was used: automated exposure control, adjustment of mA and/or kV according to patient size. COMPARISON: [facility], CT, CT ABDOMEN PELVIS WITH CONTRAST, 07/16/2022, 16:04. FINDINGS: Image quality: Diagnostic. Lower Chest: No significant findings. URINARY: Right Kidney: Mild hydronephrosis. No renal calculi. Right Ureter: 3 mm calculus at the distal right ureterovesicular junction versus in the posterior bladder. Mild periureteral fat stranding. Left Kidney: No stones or hydronephrosis. Left Ureter: No hydroureter. Bladder: Normal wall thickness. No stones. ABDOMEN: Liver: No contour-deforming solid mass. Gallbladder: No radiopaque gallstones or wall thickening. Biliary ducts: No biliary dilation. Pancreas: Focally dilated pancreatic duct at the pancreatic head and neck does not appear significantly changed when compared to the CT from 07/16/2022. Spleen: Size is within normal limits. Adrenal Glands: No adrenal nodules. Stomach and Bowel: Normal colonic caliber, without significant wall thickening. Normal appendix. Peritoneum: No abnormal intraperitoneal fluid. No free air. Ventral Wall: No hernia. Abdominal Nodes: No enlarged retroperitoneal or mesenteric lymph nodes. Vessels: Aorta and inferior vena cava are normal in size. PELVIS: Pelvic Organs: Unremarkable. Pelvic Nodes: Unremarkable. Miscellaneous: No inguinal hernias are seen. Bones: Unremarkable. IMPRESSION: 3 mm calculus at the right ureterovesicular junction versus posterior right bladder. Mild periureteral fat stranding and mild right hydronephrosis. Mild pancreatic ductal dilatation at the pancreatic head and neck does not appear significantly changed when compared to the prior CT from 07/16/2022. Approved by: Silviano Mcbride M.D. on 01/16/2025 at 18:42 MDM Narrative Medical decision making narrative: 34-year-old male with atraumatic right flank pain, no known history of stones, no fevers, afebrile, sirs screen negative, comfortable appearing. IV Toradol given with improved symptoms still having some pain. Screening labs unremarkable. Some blood in urine but not otherwise infected. CT abdomen and pelvis imaging ordered. CT abdomen/pelvis shows 3 mm right-sided distal ureteral stone. No renal abscess. Also mentioned of pancreatic ductal dilatation but on change from prior comparison study. See radiology report. Patient given oral hydrocodone/APAP dose. Home pack provided. Prescription sent to his pharmacy. With prescription for naproxen and tamsulosin if needed. Follow up with Urology, given local urology clinic contact information. Stable, improved. Discharged home. Return precautions discussed. Discharge Plan Departure Patient Disposition: Home Clinical Impression: Right ureteral calculus Activity Restrictions/Additional Instructions: Mr Marcelino, You had right-sided flank discomfort without known trauma. No fevers, unremarkable examination and vital signs. Screening labs reassuring. Urine dip positive for blood but not obviously infected. CT scan shows presence of right- sided distal 3 mm diameter kidney stone within the right ureter between the kidney in the bladder, fairly close to the bladder. Hopefully this is small enough in far enough down toward the bladder that this will pass easily without Urology surgical interventions. Consider follow up with local urologists, contact information given below for Dr. Jarquin who was on-call. Take pain medications as needed to help with pain tell you pass the stone. Some urologists feel tamsulosin medication might help expel the stone, you were interested in trying this, once daily tamsulosin/Flomax medication also prescribed. Follow up with Urology as above. Return to this/nearest emergency department for any change worsening symptoms or any concerns prior. Incidentally also noted on your CT scan was some mild dilation of the pancreatic duct, but apparently this looked the same as a prior study in 2021, of unclear significance, follow up further if needed as an outpatient with your regular doctor. Thank you for allowing our team to evaluate you today. Prescriptions: New tamsulosin 0.4 mg capsule 0.4 mg PO DAILY Qty: 14 0RF hydrocodone-acetaminophen 5-325 mg tablet 1 tab PO Q6H PRN (Reason: pain) Qty: 10 0RF naproxen 500 mg tablet 500 mg PO BID 7 Days Qty: 14 0RF No Action losartan 50 mg Tablet 25 mg PO DAILY escitalopram oxalate 10 mg Tablet 10 mg PO DAILY Referrals: Chiara Lyons MD [Primary Care Provider] - Nick Jarquin MD [Physician] - Stand Alone Forms: Patient Portal/API/Survey
[2025-01-16] MEDS: TAMSULOSIN 0.4 MG CAPSULE PO (19:37)
[2025-01-16] MEDS: HYDROCODONE/ACET 5/325 TABLET 1 TAB PO (19:37)
== END 2025-01-16 19:54 | disposition home or self-care (01) ==
PROVIDERS: Emergency Medicine; Emergency Provider Emergency Medicine; PCP Family Medicine
DX: N20.1 Calculus of ureter (principal); F17.210 Nicotine dependence, cigarettes, uncomplicated; F10.90 Alcohol use, unspecified, uncomplicated
CPT/HCPCS: 36415; 74176; 80053; 81003; 81015; 83690; 85025; 96374; 96375; 99284; J1885; J2405